=== PATIENT | female | born 1945 | race Caucasian/White ===

== ENCOUNTER 2019-01-04 07:17 | Inpatient (IN) ==
[2019-01-04 09:03] LABS: INR 1.1 (0.9-1.1); Prothrombin Time 10.8 Seconds (9.0-12.0)
[2019-01-04] MEDS ORDERED: ACETAMINOPHEN 325 MG TAB PO PRN (10:08)
[2019-01-04] MEDS ORDERED: CARBOHYDRATES FOR HYPOGLYCEMIA PO PRN (10:08)
[2019-01-04] MEDS ORDERED: DEXTROSE 50% 50 ML SYRINGE IV PRN (10:08)
[2019-01-04] MEDS ORDERED: GLUCAGON FOR INJ 1 MG VIAL SQ PRN (10:08)
[2019-01-04] MEDS ORDERED: INSULIN GLARGINE U U SQ SCH (10:08)
[2019-01-04] MEDS ORDERED: LORazepam 0.5 MG/1 ML VIAL IV PRN (10:08)
[2019-01-04] MEDS ORDERED: POLYETHYLENE (MIRALAX) 17 GM PACK PO PRN (10:08)
[2019-01-04] MEDS ORDERED: GLUCOSE 40% GEL 15 GM TUBE PO PRN (10:08)
[2019-01-04] MEDS ORDERED: ONDANSETRON INJ 2 MG/ML 2 ML VIAL IV PRN (10:08)
[2019-01-04] MEDS ORDERED: GLUCOSE 10 TABS/TUBE PO PRN (10:08)
[2019-01-04] MEDS ORDERED: OXYGEN SCH (10:08)
[2019-01-04] MEDS ORDERED: MoRPHine SULFATE 2 MG/ML CARP IV PRN (10:08)
--- NOTE | 2019-01-04 10:37 | XRay Report ---
SINGLE VIEW CHEST CLINICAL HISTORY: Cough. FINDINGS: An AP, portable, upright chest radiograph is compared to study dated 09/15/2018. The examina tion is degraded by portable technique, apical lordotic positioning, and patient rotation. The cardi omediastinal silhouette is unremarkable noting atherosclerotic calcification of the thoracic aorta. E mphysema and chronic interstitial thickening are similar to previous. There are right basilar opaciti es. A small right pleural effusion is not excluded. No pneumothorax is seen. The skeletal structures are osteopenic. The bony thorax is grossly intact. IMPRESSION: 1. There are right basilar airspace opacities which could represent atelectasis and/or pneumonia. Cli nical correlation will be required and radiographic follow-up to resolution is recommended. 2. Emphysematous change is again noted. Electronically signed by: James Marshall M.D. 01/04/2019 10:35 AM
[2019-01-04] MEDS ORDERED: TRAMADOL HCL 50 MG TABLET PO PRN (10:39)
[2019-01-04] MEDS ORDERED: INSULIN GLARGINE SOLOSTAR 100 UNITS/ML 3 ML PEN SC ONE (10:45)
[2019-01-04] MEDS: methylPREDNISolone 40 MG in SYRINGE 0 ML IV SCH ×2 (10:46→20:47)
[2019-01-04] MEDS: ALBUT/IPRATROP 3MG/0.5MG NEB 3 ML VIAL NEB SCH ×4 (11:18→23:16)
[2019-01-04 11:32] LABS: Hematocrit (blood only) 36.3 % (37-47); Hemoglobin 11.4 g/dL (12.0-16.0); Mean Corpuscular Hgb Conc 31.4 g/dL (32-36); Mean Corpuscular Volume 87.1 fL (80-100); Platelet Count 232 K/uL (130-400); RDW Coefficient of Variation 16.3 % (11.5-14.5); RDW Standard Deviation 51.9 fL (36.4-46.3); Red Blood Count 4.17 M/uL (4.2-5.4); White Blood Count 10.17 K/uL (4.8-10.8)
[2019-01-04] MEDS: SERTRALINE HCL 50 MG TABLET PO SCH (11:44)
[2019-01-04] MEDS: FEXOFENADINE HCL 180 MG TAB PO SCH (11:45)
[2019-01-04] MEDS: AMLODIPINE BESYLATE 5 MG TAB PO SCH (11:46)
[2019-01-04] MEDS: POTASSIUM CHLORIDE 20 MEQ TABCR PO SCH ×2 (11:46→20:47)
[2019-01-04] MEDS: ISOSORBIDE MONO EXTENDED REL 30 MG TABCR PO SCH (11:47)
[2019-01-04] MEDS: GABAPENTIN 100 MG CAP PO SCH ×2 (11:47→20:47)
[2019-01-04] MEDS: LOSARTAN POTASSIUM 50 MG TAB PO SCH (11:47)
[2019-01-04] MEDS: guaiFENesin 600 MG TABCR PO SCH ×2 (11:48→20:47)
[2019-01-04] MEDS: PANTOprazole 40 MG TAB PO SCH ×2 (11:48→20:47)
[2019-01-04] MEDS: FUROSEMIDE 20 MG TAB PO SCH (11:48)
[2019-01-04] MEDS: METAXALONE 800 MG TABLET PO SCH ×2 (11:49→20:47)
[2019-01-04] MEDS: METOPROLOL SUCC 50MG EXT REL TAB PO SCH ×2 (11:49→20:47)
[2019-01-04] MEDS: INSULIN ASPART 100 UNITS/ML 3 ML PEN SC SCH ×3 (12:05→21:05)
--- NOTE | 2019-01-04 12:33 | Consultation Report ---
DATE OF CONSULTATION: 01/04/2019 PULMONARY MEDICINE CONSULTATION REASON FOR CONSULTATION: 1. Chronic obstructive pulmonary disease exacerbation. 2. Chronic bronchiectasis with mucoid impaction. 3. History of adenocarcinoma of the lung. HISTORY OF PRESENT ILLNESS: A 73-year-old white female followed extensively by Ashish Ledesma/physician human services assistant in our pulmonary practice along with Jennifer Viramontes, midlevel provider in [place]. The patient has severe COPD and chronic bronchiectasis, was last seen in clinic on 12/15/2018. She has noted increased dyspnea with exertion to the point where this week could not navigate ambulation or climbing stairs or walking up a grade without severe dyspnea, wheezing and congestion. No hemoptysis or pleuritic pain has been noted. She has been on oxygen continually. Denies fevers, chills or sweats. She has average 2 packs of cigarettes a day, began smoking at age 22, quit in the year 1999. She uses a nebulizer with DuoNeb solution 4 times daily, was on oxygen at 4 liters continually along with diuresis and Plavix therapy, and beta blockade. She is status post right thoracotomy, right middle lobectomy that was performed in March 2014. She had a stormy postoperative course requiring extensive rehabilitation. She had a stage I lung cancer with 0 of 7 lymph nodes negative for malignancy. She did not receive postoperative chemoradiation. The patient is on multiple antibiotics and steroid therapy prior to the consideration of bronchoscopy this morning, but when she arrived here, she was markedly dyspneic and congested. She often sees Ashish Ledesma at [facility], suffers from diabetes mellitus, esophageal reflux, dyslipidemia and adenocarcinoma of the lung along with allergic rhinitis. In May 2018, she was admitted with acute on chronic respiratory failure, responded to BiPAP therapy along with aggressive management, although she did not tolerate BiPAP well. CT scan on 06/05/2018 showed left lower lobe atelectasis with a small effusion and extrinsic compression of the left lower lobe bronchus. ABGs in the past have shown marked A-a gradient and she has required O2 supplementation at 4 liters. She had been under the care of Dr. Ocampo previously. FEV1 in the remote past was 1.27 liters or 59% of predicted. She has undergone cardiac catheterization with stent placement in 2000. For details of past medical history, medications, family and social history, I refer you to current and past record. Most recent hospitalization and discharge was October 2018 for COPD exacerbation. ALLERGIES: SHE HAS ALLERGIES TO SULFA, FENTANYL, LEVOFLOXACIN AND ONE OF THE STATINS. PHYSICAL EXAMINATION: GENERAL: Reveals well-developed, well-nourished elderly white female appearing older than stated age. VITAL SIGNS: Heart rate 110 and regular, respiratory rate 26, O2 sat 90% on 4 liters, blood pressure 140/80. SKIN: Without lesion. HEENT: Atraumatic, normocephalic. PERRLA. LUNGS: Coarse wheezes diffusely with marked hyperresonance. CARDIAC: Regular rate and rhythm. Sinus tachycardia. No murmurs or gallops. ABDOMEN: Soft, protuberant. No evidence for hepatosplenomegaly. EXTREMITIES: Trace to +1 pedal edema. No clubbing. Peripheral cyanosis. NEUROLOGIC: Intact. No lateralizing signs. LABORATORY DATA: Pending. Most recent CT scan reviewed on 12/04/2018, this is of the abdomen and pelvis, but does show emphysematous changes involving the lung and the CAT scan and CTA done in September 2018, that lead to the admission, did not show any acute infiltrate and stable chronic changes noted. OVERALL ASSESSMENT: A 73-year-old with severe chronic obstructive pulmonary disease, chronic bronchiectasis, previous right middle lobectomy for stage I adenocarcinoma of the lung, now with acute exacerbations, previous infection secondary to Stenotrophomonas maltophilia. The patient will be admitted to the hospital for treatment of her chronic obstructive pulmonary disease exacerbation, acute pulmonary toilet that will require also aerosolized bronchodilator, IV Solu-Medrol and coverage, especially for Stenotrophomonas maltophilia with gram-negative coverage. The patient cannot undergo bronchoscopic evaluation with BAL today due to severe bronchospasm and O2 requirements, but may need to be considered for bronchoscopy with BAL after several days of aggressive medical therapy if that consideration is warranted.
--- NOTE | 2019-01-04 12:38 | History & Physical Report ---
Date of Service January 04, 2019 Assessment & Plan (1) COPD with acute exacerbation: chronic hypoxic respiratory failure Intravenous Solu-Medrol 40 every 12 Duo nebs 4 times daily ER Continuing guaifenesin Supplemental oxygen at home is 4 L Will reengage with pulmonary medicine if she improves to consider having her bronchoscopy while she is an inpatient Concern for bronchitis patient will be on Ceftriaxone/azithromycin, cxr cannot rule out right basilar changes that could be pneumonia or atelectasis (2) Depression: Patient will continue her Zoloft (3) Coronary artery disease: Patient is been without anginal symptoms she is maintained on isosorbide, losartan, Toprol-XL, amlodipine, Crestor, and Lasix. Antiplatelets have been held for her procedure (4) Diabetes: Patient states she typically takes 80 units of Toujeo at home with sliding scale. As her diet will change her should be on a carbohydrate restricted diet will reduce her Toujeo have her on sliding scale with carb coverage and correction factor (5) DVT prophylaxis: Heparin subcu for DVT prevention History of Present Illness Primary Care Provider: Jennifer Viramontes 73-year-old female who came in for an outpatient bronchoscopy. Patient typically follows with Dr. Steele and does wear 4 L of oxygen at home. She suffers from pulmonary disease for a long period of time. She was in her facility most recently in the early winter 2017 where she was treated. At that time she says her sputum turned back to white but most recently she is had increased sputum production which is been yellow. Dr. Steele had her come in for a scheduled bronchoscopy but due to her acute respiratory failure felt she was too unstable to perform bronchoscopy with anesthesia and recommended admission for acute on chronic respiratory failure with possible bronchitis Patient denies any other changes to her health she typically is very dyspneic with minimal exertion although having no chest pain associated with it. The sputum production as mentioned above is changed. She has no bowel or bladder changes she said no recent thrush Allergies Allergy/AdvReac Type Severity Reaction Status Date / Time fentanyl Allergy Intermediate RASH Verified 01/04/19 07:48 levofloxacin Allergy Intermediate UNKNOWN Verified 01/04/19 07:48 Penicillins Allergy Intermediate RASH Verified 01/04/19 07:48 Ethanol Allergy Intermediate RASH Uncoded 03/18/16 07:51 Home Medications Home Medications Medication Instructions Recorded Confirmed Type ALBUTEROL SULFATE (PROAIR HFA) 2 puff INHALATION QID #0 12/27/13 01/04/19 History Amlodipine (Norvasc) 10 mg PO QAM #0 tab 12/27/13 01/04/19 History Clopidogrel Bisulfate (Clopidogrel) 75 mg PO QAM #0 12/27/13 01/04/19 History MONTELUKAST SODIUM (SINGULAIR) 10 mg PO QPM #0 tab 12/27/13 01/04/19 History Metoprolol Succinate (Toprol Xl) 100 mg PO BID #0 12/27/13 01/04/19 History Rosuvastatin Calcium (Crestor) 20 mg PO QPM #0 12/27/13 01/04/19 History Isosorbide Mononitrate Ext Rel 30 mg PO QAM #0 tab 12/29/13 01/04/19 History (Imdur Ext Rel) Cyanocobalamin (Vitamin B-12 Inj) 1,000 mcg IM 2XMONTH #0 01/19/14 01/04/19 History DUONEB 2 inh INHALATION Q4-HRSPRN PRN #0 01/19/14 01/04/19 History MOMETASONE FUROATE-FORMOTEROL 2 puff INHALATION BID #0 01/19/14 01/04/19 History (DULERA 100/5 MCG) HOME O2 THERAPY (Oxygen) 4 liters NA DAILY 30 Days #0 02/05/14 01/04/19 Rx FEXOFENADINE HCL (BERNARD ALLERGY) 1 tab PO DAILY 30 Days #30 tab 12/19/15 01/04/19 History Nitroglycerin (Nitrostat) 0.4 mg UT PRN #0 btl 12/19/15 01/04/19 History Potassium Chloride (Micro-K Ext 20 meq PO BID #0 cap 12/19/15 01/04/19 History Rel) Tramadol (Ultram) 1 tab PO TID PRN 30 Days #90 tab 12/19/15 01/04/19 History Triamcinolone Acet 0.1% 1 applic TOPICAL TID PRN #0 12/19/15 01/04/19 History (Aristocort 0.1%) doxycycline hyclate 100 mg PO BID 01/04/19 01/04/19 History furosemide 10 mg PO DAILY 01/04/19 01/04/19 History gabapentin 100 mg PO BID 01/04/19 01/04/19 History guaifenesin [Mucinex] 600 mg PO BID 01/04/19 01/04/19 History insulin aspart U-100 [Novolog 1 sliding scale dose SUBCUT 01/04/19 01/04/19 History U-100 Insulin aspart] USEASDIRECTD insulin glargine U-300 conc 70 unit SUBCUT DAILY 01/04/19 01/04/19 History [Toujeo SoloStar U-300 Insulin] losartan [Cozaar] 100 mg PO DAILY 01/04/19 01/04/19 History metaxalone 800 mg PO BID 01/04/19 01/04/19 History omeprazole magnesium [Prilosec OTC] 20 mg PO BID 01/04/19 01/04/19 History sertraline [Zoloft] 50 mg PO DAILY 01/04/19 01/04/19 History Past Med/Surg History Medical History Anxiety Atrial fibrillation Chronic back pain Chronic obstructive pulmonary disease Chronically on 4 L of oxygen Depression Diabetes mellitus, type 2 GERD (gastroesophageal reflux disease) Hyperlipidemia Hypertension Lung cancer Myocardial Infarction Pneumonia Syncope Valvular heart disease Surgical History History of heart artery stent History of lobectomy of lung Patient had a lobectomy for lung cancer of her right lung 2014 Family History Unknown Diabetes Cancer Social History Preferred Language: Macanese Communication Ability: Effective Visual Impairment: No Limitations Senior Ux Developer Required: No Beliefs That Will Affect Care: None Current Living Situation: Spouse Other Information That Helps Us Care for You: No Feels Safe at Home: Yes Safety Concerns: Feels Safe At This Time Smoking Status: Former smoker Tobacco Type: cigarettes Second Hand Exposure: No Tobacco Cessation Education Requested by Patient: No Hx Alcohol Use: No Hx Substance Use: No Review of Systems Review of Systems: ROS: well nourished well developed. No double vision blurry vision No problems with speech or swallowing No palpitations, chest pain or pressure dyspnea on exertion, cough with yellow sputum No abdominal pain nausea vomiting diarrhea changes in appetite or weight No burning urine urine frequency or changes in color No focal joint pain or muscle pain No skin rashes or oral lesions No unusual bruising or bleeding No focused back pain or numbness or loss of strength No changes in memory or confusion Physical Exam Physical Exam: The patient appeared well nourished and in mild to moderated respiratory distress Vital signs as documented. Head exam is unremarkable. normocephalic, atraumatic Neck is without jugular venous distension, thyromegaly, or lymphademopathy Lungs are with poor air movement, loose cough, rales at base, wheezes at apex Cardiac exam reveals Rate controlled, irregular, systolic murmur Abdominal exam reveals normal bowel sounds, no masses, no organomegaly Extremities are nonedematous and both pedal pulses are present Neurologic exam is A&Ox3, no focal deficits, strength is equal bilateral Psychologically seems neither anxious or depressed Skin is warm Dry without bruises or lesions Results & Data Vital Signs (Past 12 Hours) Vital Signs Temp Pulse Resp BP Pulse Ox 01/04/19 11:18 61 16 90 01/04/19 10:13 36.8 C 67 20 156/70 H 92 01/04/19 08:09 37.1 C 78 24 140/62 96 PG Care Time/CCT Total # of Minutes Spent Total Time Spent with Patient: Total time spent is greater than 50% in coordination of care (as documented) at patient's floor/unit and/or counseling patient:
[2019-01-04] MEDS ORDERED: AZITHROMYCIN 500 MG in DEXTROSE 5% 250 ML IV ONE (14:00)
[2019-01-04] MEDS ORDERED: cefTRIAXone SODIUM 2,000 MG in DEXTROSE 5% 50 ML IV SCH (14:30)
[2019-01-04] MEDS: HEPARIN SOD 5,000 UNIT/0.5 ML VIAL SQ SCH (20:47)
[2019-01-04] MEDS: ROSUVASTATIN CALCIUM 20 MG TAB PO SCH (20:47)
[2019-01-05] MEDS: ALBUT/IPRATROP 3MG/0.5MG NEB 3 ML VIAL NEB SCH ×6 (03:19→23:00)
[2019-01-05] MEDS ORDERED: METOPROLOL TARTRATE 1 MG/ML VIAL IV ONE (04:50)
[2019-01-05 08:27] LABS: BUN Creatinine Ratio 22.6 (10-20); Calcium 9.7 mg/dl (8.5-10.1); Creatinine Clr Calc Pharmacy 54.9 ml/min; Est GFR (African American) 69.8; Est GFR (Non-African American) 60.3; Potassium 4.4 mmol/L (3.5-5.1)
[2019-01-05] MEDS: SERTRALINE HCL 50 MG TABLET PO SCH (08:53)
[2019-01-05] MEDS: ISOSORBIDE MONO EXTENDED REL 30 MG TABCR PO SCH (08:53)
[2019-01-05] MEDS: PANTOprazole 40 MG TAB PO SCH ×2 (08:54→21:20)
[2019-01-05] MEDS: FEXOFENADINE HCL 180 MG TAB PO SCH (08:54)
[2019-01-05] MEDS: METOPROLOL SUCC 50MG EXT REL TAB PO SCH ×2 (08:54→21:20)
[2019-01-05] MEDS: methylPREDNISolone 40 MG in SYRINGE 0 ML IV SCH (08:54)
[2019-01-05] MEDS: LOSARTAN POTASSIUM 50 MG TAB PO SCH (08:54)
[2019-01-05] MEDS: HEPARIN SOD 5,000 UNIT/0.5 ML VIAL SQ SCH ×2 (08:55→21:17)
[2019-01-05] MEDS: guaiFENesin 600 MG TABCR PO SCH ×2 (08:55→21:20)
[2019-01-05] MEDS: FUROSEMIDE 20 MG TAB PO SCH (08:55)
[2019-01-05] MEDS: POTASSIUM CHLORIDE 20 MEQ TABCR PO SCH ×2 (08:55→21:20)
[2019-01-05] MEDS: AMLODIPINE BESYLATE 5 MG TAB PO SCH (08:57)
[2019-01-05] MEDS: METAXALONE 800 MG TABLET PO SCH ×2 (08:57→21:20)
[2019-01-05] MEDS: GABAPENTIN 100 MG CAP PO SCH ×2 (08:57→21:20)
[2019-01-05] MEDS: INSULIN ASPART 100 UNITS/ML 3 ML PEN SC SCH ×4 (08:59→21:14)
[2019-01-05] MEDS ORDERED: INSULIN GLARGINE SOLOSTAR 100 UNITS/ML 3 ML PEN SC SCH (09:00)
[2019-01-05] MEDS: AZITHROMYCIN 250 MG TAB PO SCH (09:06)
[2019-01-05 09:57] LABS: Estimated Average Glucose 183 mg/dl
--- NOTE | 2019-01-05 10:55 | Infectious Disease Consult ---
Date of Consultation January 05, 2019 Assessment & Plan (1) Multifocal pneumonia: 73-year-old female with severe COPD with worsening respiratory status with possible developing multifocal pneumonia, with recent culture positive for stenotrophomonas. Patient allergic/intolerant of Bactrim and levofloxacin, so will give ceftaz edema as patient already tolerating ceftriaxone. Could consider addition of minocycline if fails to improve. Await bronchoscopy results when able to perform. Procalcitonin ordered. Will follow. (2) Infection due to Stenotrophomonas maltophilia: History of Present Illness Reason for Consultation: Previous Stenotrophomonas infection, penicillin allergy Attending Physician: Alejandro Lehman MD History of Present Illness 73-year-old female with long history of COPD with chronic hypoxia, need for oxygen, multiple admissions for infection, as well as hypertension, coronary artery disease, prior lung resection for cancer, who was admitted with progressively worsening shortness of breath, was scheduled for bronchoscopy but felt too ill for procedure and so admitted to the hospital for further management. Checks x-ray with possibility of multifocal infiltrates. Reportedly recent sputum culture has grown stenotrophomonas. Patient currently being treated with ceftriaxone. Feeling somewhat better this morning. No reported fever. No other significant exposure or travel history. Allergies Allergy/AdvReac Type Severity Reaction Status Date / Time fentanyl Allergy Intermediate RASH Verified 01/04/19 07:48 levofloxacin Allergy Intermediate UNKNOWN Verified 01/04/19 07:48 Penicillins Allergy Intermediate RASH Verified 01/04/19 07:48 Ethanol Allergy Intermediate RASH Uncoded 03/18/16 07:51 Home Medications Home Medications Medication Instructions Recorded Confirmed Type ALBUTEROL SULFATE (PROAIR HFA) 2 puff INHALATION QID #0 12/27/13 01/04/19 History Amlodipine (Norvasc) 10 mg PO QAM #0 tab 12/27/13 01/04/19 History Clopidogrel Bisulfate (Clopidogrel) 75 mg PO QAM #0 12/27/13 01/04/19 History MONTELUKAST SODIUM (SINGULAIR) 10 mg PO QPM #0 tab 12/27/13 01/04/19 History Metoprolol Succinate (Toprol Xl) 100 mg PO BID #0 12/27/13 01/04/19 History Rosuvastatin Calcium (Crestor) 20 mg PO QPM #0 12/27/13 01/04/19 History Isosorbide Mononitrate Ext Rel 30 mg PO QAM #0 tab 12/29/13 01/04/19 History (Imdur Ext Rel) Cyanocobalamin (Vitamin B-12 Inj) 1,000 mcg IM 2XMONTH #0 01/19/14 01/04/19 History DUONEB 2 inh INHALATION Q4-HRSPRN PRN #0 01/19/14 01/04/19 History MOMETASONE FUROATE-FORMOTEROL 2 puff INHALATION BID #0 01/19/14 01/04/19 History (DULERA 100/5 MCG) HOME O2 THERAPY (Oxygen) 4 liters NA DAILY 30 Days #0 02/05/14 01/04/19 Rx FEXOFENADINE HCL (BERNARD ALLERGY) 1 tab PO DAILY 30 Days #30 tab 12/19/15 01/04/19 History Nitroglycerin (Nitrostat) 0.4 mg UT PRN #0 btl 12/19/15 01/04/19 History Potassium Chloride (Micro-K Ext 20 meq PO BID #0 cap 12/19/15 01/04/19 History Rel) Tramadol (Ultram) 1 tab PO TID PRN 30 Days #90 tab 12/19/15 01/04/19 History Triamcinolone Acet 0.1% 1 applic TOPICAL TID PRN #0 12/19/15 01/04/19 History (Aristocort 0.1%) doxycycline hyclate 100 mg PO BID 01/04/19 01/04/19 History furosemide 10 mg PO DAILY 01/04/19 01/04/19 History gabapentin 100 mg PO BID 01/04/19 01/04/19 History guaifenesin [Mucinex] 600 mg PO BID 01/04/19 01/04/19 History insulin aspart U-100 [Novolog 1 sliding scale dose SUBCUT 01/04/19 01/04/19 History U-100 Insulin aspart] USEASDIRECTD insulin glargine U-300 conc 70 unit SUBCUT DAILY 01/04/19 01/04/19 History [Toujeo SoloStar U-300 Insulin] losartan [Cozaar] 100 mg PO DAILY 01/04/19 01/04/19 History metaxalone 800 mg PO BID 01/04/19 01/04/19 History omeprazole magnesium [Prilosec OTC] 20 mg PO BID 01/04/19 01/04/19 History sertraline [Zoloft] 50 mg PO DAILY 01/04/19 01/04/19 History Patient History Medical History Anxiety Atrial fibrillation Chronic back pain Chronic obstructive pulmonary disease Chronically on 4 L of oxygen Depression Diabetes mellitus, type 2 GERD (gastroesophageal reflux disease) Hyperlipidemia Hypertension Lung cancer Myocardial Infarction Pneumonia Syncope Valvular heart disease Surgical History History of heart artery stent History of lobectomy of lung Patient had a lobectomy for lung cancer of her right lung 2013 Family History Unknown Diabetes Cancer Social History Preferred Language: Peruvian Communication Ability: Effective Visual Impairment: No Limitations Hematology Supervisor Required: No Beliefs That Will Affect Care: None Current Living Situation: Spouse Other Information That Helps Us Care for You: No Feels Safe at Home: Yes Safety Concerns: Feels Safe At This Time Smoking Status: Former smoker Tobacco Type: cigarettes Second Hand Exposure: No Tobacco Cessation Education Requested by Patient: No Hx Alcohol Use: No Hx Substance Use: No Review of Systems Review of Systems: All systems reviewed & are unremarkable except as noted in HPI & below Physical Exam Constitutional: WD/WN, vitals as above comfortable; no acute distress Eyes: PERRL, conjunctivae normal, anicteric sclerae ENMT: external ear and nose normal, oropharynx normal Neck: trachea midline, no thyromegaly neck nontender Respiratory: normal percussion; no respiratory distress and does not use accessory muscles Auscultation: + diminished lung sounds and + wheezes (At apices) Cardiovascular: Rate/Rhythm: regular rate and regular rhythm Heart Sounds: normal S1 and normal S2; no gallop, no murmur and no cardiac rub Vessels: normal peripheral pulses; no JVD Gastrointestinal (Abdomen): normal bowel sounds, soft, nontender, no hepatosplenomegaly Musculoskeletal: no cyanosis or clubbing, extremities motor strength 5/5 Spine: thoracic spine normal to inspection and lumbar spine normal to inspection; no cervical spinal tenderness Skin: no rashes, warm and dry normal turgor; no lesions Neurologic: patellar DTR's 2+ bilat, sensation intact no focal motor deficits Psychiatric: A+Ox3, euthymic affect Orientation: cooperative Lymphatic: no cervical or axillary lymphadenopathy no inguinal lymphadenopathy Results & Data Vital Signs (Past 12 Hours) Vital Signs Temp Pulse Pulse Resp BP BP BP 01/05/19 07:42 36.6 C 90 18 154/73 H 01/05/19 06:16 87 20 01/05/19 05:02 90 175/66 H 01/05/19 04:56 90 188/84 H 01/05/19 04:19 91 H 190/76 H 01/05/19 04:10 36.6 C 91 H 19 188/74 H 01/05/19 00:00 90 01/04/19 23:36 36.9 C 88 16 166/69 H Pulse Ox 01/05/19 07:42 91 01/05/19 06:16 91 01/05/19 05:02 01/05/19 04:56 01/05/19 04:19 01/05/19 04:10 96 01/05/19 00:00 01/04/19 23:36 92 Laboratory Results Short CBC 01/04/19 Range/Units 11:16 WBC 10.17 (4.8-10.8) K/uL Hgb 11.4 L (12.0-16.0) g/dL Hct 36.3 L (37-47) % Plt Count 232 (130-400) K/uL BMP 01/05/19 07:40 Sodium 139 Potassium 4.4 Chloride 105 Carbon Dioxide 24 BUN 22 H Creatinine 0.95 Glucose 276 H Calcium 9.7 Diagnostic Findings SINGLE VIEW CHEST CLINICAL HISTORY: Cough. FINDINGS: An AP, portable, upright chest radiograph is compared to study dated 09/15/2018. The examination is degraded by portable technique, apical lordotic positioning, and patient rotation. The cardiomediastinal silhouette is u nremarkable noting atherosclerotic calcification of the thoracic aorta. Emphysema and chronic interstitial thickening are similar to previous. There are right basilar opacities. A small right pleural effusion is not excluded. No pneumothorax is seen. The skeletal structures are osteopenic. The bony thorax is grossly intact. IMPRESSION: 1. There are right basilar airspace opacities which could represent atelectasis and/or pneumonia. Clinical correlation will be required and radiographic follow- up to resolution is recommended. 2. Emphysematous change is again noted. Electronically signed by: James Marshall M.D. 01/04/2019 10:35 AM Dictated: 01/04/19 1032 Transcribed: 01/04/19 1032
--- NOTE | 2019-01-05 13:45 | Hospitalist Progress Note ---
Date of Service January 05, 2019 Assessment & Plan (1) COPD with acute exacerbation: chronic hypoxic respiratory failure Intravenous Solu-Medrol increased to 60 mg every 12 Duo nebs 4 times daily adding arformoterol on 01/05 Continuing guaifenesin as expectorant Supplemental oxygen at home is 4 L Pulmonary medicine is following Concern for bronchitis with a history of stenotrophomonas patient was changed to ceftazidime/azithromycin by infectious disease, cxr cannot rule out right basilar changes that could be pneumonia or atelectasis (2) Depression: Patient remains on Zoloft (3) Coronary artery disease: Patient is been without anginal symptoms she is maintained on isosorbide, losartan, Toprol-XL, amlodipine, Crestor, and Lasix. Antiplatelets have been held for her procedure we will reinstitute when it is clear that there are no immediate plans for bronchoscopy at this time (4) Diabetes: Patient states she typically takes 80 units of Toujeo at home with sliding scale. As her diet will change her should be on a carbohydrate restricted diet, initially did reduce her Toujeo, pharmacy substituted glargine will increase the dose to 45 units at bedtime starting on 01/06, and have her continue on sliding scale with carb coverage and correction factor (5) DVT prophylaxis: Heparin subcu for DVT prevention Subjective Patient has persistent fairly aggressive recurrent cough with production of yellow sputum. Given recommendations from previous Stenotrophomonas infections her antibiotics have been amended by infectious disease to ceftazidime and azithromycin. Patient feels no better from admission Review of Systems Review of Systems: ROS: well nourished well developed. No double vision blurry vision No problems with speech or swallowing No palpitations, chest pain or pressure Persistent shortness of breath wheezing and coughing No abdominal pain nausea vomiting diarrhea changes in appetite or weight No burning urine urine frequency or changes in color No focal joint pain or muscle pain No skin rashes or oral lesions No unusual bruising or bleeding No focused back pain or numbness or loss of strength No changes in memory or confusion Physical Exam Physical Exam: The patient appeared well nourished and in mild to moderate respiratory distress Vital signs as documented. Head exam is unremarkable. normocephalic, atraumatic Neck is without jugular venous distension, thyromegaly, or lymphademopathy Lungs are coarse bilaterally with rhonchi at the bases and wheezing at the apex Cardiac exam reveals Rhythm is regular. Slight systolic ejection murmurs heard at the right upper sternal border Abdominal exam reveals normal bowel sounds, no masses, no organomegaly Extremities are nonedematous and both pedal pulses are present Neurologic exam is A&Ox3, no focal deficits, strength is equal bilateral Psychologically seems neither anxious or depressed Skin is warm Dry Results & Data Vital Signs (Past 12 Hours) Vital Signs Temp Pulse Pulse Resp BP BP Pulse Ox 01/05/19 11:15 73 18 166/74 H 91 01/05/19 11:08 81 16 91 01/05/19 07:42 36.6 C 90 18 154/73 H 91 01/05/19 06:16 87 20 91 01/05/19 05:02 90 175/66 H 01/05/19 04:56 90 188/84 H 01/05/19 04:19 91 H 190/76 H 01/05/19 04:10 36.6 C 91 H 19 188/74 H 96 PG Care Time/CCT Total # of Minutes Spent Total Time Spent with Patient: Total time spent is greater than 50% in coordination of care (as documented) at patient's floor/unit and/or counseling patient:
--- NOTE | 2019-01-05 14:11 | Progress Note ---
DATE: 01/05/2019 PULMONARY MEDICINE PROGRESS NOTE Chart reviewed, the patient examined. SUBJECTIVE: The patient states she is somewhat better since admission, but is extremely breathless this morning and markedly desaturated despite high flow O2. The patient was seen by Dr. Thrasher from infectious disease and because of previous history of multifocal pneumonia secondary to Stenotrophomonas maltophilia and her allergy or intolerance to Bactrim and levofloxacin, he placed her on ceftazidime and with the addition of minocycline if the patient fails to be improve. This morning, I examined her and she still remains quite breathless and she has not smoked since 1999. OBJECTIVE: CURRENT VITAL SIGNS: Blood pressure 166/74, pulse 73 and regular, respiratory rate 18, temperature 36.6, O2 sat 91% on 4 liters. SKIN: Without lesion. HEENT: Atraumatic, normocephalic. PERRLA. LUNGS: Coarse wheezes and rhonchi diffusely. CARDIAC: Regular rate and rhythm. No murmurs or gallops. PMI nondisplaced. ABDOMEN: Soft, protuberant. No evidence of hepatosplenomegaly. EXTREMITIES: No significant pedal edema, clubbing or cyanosis. NEUROLOGIC: Intact. No lateralizing signs. LABORATORY DATA: Chest x-ray on admission, right basilar airspace opacities and emphysemas again seen. Blood cultures negative to date. Last chest CT May 2018 suggested extrinsic compression of the left lower lobe bronchus, left lower lobe atelectasis and interstitial changes noted along with emphysema. Previous bronchoscopy washings have been negative from May 2018. Most recent white count 10,100, H and H 11.4 and 36.3. The patient has hyperchromic microcytic indices. Her H and H reached a zenith on 06/09/2018 at 14.8 and 45.6 which is a drop of 3-1/2 grams since that time. BUN 22, creatinine 0.9. OVERALL ASSESSMENT: A 73-year-old with severe chronic obstructive pulmonary disease/asthma, previous history of multifocal pneumonia secondary to Stenotrophomonas maltophilia, currently receiving aggressive management, but only exhibiting mild improvement since admission. I still believe the patient is too compromised from a respiratory standpoint to undergo further intervention including bronchoscopic evaluation, but will continue to monitor the patient daily and reevaluate.
[2019-01-05] MEDS: ARFORMOTEROL TART 15MCG/2ML VIAL INH SCH (19:31)
[2019-01-05] MEDS ORDERED: Nursing to Pharmacy Communication ONE (21:08)
[2019-01-05] MEDS: ROSUVASTATIN CALCIUM 20 MG TAB PO SCH (21:20)
[2019-01-05] MEDS: methylPREDNISolone 60 MG in SYRINGE 0 ML IV SCH (21:20)
[2019-01-05] MEDS ORDERED: BENZONATATE 100 MG CAPSULE PO PRN (23:39)
[2019-01-06] MEDS ORDERED: INSULIN ASPART 100 UNITS/ML 3 ML PEN SC SCH
[2019-01-06] MEDS: ALBUT/IPRATROP 3MG/0.5MG NEB 3 ML VIAL NEB SCH ×6 (04:06→23:09)
[2019-01-06] MEDS: ARFORMOTEROL TART 15MCG/2ML VIAL INH SCH ×2 (07:02→19:09)
[2019-01-06 07:13] LABS: Hematocrit (blood only) 39.3 % (37-47); Hemoglobin 12.5 g/dL (12.0-16.0); Mean Corpuscular Hgb Conc 31.8 g/dL (32-36); Mean Corpuscular Volume 86.2 fL (80-100); Mean Platelet Volume 12.2 fL (7.4-10.4); Platelet Count 232 K/uL (130-400); RDW Coefficient of Variation 16.2 % (11.5-14.5); RDW Standard Deviation 51.1 fL (36.4-46.3); Red Blood Count 4.56 M/uL (4.2-5.4); White Blood Count 12.55 K/uL (4.8-10.8)
[2019-01-06 07:51] LABS: BUN Creatinine Ratio 26.9 (10-20); Calcium 9.6 mg/dl (8.5-10.1); Creatinine Clr Calc Pharmacy 50.4 ml/min; Est GFR (African American) 63.3; Est GFR (Non-African American) 54.6; Potassium 4.8 mmol/L (3.5-5.1)
[2019-01-06] MEDS: INSULIN ASPART 100 UNITS/ML 3 ML PEN SC SCH ×4 (08:13→21:03)
[2019-01-06] MEDS: AZITHROMYCIN 250 MG TAB PO SCH (08:16)
[2019-01-06] MEDS: ISOSORBIDE MONO EXTENDED REL 30 MG TABCR PO SCH (08:17)
[2019-01-06] MEDS: AMLODIPINE BESYLATE 5 MG TAB PO SCH (08:17)
[2019-01-06] MEDS: LOSARTAN POTASSIUM 50 MG TAB PO SCH (08:17)
[2019-01-06] MEDS: FEXOFENADINE HCL 180 MG TAB PO SCH (08:18)
[2019-01-06] MEDS: POTASSIUM CHLORIDE 20 MEQ TABCR PO SCH ×2 (08:18→20:43)
[2019-01-06] MEDS: guaiFENesin 600 MG TABCR PO SCH ×2 (08:18→20:41)
[2019-01-06] MEDS: methylPREDNISolone 60 MG in SYRINGE 0 ML IV SCH (08:18)
[2019-01-06] MEDS: HEPARIN SOD 5,000 UNIT/0.5 ML VIAL SQ SCH ×2 (08:19→21:05)
[2019-01-06] MEDS: SERTRALINE HCL 50 MG TABLET PO SCH (08:19)
[2019-01-06] MEDS: METAXALONE 800 MG TABLET PO SCH ×2 (08:19→20:43)
[2019-01-06] MEDS: FUROSEMIDE 20 MG TAB PO SCH (08:20)
[2019-01-06] MEDS: GABAPENTIN 100 MG CAP PO SCH ×2 (08:20→20:43)
[2019-01-06] MEDS: METOPROLOL SUCC 50MG EXT REL TAB PO SCH ×2 (08:21→20:44)
[2019-01-06] MEDS: PANTOprazole 40 MG TAB PO SCH ×2 (08:21→20:42)
[2019-01-06] MEDS ORDERED: INSULIN GLARGINE SOLOSTAR 100 UNITS/ML 3 ML PEN SC SCH (09:00)
[2019-01-06] MEDS ORDERED: LANTUS PER UNIT CHARGE SQ STA (09:19)
[2019-01-06] MEDS ORDERED: INSULIN GLARGINE SOLOSTAR 100 UNITS/ML 3 ML PEN SC STA (10:07)
--- NOTE | 2019-01-06 13:50 | Hospitalist Progress Note ---
Date of Service January 06, 2019 Assessment & Plan (1) COPD with acute exacerbation: chronic hypoxic respiratory failure, slowly improving Intravenous Solu-Medrol decreased to 40 mg every 12 Duo nebs 4 times daily plus arformoterol added on 01/05 Continuing guaifenesin as expectorant Supplemental oxygen at home is 4 L Pulmonary medicine is following Concern for bronchitis with a history of stenotrophomonas patient was changed to ceftazidime/azithromycin by infectious disease, cxr cannot rule out right basilar changes that could be pneumonia or atelectasis, pulmonary medicine is considering bronchoscopy 01/07 (2) Depression: Patient remains stable on Zoloft (3) Coronary artery disease: Patient continues to be without anginal symptoms while maintained on isosorbide, losartan, Toprol-XL, amlodipine, Crestor, and Lasix. Antiplatelet agents have been held for her procedure. We can reinstitute after procedure (4) Diabetes: Patient states she typically takes 80 units of Toujeo at home with sliding scale. As her diet will change her should be on a carbohydrate restricted diet, initially did reduce her Toujeo, pharmacy substituted glargine will increase the dose to 45 units at bedtime starting on 01/06, and tighten sliding scale with carb coverage and correction factor (5) DVT prophylaxis: Heparin subcu for DVT prevention Subjective Patient states she feels somewhat better today this is after the addition of arformoterol and changing of antibiotics to more appropriately cover previous history of stenotrophomonas infections. Unfortunately elevation of her steroids have also come [id number] with elevations of her glucose subsequently her increasing her basal insulin and tightening her carbohydrate coverage. She says overall though she feels improved Review of Systems Review of Systems: ROS: Patient feels to be a mild to moderate distress No double vision blurry vision No problems with speech or swallowing No palpitations, chest pain or pressure Persistent wheezing coughing and shortness of breath No abdominal pain nausea vomiting diarrhea changes in appetite or weight No burning urine urine frequency or changes in color No focal joint pain or muscle pain No skin rashes or oral lesions No unusual bruising or bleeding No focused back pain or numbness or loss of strength No changes in memory or confusion Physical Exam Physical Exam: The patient appeared in mild to moderate distress Vital signs as documented. Head exam is unremarkable. normocephalic, atraumatic Neck is without jugular venous distension, thyromegaly, or lymphademopathy Lungs are basilar wheezing coarse cough and coarse breath sounds Cardiac exam reveals Rhythm is regular. No murmurs heard today Abdominal exam reveals normal bowel sounds, no masses, no organomegaly Extremities are nonedematous and both pedal pulses are present Neurologic exam is A&Ox3, no focal deficits, strength is equal bilateral Psychologically seems neither anxious or depressed Skin is warm Dry Results & Data Vital Signs (Past 12 Hours) Vital Signs Temp Pulse Pulse Resp BP BP Pulse Ox 01/06/19 11:49 36.8 C 74 18 173/66 H 93 01/06/19 11:02 71 16 95 01/06/19 07:31 79 01/06/19 07:17 36.9 C 71 18 160/71 H 96 01/06/19 07:03 74 16 96 01/06/19 04:04 36.6 C 79 20 189/76 H 90 PG Care Time/CCT Total # of Minutes Spent Total Time Spent with Patient: Total time spent is greater than 50% in coordination of care (as documented) at patient's floor/unit and/or counseling patient:
--- NOTE | 2019-01-06 14:58 | Progress Note ---
DATE: 01/06/2019 Chart reviewed and the patient examined. SUBJECTIVE: The patient seems better, able to lay flat with less dyspnea, but still has a nonproductive cough and chest congestion that does not seem to be improving in any significant fashion. OBJECTIVE: CURRENT VITAL SIGNS: Blood pressure 173/66, pulse 74 and regular, respiratory rate 18, temperature 36.8, O2 sat 93% on 4 liters. SKIN: Without lesion. HEENT: Atraumatic, normocephalic. PERRLA. LUNGS: Coarse rhonchi diffusely. CARDIAC: Unchanged. ABDOMEN: Soft, protuberant. EXTREMITIES: No pedal edema, clubbing, cyanosis. ASSESSMENT: A 73-year-old with chronic obstructive pulmonary disease, previous history of multifocal pneumonia secondary to Stenotrophomonas maltophilia, somewhat refractory to management, although somewhat improved since admission. PLAN: Schedule bronchoscopic evaluation tomorrow, although the patient remains a moderate to high risk for intervention.
--- NOTE | 2019-01-06 19:29 | Infectious Disease Progress Nt ---
Date of Service January 06, 2019 Assessment & Plan (1) Multifocal pneumonia: 73-year-old female with severe COPD with worsening respiratory status with possible developing multifocal pneumonia, with recent culture positive for stenotrophomonas. So far, patient tolerating ceftazidime and showing some clinical improvement. We will continue for now pending repeat sputum culture. Will follow. (2) Infection due to Stenotrophomonas maltophilia: Subjective Patient seen in follow-up for respiratory failure, possible multifocal pneumonia. Patient feeling better today, tolerating edema without apparent difficulty. Sputum culture and Gram stain are pending. Patient remains afebrile. Review of Systems Review of Systems: All systems reviewed & are unremarkable except as noted in HPI & below Physical Exam Constitutional: WD/WN, vitals as above comfortable; no acute distress Eyes: PERRL, conjunctivae normal, anicteric sclerae ENMT: external ear and nose normal, oropharynx normal Neck: trachea midline, no thyromegaly neck nontender Respiratory: normal percussion; no respiratory distress and does not use accessory muscles Auscultation: + diminished lung sounds and + wheezes (At apices) Cardiovascular: Rate/Rhythm: regular rate and regular rhythm Heart Sounds: normal S1 and normal S2; no gallop, no murmur and no cardiac rub Vessels: normal peripheral pulses; no JVD Gastrointestinal (Abdomen): normal bowel sounds, soft, nontender, no hepatosplenomegaly Musculoskeletal: no cyanosis or clubbing, extremities motor strength 5/5 Spine: thoracic spine normal to inspection and lumbar spine normal to inspection; no cervical spinal tenderness Skin: no rashes, warm and dry normal turgor; no lesions Neurologic: patellar DTR's 2+ bilat, sensation intact no focal motor deficits Psychiatric: A+Ox3, euthymic affect Orientation: cooperative Lymphatic: no cervical or axillary lymphadenopathy no inguinal lymphadenopathy Results & Data Vital Signs (Past 12 Hours) Vital Signs Temp Pulse Pulse Resp BP Pulse Ox 01/06/19 19:18 36.9 C 80 18 140/58 L 92 01/06/19 15:06 36.8 C 74 22 163/61 H 90 01/06/19 15:05 74 16 94 01/06/19 11:49 36.8 C 74 18 173/66 H 93 01/06/19 11:02 71 16 95 01/06/19 07:31 79 Laboratory Results Short CBC 01/06/19 Range/Units 06:48 WBC 12.55 H (4.8-10.8) K/uL Hgb 12.5 (12.0-16.0) g/dL Hct 39.3 (37-47) % Plt Count 232 (130-400) K/uL BMP 01/06/19 01/06/19 00:13 06:48 Sodium 138 Potassium 4.8 Chloride 105 Carbon Dioxide 25 BUN 28 H Creatinine 1.03 Glucose 279 H 311 H* Calcium 9.6
[2019-01-06] MEDS: methylPREDNISolone 40 MG in SYRINGE 0 ML IV SCH (20:42)
[2019-01-06] MEDS: ROSUVASTATIN CALCIUM 20 MG TAB PO SCH (20:42)
[2019-01-07] MEDS: ALBUT/IPRATROP 3MG/0.5MG NEB 3 ML VIAL NEB SCH ×6 (03:28→23:19)
[2019-01-07 06:56] LABS: Hemoglobin 13.2 g/dL (12.0-16.0); Mean Corpuscular Hgb Conc 32.2 g/dL (32-36); Mean Corpuscular Volume 87.4 fL (80-100); Mean Platelet Volume 12.1 fL (7.4-10.4); Platelet Count 260 K/uL (130-400); Red Blood Count 4.69 M/uL (4.2-5.4); White Blood Count 14.08 K/uL (4.8-10.8)
[2019-01-07] MEDS: HEPARIN SOD 5,000 UNIT/0.5 ML VIAL SQ SCH ×2 (07:03→21:39)
[2019-01-07] MEDS: ARFORMOTEROL TART 15MCG/2ML VIAL INH SCH ×2 (07:20→18:56)
[2019-01-07 07:42] LABS: BUN Creatinine Ratio 22.5 (10-20); Calcium 9.6 mg/dl (8.5-10.1); Creatinine Clr Calc Pharmacy 44.3 ml/min; Est GFR (African American) 54.3; Est GFR (Non-African American) 46.8; Potassium 4.3 mmol/L (3.5-5.1)
[2019-01-07] MEDS: AZITHROMYCIN 250 MG TAB PO SCH (07:59)
[2019-01-07] MEDS: AMLODIPINE BESYLATE 5 MG TAB PO SCH (07:59)
[2019-01-07] MEDS: METOPROLOL SUCC 50MG EXT REL TAB PO SCH ×2 (08:00→20:08)
[2019-01-07] MEDS: methylPREDNISolone 40 MG in SYRINGE 0 ML IV SCH ×2 (08:00→20:07)
[2019-01-07] MEDS: ISOSORBIDE MONO EXTENDED REL 30 MG TABCR PO SCH (08:01)
[2019-01-07] MEDS: POTASSIUM CHLORIDE 20 MEQ TABCR PO SCH ×2 (08:01→20:10)
[2019-01-07] MEDS: LOSARTAN POTASSIUM 50 MG TAB PO SCH (08:02)
[2019-01-07] MEDS: PANTOprazole 40 MG TAB PO SCH ×2 (08:02→20:08)
[2019-01-07] MEDS: INSULIN ASPART 100 UNITS/ML 3 ML PEN SC SCH ×4 (08:21→21:38)
[2019-01-07] MEDS ORDERED: INSULIN GLARGINE SOLOSTAR 100 UNITS/ML 3 ML PEN SC SCH (09:00)
[2019-01-07] MEDS ORDERED: LIDOCAINE 4% INH SOLN 4 ML BTL NAE ONE (10:00)
[2019-01-07] MEDS ORDERED: OXYMETAZOLINE 0.05% 30 ML BTL ONE (10:00)
[2019-01-07] MEDS ORDERED: LIDOCAINE HCL 2% (LOCAL) INJ 50 ML VIAL INFIL STA (10:34)
[2019-01-07] MEDS ORDERED: LEVALBUTEROL HCL 1.25 MG/3 ML NEB NEB STA (10:34)
[2019-01-07] MEDS ORDERED: MIDAZOLAM HCL 1 MG/ML 2ML VIAL IV STA (10:34)
[2019-01-07] MEDS ORDERED: LIDOCAINE HCL VISCOUS SOLN 2% 15 ML UDC TOP ONE (10:34)
--- NOTE | 2019-01-07 11:54 | Post Anesthesia Assessment ---
Date of Service January 07, 2019 Post Sedation Assessment Vital Signs Temp Pulse Pulse Resp BP BP Pulse Ox 01/07/19 11:33 72 20 131/72 01/07/19 11:18 72 16 83 L 01/07/19 10:44 76 16 152/66 H 76 L 01/07/19 10:40 98 H 16 177/77 H 77 L 01/07/19 10:35 98 H 16 177/77 H 77 L 01/07/19 10:30 98 H 16 159/100 H 92 01/07/19 10:25 81 14 159/100 H 95 01/07/19 10:20 78 12 179/76 H 95 01/07/19 10:15 84 12 190/66 H 99 01/07/19 10:05 82 204/73 H 98 01/07/19 07:39 36.9 C 68 20 164/70 H 94 01/07/19 07:22 73 18 96 01/07/19 07:12 73 01/07/19 06:00 171/81 H 01/07/19 04:03 36.8 C 78 18 180/74 H 180/65 H 93 01/07/19 01:00 82 01/07/19 00:00 37.0 C 80 18 164/70 H 95 01/06/19 23:09 82 20 92 01/06/19 19:18 36.9 C 80 18 140/58 L 92 01/06/19 19:09 86 20 94 01/06/19 16:00 74 01/06/19 15:06 36.8 C 74 22 163/61 H 90 01/06/19 15:05 74 16 94 Recovery Score Activity: Moves 4 extremities Respiration: Deep Breath/Cough Circulation: +/-20% PreAnes Value Consciousness: Arouseable (by name) Oxygen Saturation: O2 needed for >90% Post Anesthesia Score: 8 Discharge Sedation Level of Care: Fast Track Phase II Post Sedation Plan On clinical assessment, the patient appears to have tolerated the sedation without complications. Patient is recovering as anticipated. Patient will continue to be monitored by nursing and may be discharged when sedation discharge criteria are met per below protocol. Upon Completions of procedure and additional 15 minutes continue every 5 minute vital signs and the P.A.R. score; then discharge to a Phase I or Fast Track to Phase II per the following guidelines: * Discharge Patient to appropriate Phase II area if PAR is 8 or greater or return to pre- procedure baseline. The post - procedure orders will be as directed. * If PAR score is less than 8 or not return to pre-procedure baseline then patient will follow Phase I monitoring till PAR is reached for Phase II. The Phase I may be done in procedure room or may call to secure a Phase I area. * If naloxone or flumazenil are used for reversal, hold in Phase I for continued monitoring from when last reversal dose was given for a minimum of 60 minutes or longer pending the nurse and/or physician discretion of patient condition before discharge to Phase II. Please call the Sedation Physician to re-evaluate and complete post-note for discharge to Phase II area. Do NOT discharge from procedure sedation or Phase 1 until post- sedation evaluation note is complete by procedure /sedation MD Sedation Discharge Instructions to be given to the patient at discharge to home.
--- NOTE | 2019-01-07 11:55 | Post Operative Brief Note ---
Immediate Post Op Note v1 Date of Surgery January 07, 2019 Pre & Post Diagnosis Operation Date: 01/04/19 08:00 <No data on this case meets the specified criteria> Operation Date: 01/07/19 10:00 Pre-Op Diagnosis: COPD Exacerbation Post-Op Diagnosis: COPD Exacerbation/mucoid impaction RML obstruction r/O neoplasm Procedure Operation Date: 01/04/19 08:00 Actual Procedures p Bronchoscopy Radiology - Parish Steele MD Operation Date: 01/07/19 10:00 Actual Procedures p Bronchoscopy Radiology(Bilateral) - Parish Steele MD Surgeon Parish Steele MD Tutor Coordinator none Estimated Blood Loss 0 Findings Consistent with Post-Op Diagnosis Chronic Mucopurulent Bronchitis RML obstruction Complications none Disposition Accompanied Patient To Recovery: No Overlapping Procedure I was present for: the critical portions of procedure. I was immediately available: during the entire case. Back up surgeon: was not required during procedure.
[2019-01-07] MEDS: SERTRALINE HCL 50 MG TABLET PO SCH (12:44)
[2019-01-07] MEDS: FEXOFENADINE HCL 180 MG TAB PO SCH (12:44)
[2019-01-07] MEDS: METAXALONE 800 MG TABLET PO SCH ×2 (12:45→20:09)
[2019-01-07] MEDS: FUROSEMIDE 20 MG TAB PO SCH (12:45)
[2019-01-07] MEDS: guaiFENesin 600 MG TABCR PO SCH ×2 (12:45→20:07)
[2019-01-07] MEDS: GABAPENTIN 100 MG CAP PO SCH ×2 (13:09→20:10)
[2019-01-07] MEDS: SODIUM CHLORIDE 0.9% 1000ML 1,000 ML IV SCH (13:10)
--- NOTE | 2019-01-07 14:26 | Progress Note ---
DATE: 01/07/2019 PULMONARY MEDICINE PROGRESS NOTE Chart reviewed, the patient examined. SUBJECTIVE: The patient underwent bronchoscopic evaluation without incident this morning. A thick mucopurulent infection with mucoid impaction was noted (see bronchoscopy report). There was also obstruction seen at the right middle lobe orifice with mucosal irregularity and this was washed and brushed for cytologic preparation. A moderate amount of bleeding was encountered and due to ongoing hypoxemia and tachycardia, a decision was made not to attempt further biopsy, but to treat current active infection, and within several weeks as an outpatient, consider repeat bronchoscopy with endobronchial biopsy.
[2019-01-07] MEDS ORDERED: MAGNESIUM SULFATE / D5W 1 GM/100 ML BAG IV ONE (16:12)
--- NOTE | 2019-01-07 16:22 | Hospitalist Progress Note ---
Date of Service January 07, 2019 Assessment & Plan (1) COPD with acute exacerbation: chronic hypoxic respiratory failure, continues to improve status post bronchoscopy on 01/07 Intravenous Solu-Medrol decreased to 40 mg every 12 Duo nebs 4 times daily plus arformoterol added on 01/05 guaifenesin continues as expectorant Supplemental oxygen at home is 4 L Pulmonary medicine is following Concern for bronchitis with a history of stenotrophomonas patient was changed to ceftazidime/azithromycin by infectious disease (2) Depression: Zoloft is continued (3) Coronary artery disease: Has been stable on cardiovascular standpoint while on isosorbide, losartan, Toprol-XL, amlodipine, Crestor, and Lasix. Antiplatelet agents have been held for her procedure. We will re-begin on 01/08 (4) Diabetes: Patient states she typically takes 80 units of Toujeo at home with sliding scale. , pharmacy substituted glargine will increase the dose to 45 units at bedtime starting on 01/06, and tighten sliding scale with carb coverage and correction factor (5) DVT prophylaxis: Heparin subcu for DVT prevention Subjective Patient is seen post procedure she was slightly sedate her family at the bedside earlier this morning she was doing well her saturations were better on room on her supplemental oxygen she is also cough with productive sputum Review of Systems Review of Systems: ROS: She is sedated and sleepy No double vision blurry vision No problems with speech or swallowing No palpitations, chest pain or pressure No Wheezing still some challenges with breathing with minor respiratory distress No abdominal pain nausea vomiting diarrhea changes in appetite or weight No burning urine urine frequency or changes in color No focal joint pain or muscle pain No skin rashes or oral lesions No unusual bruising or bleeding No focused back pain or numbness or loss of strength No changes in memory or confusion Physical Exam Physical Exam: The patient appeared with only mild respiratory distress she was slightly sedated from procedure as mentioned Vital signs as documented. Head exam is unremarkable. normocephalic, atraumatic Neck is without jugular venous distension, thyromegaly, or lymphademopathy Lungs are diminished but no wheezes Cardiac exam reveals Rhythm is regular Abdominal exam reveals normal bowel sounds, no masses, no organomegaly Extremities are mildly edematous and both pedal pulses are present Neurologic exam is A&Ox3, no focal deficits, strength is equal bilateral Psychologically seems neither anxious or depressed Skin is warm Dry Results & Data Vital Signs (Past 12 Hours) Vital Signs Temp Pulse Pulse Resp BP BP Pulse Ox 01/07/19 15:51 74 20 92 01/07/19 13:00 36.6 C 70 20 170/72 H 92 01/07/19 12:15 72 20 163/67 H 91 01/07/19 11:45 72 20 141/79 H 89 L 01/07/19 11:33 72 20 131/72 01/07/19 11:25 36.9 C 61 20 163/84 H 96 01/07/19 11:20 37 C 81 20 139/74 97 01/07/19 11:18 72 16 83 L 01/07/19 10:44 76 16 152/66 H 76 L 01/07/19 10:40 98 H 16 177/77 H 77 L 01/07/19 10:35 98 H 16 177/77 H 77 L 01/07/19 10:30 98 H 16 159/100 H 92 01/07/19 10:25 81 14 159/100 H 95 01/07/19 10:20 78 12 179/76 H 95 01/07/19 10:15 84 12 190/66 H 99 01/07/19 10:05 82 204/73 H 98 01/07/19 07:39 36.9 C 68 20 164/70 H 94 01/07/19 07:22 73 18 96 01/07/19 07:12 73 01/07/19 06:00 171/81 H PG Care Time/CCT Total # of Minutes Spent Total Time Spent with Patient: Total time spent is greater than 50% in coordination of care (as documented) at patient's floor/unit and/or counseling patient:
[2019-01-07] MEDS: ROSUVASTATIN CALCIUM 20 MG TAB PO SCH (20:09)
--- NOTE | 2019-01-07 21:18 | Operative Report ---
DATE OF OPERATION: 01/07/2019 DATE OF PROCEDURE: 01/07/2019 TIME OF PROCEDURE: 1000 hours PROCEDURE: Fiberoptic bronchoscopy with bronchoalveolar lavage. INDICATIONS: COPD exacerbation, refractory to aggressive inpatient management. ANESTHESIA PREOPERATIVELY: None. ANESTHESIA DURING PROCEDURE: IV Versed 6 mg. No fentanyl given, 20 mL 2% Xylocaine spray above and below the cords, 4% viscous Xylocaine intranasally. Moderate conscious sedation was implemented at 10:14 and completed at 10:34. PROCEDURE IN DETAIL: Fiberoptic bronchoscope was inserted into the left naris with moderate difficulty and passed to the level of true vocal cords. The cords appear to approximate normally with phonation without evidence for lesions or paralysis. The area was anesthetized with 2% Xylocaine spray and the scope was then introduced in the trachea and right and left tracheobronchial tree. The yuridia was sharp. The left main stem bronchus was explored initially and no endobronchial lesions were seen. Left upper lobe with the apical-posterior and anterior segments, lingular subdivision with the superior and inferior segments and all basilar segments of left lower lobe were found to be free of endobronchial lesions. A marked degree of global inflammatory mucosal change was seen with bronchial crypts and clefts visible throughout the left tracheobronchial tree. Thick mucopurulent and mucoviscous secretion was lavaged from left lower lobe basal segments until clear. The scope was withdrawn to the yuridia, which was sharp and entered into the right mainstem bronchus and no endobronchial lesions were seen in that region. The right upper lobe, the apical posterior and anterior segments showed purulent infection involving all segmental bronchi and were lavaged copiously with normosol and the aspirate sent for appropriate studies. The right middle lobe appeared to be totally occluded with endobronchial mucosal abnormality? mass and the right lower lobe showed purulent infection involving all basilar segments and was lavaged individually with copious amounts of normal saline and the aspirate sent for appropriate studies. The scope was then withdrawn through right middle lobe. Washings were obtained and brushings for cytologic preparation x3 were obtained. Moderate amount of bleeding was noted, but abated following installation of iced saline lavage. The patient did become hypoxic and tachycardic at that juncture and no biopsies were obtained at that point. The scope was removed and patient was given a nebulizer treatment with Xopenex 1.25 mg and transferred back to the medical floor, hemodynamically stable with no further signs of respiratory compromise. Will await microbiological and cytologic examination of the bronchial washings and brushings. OVERALL ASSESSMENT: 1. Chronic mucopurulent bronchitis with mucoid impaction with active infection. 2. Right middle lobe obstruction secondary to irregular mucosal "lesion" cannot rule out a neoplasm.(preliminary path suggests cluster of atypia amongst cell population w full cell block pending-will need additional tissue) Will await microbiological and cytologic examination of the cultures and washings as well as brushings from the right middle lobe. I attest to the content of the Intraoperative Record and any orders documented therein. Any exceptions are noted below. MTDD
[2019-01-08] MEDS: ALBUT/IPRATROP 3MG/0.5MG NEB 3 ML VIAL NEB SCH ×6 (04:07→22:58)
--- NOTE | 2019-01-08 05:04 | Infectious Disease Progress Nt ---
Date of Service January 07, 2019 Assessment & Plan (1) Multifocal pneumonia: 73-year-old female with severe COPD with worsening respiratory status with possible developing multifocal pneumonia, with recent culture positive for stenotrophomonas. So far, patient tolerating ceftazidime and showing some clinical improvement. We will continue for now pending repeat sputum culture. Will follow. (2) Infection due to Stenotrophomonas maltophilia: Subjective Follow-up for pulmonary infection. Now on cefazolin, tolerating without apparent difficulty. Notices some slight improvement in cough and shortness of breath. No fever. Sputum growing normal hubert so far Review of Systems Review of Systems: All systems reviewed & are unremarkable except as noted in HPI & below Physical Exam Constitutional: WD/WN, vitals as above comfortable; no acute distress Eyes: PERRL, conjunctivae normal, anicteric sclerae ENMT: external ear and nose normal, oropharynx normal Neck: trachea midline, no thyromegaly neck nontender Respiratory: normal percussion; no respiratory distress and does not use accessory muscles Auscultation: + diminished lung sounds and + wheezes (At apices) Cardiovascular: Rate/Rhythm: regular rate and regular rhythm Heart Sounds: normal S1 and normal S2; no gallop, no murmur and no cardiac rub Vessels: normal peripheral pulses; no JVD Gastrointestinal (Abdomen): normal bowel sounds, soft, nontender, no hepatosplenomegaly Musculoskeletal: no cyanosis or clubbing, extremities motor strength 5/5 Spine: thoracic spine normal to inspection and lumbar spine normal to inspection; no cervical spinal tenderness Skin: no rashes, warm and dry normal turgor; no lesions Neurologic: patellar DTR's 2+ bilat, sensation intact no focal motor deficits Psychiatric: A+Ox3, euthymic affect Orientation: cooperative Lymphatic: no cervical or axillary lymphadenopathy no inguinal lymphadenopathy Results & Data Vital Signs (Past 12 Hours) Vital Signs Temp Pulse Resp BP Pulse Ox 01/08/19 03:38 36.4 C L 69 18 193/76 H 93 01/07/19 23:38 37.0 C 80 18 197/85 H 91 01/07/19 19:44 36.1 C L 74 18 188/75 H 01/07/19 18:56 75 20 90 Laboratory Results Short CBC 01/07/19 Range/Units 06:40 WBC 14.08 H (4.8-10.8) K/uL Hgb 13.2 (12.0-16.0) g/dL Hct 41.0 (37-47) % Plt Count 260 (130-400) K/uL BMP 01/07/19 06:40 Sodium 138 Potassium 4.3 Chloride 103 Carbon Dioxide 26 BUN 26 H Creatinine 1.17 Glucose 312 H* Calcium 9.6 Diagnostic Findings Microbiology 01/07/19 10:25 Bronch Wash,Right Middle Lobe Fungal Smear - Final 01/07/19 10:25 Bronch Wash,Right Middle Lobe Gram Stain - Final 01/06/19 10:42 Sputum, Expectorated Gram Stain - Final 01/06/19 10:42 Sputum, Expectorated Sputum Culture - Preliminary Moderate normal hubert present, final report to follow.
[2019-01-08 06:57] LABS: Hematocrit (blood only) 41.6 % (37-47); Hemoglobin 13.5 g/dL (12.0-16.0); Mean Corpuscular Hgb Conc 32.5 g/dL (32-36); Mean Corpuscular Volume 86.1 fL (80-100); Mean Platelet Volume 11.8 fL (7.4-10.4); Platelet Count 236 K/uL (130-400); RDW Coefficient of Variation 15.7 % (11.5-14.5); RDW Standard Deviation 50.3 fL (36.4-46.3); Red Blood Count 4.83 M/uL (4.2-5.4); White Blood Count 12.55 K/uL (4.8-10.8)
[2019-01-08] MEDS: ARFORMOTEROL TART 15MCG/2ML VIAL INH SCH ×2 (07:02→19:22)
[2019-01-08 07:07] LABS: Partial Thromboplastin Time 25.9 Seconds (21.0-31.0)
[2019-01-08 07:36] LABS: BUN Creatinine Ratio 25.6 (10-20); Calcium 9.4 mg/dl (8.5-10.1); Creatinine Clr Calc Pharmacy 45.7 ml/min; Est GFR (African American) 56.6; Est GFR (Non-African American) 48.9; Potassium 4.5 mmol/L (3.5-5.1)
[2019-01-08] MEDS: FEXOFENADINE HCL 180 MG TAB PO SCH (08:07)
[2019-01-08] MEDS: AMLODIPINE BESYLATE 5 MG TAB PO SCH (08:07)
[2019-01-08] MEDS: POTASSIUM CHLORIDE 20 MEQ TABCR PO SCH ×2 (08:07→20:44)
[2019-01-08] MEDS: INSULIN ASPART 100 UNITS/ML 3 ML PEN SC SCH ×4 (08:07→20:45)
[2019-01-08] MEDS: CLOPIDOGREL BISULFATE 75 MG TAB PO SCH (08:07)
[2019-01-08] MEDS: SERTRALINE HCL 50 MG TABLET PO SCH (08:08)
[2019-01-08] MEDS: AZITHROMYCIN 250 MG TAB PO SCH (08:08)
[2019-01-08] MEDS: ISOSORBIDE MONO EXTENDED REL 30 MG TABCR PO SCH (08:08)
[2019-01-08] MEDS: guaiFENesin 600 MG TABCR PO SCH ×2 (08:08→20:43)
[2019-01-08] MEDS: GABAPENTIN 100 MG CAP PO SCH ×2 (08:08→20:44)
[2019-01-08] MEDS: LOSARTAN POTASSIUM 50 MG TAB PO SCH (08:08)
[2019-01-08] MEDS: METAXALONE 800 MG TABLET PO SCH ×2 (08:08→20:43)
[2019-01-08] MEDS: METOPROLOL SUCC 50MG EXT REL TAB PO SCH ×2 (08:09→20:42)
[2019-01-08] MEDS: PANTOprazole 40 MG TAB PO SCH ×2 (08:09→20:43)
[2019-01-08] MEDS: FUROSEMIDE 20 MG TAB PO SCH (08:09)
[2019-01-08] MEDS: HEPARIN SOD 5,000 UNIT/0.5 ML VIAL SQ SCH ×2 (08:10→20:44)
[2019-01-08] MEDS: INSULIN GLARGINE SOLOSTAR 100 UNITS/ML 3 ML PEN SC SCH (08:10)
[2019-01-08] MEDS: SODIUM CHLORIDE 0.9% 1000ML 1,000 ML IV SCH (08:11)
[2019-01-08] MEDS: methylPREDNISolone 40 MG in SYRINGE 0 ML IV SCH (08:11)
--- NOTE | 2019-01-08 10:25 | Progress Note ---
DATE: 01/08/2019 PULMONARY MEDICINE PROGRESS NOTE Chart reviewed, the patient examined. SUBJECTIVE: Much better, wishes to go home. I did inform her that there were a cluster of cells from the right middle lobe endobronchial anatomy where we brushed that showed cellular atypia very suggestive, but not diagnostic of carcinoma. The full cell block is pending. Suspect will need additional tissue and I have explained to the patient that when she recovers from her lung infection and current hospitalization that will need to see her as an outpatient and repeat bronchoscopic evaluation in 3-4 weeks' time. She understands and we will convey the message to her providers. JEOVANNY
--- NOTE | 2019-01-08 13:54 | Hospitalist Progress Note ---
Date of Service January 08, 2019 Assessment & Plan (1) COPD with acute exacerbation: chronic hypoxic respiratory failure, continues to improve status post bronchoscopy on 01/07 Taper steroids to p.o. due to difficulties with glucose control Duo nebs 4 times daily plus arformoterol added on 01/05 guaifenesin continues as expectorant Supplemental oxygen at home is 4 L Pulmonary medicine is following Concern for bronchitis with a history of stenotrophomonas patient was changed to ceftazidime/azithromycin by infectious disease, awaiting final infectious disease determination for treatment once culture results are returned from bronchoscopy (2) Depression: Zoloft is continued (3) Coronary artery disease: Has been stable on cardiovascular standpoint while on isosorbide, losartan, Toprol-XL, amlodipine, Crestor, and Lasix. Antiplatelet agents have been held for her procedure. We will re-begin on 01/08 (4) Diabetes: Patient states she typically takes 80 units of Toujeo at home with sliding scale. , pharmacy substituted glargine will increase the dose to 70units at bedtime starting on 01/08, and tighten sliding scale with carb coverage and correction factor will taper steroids in hopes that this will help also (5) DVT prophylaxis: Heparin subcu for DVT prevention Subjective She feels well today she is awaiting her final culture results to determine antibiotic treatment and we are still having challenges with her blood glucose has worsened by steroids Review of Systems Review of Systems: ROS: well nourished well developed. No double vision blurry vision No problems with speech or swallowing No palpitations, chest pain or pressure Still wheezing coughing and short of breath but improved from presentation No abdominal pain nausea vomiting diarrhea changes in appetite or weight No burning urine urine frequency or changes in color No focal joint pain or muscle pain No skin rashes or oral lesions No unusual bruising or bleeding No focused back pain or numbness or loss of strength No changes in memory or confusion Physical Exam Physical Exam: The patient appeared well nourished and normally developed. Vital signs as documented. Head exam is unremarkable. normocephalic, atraumatic Neck is without jugular venous distension, thyromegaly, or lymphademopathy Lungs are decreased at the bases prolonged expiratory phase some scant wheezing that clears Cardiac exam reveals Rhythm is regular. First and second heart sounds normal. Abdominal exam reveals normal bowel sounds, no masses, no organomegaly Extremities are nonedematous and both pedal pulses are present Neurologic exam is A&Ox3, no focal deficits, strength is equal bilateral Psychologically seems neither anxious or depressed Skin is warm Dry without bruises or lesions Results & Data Vital Signs (Past 12 Hours) Vital Signs Temp Pulse Resp BP BP Pulse Ox 01/08/19 12:00 37.0 C 69 20 179/69 H 93 01/08/19 11:28 65 16 97 01/08/19 09:00 67 168/80 H 01/08/19 07:33 36.4 C L 69 186/76 H 197/72 H 95 01/08/19 07:05 68 16 94 01/08/19 03:38 36.4 C L 69 18 193/76 H 93 PG Care Time/CCT Total # of Minutes Spent Total Time Spent with Patient: Total time spent is greater than 50% in coordination of care (as documented) at patient's floor/unit and/or counseling patient:
--- NOTE | 2019-01-08 14:37 | Infectious Disease Progress Nt ---
Date of Service January 08, 2019 Assessment & Plan (1) Multifocal pneumonia: 73-year-old female with severe COPD with worsening respiratory status with possible developing multifocal pneumonia, with recent culture positive for stenotrophomonas. So far, patient tolerating ceftazidime and showing some clinical improvement. Patient should continue pending final culture results. If unremarkable, would give 7 days total. (2) Infection due to Stenotrophomonas maltophilia: Subjective Patient seen in follow-up for possible multifocal pneumonia. Feeling slightly better, no fever, no increase in cough or shortness of breath. Cultures from bronchoscopy starting to grow, no identification available as of yet. Review of Systems Review of Systems: All systems reviewed & are unremarkable except as noted in HPI & below Physical Exam Constitutional: WD/WN, vitals as above comfortable; no acute distress Eyes: PERRL, conjunctivae normal, anicteric sclerae ENMT: external ear and nose normal, oropharynx normal Neck: trachea midline, no thyromegaly neck nontender Respiratory: normal percussion; no respiratory distress and does not use accessory muscles Auscultation: + diminished lung sounds and + wheezes (At apices) Cardiovascular: Rate/Rhythm: regular rate and regular rhythm Heart Sounds: normal S1 and normal S2; no gallop, no murmur and no cardiac rub Vessels: normal peripheral pulses; no JVD Gastrointestinal (Abdomen): normal bowel sounds, soft, nontender, no hepatosplenomegaly Musculoskeletal: no cyanosis or clubbing, extremities motor strength 5/5 Spine: thoracic spine normal to inspection and lumbar spine normal to inspection; no cervical spinal tenderness Skin: no rashes, warm and dry normal turgor; no lesions Neurologic: patellar DTR's 2+ bilat, sensation intact no focal motor deficits Psychiatric: A+Ox3, euthymic affect Orientation: cooperative Lymphatic: no cervical or axillary lymphadenopathy no inguinal lymphaden opathy Results & Data Vital Signs (Past 12 Hours) Vital Signs Temp Pulse Resp BP BP Pulse Ox 01/08/19 12:00 37.0 C 69 20 179/69 H 93 01/08/19 11:28 65 16 97 01/08/19 09:00 67 168/80 H 01/08/19 07:33 36.4 C L 69 186/76 H 197/72 H 95 01/08/19 07:05 68 16 94 01/08/19 03:38 36.4 C L 69 18 193/76 H 93 Laboratory Results Short CBC 01/08/19 Range/Units 06:33 WBC 12.55 H (4.8-10.8) K/uL Hgb 13.5 (12.0-16.0) g/dL Hct 41.6 (37-47) % Plt Count 236 (130-400) K/uL BMP 01/08/19 06:33 Sodium 134 L Potassium 4.5 Chloride 100 Carbon Dioxide 28 BUN 29 H Creatinine 1.13 Glucose 304 H* Calcium 9.4 Diagnostic Findings Microbiology 01/07/19 10:25 Bronch Wash,Right Middle Lobe Gram Stain - Final 01/07/19 10:25 Bronch Wash,Right Middle Lobe Bronchoalveolar Lavage Culture - Preliminary Pin-point growth present, reincubating. 01/06/19 10:42 Sputum, Expectorated Gram Stain - Final 01/06/19 10:42 Sputum, Expectorated Sputum Culture - Final Moderate normal hubert. 01/07/19 10:25 Bronch Wash,Right Middle Lobe Acid Fast Bacilli Smear - Final 01/07/19 10:25 Bronch Wash,Right Middle Lobe Fungal Smear - Final
[2019-01-08] MEDS: ROSUVASTATIN CALCIUM 20 MG TAB PO SCH (20:43)
[2019-01-09] MEDS: ALBUT/IPRATROP 3MG/0.5MG NEB 3 ML VIAL NEB SCH ×3 (03:05→11:16)
[2019-01-09] MEDS: ARFORMOTEROL TART 15MCG/2ML VIAL INH SCH (07:16)
[2019-01-09 08:00] LABS: Partial Thromboplastin Ratio 0.9; Partial Thromboplastin Time 25.5 Seconds (21.0-31.0)
[2019-01-09] MEDS: INSULIN GLARGINE SOLOSTAR 100 UNITS/ML 3 ML PEN SC SCH (08:06)
[2019-01-09] MEDS: INSULIN ASPART 100 UNITS/ML 3 ML PEN SC SCH ×2 (08:06→11:54)
[2019-01-09] MEDS: SODIUM CHLORIDE 0.9% 1000ML 1,000 ML IV SCH (08:07)
[2019-01-09] MEDS: LOSARTAN POTASSIUM 50 MG TAB PO SCH (08:07)
[2019-01-09] MEDS: AMLODIPINE BESYLATE 5 MG TAB PO SCH (08:07)
[2019-01-09] MEDS: CLOPIDOGREL BISULFATE 75 MG TAB PO SCH (08:07)
[2019-01-09] MEDS: ISOSORBIDE MONO EXTENDED REL 30 MG TABCR PO SCH (08:07)
[2019-01-09] MEDS: METOPROLOL SUCC 50MG EXT REL TAB PO SCH (08:07)
[2019-01-09] MEDS: guaiFENesin 600 MG TABCR PO SCH (08:07)
[2019-01-09] MEDS: HEPARIN SOD 5,000 UNIT/0.5 ML VIAL SQ SCH (08:08)
[2019-01-09] MEDS: PANTOprazole 40 MG TAB PO SCH (08:08)
[2019-01-09] MEDS: FEXOFENADINE HCL 180 MG TAB PO SCH (08:08)
[2019-01-09] MEDS: FUROSEMIDE 20 MG TAB PO SCH (08:08)
[2019-01-09] MEDS: POTASSIUM CHLORIDE 20 MEQ TABCR PO SCH (08:08)
[2019-01-09] MEDS: GABAPENTIN 100 MG CAP PO SCH (08:08)
[2019-01-09] MEDS: SERTRALINE HCL 50 MG TABLET PO SCH (08:08)
[2019-01-09] MEDS: AZITHROMYCIN 250 MG TAB PO SCH (08:09)
[2019-01-09] MEDS: METAXALONE 800 MG TABLET PO SCH (08:09)
[2019-01-09] MEDS ORDERED: predniSONE 20 MG TAB PO SCH (09:00)
--- NOTE | 2019-01-09 15:18 | Discharge Summary ---
Date of Service January 09, 2019 Admission HPI Per Admitting Provider 73-year-old female who came in for an outpatient bronchoscopy. Patient typically follows with Dr. Steele and does wear 4 L of oxygen at home. She suffers from pulmonary disease for a long period of time. She was in her facility most recently in the early winter 2017 where she was treated. At that time she says her sputum turned back to white but most recently she is had increased sputum production which is been yellow. Dr. Steele had her come in for a scheduled bronchoscopy but due to her acute respiratory failure felt she was too unstable to perform bronchoscopy with anesthesia and recommended admission for acute on chronic respiratory failure with possible bronchitis Patient denies any other changes to her health she typically is very dyspneic with minimal exertion although having no chest pain associated with it. The sputum production as mentioned above is changed. She has no bowel or bladder changes she said no recent thrush Principal Diagnosis copd exacerbation bronchitis Discharge Exam The patient appeared well nourished and normally developed. Vital signs as documented. Head exam is unremarkable. normocephalic, atraumatic Neck is without jugular venous distension, thyromegaly, or lymphademopathy Lungs are clear without wheezes or crackles she still has increased work of breathing Cardiac exam reveals Rhythm is regular. Abdominal exam reveals normal bowel sounds, no masses, no organomegaly Discharge Data Allergies Allergy/AdvReac Type Severity Reaction Status Date / Time fentanyl Allergy Intermediate RASH Verified 01/04/19 07:48 levofloxacin Allergy Intermediate UNKNOWN Verified 01/04/19 07:48 Penicillins Allergy Intermediate RASH Verified 01/04/19 07:48 Ethanol Allergy Intermediate RASH Uncoded 03/18/16 07:51 Consultations 01/05/19 07:16 Consult Pulmonology Routine 01/05/19 08:15 Consult Infectious Diseases Routine Procedures Performed Operation Date: 01/04/19 08:00 Actual Procedures p Bronchoscopy Radiology - Parish Steele MD Operation Date: 01/07/19 10:00 Actual Procedures p Bronchoscopy Radiology(Bilateral) - Parish Steele MD Hospital Course (1) COPD with acute exacerbation: chronic hypoxic respiratory failure, continues to improve status post bronchoscopy on 01/07 Will complete home oral steroid taper Duo nebs 4 times daily plus arformoterol added on 01/05 guaifenesin continues as expectorant Supplemental oxygen at home is 4 L Pulmonary medicine is following, will follow-up as close outpatient. Concern for bronchitis with a history of stenotrophomonas patient was changed to ceftazidime final cultures are continuing to be pending the patient desperately wants to go home. I spoke to infectious disease will have the patient tentatively on oral cephalosporin therapy at this time with on close evaluation of her culture results (2) Depression: Zoloft is continued (3) Coronary artery disease: Has been stable on cardiovascular standpoint while on isosorbide, losartan, Toprol-XL, amlodipine, Crestor, and Lasix. Antiplatelet agents continue (4) Diabetes: Patient states she typically takes 80 units of Toujeo at home with sliding scale. , Will turn her home regiment Total Time Total Time Spent Total Time Spent (In Minutes): greater than 30 minutes were required to prepare discharge Discharge Plan Discharge Items Patient Disposition: Home - Home Health Services Reason For Visit: BRONCHIECTASIS,COPD Discharge Diagnosis: copd exacerbation bronchitis Discharge Goals: Decrease discomfort and Diagnostic testing Activity: Resume your previous activity Non-emergency contact: Primary Care Provider and [employer] Worker Call non-emergency contact if: you have any medication questions Follow-up/Referrals: Jennifer Viramontes PA-C [Primary Care Provider] - 01/13/19 3:00 pm (Please, follow up with Jennifer Viramontes PA-C on FridayJanuary 13 at 3:00 pm. *If you need to change this appointment, call the office at [phone].) Diet: Carb Consistent or DM2 Addtl Provider Instructions: please return to your usual home diabetic regime please follow up with Ashish Ledesma this week, always return to hospital if you feel you are not improving start antibiotic tonight 01/09 Prescriptions: New prednisone 10 mg tablet 10 mg PO UD Qty: 40 RF: 0 cefdinir 300 mg capsule 300 mg PO BID 10 Days Qty: 20 RF: 0 Continued ALBUTEROL SULFATE (PROAIR HFA) 108 MCG/ AER 2 puff Inhalation QID Qty: 0 RF: 0 Amlodipine (Norvasc) 10 MG tablet 10 mg PO QAM Qty: 0 RF: 0 Clopidogrel Bisulfate (Clopidogrel) 75 MG tablet 75 mg PO QAM Qty: 0 RF: 0 MONTELUKAST SODIUM (SINGULAIR) 10 MG tablet 10 mg PO QPM Qty: 0 RF: 0 Metoprolol Succinate (Toprol Xl) 100 MG DGMQA-TXP-COL 100 mg PO BID Qty: 0 RF: 0 Rosuvastatin Calcium (Crestor) 20 MG tablet 20 mg PO QPM Qty: 0 RF: 0 Isosorbide Mononitrate Ext Rel (Imdur Ext Rel) 30 MG EXT REL TAB 30 mg PO QAM Qty: 0 RF: 0 Cyanocobalamin (Vitamin B-12 Inj) INJECTION 1,000 mcg IM 2XMONTH Qty: 0 RF: 0 DUONEB SOLTAB 2 inh inhalation Q4-HRSPRN PRN (Reason: Shortness Of Breath) Qty: 0 RF: 0 MOMETASONE FUROATE-FORMOTEROL (DULERA 100/5 MCG) 1 AER AER 2 puff Inhalation BID Qty: 0 RF: 0 HOME O2 THERAPY (Oxygen) gas 4 liters NA DAILY 30 Days Qty: 0 RF: 0 FEXOFENADINE HCL (BERNARD ALLERGY) 180 MG tablet 1 tab PO DAILY 30 Days Qty: 30 RF: 2 Nitroglycerin (Nitrostat) 0.4 MG tablet 0.4 mg UT PRN Qty: 0 RF: 0 Potassium Chloride (Micro-K Ext Rel) 10 MEQ CONTR REL CAP 20 meq PO BID Qty: 0 RF: 0 Tramadol (Ultram) 50 MG tablet 1 tab PO TID PRN (Reason: Pain) 30 Days Qty: 90 RF: 0 Triamcinolone Acet 0.1% (Aristocort 0.1%) cream 1 applic Topical TID PRN (Reason: Itching) Qty: 0 RF: 0 gabapentin 100 mg Capsule 100 mg PO BID RF: 0 losartan [Cozaar] 100 mg Tablet 100 mg PO DAILY RF: 0 sertraline [Zoloft] 50 mg Tablet 50 mg PO DAILY RF: 0 Prilosec OTC 20 mg Tablet,Delayed Release (Dr/Ec) 20 mg PO BID RF: 0 Toujeo SoloStar U-300 Insulin 300 unit/mL (1.5 mL) Insulin Pen 70 unit SUBCUT DAILY RF: 0 guaifenesin [Mucinex] 600 mg Tablet Extended Release 12hr 600 mg PO BID RF: 0 furosemide 20 mg Tablet 10 mg PO DAILY RF: 0 metaxalone 800 mg Tablet 800 mg PO BID RF: 0 Novolog U-100 Insulin aspart 100 unit/mL Solution 1 sliding scale dose SUBCUT USEASDIRECTD RF: 0 Discontinued doxycycline hyclate 100 mg Capsule 100 mg PO BID RF: 0 Stand-Alone Forms: [facility] Discharge Orders: Discharge Order (Routine); Ordered 01/09/19 Ordered By: Alejandro Lehman Admission Data Admit Date/Time: 01/04/19 09:09 Attending Provider: Alejandro Lehman Admit Provider: Alejandro Lehman Primary Care Provider: Jennifer Viramontes Other Providers: Parish Steele ; Favian Thrasher Service: Telemetry Medical Other Interventions: Discharge Summary Assessment (RN) Last Done: 01/09/19 12:04 DC Date/Time DO NOT enter until pt leaves facility: 01/09/19 13:45
--- NOTE | 2019-01-11 13:24 | Coding Query ---
CODING QUERY To promote full compliance with coding requirements relating to patient care, provider participation is requested in all cases of guest services lead uncertainty. Please assist us with the question(s) below: Coding Question(s): 1. The Discharge Summary documents, under the Admission HPI, that the patient was recommended for Acute on Chronic Respiratory Failure and the Hospital Course documents Chronic Hypoxic Respiratory Failure. Please clarify, in your clinical opinion, regarding the Respiratory Failure. ( xx ) Acute on Chronic Respiratory Failure ( ) Chronic Respiratory Failure 2. There is documentation in the record or possible Pneumonia, infection of lung, however, there is no documentation of possible pneumonia on Discharge Summary. Please clarify below, in your clinical opinion, regarding the possible Pneumonia. ( ) Possible Pneumonia was treated during this admission. Please specify below: ( xx ) Possible Stenotrophomonas Pneumonia ( ) Possible Pneumonia, unspecified ( ) Possible Pneumonia, Other - Please Specify ( ) No Pneumonia was treated - this was ruled out Physician's Response(s): Thank you Naa Leon Principal Diagnosis: "that condition established after study, to be chiefly responsible for occasioning the admission of the patient to the hospital for care." Co-Existing Principal Diagnosis: "when two or more diagnoses equally meet the criteria for principal diagnosis as determined by the circumstances of admission, diagnostic work up, and/or therapy provided, and the Alphabetic Index, Tabular List, or another coding guideline does not provide sequencing direction, any one of the diagnoses may be sequenced first." "When the physician has documented what appears to be a current diagnosis in the body of the record, but has not included the diagnosis in the final diagnostic statement, the physician should be asked whether the diagnosis should be added." (Source Coding Clinic 2 QTR90. p3-4) DAVIDD
== END 2019-01-09 13:45 | disposition home health service (06) | DRG 190 ==
LOC: ASU 07:17 → 2N 09:09

== ENCOUNTER 2019-01-28 03:56 | Inpatient (IN) ==
[2019-01-28] MEDS ORDERED: GLUCOSE 40% GEL 15 GM TUBE PO PRN (10:50)
[2019-01-28] MEDS ORDERED: GLUCOSE 10 TABS/TUBE PO PRN (10:50)
[2019-01-28] MEDS ORDERED: CARBOHYDRATES FOR HYPOGLYCEMIA PO PRN (10:50)
[2019-01-28] MEDS ORDERED: NITROGLYCERIN SL 0.4 MG/TAB TAB SL PRN (10:50)
[2019-01-28] MEDS ORDERED: ACETAMINOPHEN 325 MG TAB PO PRN (10:50)
[2019-01-28] MEDS ORDERED: MoRPHine SULFATE 2 MG/ML CARP IV PRN (10:50)
[2019-01-28] MEDS ORDERED: GLUCAGON FOR INJ 1 MG VIAL SQ PRN (10:50)
[2019-01-28] MEDS ORDERED: LORazepam 0.5 MG/1 ML VIAL IV PRN (10:50)
[2019-01-28] MEDS ORDERED: PROMETHAZINE HCL 12.5 MG in SODIUM CHLORIDE 0.9% 50 ML IV PRN (10:50)
[2019-01-28] MEDS ORDERED: ONDANSETRON INJ 2 MG/ML 2 ML VIAL IV PRN (10:50)
[2019-01-28] MEDS ORDERED: DEXTROSE 50% 50 ML SYRINGE IV PRN (10:50)
[2019-01-28] MEDS ORDERED: PHARMACY GLYCEMIC MGMT CONSULT PRN (11:15)
[2019-01-28 11:41] LABS: BUN Creatinine Ratio 20.7 (10-20); Creatinine Clr Calc Pharmacy 53.2 ml/min; Est GFR (African American) 66.4; Est GFR (Non-African American) 57.3; Magnesium 2.3 mg/dl (1.8-2.4); Potassium 3.8 mmol/L (3.5-5.1)
[2019-01-28] MEDS ORDERED: ASPIRIN 81 MG CHEW PO ONE (11:42)
[2019-01-28] MEDS ORDERED: METOPROLOL SUCC 50MG EXT REL TAB PO STA (11:45)
[2019-01-28] MEDS ORDERED: METOPROLOL TARTRATE 1 MG/ML VIAL IV PRN (11:45)
[2019-01-28] MEDS ORDERED: TRAMADOL HCL 50 MG TABLET PO PRN (11:47)
[2019-01-28] MEDS ORDERED: DUONEB INH PRN (11:47)
[2019-01-28 11:51] LABS: Troponin I 2.15 ng/ml (0-0.045)
[2019-01-28] MEDS ORDERED: Heparin Adult STANDARD Wt-Based Dextrose 5% 25,000 units/500 mL IV SCH (12:00)
[2019-01-28] MEDS ORDERED: INSULIN GLARGINE SOLOSTAR 100 UNITS/ML 3 ML PEN SC ONE ×2 (12:00→21:00)
--- NOTE | 2019-01-28 12:00 | History & Physical Report ---
Date of Service January 28, 2019 Assessment & Plan (1) Atrial fibrillation: Atrial fibrillation RVR associate with elevation of troponin and possible anginal equivalent Because of elevation of troponin she will be put on heparin drip she is completed with the remainder of her aspirin bolus we will continue her on her Plavix therapy. We will trend her troponins have a cardiology consultation have her on the monitor continue her medications for her coronary disease which are isosorbide and metoprolol. Additional IV metoprolol is available for rate control she is given a catch-up dose of 100 of Toprol-XL at midday today (2) Hypertension: Patient is also maintained on Cozaar 100, Lasix 10, amlodipine 10 in addition to her cardiac medicines for blood pressure control (3) Diabetes mellitus, type 2: Patient typically takes Toujeo and sliding scale that will be converted to glargine and sliding scale there is a glycemic management consult in place (4) Chronic obstructive pulmonary disease: Patient's last admission was for COPD and she is here today with chronic respiratory failure with hypoxemia and chronic bronchitis recently treated for an infection. She is maintained on scheduled duo nebs duo nebs and also scheduled Singulair (5) Lung cancer: Patient states that her last bronchoscopy January 07 Dr. Steele called and said is worrisome the pathology report reviewed by myself shows possibility of non-small cell cancer although this is not confirmed. Her previous cancer she had a right lung resection (6) Depression: Patient is maintained on Zoloft for depression (7) GERD (gastroesophageal reflux disease): Patient on a PPI this may be substituted for formulary here (8) Chronic low back pain: Patient is maintained on her tramadol and gabapentin for her chronic low back pain (9) DVT prophylaxis: Heparin drip History of Present Illness Primary Care Provider: Jennifer Viramontes 73-year-old female discharged from our facility middle of December after she presented with acute on chronic respiratory failure with hypoxia and concern for stenotrophomonas lung infection. She underwent a bronchoscopy and was discharged on oral cephalosporin therapy. Patient presented to [facility] ER 1 day prior to her admission where she had one day worth of just not feeling well. In [facility] ER she was found to be in atrial fibrillation (she has a history of this) with rapid ventricular response which converted spontaneously. Patient had chest discomfort for the day preceding her presentation to the ER and now she says her chest discomfort has lessened. Her initial chest discomfort was 10/10 it was associated with worsening of her baseline shortness of breath some diaphoresis but no nausea no radiation and no change in her home glucose. Patient still some chest discomfort a 5 or 6/10 currently. In [facility] ER she had a troponin in the mid 2 range its still in the 2.1 range on repeat here at [facility]. Patient claims to see [facility] cardiology in the [place] office. She otherwise is with no distress she initially had some nausea that resolved with some Zofran. She also notes did not take her metoprolol today. Patient also has recently had an intolerance of her Crestor therapy this was changed to formulary with her insurance Allergies Allergy/AdvReac Type Severity Reaction Status Date / Time fentanyl Allergy Intermediate RASH Verified 01/04/19 07:48 levofloxacin Allergy Intermediate UNKNOWN Verified 01/04/19 07:48 Penicillins Allergy Intermediate RASH Verified 01/04/19 07:48 sulfamethoxazole Allergy Unknown Verified 01/29/19 09:03 [From Bactrim] trimethoprim [From Bactrim] Allergy Unknown Verified 01/29/19 09:03 Ethanol Allergy Intermediate RASH Uncoded 03/18/16 07:51 Home Medications Home Medications Medication Instructions Recorded Confirmed Type ALBUTEROL SULFATE (PROAIR HFA) 2 puff INHALATION QID #0 12/27/13 01/04/19 History Amlodipine (Norvasc) 10 mg PO QAM #0 tab 12/27/13 01/04/19 History Clopidogrel Bisulfate (Clopidogrel) 75 mg PO QAM #0 12/27/13 01/04/19 History MONTELUKAST SODIUM (SINGULAIR) 10 mg PO QPM #0 tab 12/27/13 01/04/19 History Metoprolol Succinate (Toprol Xl) 100 mg PO BID #0 12/27/13 01/04/19 History Rosuvastatin Calcium (Crestor) 20 mg PO QPM #0 12/27/13 01/04/19 History Isosorbide Mononitrate Ext Rel 30 mg PO QAM #0 tab 12/29/13 01/04/19 History (Imdur Ext Rel) Cyanocobalamin (Vitamin B-12 Inj) 1,000 mcg IM 2XMONTH #0 01/19/14 01/04/19 History DUONEB 2 inh INHALATION Q4-HRSPRN PRN #0 01/19/14 01/04/19 History MOMETASONE FUROATE-FORMOTEROL 2 puff INHALATION BID #0 01/19/14 01/04/19 History (DULERA 100/5 MCG) HOME O2 THERAPY (Oxygen) 4 liters NA DAILY 30 Days #0 02/05/14 01/04/19 Rx FEXOFENADINE HCL (BERNARD ALLERGY) 1 tab PO DAILY 30 Days #30 tab 12/19/15 01/04/19 History Nitroglycerin (Nitrostat) 0.4 mg UT PRN #0 btl 12/19/15 01/04/19 History Potassium Chloride (Micro-K Ext 20 meq PO BID #0 cap 12/19/15 01/04/19 History Rel) Tramadol (Ultram) 1 tab PO TID PRN 30 Days #90 tab 12/19/15 01/04/19 History Triamcinolone Acet 0.1% 1 applic TOPICAL TID PRN #0 12/19/15 01/04/19 History (Aristocort 0.1%) Novolog U-100 Insulin aspart 1 sliding scale dose SUBCUT 01/04/19 01/04/19 History USEASDIRECTD Prilosec OTC 20 mg PO BID 01/04/19 01/04/19 History Toujeo SoloStar U-300 Insulin 70 unit SUBCUT DAILY 01/04/19 01/04/19 History furosemide 10 mg PO DAILY 01/04/19 01/04/19 History gabapentin 100 mg PO BID 01/04/19 01/04/19 History guaifenesin [Mucinex] 600 mg PO BID 01/04/19 01/04/19 History losartan [Cozaar] 100 mg PO DAILY 01/04/19 01/04/19 History metaxalone 800 mg PO BID 01/04/19 01/04/19 History sertraline [Zoloft] 50 mg PO DAILY 01/04/19 01/04/19 History prednisone 10 mg PO UD #40 tab 01/09/19 Rx Past Med/Surg History Medical History Anxiety Atrial fibrillation Chronic back pain Chronic obstructive pulmonary disease Chronically on 4 L of oxygen Depression Diabetes mellitus, type 2 GERD (gastroesophageal reflux disease) Hyperlipidemia Hypertension Lung cancer Myocardial Infarction Pneumonia Syncope Valvular heart disease Surgical History History of heart artery stent History of lobectomy of lung Patient had a lobectomy for lung cancer of her right lung 2013 Family History Unknown Diabetes Cancer Social History Preferred Language: Brazilian Communication Ability: Effective Visual Impairment: No Limitations Squadron Worker Required: No Beliefs That Will Affect Care: None Current Living Situation: Spouse Other Information That Helps Us Care for You: No Feels Safe at Home: Yes Safety Concerns: Feels Safe At This Time Smoking Status: Former smoker Tobacco Type: cigarettes ; Smoking End Date: 1999 ; Second Hand Exposure: No ; Hx Alcohol Use: No Hx Substance Use: No Review of Systems Review of Systems: ROS: well nourished well developed. No double vision blurry vision No problems with speech or swallowing No palpitations, patient cannot sense her rapid heart rate went was occurring. Chest pain is vague left substernal No Wheezing or breathing issues still has a chronic cough productive of white- yellow sputum at times No abdominal pain she did have some mild nausea no vomiting or diarrhea No burning urine urine frequency or changes in color No focal joint pain or muscle pain No skin rashes or oral lesions No unusual bruising or bleeding She suffers from chronic back pain but no numbness or loss of strength No changes in memory or confusion Physical Exam Physical Exam: The patient appeared well nourished and normally developed. She appears in no distress currently Vital signs as documented. Rate controlled sinus rhythm with elevated blood pressure (she did not take her normal morning meds) Head exam is unremarkable. normocephalic, atraumatic Neck is without jugular venous distension, thyromegaly, or lymphademopathy Lungs are with poor air movement no wheezes no rales Cardiac exam reveals Rhythm is regular. No murmurs are heard although she is a history of valvular heart disease Abdominal exam reveals normal bowel sounds, no masses, no organomegaly Extremities are nonedematous and both pedal pulses are present Neurologic exam is A&Ox3, no focal deficits, strength is equal bilateral Psychologically seems neither anxious or depressed Skin is warm Dry without bruises or lesions Results & Data Vital Signs (Past 12 Hours) Vital Signs Temp Pulse Resp BP Pulse Ox 01/28/19 10:47 36.9 C 84 20 198/74 H 94 Review of reports of outside hospital chest x-ray as no active disease Review outside hospital EKG showing A. fib RVR without acute ST or T wave changes during the rapid rate and then a rhythm strip showing resume sinus r hythm PG Care Time/CCT Total # of Minutes Spent Total Time Spent with Patient: Total time spent is greater than 50% in coordination of care (as documented) at patient's floor/unit and/or counseling patient: (1) Hypertension Hypertension type: essential hypertension Qualified Code(s): I10 - Essential (primary) hypertension
[2019-01-28] MEDS ORDERED: ALBUT/IPRATROP 3MG/0.5MG NEB 3 ML VIAL INH PRN (12:10)
[2019-01-28] MEDS: INSULIN ASPART 100 UNITS/ML 3 ML PEN SC SCH ×3 (12:45→20:36)
[2019-01-28] MEDS ORDERED: HEPARIN IV BOLUS 5,000 UNITS in SYRINGE 0 ML IV ONE (12:45)
[2019-01-28] MEDS: GABAPENTIN 100 MG CAP PO SCH ×2 (12:47→20:34)
[2019-01-28] MEDS: FUROSEMIDE 20 MG TAB PO SCH (12:47)
[2019-01-28] MEDS: LOSARTAN POTASSIUM 50 MG TAB PO SCH (12:47)
[2019-01-28] MEDS ORDERED: ALBUTEROL SULFATE INH SCH (13:00)
--- NOTE | 2019-01-28 13:07 | Cardiology Consultation ---
Date of Consultation January 28, 2019 Assessment & Plan (1) Elevated troponin: Troponin elevated in the setting of chest pain with atrial fibrillation with rapid response question demand based ischemia versus acute coronary syndrome. Agree with IV heparin antiplatelet therapy ordered Underlying confounding processes include recent illnesses marked hypertension Serial enzymes will be ordered as well as echocardiogram to assess for wall motion abnormalities. We will treat hypertension with additional dosing of topical nitrates If findings suggestive of worsening coronary disease cardiac catheterization may be performed as part of clinical course. Patient NOT drug-eluting stent candidate Atrial fibrillation is new for patient was associated with a rapid ventricular response despite substantial dose of metoprolol as below (2) Paroxysmal atrial fibrillation: New onset with associated symptoms of chest pressure pain possibly exacerbated by recent illness, hypertension. Patient high risk for recurrence of atrial fibrillation We will switch medical therapies to antiarrhythmic therapy with sotalol following QT interval closely will need to avoid all QT prolonging medications Maintain telemetry [id number] minimum, follow daily EKGs (3) Coronary artery disease: As noted prior right coronary stents 2001 (4) Hypertension: (5) Acute and chronic respiratory failure with hypoxia: Still somewhat wheezing on exam History of Present Illness Attending Physician: Vijay Soria MD History of Present Illness Patient is a 73-year-old female with complex multiple issues including cardiac issues as below and recent hospitalization with acute pneumonia 1. CAD with bare metal stents placed in the Mid and distal RCA in 2001 - repeat cardiac catheterization 2011 with patent stents and mild coronary atherosclerosis no obstruction 2. Diastolic heart failure - compensated on current medication 3. Hypertension 4. Hypercholesterolemia 5. Tobacco associated COPD - O2 requiring 6. Right middle lobe lobectomy for lung cancer in February of 2014 at [facility]. Repeat bronchoscopy December 2018 with some cellular atypia with anticipated repeat endoscopy in the future 7. Diabetes mellitus Patient's referred this admission having presented to [facility] emergency room with sudden onset chest pressure and pain and tachypalpitations. Patient was found to be in atrial fibrillation with rapid ventricular response with spontaneous conversion to sinus rhythm in the emergency room. Troponins were elevated however there were no acute changes on EKG post conversion to sinus rhythm. Patient now comfortable without recurrence of arrhythmia. He will has a moderate wheezing on forced cough. No fevers or chills. Moderate amount of yellow sputum production. Patient has no prior history of atrial fibrillation. No history of TIA or stroke. Chads vas 2 score however is elevated at 56 Patient currently on anticoagulation with IV heparin. Review of records reveals possible concerns regarding need for repeat bronchoscopy in the next months time Allergies Allergy/AdvReac Type Severity Reaction Status Date / Time fentanyl Allergy Intermediate RASH Verified 01/04/19 07:48 levofloxacin Allergy Intermediate UNKNOWN Verified 01/04/19 07:48 Penicillins Allergy Intermediate RASH Verified 01/04/19 07:48 Ethanol Allergy Intermediate RASH Uncoded 03/18/16 07:51 Home Medications Home Medications Medication Instructions Recorded Confirmed Type ALBUTEROL SULFATE (PROAIR HFA) 2 puff INHALATION QID #0 12/27/13 01/04/19 History Amlodipine (Norvasc) 10 mg PO QAM #0 tab 12/27/13 01/04/19 History Clopidogrel Bisulfate (Clopidogrel) 75 mg PO QAM #0 12/27/13 01/04/19 History MONTELUKAST SODIUM (SINGULAIR) 10 mg PO QPM #0 tab 12/27/13 01/04/19 History Metoprolol Succinate (Toprol Xl) 100 mg PO BID #0 12/27/13 01/04/19 History Rosuvastatin Calcium (Crestor) 20 mg PO QPM #0 12/27/13 01/04/19 History Isosorbide Mononitrate Ext Rel 30 mg PO QAM #0 tab 12/29/13 01/04/19 History (Imdur Ext Rel) Cyanocobalamin (Vitamin B-12 Inj) 1,000 mcg IM 2XMONTH #0 01/19/14 01/04/19 History DUONEB 2 inh INHALATION Q4-HRSPRN PRN #0 01/19/14 01/04/19 History MOMETASONE FUROATE-FORMOTEROL 2 puff INHALATION BID #0 01/19/14 01/04/19 History (DULERA 100/5 MCG) HOME O2 THERAPY (Oxygen) 4 liters NA DAILY 30 Days #0 02/05/14 01/04/19 Rx FEXOFENADINE HCL (BERNARD ALLERGY) 1 tab PO DAILY 30 Days #30 tab 12/19/15 01/04/19 History Nitroglycerin (Nitrostat) 0.4 mg UT PRN #0 btl 12/19/15 01/04/19 History Potassium Chloride (Micro-K Ext 20 meq PO BID #0 cap 12/19/15 01/04/19 History Rel) Tramadol (Ultram) 1 tab PO TID PRN 30 Days #90 tab 12/19/15 01/04/19 History Triamcinolone Acet 0.1% 1 applic TOPICAL TID PRN #0 12/19/15 01/04/19 History (Aristocort 0.1%) Novolog U-100 Insulin aspart 1 sliding scale dose SUBCUT 01/04/19 01/04/19 Hi story USEASDIRECTD Prilosec OTC 20 mg PO BID 01/04/19 01/04/19 History Toujeo SoloStar U-300 Insulin 70 unit SUBCUT DAILY 01/04/19 01/04/19 History furosemide 10 mg PO DAILY 01/04/19 01/04/19 History gabapentin 100 mg PO BID 01/04/19 01/04/19 History guaifenesin [Mucinex] 600 mg PO BID 01/04/19 01/04/19 History losartan [Cozaar] 100 mg PO DAILY 01/04/19 01/04/19 History metaxalone 800 mg PO BID 01/04/19 01/04/19 History sertraline [Zoloft] 50 mg PO DAILY 01/04/19 01/04/19 History prednisone 10 mg PO UD #40 tab 01/09/19 Rx Patient History Medical History Anxiety Atrial fibrillation Chronic back pain Chronic obstructive pulmonary disease Chronically on 4 L of oxygen Depression Diabetes mellitus, type 2 GERD (gastroesophageal reflux disease) Hyperlipidemia Hypertension Lung cancer Myocardial Infarction Pneumonia Syncope Valvular heart disease Surgical History History of heart artery stent History of lobectomy of lung Patient had a lobectomy for lung cancer of her right lung 2013 Family History Unknown Diabetes Cancer Social History Preferred Language: East Timorese Communication Ability: Effective Visual Impairment: No Limitations Timekeeping Supervisor Required: No Beliefs That Will Affect Care: None Current Living Situation: Spouse Other Information That Helps Us Care for You: No Feels Safe at Home: Yes Safety Concerns: Feels Safe At This Time Smoking Status: Former smoker Tobacco Type: cigarettes Smoking End Date: 1999 Second Hand Exposure: No Hx Alcohol Use: No Hx Substance Use: No Review of Systems Review of Systems: All systems reviewed & are unremarkable except as noted in HPI & below Physical Exam Constitutional: Mildly dyspneic appearing female but no acute distress. Eyes: PERRL, conjunctivae normal, anicteric sclerae ENMT: external ear and nose normal, oropharynx normal Neck: trachea midline, no thyromegaly Respiratory: Auscultation: + diminished lung sounds and + wheezes (Diffuse with increased exacerbation with forced cough) Cardiovascular: Rate/Rhythm: regular rate and regular rhythm Heart Sounds: normal S1 and normal S2; no murmur and no cardiac rub Vessels: no JVD and no carotid bruit Extremities: no edema Gastrointestinal (Abdomen): normal bowel sounds, soft, nontender, no hepatosplenomegaly Musculoskeletal: no cyanosis or clubbing, extremities motor strength 5/5 Skin: no rashes, warm and dry Results & Data Vital Signs (Past 12 Hours) Vital Signs Temp Pulse Resp BP Pulse Ox 01/28/19 10:47 36.9 C 84 20 198/74 H 94 Laboratory Results Laboratory Results - last 24 hr 01/28/19 01/28/19 01/28/19 11:02 11:35 13:56 WBC 14.51 H RBC 4.78 Hgb 13.0 Hct 41.3 MCV 86.4 MCH 27.2 MCHC 31.5 L RDW Std Deviation 51.5 H RDW Coeff of Royer 16.1 H Plt Count 192 MPV 11.8 H Immature Gran % (Auto) 1.1 Neut % (Auto) 76.7 Lymph % (Auto) 14.3 Long % (Auto) 7.0 Eos % (Auto) 0.8 Baso % (Auto) 0.1 Immature Gran # (Auto) 0.16 H Neut # (Auto) 11.12 H Lymph # (Auto) 2.08 Long # (Auto) 1.02 H Eos # (Auto) 0.11 Baso # (Auto) 0.02 PT INR APTT PTT Ratio Sodium 140 Potassium 3.8 Chloride 105 Carbon Dioxide 28 Anion Gap 7.0 BUN 20 H Creatinine 0.99 Est Cr Clr Drug Dosing 53.2 Est GFR ( Amer) 66.4 Est GFR (Non-Af Amer) 57.3 BUN/Creatinine Ratio 20.7 H Glucose 265 H POC Glucose 252 H Calcium 9.0 Magnesium 2.3 Troponin I 2.150 H* 01/28/19 01/28/19 13:56 13:56 WBC RBC Hgb Hct MCV MCH MCHC RDW Std Deviation RDW Coeff of Royer Plt Count MPV Immature Gran % (Auto) Neut % (Auto) Lymph % (Auto) Long % (Auto) Eos % (Auto) Baso % (Auto) Immature Gran # (Auto) Neut # (Auto) Lymph # (Auto) Long # (Auto) Eos # (Auto) Baso # (Auto) PT Cancelled 10.3 INR Cancelled 1.0 APTT 24.2 PTT Ratio 0.9 Sodium Potassium Chloride Carbon Dioxide Anion Gap BUN Creatinine Est Cr Clr Drug Dosing Est GFR ( Amer) Est GFR (Non-Af Amer) BUN/Creatinine Ratio Glucose POC Glucose Calcium Magnesium Troponin I (1) Hypertension Hypertension type: essential hypertension Qualified Code(s): I10 - Essential (primary) hypertension
[2019-01-28] MEDS: ISOSORBIDE MONO EXTENDED REL 30 MG TABCR PO SCH (13:53)
[2019-01-28 14:19] LABS: Basophils # (auto) 0.02 K/uL (0-0.2); Basophils % (auto) 0.1 %; Eosinophils # (auto) 0.11 K/uL (0-0.5); Eosinophils % (auto) 0.8 %; Hematocrit (blood only) 41.3 % (37-47); Immature Granulocytes # (auto) 0.16 K/uL (0.00-0.02); Immature Granulocytes % (auto) 1.1 %; Lymphocytes # (auto) 2.08 K/uL (1.2-3.4); Lymphocytes % (auto) 14.3 %; Mean Corpuscular Volume 86.4 fL (80-100); Mean Platelet Volume 11.8 fL (7.4-10.4); Monocytes # (auto) 1.02 K/uL (0.11-0.59); Neutrophils # (auto) 11.12 K/uL (1.4-6.5); Neutrophils % (auto) 76.7 %; Platelet Count 192 K/uL (130-400); RDW Coefficient of Variation 16.1 % (11.5-14.5); RDW Standard Deviation 51.5 fL (36.4-46.3); Red Blood Count 4.78 M/uL (4.2-5.4); White Blood Count 14.51 K/uL (4.8-10.8)
[2019-01-28 14:26] LABS: Partial Thromboplastin Ratio 0.9; Partial Thromboplastin Time 24.2 Seconds (21.0-31.0); Prothrombin Time 10.3 Seconds (9.0-12.0)
[2019-01-28 14:28] LABS: Mean Corpuscular Hgb Conc 31.5 g/dL (32-36)
[2019-01-28] MEDS: HEPARIN SODIUM/DEXTROSE 25,000 UNITS/500 ML BAG IV SCH (14:41)
[2019-01-28] MEDS ORDERED: PERFLUTREN LIPID MICROSPHERE (DEFINITY) IV ONE (14:45)
[2019-01-28] MEDS: ALBUT/IPRATROP 3MG/0.5MG NEB 3 ML VIAL INH SCH ×3 (15:07→23:09)
--- NOTE | 2019-01-28 15:40 | Pharmacy Report ---
Glycemic Control Consultation - Date of Service January 28, 2019 - Scope Scope: Glycemic Pharmacist consulted by Dr Lehman on 01/28 for glycemic control and to write orders per [facility] inpatient glycemic control protocol - Objective Weight: 86.5 kg Accuchecks BSG (last 24hrs): 01/28/19 01/28/19 11:02 11:35 Glucose 265 H POC Glucose 252 H Laboratory Data (last 24hrs): 01/28/19 11:02 Potassium 3.8 Carbon Dioxide 28 Anion Gap 7.0 Creatinine 0.99 Est Cr Clr Drug Dosing 53.2 - Recent Pertinent Medications Outpatient Anti-diabetic Regimen: * Toujeo 300 units/ml 80 units daily, Novolog 10 units TIDM + sliding scale * A1c = [] % [date] Risk Factors for Insulin Resistance: * Steroids: * Infection: * Pressors: * IVF: * Recent Surgery * Diet: clear liquid;type 2 * Mechanical Ventilation: - Assessment & Plan Assessment & Plan: ASSESSMENT: * 73 year old female transferred from [facility] with atrial fibrillation/chest discomfort * Patient admitted previously in Mid December with poor glycemic control at that time, it appears her basal doses were significantly reduced and titrated back up during that visit * Plan to give 20% reduction of first dose of lantus, and then resume home dosing/adjust as necessary * Novolog parameters started at weight based stress of 3 Plan for inpatient glycemic control: * Basal insulin * Lantus 65 units x 1 * Bolus insulin * NovoLog per scale ACHS or Q6hrs while NPO * Goal Range: Low 110 mg/dL - High 150 mg/dL * Correction Factor: 20 mg/dL/unit * Nutritional / Prandial insulin per carb ratio of 1 unit per 6 grams CHO consumed * Please note that the plan above was derived based on current level of insulin resistance and hospital stress. These recommendations are appropriate for inpatient admission only. Plan of care upon discharge will need to be reassessed to avoid potential outpatient hypo/hyperglycemia. Thank you.
[2019-01-28] MEDS: NITROGLYCERIN 2% OINTMENT 30GM TUBE EXT SCH ×2 (16:15→20:35)
[2019-01-28] MEDS: MONTELUKAST SODIUM 10 MG TABLET PO SCH (20:34)
[2019-01-28] MEDS: SOTALOL HCL 80 MG TAB PO SCH (20:34)
[2019-01-28] MEDS: PANTOprazole 40 MG TAB PO SCH (20:34)
[2019-01-28] MEDS: POTASSIUM CHLORIDE 20 MEQ TABCR PO SCH (20:34)
[2019-01-28] MEDS ORDERED: HEPARIN SOD 5,000 UNIT/0.5 ML VIAL SQ SCH (21:00)
[2019-01-28 21:42] LABS: Partial Thromboplastin Ratio 1.7
[2019-01-28 21:46] LABS: Partial Thromboplastin Time 46.1 Seconds (21.0-31.0)
[2019-01-28] MEDS: TRAMADOL HCL 50 MG TABLET PO PRN (23:42)
[2019-01-29] MEDS: NITROGLYCERIN 2% OINTMENT 30GM TUBE EXT SCH ×4 (03:15→20:00)
[2019-01-29] MEDS: ALBUT/IPRATROP 3MG/0.5MG NEB 3 ML VIAL INH SCH ×7 (04:05→22:52)
[2019-01-29 05:12] LABS: Partial Thromboplastin Ratio 1.5; Partial Thromboplastin Time 41.1 Seconds (21.0-31.0)
[2019-01-29 05:25] LABS: BUN Creatinine Ratio 25.2 (10-20); Calcium 8.3 mg/dl (8.5-10.1); Creatinine Clr Calc Pharmacy 48.5 ml/min; Est GFR (African American) 59.8; Est GFR (Non-African American) 51.6; Potassium 4.1 mmol/L (3.5-5.1)
[2019-01-29 05:40] LABS: Troponin I 1.05 ng/ml (0-0.045)
[2019-01-29] MEDS ORDERED: HEPARIN IV BOLUS 3,000 UNITS in SYRINGE 0 ML IV ONE (07:15)
[2019-01-29 07:31] LABS: Estimated Average Glucose 226 mg/dl; Hemoglobin A1C 9.5 % (4.5-5.6)
[2019-01-29] MEDS: ISOSORBIDE MONO EXTENDED REL 30 MG TABCR PO SCH (07:43)
[2019-01-29] MEDS: LOSARTAN POTASSIUM 50 MG TAB PO SCH (07:43)
[2019-01-29] MEDS: SOTALOL HCL 80 MG TAB PO SCH ×2 (07:44→20:02)
[2019-01-29] MEDS: AMLODIPINE BESYLATE 5 MG TAB PO SCH (07:44)
[2019-01-29] MEDS: INSULIN ASPART 100 UNITS/ML 3 ML PEN SC SCH ×4 (08:55→20:02)
[2019-01-29] MEDS ORDERED: SODIUM CHLORIDE 0.9% 1000ML 1,000 ML IV SCH ×2 (09:00→13:15)
[2019-01-29] MEDS ORDERED: METOPROLOL SUCC 50MG EXT REL TAB PO SCH (09:00)
--- NOTE | 2019-01-29 09:33 | Cardiology Progress Note ---
Date of Service January 29, 2019 Assessment & Plan (1) Elevated troponin: Troponin elevated in the setting of chest pain with atrial fibrillation with rapid response question demand based ischemia versus acute coronary syndrome. Agree with IV heparin antiplatelet therapy ordered Underlying confounding processes include recent illnesses marked hypertension Serial enzymes will be ordered as well as echocardiogram to assess for wall motion abnormalities. We will treat hypertension with additional dosing of topical nitrates If findings suggestive of worsening coronary disease cardiac catheterization may be performed as part of clinical course. Patient NOT drug-eluting stent candidate Atrial fibrillation is new for patient was associated with a rapid ventricular response despite substantial dose of metoprolol as below Reviewed above in detail with patient once again today troponins trending downward but concerning with new lateral ST segment changes on EKG. No QT prolongation I recommended patient undergo diagnostic cardiac catheterization today with patient agreeable. Procedure and risks explained in detail with the patient including additional risks of coronary intervention if indicated. Further recommendations pending the results of study (2) Paroxysmal atrial fibrillation: New onset with associated symptoms of chest pressure pain possibly exacerbated by recent illness, hypertension. Patient high risk for recurrence of atrial fibrillation We will switch medical therapies to antiarrhythmic therapy with sotalol following QT interval closely will need to avoid all QT prolonging medications Maintain telemetry [id number] minimum, follow daily EKGs (3) Coronary artery disease: As noted prior right coronary stents 2001 (4) Hypertension: (5) Acute and chronic respiratory failure with hypoxia: Still wheezing dyspnea on exam Will likely require intensification of therapy Subjective Patient seen and examined, chart, telemetry reviewed. Patient did have episode of chest discomfort last night there was some atypical features. Troponins are trending downward Blood pressure slightly better controlled No arrhythmias on telemetry Still wheezy and short of breath especially with movement or activity Review of Systems Review of Systems: All systems reviewed & are unremarkable except as noted in HPI & below Physical Exam Eyes: PERRL, conjunctivae normal, anicteric sclerae ENMT: external ear and nose normal, oropharynx normal Neck: trachea midline, no thyromegaly Respiratory: Auscultation: + diminished lung sounds and + wheezes (Diffuse with increased exacerbation with forced cough) Cardiovascular: Rate/Rhythm: regular rate and regular rhythm Heart Sounds: normal S1 and normal S2; no murmur and no cardiac rub Vessels: no JVD and no carotid bruit Extremities: no edema Gastrointestinal (Abdomen): normal bowel sounds, soft, nontender, no hepatosplenomegaly Musculoskeletal: no cyanosis or clubbing, extremities motor strength 5/5 Skin: no rashes, warm and dry Results & Data Vital Signs (Past 12 Hours) Vital Signs Temp Pulse Pulse Resp BP Pulse Ox 01/29/19 07:15 77 20 90 01/29/19 06:53 36.8 C 76 22 147/69 H 90 01/29/19 03:17 36.9 C 71 20 136/70 91 01/29/19 00:10 72 150/54 H 01/28/19 23:15 36.8 C 69 22 131/71 91 01/28/19 23:14 69 01/28/19 23:09 78 18 95 Laboratory Results Laboratory Results - last 24 hr 01/28/19 01/28/19 01/28/19 11:02 11:35 13:56 WBC 14.51 H RBC 4.78 Hgb 13.0 Hct 41.3 MCV 86.4 MCH 27.2 MCHC 31.5 L RDW Std Deviation 51.5 H RDW Coeff of Royer 16.1 H Plt Count 192 MPV 11.8 H Immature Gran % (Auto) 1.1 Neut % (Auto) 76.7 Lymph % (Auto) 14.3 [place] % (Auto) 7.0 Eos % (Auto) 0.8 Baso % (Auto) 0.1 Immature Gran # (Auto) 0.16 H Neut # (Auto) 11.12 H Lymph # (Auto) 2.08 [place] # (Auto) 1.02 H Eos # (Auto) 0.11 Baso # (Auto) 0.02 PT INR APTT PTT Ratio Sodium 140 Potassium 3.8 Chloride 105 Carbon Dioxide 28 Anion Gap 7.0 BUN 20 H Creatinine 0.99 Est Cr Clr Drug Dosing 53.2 Est GFR ( Amer) 66.4 Est GFR (Non-Af Amer) 57.3 BUN/Creatinine Ratio 20.7 H Glucose 265 H POC Glucose 252 H Estimat Average Glucose Hemoglobin A1c Calcium 9.0 Magnesium 2.3 Troponin I 2.150 H* Triglycerides Cholesterol LDL Cholesterol, Calc VLDL Cholesterol, Calc HDL Cholesterol Cholesterol/HDL Ratio 01/28/19 01/28/19 01/28/19 13:56 13:56 16:30 WBC RBC Hgb Hct MCV MCH MCHC RDW Std Deviation RDW Coeff of Royer Plt Count MPV Immature Gran % (Auto) Neut % (Auto) Lymph % (Auto) [place] % (Auto) Eos % (Auto) Baso % (Auto) Immature Gran # (Auto) Neut # (Auto) Lymph # (Auto) [place] # (Auto) Eos # (Auto) Baso # (Auto) PT Cancelled 10.3 INR Cancelled 1.0 APTT 24.2 PTT Ratio 0.9 Sodium Potassium Chloride Carbon Dioxide Anion Gap BUN Creatinine Est Cr Clr Drug Dosing Est GFR ( Amer) Est GFR (Non-Af Amer) BUN/Creatinine Ratio Glucose POC Glucose 167 H Estimat Average Glucose Hemoglobin A1c Calcium Magnesium Troponin I Triglycerides Cholesterol LDL Cholesterol, Calc VLDL Cholesterol, Calc HDL Cholesterol Cholesterol/HDL Ratio 01/28/19 01/28/19 01/28/19 16:47 20:27 21:13 WBC RBC Hgb Hct MCV MCH MCHC RDW Std Deviation RDW Coeff of Royer Plt Count MPV Immature Gran % (Auto) Neut % (Auto) Lymph % (Auto) [place] % (Auto) Eos % (Auto) Baso % (Auto) Immature Gran # (Auto) Neut # (Auto) Lymph # (Auto) [place] # (Auto) Eos # (Auto) Baso # (Auto) PT INR APTT 46.1 H* PTT Ratio 1.7 Sodium Potassium Chloride Carbon Dioxide Anion Gap BUN Creatinine Est Cr Clr Drug Dosing Est GFR ( Amer) Est GFR (Non-Af Amer) BUN/Creatinine Ratio Glucose POC Glucose 158 H Estimat Average Glucose Hemoglobin A1c Calcium Magnesium Troponin I 2.070 H* Triglycerides Cholesterol LDL Cholesterol, Calc VLDL Cholesterol, Calc HDL Cholesterol Cholesterol/HDL Ratio 01/28/19 01/29/19 01/29/19 22:43 04:49 04:49 WBC RBC Hgb Hct MCV MCH MCHC RDW Std Deviation RDW Coeff of Royer Plt Count MPV Immature Gran % (Auto) Neut % (Auto) Lymph % (Auto) [place] % (Auto) Eos % (Auto) Baso % (Auto) Immature Gran # (Auto) Neut # (Auto) Lymph # (Auto) [place] # (Auto) Eos # (Auto) Baso # (Auto) PT INR APTT PTT Ratio Sodium 140 Potassium 4.1 Chloride 104 Carbon Dioxide 30 Anion Gap 6.0 BUN 27 H Creatinine 1.08 Est Cr Clr Drug Dosing 48.5 Est GFR ( Amer) 59.8 Est GFR (Non-Af Amer) 51.6 BUN/Creatinine Ratio 25.2 H Glucose 133 H POC Glucose Estimat Average Glucose 226 Hemoglobin A1c 9.5 H Calcium 8.3 L Magnesium Troponin I 1.270 H* 1.050 H* Triglycerides 417 H Cholesterol 260 H LDL Cholesterol, Calc VLDL Cholesterol, Calc HDL Cholesterol 38 Cholesterol/HDL Ratio 7 01/29/19 01/29/19 04:49 07:29 WBC RBC Hgb Hct MCV MCH MCHC RDW Std Deviation RDW Coeff of Royer Plt Count MPV Immature Gran % (Auto) Neut % (Auto) Lymph % (Auto) [place] % (Auto) Eos % (Auto) Baso % (Auto) Immature Gran # (Auto) Neut # (Auto) Lymph # (Auto) [place] # (Auto) Eos # (Auto) Baso # (Auto) PT INR APTT 41.1 H PTT Ratio 1.5 Sodium Potassium Chloride Carbon Dioxide Anion Gap BUN Creatinine Est Cr Clr Drug Dosing Est GFR ( Amer) Est GFR (Non-Af Amer) BUN/Creatinine Ratio Glucose POC Glucose 118 H Estimat Average Glucose Hemoglobin A1c Calcium Magnesium Troponin I Triglycerides Cholesterol LDL Cholesterol, Calc VLDL Cholesterol, Calc HDL Cholesterol Cholesterol/HDL Ratio ECG Additional Comments: 29-JAN-2019 07:10:06 [facility]-CCU ROUTINE RETRIEVAL Normal sinus rhythm ST & T wave abnormality, consider lateral ischemia Abnormal ECG When compared with ECG of 29-JAN-2019 00:05, (unconfirmed) No significant change was found (1) Hypertension Hypertension type: essential hypertension Qualified Code(s): I10 - Essential (primary) hypertension
[2019-01-29] MEDS ORDERED: HEPARIN (PORCINE) 1000 UNIT/ML 10 ML (CATH LAB USE ONLY) ONE (09:54)
[2019-01-29] MEDS ORDERED: NiCARDipine HCL INJ 2.5 MG/ML 10 ML AMP ONE (09:54)
[2019-01-29] MEDS ORDERED: fentaNYL citrate 100 MCG/2 ML VIAL ONE (09:54)
[2019-01-29] MEDS ORDERED: MIDAZOLAM HCL 1 MG/ML 2ML VIAL ONE ×2 (09:54→12:51)
[2019-01-29] MEDS ORDERED: NITROGLYCERIN/D5W 100MCG/ML 20ML SYR ONE (09:55)
[2019-01-29] MEDS: HEPARIN SODIUM/DEXTROSE 25,000 UNITS/500 ML BAG IV SCH (10:19)
[2019-01-29] MEDS ORDERED: INSULIN GLARGINE SOLOSTAR 100 UNITS/ML 3 ML PEN SC ONE (10:30)
--- NOTE | 2019-01-29 12:03 | Pre Anesthesia Assessment ---
Date of Service January 29, 2019 Pre Sedation Assessment Vital Signs Temp Pulse Pulse Resp BP Pulse Ox 01/29/19 10:43 76 19 92 01/29/19 08:00 72 01/29/19 07:15 77 20 90 01/29/19 06:53 36.8 C 76 22 147/69 H 90 01/29/19 03:17 36.9 C 71 20 136/70 91 01/29/19 00:10 72 150/54 H 01/28/19 23:15 36.8 C 69 22 131/71 91 01/28/19 23:14 69 01/28/19 23:09 78 18 95 01/28/19 19:13 74 16 93 01/28/19 19:06 36.8 C 69 19 121/63 93 01/28/19 16:00 72 01/28/19 15:10 36.6 C 74 19 125/58 L 95 01/28/19 15:07 75 18 93 01/28/19 14:56 110/61 Cardiovascular RRR, no murmur, no edema Respiratory + diminished lung sounds and + wheezes Pre-Sedation Airway Assessment Smoking Status: Former smoker Hx Sleep Apnea: No Mallampati Class: II ASA: ASA3 Procedure Planning Contraindications for Sedation: none Current Medications Reviewed: Yes Notes The planned sedation has been discussed with the patient. Informed Consent was obtained. I have identified the patient, determined the appropriateness of sedation and have assessed the patient immediately prior to the procedure. All medicine(s) and interventions are by my order.
--- NOTE | 2019-01-29 12:43 | Cardiac Catheterization ---
Cardiac Cath Procedure: Brief Procedure Date January 29, 2019 Pre-Procedure Diagnosis Pre-Procedure Diagnosis: Non STEMI AUC Score AUC Score: 8 Post-Procedure Diagnosis Post-Procedure Diagnosis: Severe CAD (Single-vessel significant RCA) Procedure(s) Performed Procedure(s) Performed: Coronary Angiography and Left Heart Cath Full Stack Web Developer Jared Vogel MD Gas Meter Mechanic(s) Brendon Bosch Estimated Blood Loss Estimated Blood Loss: <15cc Medication(s) Medication(s): Heparin (2000 units IV), Lidocaine 1% (Local infiltration access site), Nicardipine (250 mcg intra-arterial after arterial sheath insertion) and Versed (1 mg IV) Preliminary Findings Right dominant coronary anatomy Moderate diffuse coronary atherosclerosis There are patent stents in the proximal and midportion of the right coronary There is a discrete 75% RCA stenosis at the end of the proximal stent with large area vascular distribution beyond with the right coronary supplying along posterior descending artery reaching well to the apex and 3 modest posterior ventricular branches Left main: Large caliber with 25% ostial stenosis and mild ectasia Left anterior descending: Type III vessel which is rise to 2 small diagonal branches in its midportion. Within the left anterior descending there is moderate irregularities of the long 30% stenosis after its first septal branch Ramus intermedius large caliber bifurcating vessel with moderate irregularities and no obstruction Left circumflex relatively large but nondominant consisting of a bifurcating obtuse marginal and a single posterior lateral branch with mild irregularities LV angiography not performed Left ventricular end-diastolic pressure 6 Impression: Single-vessel significant disease RCA Plan: Patient referred for coronary intervention same setting Recommendations Recommendations: PCI without planned CABG Specimens Specimens: None Fluids (cc crystalloids) Fluids (cc crystalloids): 30 Anesthesia Start time: 1209, stop time: 1232 Procedural Complication(s) None
[2019-01-29] MEDS ORDERED: DiphenhydrAMINE HCL 50 MG/ML VIAL ONE (12:57)
[2019-01-29] MEDS ORDERED: CLOPIDOGREL BISULFATE 300 MG TAB ONE (13:02)
--- NOTE | 2019-01-29 13:02 | Cardiac Catheterization ---
Cardiac Cath Procedure Full Procedure Date January 29, 2019 Pre-Procedure Diagnosis Pre-Procedure Diagnosis: Non STEMI AUC Score AUC Score: 8 Post-Procedure Diagnosis Post-Procedure Diagnosis: Severe CAD (Single-vessel significant RCA) Procedure(s) Performed Procedure(s) Performed: Coronary Angiography and Left Heart Cath Superintendent Greens Jared Vogel MD Night Stocker(s) Brendon Bosch Estimated Blood Loss Estimated Blood Loss: <15cc Medication(s) Medication(s): Heparin (2000 units IV), Lidocaine 1% (Local infiltration access site), Nicardipine (250 mcg intra-arterial after arterial sheath insertion) and Versed (1 mg IV) Summary of Findings Right dominant coronary anatomy Moderate diffuse coronary atherosclerosis There are patent stents in the proximal and midportion of the right coronary There is a discrete 75% RCA stenosis at the end of the proximal stent with large area vascular distribution beyond with the right coronary supplying along posterior descending artery reaching well to the apex and 3 modest posterior ventricular branches Left main: Large caliber with 25% ostial stenosis and mild ectasia Left anterior descending: Type III vessel which is rise to 2 small diagonal branches in its midportion. Within the left anterior descending there is moderate irregularities of the long 30% stenosis after its first septal branch Ramus intermedius large caliber bifurcating vessel with moderate irregularities and no obstruction Left circumflex relatively large but nondominant consisting of a bifurcating obtuse marginal and a single posterior lateral branch with mild irregularities Right coronary artery: Large and dominant distribution giving rise to a conus and RV branch in its proximal third to additional RV branches in its midportion, and at the AV groove along posterior descending artery reaching well around the apex. Along the AV groove there are 3 small posterior ventricular branches. Within the right coronary artery there is an 2 areas of stenting, first in its proximal third encompassing the origin of the second RV branch, second proximal to the acute margin. Both stents are patent without stenosis. Immediately at the end of the first and however there is a discrete 75% stenosis in the mid right coronary artery LV angiography not performed Left ventricular end-diastolic pressure 6 Impression: Single-vessel significant disease RCA Plan: Patient referred for coronary intervention same setting Hemodynamics Rest Ao:: 150/53/86 Final Ao: 145/49/83 LV: 153/1/6 Recommendations Recommendations: PCI without planned CABG Specimens Specimens: None Radiation Exposure (mGy) 1511 Contrast (mls) 95 Fluids (cc crystalloids) Fluids (cc crystalloids): 30 Anesthesia Start time: 1209, stop time: 1232 Procedural Complication(s) None ACC Data: Display Artist Cardiac Status Clinical evaluation leading to the procedure Patient is a 73-year-old female with known coronary disease with prior stenting in the proximal and distal right coronary artery and remote past who developed atrial fibrillation with rapid response associated substernal chest pain. Patient spontaneously converted to sinus rhythm but had significant rise in troponin to greater than 2 consistent with non-ST segment elevation myocardial infarction. CAD Presenation: Non STEMI Anginal Classification: CCS IV Cardiogenic Shock within 24 Hours: No Cardiac Arrest within 24 Hours: No Imaging Studies Past 6 Months: Yes Stress Studies Past 6 Months: No Standard Exercise Test: No Stress Echocardiogram: No Stress Testing w/SPECT MPI: No Cardiac CTA: No Coronary Anatomy Dominant: Right Left Main (% Stenosis): Ostial (25) LAD (% Stenosis): Proximal (30) and Mid (40) D1 (% Stenosis): Proximal (40) D2 (% Stenosis): Normal Circumflex (% Stenosis): Proximal OM1 (% Stenosis): Normal L PL1 (% Stenosis): Normal RCA (% Stenosis): Mid (75) Ramus (% Stenosis): Normal (Large caliber bifurcating) Diagnostic Physicians Name: Jared Vogel MD Status: Urgent Closure Device Percutaneous Entry Location: Radial Closure Device: Radial Band Recommendations: PCI without planned CABG
--- NOTE | 2019-01-29 13:38 | Post Anesthesia Assessment ---
Date of Service January 29, 2019 Post Sedation Assessment Vital Signs Temp Pulse Pulse Resp BP Pulse Ox 01/29/19 10:43 76 19 92 01/29/19 08:00 72 01/29/19 07:15 77 20 90 01/29/19 06:53 36.8 C 76 22 147/69 H 90 01/29/19 03:17 36.9 C 71 20 136/70 91 01/29/19 00:10 72 150/54 H 01/28/19 23:15 36.8 C 69 22 131/71 91 01/28/19 23:14 69 01/28/19 23:09 78 18 95 01/28/19 19:13 74 16 93 01/28/19 19:06 36.8 C 69 19 121/63 93 01/28/19 16:00 72 01/28/19 15:10 36.6 C 74 19 125/58 L 95 01/28/19 15:07 75 18 93 01/28/19 14:56 110/61 Recovery Score Activity: Moves 4 extremities Respiration: Deep Breath/Cough Circulation: +/-20% PreAnes Value Consciousness: Fully Awake Oxygen Saturation: O2 needed for >90% Discharge Sedation Level of Care: Fast Track Phase II Post Sedation Plan On clinical assessment, the patient appears to have tolerated the sedation without complications. Patient is recovering as anticipated. Patient will continue to be monitored by nursing and may be discharged when sedation discharge criteria are met per below protocol. Upon Completions of procedure and additional 15 minutes continue every 5 minute vital signs and the P.A.R. score; then discharge to a Phase I or Fast Track to Phase II per the following guidelines: * Discharge Patient to appropriate Phase II area if PAR is 8 or greater or return to pre- procedure baseline. The post - procedure orders will be as directed. * If PAR score is less than 8 or not return to pre-procedure baseline then patient will follow Phase I monitoring till PAR is reached for Phase II. The Phase I may be done in procedure room or may call to secure a Phase I area. * If naloxone or flumazenil are used for reversal, hold in Phase I for continued monitoring from when last reversal dose was given for a minimum of 60 minutes or longer pending the nurse and/or physician discretion of patient condition before discharge to Phase II. Please call the Sedation Physician to re-evaluate and complete post-note for discharge to Phase II area. Do NOT discharge from procedure sedation or Phase 1 until post- sedation evaluation note is complete by procedure /sedation MD Sedation Discharge Instructions to be given to the patient at discharge to home.
--- NOTE | 2019-01-29 13:51 | Cardiac Catheterization ---
ACC Data: Care Assistant Cardiac Status Clinical evaluation leading to the procedure CAD Presenation: Non STEMI Anginal Classification: CCS III Heart Failure: No Cardiogenic Shock within 24 Hours: No Cardiac Arrest within 24 Hours: No Imaging Studies Past 6 Months: Yes Stress Studies Past 6 Months: No Diagnostic Physicians Name: Kuldeep Faulkner MD Status: Elective Closure Device Percutaneous Entry Location: Radial Closure Device: Radial Band Recommendations: PCI without planned CABG PCI Indication: PCI for high risk Non-BRIGIDA Lesion Segment Name: mid RCA Culprit Artery: Yes Stenosis Prior to Rx (%): 70 Chronic Total Occlusion: No IVUS: No FFR: No Pre-Procedure TANNA Flow: 3 Previously Treated Lesion: Timeframe: 1-2 years Treated with Stent: Yes In-Stent Restenosis: Yes In-Stent Thrombosis: No Stent Type: KALANI Yes Lesion Complexity: Non-High/Non-C Lesion Length (mm): 25 Thrombus Present: No Bifurcation Lesion: No Guidewire Across Lesion: Stenosis Post-Procedure (%): 0 Post-Procedure TANNA Flow: 2 Devices(s) Deployed: Yes Yes Intraprocedure Events Significant Disection: No Perforation: No Cardiac Cath Procedure Full Procedure Date January 29, 2019 Pre-Procedure Diagnosis Pre-Procedure Diagnosis: Non STEMI AUC Score AUC Score: 8 Post-Procedure Diagnosis Post-Procedure Diagnosis: Severe CAD (Single-vessel significant RCA) and Successful PCI Procedure(s) Performed Procedure(s) Performed: Coronary Angiography and Drug Eluting Stent Telegraph Service Clerk Kuldeep Faulkner MD Dye Jig Operator(s) Brendon Bosch Estimated Blood Loss Estimated Blood Loss: <15cc Medication(s) Medication(s): Clopidogrel, Diphenhydramine, Heparin (2000 units IV), Nicardipine (250 mcg intra-arterial after arterial sheath insertion), Nitroglycerin and Versed (1 mg IV) Summary of Findings Indication: NSTEMI Access: 6FR right radial artery Catheters: AR1 guide Findings: For full details of patient's coronary angiography please cath report dictated by Dr. Vogel. Briefly, patient found to have severe in-stent restenosis in his mid RCA. Decision to proceed with PCI with bare-metal stent in the setting of potential need for additional invasive lung evaluation. -- PCI -- Antithrombotic therapy: Heparin, clopidogrel Procedure: RCA cannulated with AR-1 guide BMW wire passed across lesion into distal vessel Mid RCA lesion predilated with 2.5 compliant balloon Dilated lesion stented with 3.5 x 30 mm bare-metal integrity stent Stent post-dilated with 3.75 noncompliant balloon IC vasodilators administered for spasm Post procedure TANNA 3 flow, stent well expanded with minimal residual stenosis and no apparent cardiac complications. Arterial Closure: TR Band Summary: 1. Successful PCI of mid RCA in-stent restenosis with single bare-metal stent (3.5 x 30 integrity, postdilated with 3.75 NC). Recommendations: To PCU for continued monitoring Loaded with clopidogrel 600 mg in recyclable products sorter Continue dual-antiplatelet therapy for at least one month, ideally 1 year Continue statin, and ASCVD risk factor modification Consult cardiac Rehab Hemodynamics Rest Ao:: 150/53 Final Ao: 165/57/99 LV: 153/4 Recommendations Recommendations: PCI without planned CABG Specimens Specimens: None Radiation Exposure (mGy) 3211 Contrast (mls) 165 Fluids (cc crystalloids) Fluids (cc crystalloids): 55 Drains Drains: none Anesthesia moderate Procedural Complication(s) None Disposition PCU
[2019-01-29] MEDS ORDERED: FUROSEMIDE 40 MG/4 ML VIAL IV ONE (14:23)
[2019-01-29] MEDS ORDERED: FUROSEMIDE 40 MG/4 ML VIAL IV STA (14:25)
--- NOTE | 2019-01-29 14:30 | XRay Report ---
XR chest 1V portable CLINICAL HISTORY: dyspnea, decreased O2 sats post sedation COMPARISON STUDY: 01/04/2018 FINDINGS: Developing components of congestive failure versus early pulmonary edema. Increased pulmona ry vasculature compared to the prior study. Diaphragms are smooth. IMPRESSION: Developing congestive heart failure versus mild pulmonary edema. The above report was generated using voice recognition software. It may contain grammatical, syntax or spelling errors. Electronically signed by: Dimas Alberto M.D. 01/29/2019 2:28 PM
[2019-01-29] MEDS ORDERED: FUROSEMIDE 40 MG in SYRINGE 0 ML IV ONE (14:45)
--- NOTE | 2019-01-29 14:48 | Pharmacy Report ---
Glycemic Control Consultation - Date of Service January 29, 2019 - Scope Scope: Glycemic Pharmacist consulted by Dr Lehman on 01/28/19 for glycemic control and to write orders per [facility] inpatient glycemic control protocol - Objective Weight: 85.6 kg Accuchecks BSG (last 24hrs): 01/28/19 01/28/19 01/29/19 16:30 20:27 04:49 Glucose 133 H POC Glucose 167 H 158 H 01/29/19 01/29/19 07:29 10:46 Glucose POC Glucose 118 H 144 H Laboratory Data (last 24hrs): 01/29/19 04:49 Potassium 4.1 Carbon Dioxide 30 Anion Gap 6.0 Creatinine 1.08 Est Cr Clr Drug Dosing 48.5 HbA1c: Hemoglobin A1c 9.5 % (4.5-5.6) H 01/29/19 04:49 - Recent Pertinent Medications Outpatient Anti-diabetic Regimen: * Toujeo 80 units daily + Novolog 10 units TIDM with a sliding scale (110 units/day) * A1c = 9.5 % 01/29/19 The patient is currently receiving: * Basal insulin: Lantus 65 units x1 * Correctional Insulin: Novolog Correction per scale ACHS Goal Range: Low 110 mg/dL - High 150 mg/dL Correction Factor: 20 mg/dL/unit * Prandial insulin: Per carb ratio of 1 unit per 6 grams CHO consumed Risk Factors for Insulin Resistance: * Recent Surgery: cardiac catheterization * Diet:NPO for cardiac catherization, now clear liquid diet - Assessment & Plan Assessment & Plan: ASSESSMENT: * Ms Elam is a 73 y/o F with a PMH of diabetes (HbA1C high secondary to recent steroid use) who presents with chest pain. Patient NPO with catheterization. Does of insulin confirmed with patient - it appears that she does not take a scheduled dose with meals rather just a sliding scale. Previously Lantus was reduce to 65 units (first dose of Lantus after Toujeo is reduced by 30%). Reviewed previous hospitalization - patient required high doses of insulin BUT she was on significant steroids. * Since there are no steroids right now, will actually reduce insulin further to 50 units for NPO status. Patient had difficult recover from catheterization and oral intake may be difficult. Increase goal range to 140-180 mg/dL to prophylaxis against hypoglycemia. Continue weight-based stress of 3 Novolog as this appeared effective. PLAN FOR INPATIENT GLYCEMIC CONTROL: * Basal insulin * Lantus 50 units SQ x 1 * Bolus insulin * NovoLog per scale ACHS or Q6hrs while NPO * Goal Range: Low 140 mg/dL - High 180 mg/dL * Correction Factor: 20 mg/dL/unit * Nutritional / Prandial insulin per carb ratio of 1 unit per 6 grams CHO consumed * Please note that the plan above was derived based on current level of insulin resistance and hospital stress. These recommendations are appropriate for inpatient admission only. Plan of care upon discharge will need to be reassessed to avoid potential outpatient hypo/hyperglycemia. Thank you.
--- NOTE | 2019-01-29 15:18 | Cardiology Progress Note ---
Date of Service January 29, 2019 Subjective Patient seen and examined during and post cardiac catheterization and coronary intervention. Follow-up from the Web Marketing Analyst to the floor. Patient with only minor sedation Versed 1 mg IV x3 had oxygen desaturation and exacerbation of underlying pulmonary wheezing. Chest x-ray revealed mild increase in interstitial vasculature Patient was giving her DuoNeb nebulizer, Mott catheter placed and single dose of IV furosemide given with clinical improvement. Cardiac catheterization was gently tolerated and no procedural complications noted although respiratory issues not unexpected given marginal status prior to procedure and acute presentation Plan continue current medications as prescribed Given new sotalol will need to be maintained on telemetry additional 24 to 48- hour Corticosteroids just recently weaned and may need retrial of pulmonary exacerbation worsens Results & Data Vital Signs (Past 12 Hours) Vital Signs Temp Pulse Pulse Resp BP Pulse Ox 01/29/19 13:53 18 89 L 01/29/19 10:43 76 19 92 01/29/19 08:00 72 01/29/19 07:15 77 20 90 01/29/19 06:53 36.8 C 76 22 147/69 H 90 01/29/19 03:17 36.9 C 71 20 136/70 91
[2019-01-29] MEDS: FUROSEMIDE 20 MG TAB PO SCH (15:36)
[2019-01-29] MEDS: GABAPENTIN 100 MG CAP PO SCH ×2 (15:36→20:01)
[2019-01-29] MEDS: PANTOprazole 40 MG TAB PO SCH ×2 (15:39→20:01)
[2019-01-29] MEDS: FEXOFENADINE HCL 180 MG TAB PO SCH (15:39)
[2019-01-29] MEDS: POTASSIUM CHLORIDE 20 MEQ TABCR PO SCH ×2 (16:36→20:01)
[2019-01-29] MEDS: CLOPIDOGREL BISULFATE 75 MG TAB PO SCH (16:36)
[2019-01-29] MEDS: SERTRALINE HCL 50 MG TABLET PO SCH (16:36)
[2019-01-29] MEDS: ASPIRIN 81 MG ECTAB PO SCH (16:36)
[2019-01-29] MEDS: MONTELUKAST SODIUM 10 MG TABLET PO SCH (20:01)
--- NOTE | 2019-01-29 20:51 | Hospitalist Progress Note ---
Date of Service January 29, 2019 Assessment & Plan (1) Coronary artery disease: Patient appeared to have suffered a NSTEMI. Trop peaked above 1. Patient had Successful PCI of mid RCA in-stent restenosis with single bare-metal stent (3.5 x 30 integrity, postdilated with 3.75 NC). Recommendations from cardio: To PCU for continued monitoring Loaded with clopidogrel 600 mg in laboratory tester Continue dual-antiplatelet therapy for at least one month, ideally 1 year Continue statin, and ASCVD risk factor modification Consult cardiac Rehab (2) Atrial fibrillation: Atrial fibrillation RVR associate with elevation of troponin and possible anginal equivalent HR appears better controlled today. (3) Hypertension: Patient is also maintained on Cozaar 100, Lasix 10, amlodipine 10 in addition to her cardiac medicines for blood pressure control (4) Diabetes mellitus, type 2: Patient typically takes Toujeo and sliding scale that will be converted to glargine and sliding scale there is a glycemic management consult in place (5) Chronic obstructive pulmonary disease: Patient's last admission was for COPD and she is here today with chronic respiratory failure with hypoxemia and chronic bronchitis recently treated for an infection. She is maintained on scheduled duo nebs duo nebs and also scheduled Singulair Her breathing appears better for the moment. will hold off escalating treatment with steroids. (6) Lung cancer: Patient states that her last bronchoscopy January 07 Dr. Steele called and said is worrisome the pathology report reviewed by myself shows possibility of non-small cell cancer although this is not confirmed. Her previous cancer she had a right lung resection (7) Depression: Patient is maintained on Zoloft for depression (8) GERD (gastroesophageal reflux disease): Patient on a PPI this may be substituted for formulary here (9) Chronic low back pain: Patient is maintained on her tramadol and gabapentin for her chronic low back pain (10) DVT prophylaxis: was on heparin drip. will lace on heparin sub c Subjective Patient seen in the evening. Patient appeared drowsy from procedure. She is breathing better as per nurse. Family is at bedside and is updated. Review of Systems Review of Systems: ROS: well nourished well developed. No double vision blurry vision No problems with speech or swallowing No palpitations, patient cannot sense her rapid heart rate went was occurring. Chest pain is vague left substernal No Wheezing or breathing issues still has a chronic cough productive of white- yellow sputum at times No abdominal pain she did have some mild nausea no vomiting or diarrhea No burning urine urine frequency or changes in color No focal joint pain or muscle pain No skin rashes or oral lesions No unusual bruising or bleeding She suffers from chronic back pain but no numbness or loss of strength No changes in memory or confusion Physical Exam Physical Exam: The patient appeared well nourished and normally developed. She appears in no distress currently Vital signs as documented. Head exam is unremarkable. normocephalic, atraumatic Neck is without jugular venous distension, thyromegaly, or lymphademopathy Lungs are with poor air movement no wheezes no rales Cardiac exam reveals Rhythm is regular. No murmurs are heard although she is a history of valvular heart disease Abdominal exam reveals normal bowel sounds, no masses, no organomegaly Extremities are nonedematous and both pedal pulses are present Neurologic exam is drowsy, no focal deficit Psychologically seems neither anxious or depressed Skin is warm Dry without bruises or lesions Results & Data Vital Signs (Past 12 Hours) Vital Signs Temp Pulse Pulse Resp BP Pulse Ox 01/29/19 20:08 74 18 93 01/29/19 19:49 82 20 111/69 93 01/29/19 19:07 36.6 C 76 20 143/78 H 91 01/29/19 17:52 76 18 155/73 H 90 01/29/19 17:19 69 01/29/19 16:43 68 16 138/59 L 89 L 01/29/19 15:50 73 18 150/74 H 88 L 01/29/19 15:33 74 16 84 L 01/29/19 15:20 75 16 159/83 H 90 01/29/19 14:57 36.6 C 20 172/84 H 90 01/29/19 14:40 74 18 179/76 H 90 01/29/19 14:20 73 18 184/79 H 88 L 01/29/19 14:05 70 20 147/79 H 87 L 01/29/19 13:53 18 89 L 01/29/19 13:50 36.8 C 74 15 181/79 H 86 L 01/29/19 10:43 76 19 92 PG Care Time/CCT Total # of Minutes Spent Total Time Spent with Patient: Total time spent is greater than 50% in coordination of care (as documented) at patient's floor/unit and/or counseling patient: (1) Hypertension Hypertension type: essential hypertension Qualified Code(s): I10 - Essential (primary) hypertension
[2019-01-30] MEDS: NITROGLYCERIN 2% OINTMENT 30GM TUBE EXT SCH ×4 (03:02→19:28)
[2019-01-30] MEDS: ALBUT/IPRATROP 3MG/0.5MG NEB 3 ML VIAL INH SCH ×6 (03:14→23:12)
[2019-01-30 06:08] LABS: Hemoglobin 11.5 g/dL (12.0-16.0); Mean Corpuscular Hgb Conc 31.1 g/dL (32-36); Mean Corpuscular Volume 87.5 fL (80-100); Mean Platelet Volume 11.3 fL (7.4-10.4); Platelet Count 196 K/uL (130-400); RDW Coefficient of Variation 16.4 % (11.5-14.5); RDW Standard Deviation 52.5 fL (36.4-46.3); Red Blood Count 4.23 M/uL (4.2-5.4); White Blood Count 9.62 K/uL (4.8-10.8)
[2019-01-30 06:26] LABS: Partial Thromboplastin Time 27.3 Seconds (21.0-31.0)
[2019-01-30 06:38] LABS: BUN Creatinine Ratio 20.6 (10-20); Calcium 8.2 mg/dl (8.5-10.1); Creatinine Clr Calc Pharmacy 55.1 ml/min; Est GFR (African American) 69.8; Est GFR (Non-African American) 60.3; Potassium 3.6 mmol/L (3.5-5.1)
[2019-01-30] MEDS: POTASSIUM CHLORIDE 20 MEQ TABCR PO SCH ×2 (08:02→19:29)
[2019-01-30] MEDS: ISOSORBIDE MONO EXTENDED REL 30 MG TABCR PO SCH (08:02)
[2019-01-30] MEDS: PANTOprazole 40 MG TAB PO SCH ×2 (08:02→19:30)
[2019-01-30] MEDS: SOTALOL HCL 80 MG TAB PO SCH ×2 (08:02→19:30)
[2019-01-30] MEDS: LOSARTAN POTASSIUM 50 MG TAB PO SCH (08:02)
[2019-01-30] MEDS: ASPIRIN 81 MG ECTAB PO SCH (08:03)
[2019-01-30] MEDS: ROSUVASTATIN CALCIUM 20 MG TAB PO SCH (08:03)
[2019-01-30] MEDS: FUROSEMIDE 20 MG TAB PO SCH (08:03)
[2019-01-30] MEDS: FEXOFENADINE HCL 180 MG TAB PO SCH (08:04)
[2019-01-30] MEDS: SERTRALINE HCL 50 MG TABLET PO SCH (08:04)
[2019-01-30] MEDS: AMLODIPINE BESYLATE 5 MG TAB PO SCH (08:04)
[2019-01-30] MEDS: GABAPENTIN 100 MG CAP PO SCH ×2 (08:04→19:29)
[2019-01-30] MEDS: INSULIN ASPART 100 UNITS/ML 3 ML PEN SC SCH ×4 (08:08→21:32)
[2019-01-30] MEDS: CLOPIDOGREL BISULFATE 75 MG TAB PO SCH (08:27)
[2019-01-30] MEDS ORDERED: HEPARIN SOD 5,000 UNIT/0.5 ML VIAL SQ SCH (09:00)
[2019-01-30] MEDS ORDERED: INSULIN GLARGINE SOLOSTAR 100 UNITS/ML 3 ML PEN SC SCH (09:00)
[2019-01-30] MEDS ORDERED: FUROSEMIDE 10 MG in SYRINGE 0 ML IV ONE (11:00)
--- NOTE | 2019-01-30 11:26 | Cardiology Progress Note ---
Date of Service January 30, 2019 Assessment & Plan (1) Paroxysmal atrial fibrillation: (2) Elevated troponin: (3) Coronary artery disease: (4) S/P right coronary artery (RCA) stent placement: Continue sotalol loading 80 mg twice daily. ECG today demonstrates normal QTC below 500 MS. Repeat ECG in a.m. Continue telemetry monitoring for an additional 36 hours. Patient must continue dual antiplatelet therapy for minimum of 1 month status post bare-metal stent implantation. We will add Eliquis 5 mg twice daily. Patient will discontinue aspirin in 4 weeks and continue Plavix and Eliquis thereafter. Other cardiovascular medications will be continued as previously ordered. BMP in a.m. Subjective Patient seen and examined at the bedside. Feeling well from a cardiovascular perspective. Denies chest pain or unusual shortness of breath. Notes cough with expiratory wheezing. Denies sputum production. No orthopnea, PND, or lower extremity edema. Her right anterior wrist is tender however there is no ecchymosis or hematoma. No signs/symptoms of GI/ blood loss. Patient underwent cardiac catheterization yesterday with subsequent bare-metal stenting to the right coronary artery. Dual antiplatelet therapy recommended for a minimum of 1 month. Patient offers no other concerns/complaints at this time. Review of Systems Review of Systems: All systems reviewed & are unremarkable except as noted in HPI & below Physical Exam Physical Exam: General: NAD, AAO x3, well nourished. Obese. HEENT: Normocephalic. Atraumatic. Conjunctiva pink, no scleral icterus. Neck: No carotid bruits, the carotid upstrokes are brisk. No JVD. No HJR Heart: Regular normal S-1 and S-2 no S-3 or S-4 gallop. No murmurs or rub appreciated. PMI is not displaced. No RV heave. Lungs: End expiratory wheezing, scant rhonchi, no rales. Abdomen: Normal bowel sounds. Soft. Nontender. No masses or organomegaly. No abdominal bruits. Extremities: No clubbing, cyanosis, or edema. Pulses: radial=2/4, Dorsalis pedis =2/4. Neuro: Cranial nerves grossly intact. No focal motor deficit. Results & Data Vital Signs (Past 12 Hours) Vital Signs Temp Pulse Pulse Resp BP BP Pulse Ox 01/30/19 11:09 37.2 C 76 22 108/65 108/65 94 01/30/19 11:03 74 18 92 01/30/19 10:23 76 01/30/19 07:05 37.4 C 78 26 H 168/82 H 96 01/30/19 06:53 76 20 91 01/30/19 03:16 72 22 95 01/30/19 02:55 37.4 C 71 21 123/55 L 94 01/30/19 00:00 75 Laboratory Results Laboratory Results - last 24 hr 01/29/19 01/29/19 01/29/19 10:46 12:56 16:01 WBC RBC Hgb Hct MCV MCH MCHC RDW Std Deviation RDW Coeff of Royer Plt Count MPV APTT PTT Ratio Activ Coag Time Kaolin 257 H Sodium Potassium Chloride Carbon Dioxide Anion Gap BUN Creatinine Est Cr Clr Drug Dosing Est GFR ( Amer) Est GFR (Non-Af Amer) BUN/Creatinine Ratio Glucose POC Glucose 144 H 163 H Calcium 01/29/19 01/30/19 01/30/19 19:20 05:37 05:37 WBC 9.62 RBC 4.23 Hgb 11.5 L Hct 37.0 MCV 87.5 MCH 27.2 MCHC 31.1 L RDW Std Deviation 52.5 H RDW Coeff of Royer 16.4 H Plt Count 196 MPV 11.3 H APTT PTT Ratio Activ Coag Time Kaolin Sodium 140 Potassium 3.6 Chloride 105 Carbon Dioxide 30 Anion Gap 5.0 BUN 20 H Creatinine 0.95 Est Cr Clr Drug Dosing 55.1 Est GFR ( Amer) 69.8 Est GFR (Non-Af Amer) 60.3 BUN/Creatinine Ratio 20.6 H Glucose 90 POC Glucose 131 H Calcium 8.2 L 01/30/19 01/30/19 05:37 07:10 WBC RBC Hgb Hct MCV MCH MCHC RDW Std Deviation RDW Coeff of Royer Plt Count MPV APTT 27.3 PTT Ratio 1.0 Activ Coag Time Kaolin Sodium Potassium Chloride Carbon Dioxide Anion Gap BUN Creatinine Est Cr Clr Drug Dosing Est GFR ( Amer) Est GFR (Non-Af Amer) BUN/Creatinine Ratio Glucose POC Glucose 91 Calcium (1) Coronary artery disease Associated angina: without angina Coronary Disease-Associated Artery/Lesion type: [place] artery [place] vs. transplanted heart: [place] heart Qualified Code(s): I25.10 - Atherosclerotic heart disease of [place] coronary artery without angina pectoris
--- NOTE | 2019-01-30 16:05 | Hospitalist Progress Note ---
Date of Service January 30, 2019 Assessment & Plan (1) Coronary artery disease: Patient appeared to have suffered a NSTEMI. Trop peaked above 1. Patient had Successful PCI of mid RCA in-stent restenosis with single bare-metal stent (3.5 x 30 integrity, postdilated with 3.[address]). [address] Milian plan for Aspirin and Plavix for one month, after that time will just continue with Plavix continue statin therapy needs cardiac rehab (2) Acute heart failure with normal ejection fraction: occurred following heart cath, improved with Lasix 40mg IV evening of 01/29 still with some rales on exam in the morning on 01/30 received Lasix 10mg PO x 1, normal dose, gave additional Lasix 10mg IV will re-evaluate tomorrow (3) Atrial fibrillation: Atrial fibrillation RVR associate with elevation of troponin and possible anginal equivalent started on Sotalol for rhythm control remains in sinus rhythm on the monitor cardiology plans to start Eliquis on 01/31 (4) Hypertension: BP controlled on Cozaar 100mg, Lasix 10mg PO daily, amlodipine 10mg daily (5) Diabetes mellitus, type 2: Patient typically takes Toujeo and sliding scale that will be converted to glargine and sliding scale there is a glycemic management consult in place (6) Chronic obstructive pulmonary disease: Patient's last admission was for COPD and she is here today with chronic respiratory failure with hypoxemia and chronic bronchitis recently treated for an infection. She is maintained on scheduled duo nebs duo nebs and also scheduled Singulair (7) Lung cancer: had bronch on January 07, results inconclusive, infection vs malignancy plan for repeat bronch (8) Depression: Patient is maintained on Zoloft for depression (9) GERD (gastroesophageal reflux disease): Patient on a PPI this may be substituted for formulary here (10) Chronic low back pain: Patient is maintained on her tramadol and gabapentin for her chronic low back pain (11) DVT prophylaxis: was on heparin drip. will lace on heparin sub c Subjective patient doing well after heart cath with bare metal stent yesterday no chest pain or pressure, vitals stable, breathing well had some pulmonary edema last evening, cardiology treated with lasix 40mg IV and she responded quite well breathing via 4L NC which is baseline she feels well enough to go home discussed with Dr. Milian, she needs to be on monitor until Friday due to Sotalol that was started here in hospital holding on starting Eliquis until tomorrow, can wait since she is in normal sinus rhythm manzo removed this morning eating well, no fever, no nausea reviewed labs, CBC and BMP both stable Dr. Steele called RN station to make aware of results of bronch from 01/07 patient growing out MAC in lavage culture, he said that he can see her in office to discuss treatment Review of Systems Review of Systems: All systems reviewed & are unremarkable except as noted in HPI & below Constitutional: no fever Respiratory: + dyspnea on exertion; no cough and no dyspnea Cardiovascular: no chest pain, no chest pain at rest and no edema Gastrointestinal: no abdominal pain, no nausea, no vomiting, no constipation and no diarrhea/loose stools Physical Exam Constitutional: WD/WN, vitals as above Eyes: PERRL, conjunctivae normal, anicteric sclerae ENMT: external ear and nose normal, oropharynx normal Neck: trachea midline, no thyromegaly Respiratory: normal respiratory effort; no respiratory distress Auscultation: + diminished lung sounds and + rales (bases bilaterally); no crackles, no rhonchi and no wheezes Cardiovascular: RRR, no murmur, no edema Gastrointestinal (Abdomen): normal bowel sounds, soft, nontender, no hepatosplenomegaly Musculoskeletal: no cyanosis or clubbing, extremities motor strength 5/5 Skin: no rashes, warm and dry Neurologic: patellar DTR's 2+ bilat, sensation intact and PERRL, EOMI, accommodation nl, no face palsy, no dysarthria Psychiatric: A+Ox3, euthymic affect Lymphatic: no cervical or axillary lymphadenopathy Results & Data Vital Signs (Past 12 Hours) Vital Signs Temp Pulse Pulse Resp BP BP Pulse Ox 01/30/19 15:41 36.7 C 86 20 151/68 H 90 01/30/19 15:14 74 22 93 01/30/19 11:09 37.2 C 76 22 108/65 108/65 94 01/30/19 11:03 74 18 92 01/30/19 10:23 76 01/30/19 07:05 37.4 C 78 26 H 168/82 H 96 01/30/19 06:53 76 20 91 Laboratory Results Laboratory Results - last 24 hr 01/29/19 01/29/19 01/30/19 16:01 19:20 05:37 WBC 9.62 RBC 4.23 Hgb 11.5 L Hct 37.0 MCV 87.5 MCH 27.2 MCHC 31.1 L RDW Std Deviation 52.5 H RDW Coeff of Royer 16.4 H Plt Count 196 MPV 11.3 H APTT PTT Ratio Sodium Potassium Chloride Carbon Dioxide Anion Gap BUN Creatinine Est Cr Clr Drug Dosing Est GFR ( Amer) Est GFR (Non-Af Amer) BUN/Creatinine Ratio Glucose POC Glucose 163 H 131 H Calcium 01/30/19 01/30/19 01/30/19 05:37 05:37 07:10 WBC RBC Hgb Hct MCV MCH MCHC RDW Std Deviation RDW Coeff of Royer Plt Count MPV APTT 27.3 PTT Ratio 1.0 Sodium 140 Potassium 3.6 Chloride 105 Carbon Dioxide 30 Anion Gap 5.0 BUN 20 H Creatinine 0.95 Est Cr Clr Drug Dosing 55.1 Est GFR ( Amer) 69.8 Est GFR (Non-Af Amer) 60.3 BUN/Creatinine Ratio 20.6 H Glucose 90 POC Glucose 91 Calcium 8.2 L 01/30/19 01/30/19 11:24 15:45 WBC RBC Hgb Hct MCV MCH MCHC RDW Std Deviation RDW Coeff of Royer Plt Count MPV APTT PTT Ratio Sodium Potassium Chloride Carbon Dioxide Anion Gap BUN Creatinine Est Cr Clr Drug Dosing Est GFR ( Amer) Est GFR (Non-Af Amer) BUN/Creatinine Ratio Glucose POC Glucose 145 H 153 H Calcium Medications Administered Current Inpatient Medications Acetaminophen (Tylenol) 650 mg PO Q4H PRN PRN Reason: Pain or Fever Stop: 02/27/19 10:49 Albuterol (Duoneb) 3 ml INH Q4R [facility] Stop: 02/27/19 15:59 Last Admin: 01/30/19 15:10 Dose: 3 ml Documented by: Amlodipine Besylate (Norvasc) 10 mg PO QAM [facility] Stop: 02/28/19 08:59 Last Admin: 01/30/19 08:04 Dose: 10 mg Documented by: Apixaban (Eliquis) 5 mg PO BID [facility] Stop: 03/01/19 20:59 Aspirin (Ecotrin Ectab) 81 mg PO QAM [facility] Stop: 02/28/19 08:59 Last Admin: 01/30/19 08:03 Dose: 81 mg Documented by: Clopidogrel Bisulfate (Plavix) 75 mg PO QAM [facility] Stop: 02/28/19 08:59 Last Admin: 01/30/19 08:27 Dose: 75 mg Documented by: Dextrose (Dextrose 50%) 25 - 50 ml IV UD PRN; Protocol PRN Reason: Hypoglycemia Protocol Stop: 02/27/19 10:49 Fexofenadine HCl (Natasha) 180 mg PO DAILY [facility] Stop: 02/28/19 08:59 Last Admin: 01/30/19 08:04 Dose: 180 mg Documented by: Furosemide (Lasix) 10 mg PO DAILY [facility] Stop: 02/27/19 11:59 Last Admin: 01/30/19 08:03 Dose: 10 mg Documented by: Gabapentin (Neurontin) 100 mg PO BID [facility] Stop: 02/27/19 11:59 Last Admin: 01/30/19 08:04 Dose: 100 mg Documented by: Glucagon (Glucagen) 1 mg SQ UD PRN; Protocol PRN Reason: Hypoglycemia Protocol Stop: 02/27/19 10:49 Glucose (Dex4 Glucose) 4 - 8 tabs PO UD PRN; Protocol PRN Reason: Hypoglycemia Protocol Stop: 02/27/19 10:49 Glucose (Glucose 40%) 15 - 30 gm PO UD PRN; Protocol PRN Reason: Hypoglycemia Protocol Stop: 02/27/19 10:49 Lorazepam (Ativan) 0.5 mg in 1 mls @ 1 mls/min IV Q4H PRN PRN Reason: Agitation Stop: 02/27/19 10:49 Promethazine HCl 12.5 mg/ (Sodium Chloride) 50.5 mls @ 202 mls/hr IV Q6H PRN PRN Reason: Nausea And Vomiting Stop: 02/27/19 10:49 Insulin Aspart (Novolog Flexpen) 0 units SC ACHS [facility] Stop: 02/27/19 11:29 Last Admin: 01/30/19 12:46 Dose: 10 units Documented by: Insulin Glargine (Lantus Solostar Pen) 50 units SC DAILY [facility] Stop: 03/01/19 08:59 Last Admin: 01/30/19 08:11 Dose: 50 units Documented by: Isosorbide Mononitrate (Imdur Extended Rel) 30 mg PO QAM [facility] Stop: 02/27/19 11:59 Last Admin: 01/30/19 08:02 Dose: 30 mg Documented by: Losartan Potassium (Cozaar) 100 mg PO DAILY [facility] Stop: 02/27/19 11:59 Last Admin: 01/30/19 08:02 Dose: 100 mg Documented by: Metoprolol Tartrate (Lopressor) 5 mg IV Q4 PRN PRN Reason: sbp> 185, dbp >95, HR >120 Stop: 02/27/19 11:44 Miscellaneous (Carbohydrates For Hypoglycemia) 15 - 30 gm PO UD PRN PRN Reason: Hypoglycemia Treatment Stop: 02/27/19 10:49 Miscellaneous (Order Awaiting Action) 1 ea N/A QS [facility] Stop: 02/27/19 12:59 Last Admin: 01/30/19 16:02 Dose: Not Given Documented by: Miscellaneous Information (Consult Glycemic Management Pharmacy) 1 ea N/A UD PRN; Protocol PRN Reason: consult Stop: 02/27/19 11:14 Montelukast Sodium (Singulair) 10 mg PO QPM [facility] Stop: 02/27/19 20:59 Last Admin: 01/29/19 20:01 Dose: 10 mg Documented by: Morphine Sulfate (Morphine Sulfate) 2 mg IV Q30M PRN PRN Reason: Chest Pain Stop: 02/11/19 10:49 Last Admin: 01/29/19 00:14 Dose: 2 mg Documented by: Nitroglycerin (Nitrostat) 0.4 mg SL UD PRN PRN Reason: Chest Pain Stop: 02/27/19 10:49 Nitroglycerin (Nitro-Bid 2%) 1 inch EXT Q6H [facility] Stop: 02/28/19 14:29 Last Admin: 01/30/19 14:30 Dose: 1 inch Documented by: Pantoprazole Sodium (Protonix) 40 mg PO BID [facility] Stop: 02/27/19 20:59 Last Admin: 01/30/19 08:02 Dose: 40 mg Documented by: Potassium Chloride (Klor-Con M20) 20 meq PO BID [facility] Stop: 02/27/19 20:59 Last Admin: 01/30/19 08:02 Dose: 20 meq Documented by: Rosuvastatin Calcium (Crestor) 20 mg PO QAM [facility] Stop: 03/01/19 08:59 Last Admin: 01/30/19 08:03 Dose: 20 mg Documented by: Sertraline HCl (Zoloft) 50 mg PO DAILY [facility] Stop: 02/28/19 08:59 Last Admin: 01/30/19 08:04 Dose: 50 mg Documented by: Sotalol HCl (Betapace) 80 mg PO BID [facility] Stop: 02/27/19 20:59 Last Admin: 01/30/19 08:02 Dose: 80 mg Documented by: Tramadol HCl (Ultram) 50 mg PO TID PRN PRN Reason: Pain Stop: 02/27/19 23:40 Last Admin: 01/28/19 23:42 Dose: 50 mg Documented by: PG Care Time/CCT Total # of Minutes Spent Total Time Spent with Patient: Total time spent is greater than 50% in coordination of care (as documented) at patient's floor/unit and/or counseling patient: (1) Coronary artery disease Associated angina: without angina Coronary Disease-Associated Artery/Lesion type: [place] artery [place] vs. transplanted heart: [place] heart Qualified Code(s): I25.10 - Atherosclerotic heart disease of [place] coronary artery without angina pectoris (2) Hypertension Hypertension type: essential hypertension Qualified Code(s): I10 - Essential (primary) hypertension
[2019-01-30] MEDS: TRAMADOL HCL 50 MG TABLET PO PRN (16:15)
[2019-01-30] MEDS: APIXABAN 5 MG TABLET PO SCH (19:29)
[2019-01-30] MEDS: MONTELUKAST SODIUM 10 MG TABLET PO SCH (19:29)
[2019-01-31] MEDS: ALBUT/IPRATROP 3MG/0.5MG NEB 3 ML VIAL INH SCH ×7 (03:33→22:58)
[2019-01-31] MEDS: NITROGLYCERIN 2% OINTMENT 30GM TUBE EXT SCH ×2 (03:45→08:10)
[2019-01-31 07:33] LABS: Partial Thromboplastin Ratio 1.1; Partial Thromboplastin Time 29.1 Seconds (21.0-31.0)
[2019-01-31 07:56] LABS: BUN Creatinine Ratio 17.9 (10-20); Calcium 8.5 mg/dl (8.5-10.1); Creatinine Clr Calc Pharmacy 50.6 ml/min; Est GFR (African American) 63.3; Est GFR (Non-African American) 54.6; Potassium 4.4 mmol/L (3.5-5.1)
[2019-01-31] MEDS: ISOSORBIDE MONO EXTENDED REL 30 MG TABCR PO SCH (08:05)
[2019-01-31] MEDS: PANTOprazole 40 MG TAB PO SCH ×2 (08:05→21:16)
[2019-01-31] MEDS: SOTALOL HCL 80 MG TAB PO SCH ×2 (08:05→21:16)
[2019-01-31] MEDS: CLOPIDOGREL BISULFATE 75 MG TAB PO SCH (08:05)
[2019-01-31] MEDS: GABAPENTIN 100 MG CAP PO SCH ×2 (08:05→21:16)
[2019-01-31] MEDS: LOSARTAN POTASSIUM 50 MG TAB PO SCH (08:05)
[2019-01-31] MEDS: FUROSEMIDE 20 MG TAB PO SCH (08:06)
[2019-01-31] MEDS: ROSUVASTATIN CALCIUM 20 MG TAB PO SCH (08:06)
[2019-01-31] MEDS: SERTRALINE HCL 50 MG TABLET PO SCH (08:06)
[2019-01-31] MEDS: AMLODIPINE BESYLATE 5 MG TAB PO SCH (08:06)
[2019-01-31] MEDS: FEXOFENADINE HCL 180 MG TAB PO SCH (08:06)
[2019-01-31] MEDS: ASPIRIN 81 MG ECTAB PO SCH (08:06)
[2019-01-31] MEDS: POTASSIUM CHLORIDE 20 MEQ TABCR PO SCH ×2 (08:06→21:16)
[2019-01-31] MEDS: APIXABAN 5 MG TABLET PO SCH ×2 (08:07→21:16)
[2019-01-31] MEDS: INSULIN GLARGINE SOLOSTAR 100 UNITS/ML 3 ML PEN SC SCH (08:10)
[2019-01-31] MEDS: INSULIN ASPART 100 UNITS/ML 3 ML PEN SC SCH ×4 (08:11→21:17)
[2019-01-31] MEDS: TRAMADOL HCL 50 MG TABLET PO PRN ×2 (08:14→23:48)
--- NOTE | 2019-01-31 10:23 | Cardiology Progress Note ---
Date of Service January 31, 2019 Assessment & Plan (1) Paroxysmal atrial fibrillation: (2) Elevated troponin: (3) Prolonged QT interval: (4) S/P right coronary artery (RCA) stent placement: Reduce sotalol to 40 mg twice daily. Repeat ECG in a.m. Continue telemetry monitoring. Patient must continue dual antiplatelet therapy for minimum of 1 month status post bare-metal stent implantation. Eliquis 5 mg twice daily added. After 1 month, patient will continue Eliquis plus Plavix. Continue other cardiovascular medications as previously ordered. Subjective Patient seen and examined at the bedside. Feeling well from a cardiovascular perspective. No signs or symptoms of GI/ blood loss. Wrist discomfort unchanged. No recurrent atrial fibrillation on telemetry. Mildly prolonged QT interval at 508 ms per ECG this morning. Respiratory status improved. Patient offers no concerns/complaints at this time. Review of Systems Review of Systems: All systems reviewed & are unremarkable except as noted in HPI & below Physical Exam Physical Exam: General: NAD, AAO x3, well nourished. Obese. HEENT: Normocephalic. Atraumatic. Conjunctiva pink, no scleral icterus. Neck: No carotid bruits, the carotid upstrokes are brisk. No JVD. No HJR Heart: Regular normal S-1 and S-2 no S-3 or S-4 gallop. No murmurs or rub appreciated. PMI is not displaced. No RV heave. Lungs: Mild left-sided expiratory wheezing, scant rhonchi, no rales. Abdomen: Normal bowel sounds. Soft. Nontender. No masses or organomegaly. No abdominal bruits. Extremities: Right anterior wrist tender to palpation. No ecchymosis or hematoma. No clubbing, cyanosis, or edema. Pulses: radial=2/4, Dorsalis pedis =2/4. Neuro: Cranial nerves grossly intact. No focal motor deficit. Results & Data Vital Signs (Past 12 Hours) Vital Signs Temp Pulse Pulse Resp BP BP Pulse Ox 01/31/19 07:07 36.9 C 84 22 113/42 L 92 01/31/19 06:55 88 20 92 01/31/19 04:02 95 H 16 93 01/31/19 03:41 38.1 C H 96 H 22 145/64 H 92 01/31/19 00:09 79 01/30/19 23:14 86 22 91 01/30/19 23:08 36.8 C 90 22 189/77 H 91
--- NOTE | 2019-01-31 10:55 | Pharmacy Report ---
Pharmacy Glycemic Short Note 2 - Date of Service January 31, 2019 - Glycemic Short BSG Results (Last 24 hours): 01/30/19 01/30/19 01/30/19 11:24 15:45 20:54 Glucose POC Glucose 145 H 153 H 205 H 01/31/19 01/31/19 06:38 07:23 Glucose 230 H POC Glucose 232 H Outpatient Anti-diabetic Regimen: * Toujeo 80 units daily + Novolog 10 units TIDM with a sliding scale (110 units/day) * A1c = 9.5 % 01/29/19 The patient is currently receiving: * Basal insulin: Lantus 50 units SQ daily * Correctional Insulin: Novolog Correction per scale ACHS Goal Range: Low 110 mg/dL - High 140 mg/dL Correction Factor: 20 mg/dL/unit * Prandial insulin: Per carb ratio of 1 unit per 6 grams CHO consumed Risk Factors for Insulin Resistance: * Recent Surgery: cardiac catheterization, POD2 * Diet: Type 2 DM ASSESSMENT: 01/31/19 * Patient received 78 units of insulin yesterday, blood sugar clifford throughout the day and did not come down over night to this morning. Will tighten CF and CR and increase Lantus at this time. 01/29/19 * Ms Elam is a 73 y/o F with a PMH of diabetes (HbA1C high secondary to recent steroid use) who presents with chest pain. Patient NPO with catheterization. Does of insulin confirmed with patient - it appears that she does not take a scheduled dose with meals rather just a sliding scale. Previously Lantus was reduce to 65 units (first dose of Lantus after Toujeo is reduced by 30%). Reviewed previous hospitalization - patient required high doses of insulin BUT she was on significant steroids. * Since there are no steroids right now, will actually reduce insulin further to 50 units for NPO status. Patient had difficult recover from catheterization and oral intake may be difficult. Increase goal range to 140-180 mg/dL to prophylaxis against hypoglycemia. Continue weight-based stress of 3 Novolog as this appeared effective. PLAN FOR INPATIENT GLYCEMIC CONTROL: * Basal insulin - increase * Lantus 60 units SQ daily * Bolus insulin * NovoLog per scale ACHS or Q6hrs while NPO * Goal Range: Low 110 mg/dL - High 140 mg/dL * tighten: Correction Factor: 15 mg/dL/unit * tighten: Nutritional / Prandial insulin per carb ratio of 1 unit per 5 grams CHO consumed
--- NOTE | 2019-01-31 11:02 | Hospitalist Progress Note ---
Date of Service January 31, 2019 Assessment & Plan (1) Coronary artery disease: NSTEMI, Trop peaked above 1. Patient had Successful PCI of mid RCA in-stent restenosis with single bare-metal stent (3.5 x 30 integrity, postdilated with 3.[address] Milian plan for Aspirin and Plavix for one month, after that time will just continue with Plavix continue statin therapy no chest pain or pressure for several days (2) Acute heart failure with normal ejection fraction: occurred following heart cath, improved with Lasix 40mg IV evening of 01/29 still with some rales on exam in the morning on 01/30 received Lasix 10mg PO x 1, normal dose, gave additional Lasix 10mg IV no rales today, breathing well examines euvolemic (3) Atrial fibrillation: Atrial fibrillation RVR associate with elevation of troponin and possible anginal equivalent started on Sotalol for rhythm control remains in sinus rhythm on the monitor cardiology plans to start Eliquis on 01/31 QT slightly prolonged today, decreasing dose of Sotalol (4) Hypertension: BP controlled on Cozaar 100mg, Lasix 10mg PO daily, amlodipine 10mg daily (5) Diabetes mellitus, type 2: Patient typically takes Toujeo and sliding scale that will be converted to glargine and sliding scale there is a glycemic management consult in place (6) Chronic obstructive pulmonary disease: Patient's last admission was for COPD and she is here today with chronic respiratory failure with hypoxemia and chronic bronchitis recently treated for an infection. She is maintained on scheduled duo nebs duo nebs and also scheduled Singulair (7) Lung cancer: had bronch on January 07, results inconclusive, infection vs malignancy plan for repeat bronch (8) Depression: Patient is maintained on Zoloft for depression (9) GERD (gastroesophageal reflux disease): Patient on a PPI this may be substituted for formulary here (10) Chronic low back pain: Patient is maintained on her tramadol and gabapentin for her chronic low back pain (11) DVT prophylaxis: was on heparin drip. will lace on heparin sub c Subjective patient doing well this morning, no complaints eating and drinking well, moving bowels breathing is stable on monitor the QT is slightly prolonged, Dr. Milian will lower dose of Sotalol Reviewed labs, INR is 1.1, BMP is stable Review of Systems Review of Systems: All systems reviewed & are unremarkable except as noted in HPI & below Constitutional: no fever, no fatigue and no weakness Respiratory: + dyspnea on exertion; no cough and no dyspnea Cardiovascular: no chest pain and no edema Gastrointestinal: no abdominal pain, no nausea, no vomiting, no constipation and no diarrhea/loose stools Physical Exam Constitutional: WD/WN, vitals as above Eyes: PERRL, conjunctivae normal, anicteric sclerae ENMT: external ear and nose normal, oropharynx normal Neck: trachea midline, no thyromegaly Respiratory: normal respiratory effort; no respiratory distress Auscultation: + diminished lung sounds; no crackles, no rhonchi and no wheezes Cardiovascular: RRR, no murmur, no edema Gastrointestinal (Abdomen): normal bowel sounds, soft, nontender, no hepatosplenomegaly Musculoskeletal: no cyanosis or clubbing, extremities motor strength 5/5 Skin: no rashes, warm and dry Neurologic: patellar DTR's 2+ bilat, sensation intact and PERRL, EOMI, accommodation nl, no face palsy, no dysarthria Psychiatric: A+Ox3, euthymic affect Lymphatic: no cervical or axillary lymphadenopathy Results & Data Vital Signs (Past 12 Hours) Vital Signs Temp Pulse Pulse Resp BP BP Pulse Ox 01/31/19 10:47 88 01/31/19 07:07 36.9 C 84 22 113/42 L 92 01/31/19 06:55 88 20 92 01/31/19 04:02 95 H 16 93 01/31/19 03:41 38.1 C H 96 H 22 145/64 H 92 01/31/19 00:09 79 01/30/19 23:14 86 22 91 01/30/19 23:08 36.8 C 90 22 189/77 H 91 Laboratory Results Laboratory Results - last 24 hr 01/30/19 01/30/19 01/30/19 11:24 15:45 20:54 APTT PTT Ratio Sodium Potassium Chloride Carbon Dioxide Anion Gap BUN Creatinine Est Cr Clr Drug Dosing Est GFR ( Amer) Est GFR (Non-Af Amer) BUN/Creatinine Ratio Glucose POC Glucose 145 H 153 H 205 H Calcium 01/31/19 01/31/19 01/31/19 06:38 06:38 07:23 APTT 29.1 PTT Ratio 1.1 Sodium 137 Potassium 4.4 D Chloride 104 Carbon Dioxide 27 Anion Gap 6.0 BUN 18 Creatinine 1.03 Est Cr Clr Drug Dosing 50.6 Est GFR ( Amer) 63.3 Est GFR (Non-Af Amer) 54.6 BUN/Creatinine Ratio 17.9 Glucose 230 H POC Glucose 232 H Calcium 8.5 Medications Administered Current Inpatient Medications Acetaminophen (Tylenol) 650 mg PO Q4H PRN PRN Reason: Pain or Fever Stop: 02/27/19 10:49 Albuterol (Duoneb) 3 ml INH Q4R [facility] Stop: 02/27/19 15:59 Last Admin: 01/31/19 06:53 Dose: 3 ml Documented by: [facility] Stop: 02/28/19 08:59 Last Admin: 01/31/19 08:06 Dose: 10 mg Documented by: Apixaban (Eliquis) 5 mg PO BID [facility] Stop: 03/01/19 20:59 Last Admin: 01/31/19 08:07 Dose: 5 mg Documented by: Aspirin (Ecotrin Ectab) [facility] Stop: 02/28/19 08:59 Last Admin: 01/31/19 08:06 Dose: 81 mg Documented by: Clopidogrel Bisulfate (Plavix) [facility] Stop: 02/28/19 08:59 Last Admin: 01/31/19 08:05 Dose: 75 mg Documented by: Dextrose (Dextrose 50%) 25 - 50 ml IV UD PRN; Protocol PRN Reason: Hypoglycemia Protocol Stop: 02/27/19 10:49 Fexofenadine HCl (Natasha) 180 mg PO DAILY [facility] Stop: 02/28/19 08:59 Last Admin: 01/31/19 08:06 Dose: 180 mg Documented by: Furosemide (Lasix) 10 mg PO DAILY [facility] Stop: 02/27/19 11:59 Last Admin: 01/31/19 08:06 Dose: 10 mg Documented by: Gabapentin (Neurontin) 100 mg PO BID [facility] Stop: 02/27/19 11:59 Last Admin: 01/31/19 08:05 Dose: 100 mg Documented by: Glucagon (Glucagen) 1 mg SQ UD PRN; Protocol PRN Reason: Hypoglycemia Protocol Stop: 02/27/19 10:49 Glucose (Dex4 Glucose) 4 - 8 tabs PO UD PRN; Protocol PRN Reason: Hypoglycemia Protocol Stop: 02/27/19 10:49 Glucose (Glucose 40%) 15 - 30 gm PO UD PRN; Protocol PRN Reason: Hypoglycemia Protocol Stop: 02/27/19 10:49 Lorazepam (Ativan) 0.5 mg in 1 mls @ 1 mls/min IV Q4H PRN PRN Reason: Agitation Stop: 02/27/19 10:49 Promethazine HCl 12.5 mg/ (Sodium Chloride) 50.5 mls @ 202 mls/hr IV Q6H PRN PRN Reason: Nausea And Vomiting Stop: 02/27/19 10:49 Insulin Aspart (Novolog Flexpen) 0 units SC ACHS [facility] Stop: 02/27/19 11:29 Last Admin: 01/31/19 08:11 Dose: 11 units Documented by: Insulin Glargine (Lantus Solostar Pen) 60 units SC DAILY [facility] Stop: 03/02/19 08:59 Last Admin: 01/31/19 08:10 Dose: 60 units Documented by: Isosorbide Mononitrate (Imdur Extended Rel) 30 mg PO QAM [facility] Stop: 02/27/19 11:59 Last Admin: 01/31/19 08:05 Dose: 30 mg Documented by: Losartan Potassium (Cozaar) 100 mg PO DAILY [facility] Stop: 02/27/19 11:59 Last Admin: 01/31/19 08:05 Dose: 100 mg Documented by: Metoprolol Tartrate (Lopressor) 5 mg IV Q4 PRN PRN Reason: sbp> 185, dbp >95, HR >120 Stop: 02/27/19 11:44 Miscellaneous (Carbohydrates For Hypoglycemia) 15 - 30 gm PO UD PRN PRN Reason: Hypoglycemia Treatment Stop: 02/27/19 10:49 Miscellaneous (Order Awaiting Action) 1 ea N/A QS [facility] Stop: 02/27/19 12:59 Last Admin: 01/31/19 08:07 Dose: Not Given Documented by: Miscellaneous Information (Consult Glycemic Management Pharmacy) 1 ea N/A UD PRN; Protocol PRN Reason: consult Stop: 02/27/19 11:14 Montelukast Sodium (Singulair) 10 mg PO QPM [facility] Stop: 02/27/19 20:59 Last Admin: 01/30/19 19:29 Dose: 10 mg Documented by: Morphine Sulfate (Morphine Sulfate) 2 mg IV Q30M PRN PRN Reason: Chest Pain Stop: 02/11/19 10:49 Last Admin: 01/29/19 00:14 Dose: 2 mg Documented by: Nitroglycerin (Nitrostat) 0.4 mg SL UD PRN PRN Reason: Chest Pain Stop: 02/27/19 10:49 Pantoprazole Sodium (Protonix) 40 mg PO BID [facility] Stop: 02/27/19 20:59 Last Admin: 01/31/19 08:05 Dose: 40 mg Documented by: Potassium Chloride (Klor-Con M20) 20 meq PO BID [facility] Stop: 02/27/19 20:59 Last Admin: 01/31/19 08:06 Dose: 20 meq Documented by: Rosuvastatin Calcium (Crestor) 20 mg PO QAM [facility] Stop: 03/01/19 08:59 Last Admin: 01/31/19 08:06 Dose: 20 mg Documented by: Sertraline HCl (Zoloft) 50 mg PO DAILY [facility] Stop: 02/28/19 08:59 Last Admin: 01/31/19 08:06 Dose: 50 mg Documented by: Sotalol HCl (Betapace) 40 mg PO BID [facility] Stop: 03/02/19 20:59 Tramadol HCl (Ultram) 50 mg PO TID PRN PRN Reason: Pain Stop: 02/27/19 23:40 Last Admin: 01/31/19 08:14 Dose: 50 mg Documented by: PG Care Time/CCT Total # of Minutes Spent Total Time Spent with Patient: Total time spent is greater than 50% in coordination of care (as documented) at patient's floor/unit and/or counseling patient: (1) Coronary artery disease Coronary Disease-Associated Artery/Lesion type: [place] artery [place] vs. transplanted heart: [place] heart Associated angina: without angina Qualified Code(s): I25.10 - Atherosclerotic heart disease of [place] coronary artery without angina pectoris (2) Hypertension Hypertension type: essential hypertension Qualified Code(s): I10 - Essential (primary) hypertension
[2019-01-31] MEDS: MONTELUKAST SODIUM 10 MG TABLET PO SCH (21:16)
[2019-02-01] MEDS: ALBUT/IPRATROP 3MG/0.5MG NEB 3 ML VIAL INH SCH ×3 (03:25→11:22)
[2019-02-01 05:49] LABS: Hemoglobin 11.1 g/dL (12.0-16.0); Mean Corpuscular Hgb Conc 30.8 g/dL (32-36); Mean Corpuscular Volume 88.2 fL (80-100); Mean Platelet Volume 10.6 fL (7.4-10.4); Platelet Count 172 K/uL (130-400); RDW Coefficient of Variation 16.3 % (11.5-14.5); RDW Standard Deviation 52.2 fL (36.4-46.3); Red Blood Count 4.08 M/uL (4.2-5.4); White Blood Count 7.69 K/uL (4.8-10.8)
[2019-02-01 05:59] LABS: Partial Thromboplastin Ratio 1.1
[2019-02-01 06:23] LABS: BUN Creatinine Ratio 18.5 (10-20); Calcium 8.6 mg/dl (8.5-10.1); Creatinine Clr Calc Pharmacy 48.2 ml/min; Est GFR (African American) 59.8; Est GFR (Non-African American) 51.6; Potassium 4.2 mmol/L (3.5-5.1)
[2019-02-01] MEDS: INSULIN ASPART 100 UNITS/ML 3 ML PEN SC SCH ×2 (07:51→12:05)
[2019-02-01] MEDS: POTASSIUM CHLORIDE 20 MEQ TABCR PO SCH (07:54)
[2019-02-01] MEDS: APIXABAN 5 MG TABLET PO SCH (07:54)
[2019-02-01] MEDS: AMLODIPINE BESYLATE 5 MG TAB PO SCH (07:55)
[2019-02-01] MEDS: GABAPENTIN 100 MG CAP PO SCH (07:55)
[2019-02-01] MEDS: CLOPIDOGREL BISULFATE 75 MG TAB PO SCH (07:56)
[2019-02-01] MEDS: LOSARTAN POTASSIUM 50 MG TAB PO SCH (07:56)
[2019-02-01] MEDS: ISOSORBIDE MONO EXTENDED REL 30 MG TABCR PO SCH (07:56)
[2019-02-01] MEDS: INSULIN GLARGINE SOLOSTAR 100 UNITS/ML 3 ML PEN SC SCH (07:58)
[2019-02-01] MEDS: FEXOFENADINE HCL 180 MG TAB PO SCH (07:59)
[2019-02-01] MEDS: SOTALOL HCL 80 MG TAB PO SCH (08:00)
[2019-02-01] MEDS: ROSUVASTATIN CALCIUM 20 MG TAB PO SCH (08:01)
[2019-02-01] MEDS: FUROSEMIDE 20 MG TAB PO SCH (08:01)
[2019-02-01] MEDS: ASPIRIN 81 MG ECTAB PO SCH (08:01)
[2019-02-01] MEDS: PANTOprazole 40 MG TAB PO SCH (08:01)
[2019-02-01] MEDS: SERTRALINE HCL 50 MG TABLET PO SCH (08:02)
[2019-02-01] MEDS: TRAMADOL HCL 50 MG TABLET PO PRN (08:20)
--- NOTE | 2019-02-01 08:50 | Pharmacy Report ---
Glycemic Control Progress Note - Date of Service February 01, 2019 - Scope Glycemic Pharmacist consulted for glycemic control to write orders per [facility] inpatient glycemic control protocol. - Objective Accuchecks BSG(last 24 hours):: 01/31/19 01/31/19 01/31/19 11:38 16:09 20:26 Glucose POC Glucose 228 H 217 H 193 H 02/01/19 02/01/19 05:36 07:04 Glucose 169 H POC Glucose 164 H HbA1c:: Hemoglobin A1c 9.5 % (4.5-5.6) H 01/29/19 04:49 - Recent Pertinent Medications The patient is currently receiving: * Basal insulin: Lantus 60 units every 24 hours * Correctional Insulin: Novolog Correction per scale ACHS Goal Range: Low 110 mg/dL - High 140 mg/dL Correction Factor: 15 mg/dL/unit * Prandial insulin: Per carb ratio of 1 unit per 5 grams CHO consumed - Outpatient Anti-Diabetic Meds Toujeo 80 units daily plus Novolog sliding scale - Assessment & Plan ASSESSMENT: * See progress note from 01/28/19 for more background info, in short: * Pt receiving SQ basal bolus insulin regimen for hyperglycemia secondary to baseline DM (outpatient regimen on hold). Currently undergoing sotalol dose titration. * Patient is currently receiving an average of 105 units of insulin per day * 60 units of basal insulin * 45 units of prandial/correctional insulin * BSGs ranging 193 - 232 mg/dl over the past 24hrs * Changes needed to insulin regimen: * AM Fasting BSG = 164 mg/dl. This is slightly above goal range for patient based on inpatient targets and co-morbidities. HOWEVER, this is trending downwards from yesterday. The patient reports taking 80 units of Toujeo at home; however, she reports low blood sugars when she wakes up. Continue Lantus 60 units for now since blood sugars are trending down. * Post-prandial BSGs are trending down back into goal range. Continue. * Total daily dose = 110-120 units. PLAN FOR INPATIENT GLYCEMIC CONTROL: * Continuing Lantus 60 units SQ daily * Continuing correction factor of 15 mg/dl/unit * Continuing carb ratio of 1 unit per 5 grams CHO consumed * Continuing goal range of Low 110 mg/dL - High 140 mg/dL * Please note that the plan above was derived based on current level of insulin resistance and hospital stress. These recommendations are appropriate for inpatient admission only. Plan of care upon discharge will need to be reassessed to avoid potential outpatient hypo/hyperglycemia. Thank you.
--- NOTE | 2019-02-01 11:43 | Cardiology Progress Note ---
Date of Service February 01, 2019 Assessment & Plan (1) Paroxysmal atrial fibrillation: New onset with associated symptoms of chest pressure pain possibly exacerbated by recent illness, hypertension. Patient high risk for recurrence of atrial fibrillation QTc stable to day at 472 ms will d/c on sotalol 40mg po bid my office will call to arrange f/u with Dr. Milian in 3-4 weeks cont Eliquis (2) Elevated troponin: Troponin elevated in the setting of chest pain with atrial fibrillation with rapid response question demand based ischemia versus acute coronary syndrome. Underlying confounding processes include recent illnesses marked hypertension (3) Prolonged QT interval: (4) S/P right coronary artery (RCA) stent placement: Reduce sotalol to 40 mg twice daily. QTc stabilized at 472 ms Patient must continue dual antiplatelet therapy for minimum of 1 month status post bare-metal stent implantation. Eliquis 5 mg twice daily added. After 1 month, patient will continue Eliquis plus Plavix. Continue other cardiovascular medications as previously ordered. Subjective Pt seen and examined, oob in chair, at bedside. States that she feels better now than she has in a long time. Denies cp, sob, palpitations, lightheadedness or dizziness. tele reviewed: sinus rhythm without arrhythmia or significant ectopy EKG: sinus rhythm QTc of 472 ms Review of Systems Review of Systems: All systems reviewed & are unremarkable except as noted in HPI & below Physical Exam Physical Exam: General: Awake, alert and oriented x 3. No acute distress. HEENT: Normocephalic, atraumatic. Pupils equal, round and reactive to light and accommodation. Extraocular muscles are intact. Anicteric sclera. Moist mucous membranes. Neck: No JVD. No bruit. Cardiovascular: Regular. Positive S-4. Normal S-1 and S-2. No S-3. No murmurs or rubs. Pulmonary: Clear to auscultation B/L. No rales, rhonchi or wheezing Abdomen: Bowel sounds x 4, soft. No rebound, guarding or tenderness. No organomegaly. Extremities: No clubbing, cyanosis or edema. +2 pedal pulses bilaterally. Skin: Warm and dry. Results & Data Vital Signs (Past 12 Hours) Vital Signs Temp Pulse Resp BP Pulse Ox 02/01/19 11:22 69 20 93 02/01/19 11:11 36.8 C 77 20 122/70 94 02/01/19 06:58 36.8 C 80 24 156/66 H 96 02/01/19 06:56 80 18 96 02/01/19 03:26 76 18 94 02/01/19 03:20 37.0 C 78 18 145/81 H 92 01/31/19 23:44 36.8 C 79 18 148/71 H 94
--- NOTE | 2019-02-01 14:41 | Discharge Summary ---
Date of Service February 01, 2019 Admission HPI Per Admitting Provider 73-year-old female discharged from our facility middle of December after she presented with acute on chronic respiratory failure with hypoxia and concern for stenotrophomonas lung infection. She underwent a bronchoscopy and was discharged on oral cephalosporin therapy. Patient presented to [facility] 1 day prior to her admission where she had one day worth of just not feeling well. In [facility] ER she was found to be in atrial fibrillation (she has a history of this) with rapid ventricular response which converted spontaneously. Patient had chest discomfort for the day preceding her presentation to the ER and now she says her chest discomfort has lessened. Her initial chest discomfort was 10/10 it was associated with worsening of her baseline shortness of breath some diaphoresis but no nausea no radiation and no change in her home glucose. Patient still some chest discomfort a 5 or 6/10 currently. In [facility] ER she had a troponin in the mid 2 range its still in the 2.1 range on repeat here at [facility]. Patient claims to see [facility] cardiology in the [place] office. She otherwise is with no distress she initially had some nausea that resolved with some Zofran. She also notes did not take her metoprolol today. Patient also has recently had an intolerance of her Crestor therapy this was changed to formulary with her insurance Principal Diagnosis NSTEMI Discharge Exam Constitutional WD/WN, vitals as above Eyes PERRL, conjunctivae normal, anicteric sclerae ENMT external ear and nose normal, oropharynx normal Neck trachea midline, no thyromegaly Respiratory normal respiratory effort; no respiratory distress Auscultation: + diminished lung sounds; no crackles, no rhonchi and no wheezes Cardiovascular RRR, no murmur, no edema Gastrointestinal (Abdomen) normal bowel sounds, soft, nontender, no hepatosplenomegaly Musculoskeletal no cyanosis or clubbing, extremities motor strength 5/5 Skin no rashes, warm and dry Neurologic patellar DTR's 2+ bilat, sensation intact and PERRL, EOMI, accommodation nl, no face palsy, no dysarthria Psychiatric A+Ox3, euthymic affect Lymphatic no cervical or axillary lymphadenopathy Discharge Data Allergies Allergy/AdvReac Type Severity Reaction Status Date / Time fentanyl Allergy Intermediate RASH Verified 01/04/19 07:48 levofloxacin Allergy Intermediate UNKNOWN Verified 01/04/19 07:48 Penicillins Allergy Intermediate RASH Verified 01/04/19 07:48 sulfamethoxazole Allergy Unknown Verified 01/29/19 09:03 [From Bactrim] trimethoprim [From Bactrim] Allergy Unknown Verified 01/29/19 09:03 Ethanol Allergy Intermediate RASH Uncoded 03/18/16 07:51 Consultations 01/28/19 11:50 Consult Cardiology Routine Procedures Performed Operation Date: 01/29/19 10:00 Actual Procedures s Cineradiography w/Routine Exam - Jared Vogel MD p Cath, Left with Cors and Vent - Jared Vogel MD s Bare Metal Stent SGL Vessel - Wil Faulkner MD Ordered Studies 01/29/19 09:52 CL Cath Imgs for PACS use only Routine Hospital Course (1) Coronary artery disease: NSTEMI, Trop peaked above 1. Patient had Successful PCI of mid RCA in-stent restenosis with single bare-metal stent (3.5 x 30 integrity, postdilated with 3.[address] Milian plan for Aspirin and Plavix for one month, after that time will just continue with Plavix continue statin therapy no chest pain or pressure for several days clear for discharge from cardiology perspective (2) Acute heart failure with normal ejection fraction: occurred following heart cath, improved with Lasix 40mg IV evening of 01/29 still with some rales on exam in the morning on 01/30 received Lasix 10mg PO x 1, normal dose, gave additional Lasix 10mg IV no rales for two days, breathing well examines euvolemic discharge home on Lasix 10mg PO daily (3) Atrial fibrillation: Atrial fibrillation RVR associate with elevation of troponin and possible anginal equivalent started on Sotalol for rhythm control remains in sinus rhythm on the monitor cardiology started Eliquis for anticoagulation, continue on discharge QT slightly prolonged on 01/31, decreased Sotalol to 40mg BID QT stable at 470 on day of discharge, will continue with Sotalol 40mg BID metoprolol stopped due to starting Sotalol (4) Hypertension: BP controlled on Cozaar 100mg, Lasix 10mg PO daily, amlodipine 10mg daily (5) Diabetes mellitus, type 2: Patient typically takes Toujeo and sliding scale that will be converted to glargine and sliding scale there is a glycemic management consult in place resume Toujeo on discharge (6) Chronic obstructive pulmonary disease: Patient's last admission was for COPD and she is here today with chronic respiratory failure with hypoxemia and chronic bronchitis recently treated for an infection. She is maintained on scheduled duo nebs duo nebs and also scheduled Singulair (7) Lung cancer: had bronch on January 07, results inconclusive, infection vs malignancy plan for repeat bronch with Dr. Steele per report, patient grew MAC on final culture results has follow up with Pulmonary already scheduled (8) Depression: Patient is maintained on Zoloft for depression (9) GERD (gastroesophageal reflux disease): Patient on a PPI this may be substituted for formulary here (10) Chronic low back pain: Patient is maintained on her tramadol and gabapentin for her chronic low back pain (11) DVT prophylaxis: Eliquis Total Time Total Time Spent Total Time Spent (In Minutes): 32 minutes Total Time Includes: Examination of the Patient, Discharge Planning, Medication Reconciliation, Communication With Other Providers (Dr. Lux) and Other (discussion with patient's ) Discharge Plan Discharge Items Patient Disposition: Home - Self-Care Reason For Visit: RULE OUT MO, CHEST PAIN, CARDIAC HX Discharge Diagnosis: NSTEMI, status post cardiac cath with stent Atrial fibrillation Chronic respiratory failure, COPD Condition: Good Discharge Goals: Improve function and Increase independence Activity: Resume your previous activity Exercise/Sports: Gradually increase as tolerated Non-emergency contact: Primary Care Provider and Copy Editor Call non-emergency contact if: you have any medication questions, your symptoms worsen, your pain is not controlled and you have a fever Follow-up/Referrals: Alejandro Milian DO [Copy Editor] - (Please, follow up at [facility] Cardiology Office with Dr. Milian. A apprenticeship representative from this office is supposed to call you with the appointment details. However, if you don't hear from them soon or if you have any questions, call the office at [phone].) Jennifer Viramontes PA-C [Primary Care Provider] - 02/03/19 3:20 pm (Please, follow up with Jennifer Viramontes PA-C on FridayFebruary 03 at 3:20 pm. *If you need to change this appointment, call the office at [phone].) Diet: Carb Consistent or DM2 and Heart Healthy Addtl Provider Instructions: Medications: - ELIQUIS: take 5mg twice a day, this is anticoagulation for atrial fibrillation - SOTALOL: 40mg twice a day - ASPIRIN: 81mg daily for 30 days then stop - METOPROLOL: STOP taking this medication as you were started on Sotalol Acute heart attack, s/p catheterization and stent to Right Coronary Artery need to take both aspirin and Plavix for one month, after that you can stop aspirin continue on Crestor follow up with cardiology, [facility], in 1-2 weeks Paroxysmal atrial fibrillation resolved, in normal sinus rhythm continue on Sotalol 40mg twice a day continue on Eliquis for anticoagulation, stroke prevention FOLLOW UP - Jennifer Viramontes on 02/03 - [facility] in 1-2 weeks, their office should contact you Prescriptions: New sotalol 80 mg Tablet 40 mg PO BID 30 Days Qty: 30 RF: 1 Eliquis 5 mg Tablet 5 mg PO BID 60 Days Qty: 120 RF: 0 aspirin [Ecotrin Low Strength] 81 mg Tablet,Delayed Release (Dr/Ec) 81 mg PO QAM 30 Days Qty: 30 RF: 0 Continued ALBUTEROL SULFATE (PROAIR HFA) 108 MCG/ AER 2 puff Inhalation QID Qty: 0 RF: 0 Amlodipine (Norvasc) 10 MG tablet 10 mg PO QAM Qty: 0 RF: 0 Clopidogrel Bisulfate (Clopidogrel) 75 MG tablet 75 mg PO QAM Qty: 0 RF: 0 MONTELUKAST SODIUM (SINGULAIR) 10 MG tablet 10 mg PO QPM Qty: 0 RF: 0 Rosuvastatin Calcium (Crestor) 20 MG tablet 20 mg PO QPM Qty: 0 RF: 0 Isosorbide Mononitrate Ext Rel (Imdur Ext Rel) 30 MG EXT REL TAB 30 mg PO QAM Qty: 0 RF: 0 Cyanocobalamin (Vitamin B-12 Inj) INJECTION 1,000 mcg IM 2XMONTH Qty: 0 RF: 0 DUONEB SOLTAB 2 inh inhalation Q4-HRSPRN PRN (Reason: Shortness Of Breath) Qty: 0 RF: 0 MOMETASONE FUROATE-FORMOTEROL (DULERA 100/5 MCG) 1 AER AER 2 puff Inhalation BID Qty: 0 RF: 0 HOME O2 THERAPY (Oxygen) gas 4 liters NA DAILY 30 Days Qty: 0 RF: 0 FEXOFENADINE HCL (BERNARD ALLERGY) 180 MG tablet 1 tab PO DAILY 30 Days Qty: 30 RF: 2 Nitroglycerin (Nitrostat) 0.4 MG tablet 0.4 mg UT PRN Qty: 0 RF: 0 Potassium Chloride (Micro-K Ext Rel) 10 MEQ CONTR REL CAP 20 meq PO BID Qty: 0 RF: 0 Tramadol (Ultram) 50 MG tablet 1 tab PO TID PRN (Reason: Pain) 30 Days Qty: 90 RF: 0 Triamcinolone Acet 0.1% (Aristocort 0.1%) cream 1 applic Topical TID PRN (Reason: Itching) Qty: 0 RF: 0 gabapentin 100 mg Capsule 100 mg PO BID RF: 0 losartan [Cozaar] 100 mg Tablet 100 mg PO DAILY RF: 0 sertraline [Zoloft] 50 mg Tablet 50 mg PO DAILY RF: 0 Prilosec OTC 20 mg Tablet,Delayed Release (Dr/Ec) 20 mg PO BID RF: 0 Toujeo SoloStar U-300 Insulin 300 unit/mL (1.5 mL) Insulin Pen 70 unit SUBCUT DAILY RF: 0 guaifenesin [Mucinex] 600 mg Tablet Extended Release 12hr 600 mg PO BID RF: 0 furosemide 20 mg Tablet 10 mg PO DAILY RF: 0 metaxalone 800 mg Tablet 800 mg PO BID RF: 0 Novolog U-100 Insulin aspart 100 unit/mL Solution 1 sliding scale dose SUBCUT USEASDIRECTD RF: 0 prednisone 10 mg tablet 10 mg PO UD Qty: 40 RF: 0 Discontinued Metoprolol Succinate (Toprol Xl) 100 MG [id number] 100 mg PO BID Qty: 0 RF: 0 Stand-Alone Forms: [facility]/Other Patient Handouts: Apixaban Oral tablet Discharge Orders: Discharge Order (Routine); Ordered 02/01/19 Ordered By: Pankaj Allen Admission Data Admit Date/Time: 01/28/19 10:36 Attending Provider: Pankaj Allen Admit Provider: Vijay Soria Primary Care Provider: Jennifer Viramontes Other Providers: Jared Vogel Service: Telemetry Other Interventions: Discharge Summary Assessment (RN) Last Done: 02/01/19 13:18 DC Date/Time DO NOT enter until pt leaves facility: 02/01/19 14:10
--- NOTE | 2019-02-02 14:56 | Coding Query ---
CONGESTIVE HEART FAILURE To Promote full compliance with coding requirements relating to patient care, physician participation is requested in all cases of corrections lieutenant uncertainty. Please assist us with the following questions. A diagnosis of Congestive Heart Failure is documented in the patient's medical record. To accurately code this diagnosis and to compare patient severity, we ask that you specify the type of heart failure by placing an X within the parenthesis (x). SYSTOLIC HEART FAILURE ( ) Acute ( ) Chronic ( ) Acute on Chronic ( ) Rheumatic ( ) Unknown DIASTOLIC HEART FAILURE ( ) Acute ( ) Chronic (x ) Acute on Chronic ( ) Rheumatic ( ) Unknown COMBINED SYSTOLIC AND DIASTOLIC HEART FAILURE ( ) Acute ( ) Chronic ( ) Acute on Chronic ( ) Rheumatic ( ) Unknown Was the CHF Present On Admission? Please check the appropriate box: ( ) Present on Admission (x ) Not Present On Admission ( ) Clinically undetermined Thank you Delonte UP
== END 2019-02-01 14:10 | disposition home or self-care (01) | DRG 248 ==
LOC: SUATTDRO 10:36 → 2S 10:36

== ENCOUNTER 2019-04-14 17:54 | Inpatient (IN) ==
[2019-04-14] MEDS ORDERED: methylPREDNISolone 125 MG/2 ML VIAL IV STA (18:18)
[2019-04-14] MEDS ORDERED: ALBUT/IPRATROP 3MG/0.5MG NEB 3 ML VIAL INH STA (18:18)
--- NOTE | 2019-04-14 18:42 | XRay Report ---
XR chest 1V portable CLINICAL HISTORY: Dyspnea dyspnea COMPARISON STUDY: 01/29/2019 FINDINGS: Mild stable cardiomegaly. Mild bibasilar atelectasis. Lungs otherwise appear clear. IMPRESSION: Mild bibasilar atelectasis. Mild stable cardiomegaly. The above report was generated using voice recognition software. It may contain grammatical, syntax or spelling errors. Electronically signed by: Dimas Alberto M.D. 04/14/2019 6:40 PM
[2019-04-14 18:55] LABS: Basophils # (auto) 0.02 K/uL (0-0.2); Basophils % (auto) 0.2 %; Eosinophils % (auto) 3.5 %; Hematocrit (blood only) 38.9 % (37-47); Hemoglobin 12.1 g/dL (12.0-16.0); Immature Granulocytes # (auto) 0.06 K/uL (0.00-0.02); Immature Granulocytes % (auto) 0.5 %; Lymphocytes # (auto) 2.31 K/uL (1.2-3.4); Lymphocytes % (auto) 20.4 %; Mean Corpuscular Hemoglobin 26.2 pg (25-34); Mean Corpuscular Hgb Conc 31.1 g/dL (32-36); Mean Corpuscular Volume 84.4 fL (80-100); Mean Platelet Volume 11.4 fL (7.4-10.4); Monocytes # (auto) 0.89 K/uL (0.11-0.59); Monocytes % (auto) 7.8 %; Neutrophils # (auto) 7.66 K/uL (1.4-6.5); Neutrophils % (auto) 67.6 %; Platelet Count 223 K/uL (130-400); RDW Coefficient of Variation 15.8 % (11.5-14.5); RDW Standard Deviation 48.5 fL (36.4-46.3); Red Blood Count 4.61 M/uL (4.2-5.4); White Blood Count 11.34 K/uL (4.8-10.8)
[2019-04-14 19:07] LABS: INR 1.1 (0.9-1.1); Partial Thromboplastin Ratio 1.1; Partial Thromboplastin Time 29.5 Seconds (21.0-31.0); Prothrombin Time 11.3 Seconds (9.0-12.0)
[2019-04-14 19:12] LABS: Alanine Aminotransferase 16 U/L (12-78); Albumin Level 3.8 gm/dl (3.4-5.0); Aspartate Aminotransferase 13 U/L (15-37); BUN Creatinine Ratio 17.6 (10-20); Blood Urea Nitrogen 16 mg/dl (7-18); Calcium 9.2 mg/dl (8.5-10.1); Carbon Dioxide 27 mmol/L (21-32); Chloride 106 mmol/L (98-107); Est GFR (African American) 75.6; Est GFR (Non-African American) 65.2; Glucose 169 mg/dl (70-99); Potassium 3.7 mmol/L (3.5-5.1); Sodium 139 mmol/L (136-145)
[2019-04-14 19:17] LABS: Alkaline Phosphatase 87 U/L (45-117); Bilirubin,Total 0.4 mg/dl (0.2-1); Globulin 3.7 gm/dl (2.5-4.0); Total Protein 7.5 gm/dl (6.4-8.2); Troponin I 0.016 ng/ml (0-0.045)
[2019-04-14] MEDS ORDERED: ALBUT/IPRATROP 3MG/0.5MG NEB 3 ML VIAL NEB ONE (20:45)
--- NOTE | 2019-04-14 22:09 | History & Physical Report ---
Date of Service April 14, 2019 Assessment & Plan (1) COPD exacerbation: Duonebs every 4 hours while awake and every 2 hours when necessary. Pulmicort Respules 0.5 mg inhaled twice daily. Solu-Medrol 30 mg IV every 12 hours, follow impact on diabetes closely. Wears nasal cannula 4 L at home. Maintain pulse ox around 92%. Ceftriaxone 1 g IV daily. Sputum Gram stain and culture. Present on Admission?: Yes (2) Coronary artery disease: CAD/hypertension/RCA stent/paroxysmal atrial fibrillation- The patient will be admitted to medical telemetry for serial cardiac enzymes, serial EKG's, and cardiac rhythm monitoring. Continue amlodipine 10 mg p.o. daily, apixaban 5 mg p.o. twice daily, clopidogrel 75 mg p.o. daily, furosemide 10 mg p.o. daily, isosorbide mononitrate ER 30 mg p.o. daily, losartan 100 mg p.o. daily, potassium chloride ER 20 mEq p.o. twice daily, and sotalol 40 mg p.o. daily. Present on Admission?: Yes (3) S/P right coronary artery (RCA) stent placement: See above Present on Admission?: Yes (4) Paroxysmal atrial fibrillation: See above Present on Admission?: Yes (5) Hypertension: See above Present on Admission?: Yes (6) Hyperlipidemia: Continue rosuvastatin 20 mg p.o. daily Present on Admission?: Yes (7) Diabetes: Convert Toujeo 70 units subcu daily by 80% to Lantus 56 units, but reduce further to [address] on Accu-Cheks before meals and at bedtime with NovoLog coverage per scale. Monitor the effect of Solu-Medrol 125 given in the ED and continuing 30 mg IV every 12 Present on Admission?: Yes (8) Depression: Continue sertraline 50 mg p.o. daily Present on Admission?: Yes (9) Peripheral neuropathy: Continue gabapentin 100 mg p.o. twice daily Present on Admission?: Yes History of Present Illness Chief Complaint: The patient presents to the emergency department with worsening shortness of breath over the past 3 weeks with with intervals of cough productive of discolored mucus Primary Care Provider: Jennifer Viramontes The patient is a 73-year-old female with a past medical history including COPD, prolonged QT interval, CHF, RCA stent placement, paroxysmal atrial fibrillation, multifocal pneumonia, infection due to Stenotrophomonas maltophilia, hypertension and diabetes mellitus. She presents to the emergency department with worsening shortness of breath and intermittently productive cough of discolored mucus. She denies any associated chest pain. She has not had any recent travels or sick exposures. Allergies Allergy/AdvReac Type Severity Reaction Status Date / Time fentanyl Allergy Intermediate RASH Verified 04/14/19 19:24 levofloxacin Allergy Intermediate UNKNOWN Verified 04/14/19 19:24 Penicillins Allergy Intermediate RASH Verified 04/14/19 19:24 sulfamethoxazole Allergy Unknown Verified 04/14/19 19:24 [From Bactrim] trimethoprim [From Bactrim] Allergy Unknown Verified 04/14/19 19:24 Ethanol Allergy Intermediate RASH Uncoded 04/14/19 19:24 Home Medications Home Medications Medication Instructions Recorded Confirmed Type Novolog U-100 Insulin aspart 1 sliding scale dose SUBCUT 01/04/19 04/14/19 H istory USEASDIRECTD Prilosec OTC 20 mg PO BID 01/04/19 04/14/19 History Toujeo SoloStar U-300 Insulin 70 unit SUBCUT DAILY 01/04/19 04/14/19 History furosemide 10 mg PO DAILY 01/04/19 04/14/19 History gabapentin 100 mg PO BID 01/04/19 04/14/19 History guaifenesin [Mucinex] 600 mg PO BID 01/04/19 04/14/19 History losartan [Cozaar] 100 mg PO DAILY 01/04/19 04/14/19 History sertraline [Zoloft] 50 mg PO DAILY 01/04/19 04/14/19 History prednisone 10 mg PO UD #40 tab 01/09/19 04/14/19 Rx albuterol sulfate HFA 90 2 puff INHALATION Q4 PRN gm 02/10/19 04/14/19 History mcg/actuation aerosol inhaler amlodipine 10 mg tablet 10 mg PO DAILY tab 02/10/19 04/14/19 History clopidogrel 75 mg tablet 75 mg PO DAILY tab 02/10/19 04/14/19 History isosorbide mononitrate ER 30 mg 30 mg PO DAILY #30 tab 02/10/19 04/14/19 History tablet,extended release 24 hr montelukast 10 mg tablet 10 mg PO DAILY tab 02/10/19 04/14/19 History potassium chloride ER 20 mEq 20 meq PO BID tab 02/10/19 04/14/19 History tablet,extended release rosuvastatin 20 mg tablet 20 mg PO DAILY tab 02/10/19 04/14/19 History sodium chloride 0.65 % nasal spray 1 sprays INTNAS BID PRN 02/10/19 04/14/19 History aerosol triamcinolone acetonide 0.1 % 1 applic TOPICAL TID PRN gm 02/10/19 04/14/19 History topical cream tramadol 50 mg tablet 50 mg PO TID PRN tab 02/15/19 04/14/19 History ipratropium-albuterol 0.5 mg-3 3 ml INHALATION Q4H PRN #270 ml 03/17/19 04/14/19 Rx mg(2.5 mg base)/3 mL nebulization soln doxycycline hyclate 100 mg capsule 100 mg PO BID #28 cap 04/05/19 04/14/19 Rx Vitamin B Injection 1,000 mcg PO .[id number] 04/14/19 04/14/19 History apixaban [Eliquis] 5 mg PO BID 04/14/19 04/14/19 History sotalol [Betapace] 40 mg PO DAILY 04/14/19 04/14/19 History Past Med/Surg History Medical History Anxiety Atrial fibrillation Chronic back pain Chronic obstructive pulmonary disease Chronically on 4 L of oxygen Depression Diabetes mellitus, type 2 GERD (gastroesophageal reflux disease) Hyperlipidemia Hypertension Lung cancer Myocardial Infarction Pneumonia Syncope Valvular heart disease Surgical History History of heart artery stent History of lobectomy of lung Patient had a lobectomy for lung cancer of her right lung 2013 Family History Unknown Diabetes Cancer Social History Preferred Language: Greek Communication Ability: Effective Visual Impairment: No Limitations Inter Com Servicer Required: No Beliefs That Will Affect Care: None Current Living Situation: Spouse Other Information That Helps Us Care for You: No Feels Safe at Home: Yes Safety Concerns: Feels Safe At This Time Smoking Status: Former smoker Tobacco Type: cigarettes ; Cigarettes Per Day: 40 ; Second Hand Exposure: No ; Hx Alcohol Use: No Hx Substance Use: No Review of Systems Review of Systems: The patient denies chest pain, palpitations, lower extremity swelling, sore throat, fevers, chills, sweats, weight change, nausea, vomiting, diarrhea, constipation, abdominal pain, pelvic pain, blood in urine or stool, dysuria, urinary frequency or urgency, lightheadedness, dizziness, headache, memory loss, loss of consciousness, rash, abnormal bruising or bleeding, imbalance, focal or generalized weakness, numbness or tingling in arms or legs, generalized arthralgias or myalgias, back or neck pain, or night sweats. The review of systems is otherwise negative other than for that already noted above, and at least 10 systems have been reviewed. Physical Exam Physical Exam: The patient is awake, alert and oriented 3, well developed and well nourished, normocephalic and atraumatic, lying in bed and in no acute distress. HEENT--PERRL, EOMI, mucous membranes and oropharynx normal. Neck--supple. No JVD. No bruits. Thyroid normal, trachea midline, no adenopathy. Heart--normal S1 and S2. No murmurs, rubs or gallops. Lungs--coarse breath sounds with wheezes bilaterally Abdomen--normal bowel sounds and soft. Nontender. Nondistended. Obese Extremities--no cyanosis or clubbing. No edema. Dermatologic--normal skin turgor, normal color, no abnormal lymph nodes, no rash. Neurologic--cranial nerves II through XII grossly intact. Rheumatologic--normal range of motion. Psychiatric--normal affect. Results & Data Vital Signs (Past 12 Hours) Vital Signs Temp Pulse Pulse Resp BP Pulse Ox 04/14/19 21:20 92 H 26 H 95 04/14/19 21:10 90 21 94 04/14/19 21:01 88 18 139/70 96 04/14/19 21:00 89 15 04/14/19 20:53 86 21 92 04/14/19 20:50 90 24 91 04/14/19 20:40 91 H 25 H 90 04/14/19 20:30 89 24 92 04/14/19 20:24 90 24 199/90 H 90 04/14/19 20:20 90 04/14/19 20:10 86 18 92 04/14/19 20:00 88 16 173/89 H 92 04/14/19 19:50 90 20 92 04/14/19 19:40 87 16 90 04/14/19 19:30 87 20 92 04/14/19 19:20 86 19 93 04/14/19 19:10 88 22 90 04/14/19 19:05 90 04/14/19 19:02 90 20 189/83 H 92 04/14/19 19:00 87 14 90 04/14/19 18:50 89 26 H 90 04/14/19 18:40 89 21 92 04/14/19 18:30 85 86 21 96 04/14/19 18:20 96 H 16 94 04/14/19 18:10 88 21 94 04/14/19 17:56 99.3 F 92 H 24 210/97 H 93 Laboratory Results Laboratory Results WBC 11.34 K/uL (4.8-10.8) H 04/14/19 18:45 RBC 4.61 M/uL (4.2-5.4) 04/14/19 18:45 Hgb 12.1 g/dL (12.0-16.0) 04/14/19 18:45 Hct 38.9 % (37-47) 04/14/19 18:45 MCV 84.4 fL (80-100) 04/14/19 18:45 MCH 26.2 pg (25-34) 04/14/19 18:45 MCHC 31.1 g/dL (32-36) L 04/14/19 18:45 RDW Std Deviation 48.5 fL (36.4-46.3) H 04/14/19 18:45 RDW Coeff of [place] 15.8 % (11.5-14.5) H 04/14/19 18:45 Plt Count 223 K/uL (130-400) 04/14/19 18:45 MPV 11.4 fL (7.4-10.4) H 04/14/19 18:45 Immature Gran % (Auto) 0.5 % 04/14/19 18:45 Neut % (Auto) 67.6 % 04/14/19 18:45 Lymph % (Auto) 20.4 % 04/14/19 18:45 [place] % (Auto) 7.8 % 04/14/19 18:45 Eos % (Auto) 3.5 % 04/14/19 18:45 Baso % (Auto) 0.2 % 04/14/19 18:45 Immature Gran # (Auto) 0.06 K/uL (0.00-0.02) H 04/14/19 18:45 Neut # (Auto) 7.66 K/uL (1.4-6.5) H 04/14/19 18:45 Lymph # (Auto) 2.31 K/uL (1.2-3.4) 04/14/19 18:45 [place] # (Auto) 0.89 K/uL (0.11-0.59) H 04/14/19 18:45 Eos # (Auto) 0.40 K/uL (0-0.5) 04/14/19 18:45 Baso # (Auto) 0.02 K/uL (0-0.2) 04/14/19 18:45 PT 11.3 Seconds (9.0-12.0) 04/14/19 18:46 INR 1.1 (0.9-1.1) 04/14/19 18:46 APTT 29.5 Seconds (21.0-31.0) 04/14/19 18:46 PTT Ratio 1.1 04/14/19 18:46 Sodium 139 mmol/L (136-145) 04/14/19 18:46 Potassium 3.7 mmol/L (3.5-5.1) 04/14/19 18:46 Chloride 106 mmol/L (98-107) 04/14/19 18:46 Carbon Dioxide 27 mmol/L (21-32) 04/14/19 18:46 Anion Gap 6.0 (3-11) 04/14/19 18:46 BUN 16 mg/dl (7-18) 04/14/19 18:46 Creatinine 0.89 mg/dl (0.6-1.2) 04/14/19 18:46 Est Cr Clr Drug Dosing Not Reportable 04/14/19 18:46 Est GFR ( Amer) 75.6 04/14/19 18:46 Est GFR (Non-Af Amer) 65.2 04/14/19 18:46 BUN/Creatinine Ratio 17.6 (10-20) 04/14/19 18:46 Glucose 169 mg/dl (70-99) H 04/14/19 18:46 Calcium 9.2 mg/dl (8.5-10.1) 04/14/19 18:46 Magnesium 2.0 mg/dl (1.8-2.4) 04/14/19 18:46 Total Bilirubin 0.4 mg/dl (0.2-1) 04/14/19 18:46 AST 13 U/L (15-37) L 04/14/19 18:46 ALT 16 U/L (12-78) 04/14/19 18:46 Alkaline Phosphatase 87 U/L (45-117) 04/14/19 18:46 Troponin I 0.016 ng/ml (0-0.045) 04/14/19 18:46 Total Protein 7.5 gm/dl (6.4-8.2) 04/14/19 18:46 Albumin 3.8 gm/dl (3.4-5.0) 04/14/19 18:46 Globulin 3.7 gm/dl (2.5-4.0) 04/14/19 18:46 Albumin/Globulin Ratio 1.0 (0.9-2) 04/14/19 18:46 Influenza Type A (PCR) Neg for Influ A (Neg) 04/14/19 18:54 Influenza Type B (PCR) Neg for Influ B (Neg) 04/14/19 18:54 Diagnostic Findings [place], [place] [phone] XRay Report Patient: INGRID DODSON DAdmit Date: 04/14/19 MR#: [id number]: [id number] [facility] Acct ID:[id number]: Date: 1945[facility] Zip: [place] [address] Age: 73Location: ED Sex: F Room/Bed: Att Phy:Diagnosis: SOB Lizzie Phy: Jennifer Viramontes PA-CService Date: 04/14/19 Fam Phy:Interpreting Phy: Dimas Alberto MD Admit Phy: Ordering Phy: Jeannette Farris M.D. cc: ~ XR chest 1V portable CLINICAL HISTORY: Dyspnea dyspnea COMPARISON STUDY: 01/29/2019 FINDINGS: Mild stable cardiomegaly. Mild bibasilar atelectasis. Lungs otherwise appear clear. IMPRESSION: Mild bibasilar atelectasis. Mild stable cardiomegaly. The above report was generated using voice recognition software. It may contain grammatical, syntax or spelling errors. Electronically signed by: Dimas Alberto M.D. 04/14/2019 6:40 PM Dictated: 04/14/191839 Transcribed: 04/14/191839 Code Status & VTE Plan Code Status Full code VTE Prophylaxis Plan VTE Prophylaxis will be ordered: Yes PG Care Time/CCT Total # of Minutes Spent Total Time Spent with Patient: Total time spent is greater than 50% in coordination of care (as documented) at patient's floor/unit and/or counseling patient: (1) Coronary artery disease Coronary Disease-Associated Artery/Lesion type: [place] artery [place] vs. transplanted heart: [place] heart Associated angina: without angina Qualified Code(s): I25.10 - Atherosclerotic heart disease of [place] coronary artery without angina pectoris (2) Hypertension Hypertension type: essential hypertension Qualified Code(s): I10 - Essential (primary) hypertension
[2019-04-14 22:51] LABS: Influenza A virus by PCR Neg for Influ A (Neg); Influenza B virus by PCR Neg for Influ B (Neg)
[2019-04-14] MEDS ORDERED: ONDANSETRON INJ 2 MG/ML 2 ML VIAL IV PRN (23:03)
[2019-04-14] MEDS ORDERED: DEXTROSE 50% 50 ML SYRINGE IV PRN (23:03)
[2019-04-14] MEDS ORDERED: GLUCAGON FOR INJ 1 MG VIAL SQ PRN (23:03)
[2019-04-14] MEDS ORDERED: CARBOHYDRATES FOR HYPOGLYCEMIA PO PRN (23:03)
[2019-04-14] MEDS ORDERED: GLUCOSE 10 TABS/TUBE PO PRN (23:03)
[2019-04-14] MEDS ORDERED: GLUCOSE 40% GEL 15 GM TUBE PO PRN (23:03)
[2019-04-14] MEDS ORDERED: ALUMINUM/MAGNESIUM SUSP 30 ML UDC PO PRN (23:03)
[2019-04-14] MEDS ORDERED: ACETAMINOPHEN 325 MG TAB PO PRN (23:03)
[2019-04-14] MEDS: guaiFENesin 600 MG TABCR PO SCH (23:49)
[2019-04-14] MEDS: POTASSIUM CHLORIDE 20 MEQ TABCR PO SCH (23:50)
[2019-04-14] MEDS: PANTOprazole 40 MG TAB PO SCH (23:50)
[2019-04-14] MEDS: APIXABAN 5 MG TABLET PO SCH (23:51)
[2019-04-14] MEDS: TRAMADOL HCL 50 MG TABLET PO PRN (23:52)
[2019-04-14] MEDS: PATIENT'S HEIGHT AND/OR WEIGHT NEEDED SCH ×2 (23:52→23:53)
[2019-04-14] MEDS: GABAPENTIN 100 MG CAP PO SCH (23:52)
[2019-04-15] MEDS ORDERED: cefTRIAXone SODIUM 2,000 MG in DEXTROSE 5% 50 ML IV SCH
--- NOTE | 2019-04-15 | Emergency Department Note ---
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 Pt has a history of COPD and DM. She states she has a persistent cough, so she went to her PCP who recommended she come to the ED. She reports that her lung hurts and taking deep breaths worsens her pain. She notes she wears 4 L of O2 at home and has been taking albuterol treatments. She states she has been taking prednisone for the past 9 days however, she states it causes her neck pain. Pt had a fever of 99.8 last night but denies any history of blood clots. Pt regularly takes Plavix. She also states she was taking Eliquis as she had "a cardiac stent placed" but it is not currently listed on documentation from her physician's office. Home Medications Home Medications Medication Instructions Recorded Confirmed Type Novolog U-100 Insulin aspart 1 sliding scale dose SUBCUT 01/04/19 04/14/19 History USEASDIRECTD Prilosec OTC 20 mg PO BID 01/04/19 04/14/19 History Toujeo SoloStar U-300 Insulin 70 unit SUBCUT DAILY 01/04/19 04/14/19 History furosemide 10 mg PO DAILY 01/04/19 04/14/19 History gabapentin 100 mg PO BID 01/04/19 04/14/19 History guaifenesin [Mucinex] 600 mg PO BID 01/04/19 04/14/19 History losartan [Cozaar] 100 mg PO DAILY 01/04/19 04/14/19 History sertraline [Zoloft] 50 mg PO DAILY 01/04/19 04/14/19 History prednisone 10 mg PO UD #40 tab 01/09/19 04/14/19 Rx albuterol sulfate HFA 90 2 puff INHALATION Q4 PRN gm 02/10/19 04/14/19 History mcg/actuation aerosol inhaler amlodipine 10 mg tablet 10 mg PO DAILY tab 02/10/19 04/14/19 History clopidogrel 75 mg tablet 75 mg PO DAILY tab 02/10/19 04/14/19 History isosorbide mononitrate ER 30 mg 30 mg PO DAILY #30 tab 02/10/19 04/14/19 History tablet,extended release 24 hr montelukast 10 mg tablet 10 mg PO DAILY tab 02/10/19 04/14/19 History potassium chloride ER 20 mEq 20 meq PO BID tab 02/10/19 04/14/19 History tablet,extended release rosuvastatin 20 mg tablet 20 mg PO DAILY tab 02/10/19 04/14/19 History sodium chloride 0.65 % nasal spray 1 sprays INTNAS BID PRN 02/10/19 04/14/19 History aerosol triamcinolone acetonide 0.1 % 1 applic TOPICAL TID PRN gm 02/10/19 04/14/19 History topical cream tramadol 50 mg tablet 50 mg PO TID PRN tab 02/15/19 04/14/19 History ipratropium-albuterol 0.5 mg-3 3 ml INHALATION Q4H PRN #270 ml 03/17/19 04/14/19 Rx mg(2.5 mg base)/3 mL nebulization soln doxycycline hyclate 100 mg capsule 100 mg PO BID #28 cap 04/05/19 04/14/19 Rx Vitamin B Injection 1,000 mcg PO .[id number] 04/14/19 04/14/19 History apixaban [Eliquis] 5 mg PO BID 04/14/19 04/14/19 History sotalol [Betapace] 40 mg PO DAILY 04/14/19 04/14/19 History Allergies Allergy/AdvReac Type Severity Reaction Status Date / Time fentanyl Allergy Intermediate RASH Verified 04/14/19 19:24 levofloxacin Allergy Intermediate UNKNOWN Verified 04/14/19 19:24 Penicillins Allergy Intermediate RASH Verified 04/14/19 19:24 sulfamethoxazole Allergy Unknown Verified 04/14/19 19:24 [From Bactrim] trimethoprim [From Bactrim] Allergy Unknown Verified 04/14/19 19:24 Ethanol Allergy Intermediate RASH Uncoded 04/14/19 19:24 Past Med/Surg History Medical History Anxiety Atrial fibrillation Chronic back pain Chronic obstructive pulmonary disease Chronically on 4 L of oxygen Depression Diabetes mellitus, type 2 GERD (gastroesophageal reflux disease) Hyperlipidemia Hypertension Lung cancer Myocardial Infarction Pneumonia Syncope Valvular heart disease Surgical History History of heart artery stent History of lobectomy of lung Patient had a lobectomy for lung cancer of her right lung 2013 Family History Unknown Diabetes Cancer Social History Preferred Language: Scottish Communication Ability: Effective Visual Impairment: No Limitations Decal Decorator Required: No Beliefs That Will Affect Care: None Current Living Situation: Spouse Other Information That Helps Us Care for You: No Feels Safe at Home: Yes Safety Concerns: Feels Safe At This Time Smoking Status: Former smoker Tobacco Type: cigarettes ; Cigarettes Per Day: 40 ; Second Hand Exposure: No ; Hx Alcohol Use: No Hx Substance Use: No Review of Systems See HPI for pertinent positives & negatives. and A total of 10 systems reviewed and were otherwise negative Physical Exam Vital Signs Vital Signs - 24 hr 04/14/19 17:56 04/14/19 18:10 04/14/19 18:20 Temperature 37.4 C Temperature Source Oral Sepsis Recent Fever Within 48 Hours No Sepsis Action Taken by Nursing No Action Required Pulse Rate 92 H 88 96 H Pulse Rate [Right Finger] Pulse Rate from SpO2 Sensor 88 89 Pulse Rhythm Regular Pulse Strength Normal Respiratory Rate 24 21 16 Respiratory Effort / Characteristics Non-Labored Respiratory Depth Normal Blood Pressure 210/97 H Blood Pressure Mean 134 Blood Pressure Position Sitting Pulse Oximetry 93 94 94 Oxygen Delivery Method Nasal Cannula Oxygen Flow Rate 4 04/14/19 18:30 04/14/19 18:40 04/14/19 18:50 Temperature Temperature Source Sepsis Recent Fever Within 48 Hours Sepsis Action Taken by Nursing Pulse Rate 85 89 89 Pulse Rate [Right Finger] 86 Pulse Rate from SpO2 Sensor 85 90 89 Pulse Rhythm Pulse Strength Respiratory Rate 21 21 26 H Respiratory Effort / Characteristics Non-Labored Spontaneous Respiratory Depth Blood Pressure Blood Pressure Mean Blood Pressure Position Pulse Oximetry 96 92 90 Oxygen Delivery Method Room Air Oxygen Flow Rate 04/14/19 19:00 04/14/19 19:02 04/14/19 19:05 Temperature Temperature Source Sepsis Recent Fever Within 48 Hours Sepsis Action Taken by Nursing Pulse Rate 87 90 Pulse Rate [Right Finger] Pulse Rate from SpO2 Sensor 88 87 Pulse Rhythm Pulse Strength Respiratory Rate 14 20 Respiratory Effort / Characteristics Respiratory Depth Blood Pressure 189/83 H Blood Pressure Mean 118 Blood Pressure Position Pulse Oximetry 90 92 90 Oxygen Delivery Method Nasal Cannula Oxygen Flow Rate 2 04/14/19 19:10 04/14/19 19:20 04/14/19 19:30 Temperature Temperature Source Sepsis Recent Fever Within 48 Hours Sepsis Action Taken by Nursing Pulse Rate 88 86 87 Pulse Rate [Right Finger] Pulse Rate from SpO2 Sensor 88 87 87 Pulse Rhythm Pulse Strength Respiratory Rate 22 19 20 Respiratory Effort / Characteristics Respiratory Depth Blood Pressure Blood Pressure Mean Blood Pressure Position Pulse Oximetry 90 93 92 Oxygen Delivery Method Oxygen Flow Rate 04/14/19 19:40 04/14/19 19:50 04/14/19 20:00 Temperature Temperature Source Sepsis Recent Fever Within 48 Hours Sepsis Action Taken by Nursing Pulse Rate 87 90 88 Pulse Rate [Right Finger] Pulse Rate from SpO2 Sensor 87 91 H 88 Pulse Rhythm Pulse Strength Respiratory Rate 16 20 16 Respiratory Effort / Characteristics Respiratory Depth Blood Pressure 173/89 H Blood Pressure Mean 117 Blood Pressure Position Pulse Oximetry 90 92 92 Oxygen Delivery Method Oxygen Flow Rate 04/14/19 20:10 04/14/19 20:20 04/14/19 20:24 Temperature Temperature Source Sepsis Recent Fever Within 48 Hours Sepsis Action Taken by Nursing Pulse Rate 86 90 Pulse Rate [Right Finger] Pulse Rate from SpO2 Sensor 86 91 H 90 Pulse Rhythm Pulse Strength Respiratory Rate 18 24 Respiratory Effort / Characteristics Respiratory Depth Blood Pressure 199/90 H Blood Pressure Mean 126 Blood Pressure Position Pulse Oximetry 92 90 90 Oxygen Delivery Method Nasal Cannula Oxygen Flow Rate 4 04/14/19 20:30 04/14/19 20:40 04/14/19 20:50 Temperature Temperature Source Sepsis Recent Fever Within 48 Hours Sepsis Action Taken by Nursing Pulse Rate 89 91 H 90 Pulse Rate [Right Finger] Pulse Rate from SpO2 Sensor 90 92 H 90 Pulse Rhythm Pulse Strength Respiratory Rate 24 25 H 24 Respiratory Effort / Characteristics Respiratory Depth Blood Pressure Blood Pressure Mean Blood Pressure Position Pulse Oximetry 92 90 91 Oxygen Delivery Method Oxygen Flow Rate 04/14/19 20:53 04/14/19 21:00 04/14/19 21:01 Temperature Temperature Source Sepsis Recent Fever Within 48 Hours Sepsis Action Taken by Nursing Pulse Rate 89 88 Pulse Rate [Right Finger] 86 Pulse Rate from SpO2 Sensor 87 Pulse Rhythm Pulse Strength Respiratory Rate 21 15 18 Respiratory Effort / Characteristics Non-Labored Spontaneous Respiratory Depth Blood Pressure 139/70 Blood Pressure Mean 93 Blood Pressure Position Pulse Oximetry 92 96 Oxygen Delivery Method Nasal Cannula Oxygen Flow Rate 4 04/14/19 21:10 04/14/19 21:20 04/14/19 22:01 Temperature Temperature Source Sepsis Recent Fever Within 48 Hours Sepsis Action Taken by Nursing Pulse Rate 90 92 H 95 H Pulse Rate [Right Finger] Pulse Rate from SpO2 Sensor 90 92 H 95 H Pulse Rhythm Pulse Strength Respiratory Rate 21 26 H 21 Respiratory Effort / Characteristics Respiratory Depth Blood Pressure 185/87 H Blood Pressure Mean 119 Blood Pressure Position Pulse Oximetry 94 95 91 Oxygen Delivery Method Nasal Cannula Oxygen Flow Rate 4 Vital signs reviewed. General: Chronically ill appearing female, in no significant distress. On nasal canula oxygen. HEENT: No scleral icterus, PERRLA, neck supple. Atraumatic. Cardiovascular: Slightly tachycardic and regular. Pulmonary: Diffuse wheezing throughout the bilateral lung [place], increased work of breathing. Moist cough. Abdomen: Soft, nontender, nondistended, positive bowel sounds. Musculoskeletal: Atraumatic, no peripheral edema. Neurologic: Patient awake alert and oriented x Skin: Warm, dry, no rash Course 1815: Past medical records reviewed. The patient was evaluated in room A2. A complete history and physical exam was performed. 2037: I checked on the patient at this time. She will receive a nebulizer treatment. 2121: Discussed the patient's case with Dr. Ramirez, [facility] Hospitalist. The patient will be evaluated for further management by him. Administered Medications Apixaban (Eliquis) 5 mg PO BID [facility] Stop: 05/14/19 23:02 Last Admin: 04/14/19 23:51 Dose: 5 mg Documented by: [id number] Gabapentin (Neurontin) 100 mg PO BID [facility] Stop: 05/14/19 23:02 Last Admin: 04/14/19 23:52 Dose: 100 mg Documented by: [id number] Guaifenesin (Mucinex) 600 mg PO BID [facility] Stop: 05/14/19 23:02 Last Admin: 04/14/19 23:49 Dose: 600 mg Documented by: [id number] Ceftriaxone Sodium 2,000 mg/ (Dextrose) 70 mls @ 100 mls/hr IV Q24H [facility]YDE; Protocol Stop: 04/22/19 00:00 Last Admin: 04/15/19 00:20 Dose: 100 mls/hr Documented by: [id number] Pantoprazole Sodium (Protonix) 40 mg PO BID [facility] Stop: 05/14/19 23:02 Last Admin: 04/14/19 23:50 Dose: 40 mg Documented by: [id number] Potassium Chloride (Klor-Con M20) 20 meq PO BID [facility] Stop: 05/14/19 23:02 Last Admin: 04/14/19 23:50 Dose: 20 meq Documented by: [id number] Tramadol HCl (Ultram) 50 mg PO TID PRN PRN Reason: Moderate Pain Stop: 05/14/19 23:02 Last Admin: 04/14/19 23:52 Dose: 50 mg Documented by: [id number] Discontinued Medications Albuterol (Duoneb) 3 ml INH NOW STA Stop: 04/14/19 18:19 Last Admin: 04/14/19 18:29 Dose: 3 ml Documented by: [id number] Albuterol (Duoneb) 12 ml NEB ONE ONE Stop: 04/14/19 20:46 Last Admin: 04/14/19 20:53 Dose: 12 ml Documented by: [id number] Methylprednisolone (Solumedrol) 125 mg IV NOW STA Stop: 04/14/19 18:19 Last Admin: 04/14/19 18:54 Dose: 125 mg Documented by: [id number] Metoprolol Tartrate (Lopressor) Confirm Administered Dose 5 mg IV .STK-MED ONE Stop: 04/15/19 00:17 Last Admin: 04/15/19 00:18 Dose: 5 mg Documented by: [id number] Miscellaneous (Patient's Height And/Or Weight Needed) 1 ea N/A Q30M CLYDE Stop: 05/14/19 23:29 Last Admin: 04/14/19 23:53 Dose: Not Given Documented by: [id number] Admin: 04/14/19 23:52 Dose: 1 ea Documented by: [id number] Medical Decision Making Differential Diagnosis Differential diagnosis: Etiologies such as infections, reactive airway disease, pneumonia, pneumothorax, COPD, CHF, cardiac ischemia, pulmonary embolism, musculoskeletal, jhon rointestinal, as well as others were entertained. Medical Records Attestation: I reviewed the patient's medical records. Home Medications Current Medication List: was personally reviewed by me Laboratory Data Attestation: I reviewed the patient's lab results. Result diagrams: 04/14/19 18:45 04/14/19 18:46 Lab Results 04/14/19 04/14/19 04/14/19 Range/Units 18:45 18:46 18:46 WBC 11.34 H (4.8-10.8) K/uL RBC 4.61 (4.2-5.4) M/uL Hgb 12.1 (12.0-16.0) g/dL Hct 38.9 (37-47) % MCV 84.4 (80-100) fL MCH 26.2 (25-34) pg MCHC 31.1 L (32-36) g/dL RDW Std Deviation 48.5 H (36.4-46.3) fL RDW Coeff of Royer 15.8 H (11.5-14.5) % Plt Count 223 (130-400) K/uL MPV 11.4 H (7.4-10.4) fL Immature Gran % (Auto) 0.5 % Neut % (Auto) 67.6 % Lymph % (Auto) 20.4 % Lassen % (Auto) 7.8 % Eos % (Auto) 3.5 % Baso % (Auto) 0.2 % Immature Gran # (Auto) 0.06 H (0.00-0.02) K/uL Neut # (Auto) 7.66 H (1.4-6.5) K/uL Lymph # (Auto) 2.31 (1.2-3.4) K/uL Lassen # (Auto) 0.89 H (0.11-0.59) K/uL Eos # (Auto) 0.40 (0-0.5) K/uL Baso # (Auto) 0.02 (0-0.2) K/uL PT 11.3 (9.0-12.0) Seconds INR 1.1 (0.9-1.1) APTT 29.5 (21.0-31.0) Seconds PTT Ratio 1.1 Sodium 139 (136-145) mmol/L Potassium 3.7 (3.5-5.1) mmol/L Chloride 106 (98-107) mmol/L Carbon Dioxide 27 (21-32) mmol/L Anion Gap 6.0 (3-11) BUN 16 (7-18) mg/dl Creatinine 0.89 (0.6-1.2) mg/dl Est Cr Clr Drug Dosing Not Reportable Est GFR ( Amer) 75.6 Est GFR (Non-Af Amer) 65.2 BUN/Creatinine Ratio 17.6 (10-20) Glucose 169 H (70-99) mg/dl Calcium 9.2 (8.5-10.1) mg/dl Magnesium 2.0 (1.8-2.4) mg/dl Total Bilirubin 0.4 (0.2-1) mg/dl AST 13 L (15-37) U/L ALT 16 (12-78) U/L Alkaline Phosphatase 87 (45-117) U/L Troponin I 0.016 (0-0.045) ng/ml Total Protein 7.5 (6.4-8.2) gm/dl Albumin 3.8 (3.4-5.0) gm/dl Globulin 3.7 (2.5-4.0) gm/dl Albumin/Globulin Ratio 1.0 (0.9-2) Influenza Type A (PCR) (Neg) Influenza Type B (PCR) (Neg) 04/14/19 Range/Units 18:54 WBC (4.8-10.8) K/uL RBC (4.2-5.4) M/uL Hgb (12.0-16.0) g/dL Hct (37-47) % MCV (80-100) fL MCH (25-34) pg MCHC (32-36) g/dL RDW Std Deviation (36.4-46.3) fL RDW Coeff of Royer (11.5-14.5) % Plt Count (130-400) K/uL MPV (7.4-10.4) fL Immature Gran % (Auto) % Neut % (Auto) % Lymph % (Auto) % Lassen % (Auto) % Eos % (Auto) % Baso % (Auto) % Immature Gran # (Auto) (0.00-0.02) K/uL Neut # (Auto) (1.4-6.5) K/uL Lymph # (Auto) (1.2-3.4) K/uL Lassen # (Auto) (0.11-0.59) K/uL Eos # (Auto) (0-0.5) K/uL Baso # (Auto) (0-0.2) K/uL PT (9.0-12.0) Seconds INR (0.9-1.1) APTT (21.0-31.0) Seconds PTT Ratio Sodium (136-145) mmol/L Potassium (3.5-5.1) mmol/L Chloride (98-107) mmol/L Carbon Dioxide (21-32) mmol/L Anion Gap (3-11) BUN (7-18) mg/dl Creatinine (0.6-1.2) mg/dl Est Cr Clr Drug Dosing Est GFR ( Amer) Est GFR (Non-Af Amer) BUN/Creatinine Ratio (10-20) Glucose (70-99) mg/dl Calcium (8.5-10.1) mg/dl Magnesium (1.8-2.4) mg/dl Total Bilirubin (0.2-1) mg/dl AST (15-37) U/L ALT (12-78) U/L Alkaline Phosphatase (45-117) U/L Troponin I (0-0.045) ng/ml Total Protein (6.4-8.2) gm/dl Albumin (3.4-5.0) gm/dl Globulin (2.5-4.0) gm/dl Albumin/Globulin Ratio (0.9-2) Influenza Type A (PCR) Neg for Influ A (Neg) Influenza Type B (PCR) Neg for Influ B (Neg) Imaging Data Radiologist's Impression: Radiology results as stated below per my review and the radiologist's interpretation: XR chest 1V portable CLINICAL HISTORY: Dyspnea dyspnea COMPARISON STUDY: 01/29/2019 FINDINGS: Mild stable cardiomegaly. Mild bibasilar atelectasis. Lungs otherwise appear clear. IMPRESSION: Mild bibasilar atelectasis. Mild stable cardiomegaly. The above report was generated using voice recognition software. It may contain grammatical, syntax or spelling errors. Electronically signed by: Dimas Alberto M.D. 04/14/2019 6:40 PM ECG Data Attestation: I personally reviewed and interpreted this ECG as follows: Indication: SOB/dyspnea Rate (beats per minute): 87 Rhythm: normal sinus Findings: + other (T-wave flattening in the anterior) and + prolonged QT (QTC is 500); no acute ischemic change and no ectopy Blood Pressure Blood Pressure Findings: Elevated blood pressure Blood Pressure Disposition: further management by hospitalist MDM Narrative This patient was evaluated and appeared to be in no significant distress. IV access was obtained and laboratory work was drawn. Pt was placed on the diagnostic cardiac sonographer. CXR is significant for bibasilar atelectasis. Laboratory work reveals no significant abnormality. WBC is mildly elevated however the patient has been on steroids. Troponin is within normal limits and influenza swab was negative. Patient was given a DuoNeb treatment and 125 mg of IV Solu-Medrol. After several hours the patient was reevaluated with minimal improvement. She was subsequently given an hour-long DuoNeb treatment and with some encouragement agreed to evaluation by the hospitalist service for further management. Patient has been on steroids and doxycycline for the better part of 2 weeks and is hypoxic on her home oxygen therapy. She will be evaluated by Dr. Rodriguez for further management. Impression & Plan COPD exacerbation Discharge Plan Visit Data *Final* Discharge Date/Time: 04/14/19 22:45 Chief Complaint: Shortness of Breath/Dyspnea Stated Complaint: SOB ED Provider: Jeannette Farris Discharge Problem: COPD exacerbation Patient Disposition: Admitted As Inpatient Discharge Instructions Interventions: ED Discharge Assessment Last Done: 04/14/19 22:45 The scribe's documentation has been prepared under my direction and personally reviewed by me in its entirety. I confirm that the note above accurately reflects all work, treatment, procedures, and medical decision making performed by me.
[2019-04-15] MEDS ORDERED: METOPROLOL TARTRATE 1 MG/ML VIAL IV ONE (00:16)
[2019-04-15] MEDS: METOPROLOL TARTRATE 1 MG/ML VIAL IV PRN ×4 (04:25→19:27)
[2019-04-15] MEDS ORDERED: methylPREDNISolone 30 MG in SYRINGE 0 ML IV SCH (06:00)
[2019-04-15 06:55] LABS: Estimated Average Glucose 189 mg/dl; Hemoglobin A1C 8.2 % (4.5-5.6)
[2019-04-15] MEDS: BUDESONIDE 0.5 MG/2 ML VIAL (PULMICORT) NEB SCH ×2 (07:15→19:24)
[2019-04-15] MEDS: ALBUT/IPRATROP 3MG/0.5MG NEB 3 ML VIAL NEB SCH ×4 (07:15→19:23)
[2019-04-15] MEDS: GABAPENTIN 100 MG CAP PO SCH ×2 (07:35→20:56)
[2019-04-15] MEDS: SERTRALINE HCL 50 MG TABLET PO SCH (07:36)
[2019-04-15] MEDS: SOTALOL HCL 80 MG TAB PO SCH (07:36)
[2019-04-15] MEDS: APIXABAN 5 MG TABLET PO SCH ×2 (07:36→20:54)
[2019-04-15] MEDS: guaiFENesin 600 MG TABCR PO SCH ×2 (07:36→20:57)
[2019-04-15] MEDS: ROSUVASTATIN CALCIUM 20 MG TAB PO SCH (07:36)
[2019-04-15] MEDS: ISOSORBIDE MONO EXTENDED REL 30 MG TABCR PO SCH (07:36)
[2019-04-15] MEDS: AMLODIPINE BESYLATE 5 MG TAB PO SCH (07:37)
[2019-04-15] MEDS: CLOPIDOGREL BISULFATE 75 MG TAB PO SCH (07:37)
[2019-04-15] MEDS: MONTELUKAST SODIUM 10 MG TABLET PO SCH (07:37)
[2019-04-15] MEDS: PANTOprazole 40 MG TAB PO SCH ×2 (07:37→20:56)
[2019-04-15] MEDS: POTASSIUM CHLORIDE 20 MEQ TABCR PO SCH ×2 (07:37→20:55)
[2019-04-15] MEDS: LOSARTAN POTASSIUM 50 MG TAB PO SCH (07:37)
[2019-04-15] MEDS: FUROSEMIDE 20 MG TAB PO SCH (07:39)
[2019-04-15] MEDS: INSULIN ASPART 100 UNITS/ML 3 ML PEN SC SCH ×4 (08:21→21:01)
[2019-04-15] MEDS ORDERED: INSULIN GLARGINE SOLOSTAR 100 UNITS/ML 3 ML PEN SC SCH (09:00)
[2019-04-15 12:42] LABS: Allen Test Pos (Pos); Base Excess ABG 0.9 mEq/L (-9-1.8); HCO3 ABG 24 mmol/L (19-24); Oxygen Saturation ABG 88.9 % (90-95); PCO2 ABG 33 mmHg (35-46); PO2 ABG 54 mm/Hg (80-95); pH ABG 7.48 (7.35-7.45)
[2019-04-15 12:55] LABS: Appearance Urine Clear (Clear); Bilirubin Urine Negative (Negative); Blood Urine Negative (Negative); Color Urine Yellow; Glucose Urine UA 3+ (Negative); Ketones Urine Trace (Negative); Leukocyte Esterase Urine Negative (Negative); Nitrite Urine Negative (Negative); Protein Urine Negative (Negative); Urobilinogen Urine Negative (Negative)
[2019-04-15] MEDS ORDERED: PHARMACY GLYCEMIC MGMT CONSULT PRN (13:40)
[2019-04-15] MEDS: methylPREDNISolone 50 MG in SYRINGE 0 ML IV SCH ×2 (13:46→20:54)
[2019-04-15] MEDS ORDERED: INSULIN GLARGINE SOLOSTAR 100 UNITS/ML 3 ML PEN SC ONE (14:00)
--- NOTE | 2019-04-15 14:12 | Pharmacy Report ---
Glycemic Control Consultation - Date of Service April 15, 2019 - Scope Scope: Glycemic Pharmacist consulted by Gabriela Fry on 04/15 for glycemic control and to write orders per [facility] inpatient glycemic control protocol - Objective Weight: 83.2 kg Accuchecks BSG (last 24hrs): 04/14/19 04/15/19 04/15/19 18:46 07:22 11:50 Glucose 169 H POC Glucose 279 H 312 H* Laboratory Data (last 24hrs): 04/14/19 18:46 Potassium 3.7 Carbon Dioxide 27 Anion Gap 6.0 Creatinine 0.89 Est Cr Clr Drug Dosing Not Reportable HbA1c: Hemoglobin A1c 8.2 % (4.5-5.6) H 04/14/19 18:45 - Recent Pertinent Medications Outpatient Anti-diabetic Regimen: * Toujeo 80 units daily * Novolog 10 units with meals + SS (equivalent to CF ~25) * A1c = 8.2 % 04/14/19 The patient is currently receiving: * Basal insulin: Lantus 40 units every 24 hours * Correctional Insulin: Novolog Correction per scale ACHS Goal Range: Low 100 mg/dL - High 150 mg/dL Correction Factor: 25 mg/dL/unit * Prandial insulin: Per carb ratio of 1 unit per 10 grams CHO consumed Risk Factors for Insulin Resistance: * Steroids: Solu-medrol 50 mg IV q12h (rec'd 125 mg in ED yesterday) * Infection: on Rocephin * Diet: T2DM - Assessment & Plan Assessment & Plan: ASSESSMENT: * 73 y/o female with T2DM, known to the pharmacy glycemic service, admitted with COPD exacerbation and placed on IV steroids. Pharmacy has been consulted for glycemic control since BSGs are elevated > 300 mg/dL. She uses basal + bolus insulin as an outpatient, heavily weighted with basal insulin. Will plan to place on a regimen that provided good BSG control on her last admission when on ATC steroids. PLAN FOR INPATIENT GLYCEMIC CONTROL: * Basal insulin - increase * Lantus 40 units x 1 now (additional dose for total of 80 today), then * Lantus 40 units BID starting tomorrow * Bolus insulin - tighten CF/CR and add overnight check to provide additional insulin if needed * NovoLog per scale ACHS or Q6hrs while NPO * Goal Range: Low 100 mg/dL - High 150 mg/dL * Correction Factor: 10 mg/dL/unit * Nutritional / Prandial insulin per carb ratio of 1 unit per 2 grams CHO consumed Discharge Recommendations: * A1c is 8.2% on 04/14/19 * A1c goal ~8%; Less stringent A1C goals (such as less than 8%) may be appropriate for patients with a history of severe hypoglycemia, limited life expectancy, advanced microvascular or macrovascular complications, extensive comorbid conditions, or long-standing diabetes in whom the goal is difficult to achieve despite diabetes self-management education, appropriate glucose monitoring, and effective doses of multiple glucose-lowering agents including insulin. * Recommend to continue outpatient regimen on discharge and f/u with outpatient provider. Thank you.
--- NOTE | 2019-04-15 15:01 | CT Scan Report ---
CT chest wo con CLINICAL HISTORY: Hypoxia COMPARISON STUDY: 06/05/2018 CT DOSE: 731.90 mGy.cm TECHNIQUE: CT of the thorax was performed from the thoracic inlet to the lung bases. Images are revi ewed in the axial, sagittal, and coronal planes. IV contrast was not administered for this examinatio n. A dose lowering technique was utilized adhering to the principles of ALARA. FINDINGS: Thyroid: Imaged portions of the thyroid gland are normal in appearance. Thoracic aorta: The thoracic aorta is normal in course and caliber, noting standard 3 vessel arch yoseph yevgeniy. Heart: The heart is normal in size. There are coronary calcifications. There is a minimal pericardial effusion. Lungs and pleural spaces: There is pulmonary emphysema. There is no acute parenchymal consolidation. There are no significant pleural effusions. Mediastinum: There is a right paratracheal lymph node the upper limits of normal in size. There is no pathologic mediastinal adenopathy by size criteria. Sandie: There is no evidence of pathologic hilar adenopathy given the limitations of a noncontrast stud y Axilla: There is no evidence of pathologic axillary lymphadenopathy Upper abdomen: No adrenal masses are visualized. There is a 39 mm left lobe hepatic hypodensity like ly representing a cyst Skeletal structures: There are no lytic or blastic osseous lesions. IMPRESSION: 1. No acute intrathoracic findings 2. Moderately severe pulmonary emphysema 3. No evidence of acute parenchymal consolidation. Electronically signed by: Robert Simon M.D. 04/15/2019 3:00 PM
--- NOTE | 2019-04-15 15:48 | Hospitalist Progress Note ---
Date of Service April 15, 2019 Assessment & Plan (1) COPD exacerbation: Duonebs every 4 hours while awake and every 2 hours when necessary. Pulmicort Respules 0.5 mg inhaled twice daily. Solu-Medrol increased to 50 mg IV every 12 hours Wears nasal cannula 4 L at home. Maintain pulse ox around 92%. Currently requiring 5L ABG without hypercarbia, did reveal hypoxemia CT chest without acute process, showed moderate/severe emphysema Will dc Ceftriaxone 1 g IV daily. Sputum Gram stain and culture. (2) Coronary artery disease: CAD/hypertension/RCA stent/paroxysmal atrial fibrillation- Continue amlodipine 10 mg p.o. daily, apixaban 5 mg p.o. twice daily, clopidogrel 75 mg p.o. daily, furosemide 10 mg p.o. daily, isosorbide mononitrate ER 30 mg p.o. daily, losartan 100 mg p.o. daily, potassium chloride ER 20 mEq p.o. twice daily, and sotalol 40 mg p.o. daily. (3) S/P right coronary artery (RCA) stent placement: See above (4) Paroxysmal atrial fibrillation: See above (5) Hypertension: See above (6) Hyperlipidemia: Continue rosuvastatin 20 mg p.o. daily (7) Diabetes: glycemic pharmacist consult patient hyperglycemic (8) Depression: Continue sertraline 50 mg p.o. daily (9) Peripheral neuropathy: Continue gabapentin 100 mg p.o. twice daily (10) DVT prophylaxis: Apixaban Subjective Ms. Elam was requiring 7L mask at the time of my assessment and saturating 90%. She appeared comfortable though a bit dyspneic and was eating lunch. She does feel sob with some cough. No chest pain. No other complaints. ROS Constitutional: no chills, aches, sweats or fever Respiratory:see HPI Cardiac: no palpitations, edema, orthopnea or lightheadedness GI: no abdominal pain, nausea, vomiting, diarrhea or constipation : no dysuria or hesitancy Extremities: no joint pain or weakness Skin: no rash All other systems reviewed and negative Physical Exam Physical Exam: General: no distress Eyes: normal inspection, PERLL Respiratory: chest non tender, diffuse expiratory wheezes bilaterally, no respiratory distress, no accessory muscle use Cardiac: regular rate and rhythm, no rub or gallop, no murmur, no edema, no jvd GI/: active bowel sounds, no abd pain or tenderness, soft, non distended Extremities: normal range of motion, normal strength, non tender Neuro/Psych: alert and oriented x 3, normal mood and affect Skin: normal color, dry Results & Data Vital Signs (Past 12 Hours) Vital Signs Temp Pulse Pulse Resp BP BP BP 04/15/19 15:04 92 H 18 177/72 H 04/15/19 14:59 91 H 18 04/15/19 14:10 95 H 176/69 H 04/15/19 14:00 176/69 H 04/15/19 11:30 36.8 C 92 H 20 164/70 H 04/15/19 10:43 94 H 24 04/15/19 09:21 95 H 20 168/79 H 04/15/19 07:20 93 H 18 04/15/19 07:08 36.9 C 93 H 18 176/82 H 04/15/19 04:41 36.8 C 68 16 197/93 H 04/15/19 04:25 98 H 197/93 H Pulse Ox 04/15/19 15:04 94 04/15/19 14:59 95 04/15/19 14:10 04/15/19 14:00 04/15/19 11:30 90 04/15/19 10:43 89 L 04/15/19 09:21 90 04/15/19 07:20 92 04/15/19 07:08 92 04/15/19 04:41 91 04/15/19 04:25 PG Care Time/CCT Total # of Minutes Spent Total Time Spent with Patient: Total time spent is greater than 50% in coordination of care (as documented) at patient's floor/unit and/or counseling patient: (1) Coronary artery disease Coronary Disease-Associated Artery/Lesion type: [place] artery [place] vs. transplanted heart: [place] heart Associated angina: without angina Qualified Code(s): I25.10 - Atherosclerotic heart disease of [place] coronary artery without angina pectoris (2) Hypertension Hypertension type: essential hypertension Qualified Code(s): I10 - Essential (primary) hypertension
[2019-04-15 20:29] LABS: Hematocrit (blood only) 35.8 % (37-47); Hemoglobin 11.5 g/dL (12.0-16.0); Mean Corpuscular Hemoglobin 26.8 pg (25-34); Mean Corpuscular Hgb Conc 32.1 g/dL (32-36); Mean Corpuscular Volume 83.4 fL (80-100); Mean Platelet Volume 10.9 fL (7.4-10.4); Platelet Count 254 K/uL (130-400); RDW Coefficient of Variation 15.9 % (11.5-14.5); RDW Standard Deviation 48.2 fL (36.4-46.3); Red Blood Count 4.29 M/uL (4.2-5.4); White Blood Count 14.76 K/uL (4.8-10.8)
[2019-04-15 20:46] LABS: BUN Creatinine Ratio 17.3 (10-20); Calcium 9.5 mg/dl (8.5-10.1); Creatinine Clr Calc Pharmacy 34.6 ml/min; Est GFR (African American) 40.5; Potassium 3.9 mmol/L (3.5-5.1)
[2019-04-16] MEDS ORDERED: INSULIN ASPART 100 UNITS/ML 3 ML PEN SC ONE (02:00)
[2019-04-16] MEDS: METOPROLOL TARTRATE 1 MG/ML VIAL IV PRN (03:46)
[2019-04-16] MEDS: ALBUT/IPRATROP 3MG/0.5MG NEB 3 ML VIAL NEB SCH ×4 (07:06→18:58)
[2019-04-16] MEDS: BUDESONIDE 0.5 MG/2 ML VIAL (PULMICORT) NEB SCH ×2 (07:06→18:58)
[2019-04-16] MEDS ORDERED: INSULIN GLARGINE SOLOSTAR 100 UNITS/ML 3 ML PEN SC ONE (07:30)
[2019-04-16] MEDS: MONTELUKAST SODIUM 10 MG TABLET PO SCH (08:04)
[2019-04-16] MEDS: methylPREDNISolone 50 MG in SYRINGE 0 ML IV SCH ×2 (08:04→20:41)
[2019-04-16] MEDS: AMLODIPINE BESYLATE 5 MG TAB PO SCH (08:04)
[2019-04-16] MEDS: SOTALOL HCL 80 MG TAB PO SCH (08:04)
[2019-04-16] MEDS: PANTOprazole 40 MG TAB PO SCH ×2 (08:04→20:28)
[2019-04-16] MEDS: LOSARTAN POTASSIUM 50 MG TAB PO SCH (08:04)
[2019-04-16] MEDS: CLOPIDOGREL BISULFATE 75 MG TAB PO SCH (08:04)
[2019-04-16] MEDS: ROSUVASTATIN CALCIUM 20 MG TAB PO SCH (08:04)
[2019-04-16] MEDS: APIXABAN 5 MG TABLET PO SCH ×2 (08:05→20:27)
[2019-04-16] MEDS: ISOSORBIDE MONO EXTENDED REL 30 MG TABCR PO SCH (08:05)
[2019-04-16] MEDS: POTASSIUM CHLORIDE 20 MEQ TABCR PO SCH ×2 (08:05→20:29)
[2019-04-16] MEDS: FUROSEMIDE 20 MG TAB PO SCH (08:05)
[2019-04-16] MEDS: SERTRALINE HCL 50 MG TABLET PO SCH (08:05)
[2019-04-16] MEDS: GABAPENTIN 100 MG CAP PO SCH ×2 (08:05→20:27)
[2019-04-16] MEDS: guaiFENesin 600 MG TABCR PO SCH ×2 (08:08→20:28)
[2019-04-16] MEDS: INSULIN ASPART 100 UNITS/ML 3 ML PEN SC SCH ×4 (08:13→20:33)
[2019-04-16] MEDS ORDERED: HydrALAZINE HCL 20 MG/ML VIAL IV PRN (08:31)
[2019-04-16] MEDS ORDERED: INSULIN GLARGINE SOLOSTAR 100 UNITS/ML 3 ML PEN SC SCH (09:00)
--- NOTE | 2019-04-16 09:07 | Pharmacy Report ---
Pharmacy Glycemic Short Note 2 - Date of Service April 16, 2019 - Glycemic Short BSG Results (Last 24 hours): 04/15/19 04/15/19 04/15/19 07:22 11:50 16:26 Glucose POC Glucose 279 H 312 H* 319 H* 04/15/19 04/15/19 04/16/19 20:08 20:19 01:59 Glucose 239 H POC Glucose 245 H 237 H 04/16/19 07:32 Glucose POC Glucose 281 H OUTPATIENT ANTIDIABETIC REGIMEN: * Toujeo 80 units daily * Novolog 10 units with meals + SS (equivalent to CF ~25) * A1c = 8.2 % 04/14/19 - Assessment & Plan ASSESSMENT: 04/16 * Mariana received 160 units of insulin yesterday (80 of this was basal) * BSGs have remained in the 200s * I suspect increased needs are related to the extra dose of Solu-medrol yesterday (received 30 mg, 50 mg and 50 mg) * Solu-medrol dose will be 50 mg BID today, which is near the threshold of changes seen in glycemic effects * Will provide additional basal this AM but be more aggressive with the correctional insulin to provide immediate BSG lowering * Note that adequate regimen last admission when on steroids was a basal dose of 80 units with CF 10, CR 2 * Also note that SCr has increased, which could affect pharmacodynamic properties of insulin 04/15 * 73 y/o female with T2DM, known to the pharmacy glycemic service, admitted with COPD exacerbation and placed on IV steroids. Pharmacy has been consulted for glycemic control since BSGs are elevated > 300 mg/dL. She uses basal + bolus insulin as an outpatient, heavily weighted with basal insulin. Will plan to place on a regimen that provided good BSG control on her last admission when on ATC steroids. PLAN FOR INPATIENT GLYCEMIC CONTROL: * Basal insulin - increase AM dose only * Lantus 50 units this AM, then * Lantus 40 units BID * Bolus insulin - tighten CF * NovoLog per scale ACHS or Q6hrs while NPO * Goal Range: Low 100 mg/dL - High 150 mg/dL * Correction Factor: 8 mg/dL/unit * Nutritional / Prandial insulin per carb ratio of 1 unit per 2 grams CHO consumed PLAN FOR DISCHARGE: * A1c is 8.2% on 04/14/19 * A1c goal ~8%; Less stringent A1C goals (such as less than 8%) may be appropriate for patients with a history of severe hypoglycemia, limited life expectancy, advanced microvascular or macrovascular complications, extensive comorbid conditions, or long-standing diabetes in whom the goal is difficult to achieve despite diabetes self-management education, appropriate glucose monitoring, and effective doses of multiple glucose-lowering agents including insulin. * Recommend to continue outpatient regimen on discharge and f/u with outpatient provider.
--- NOTE | 2019-04-16 12:22 | Hospitalist Progress Note ---
Date of Service April 16, 2019 Assessment & Plan (1) COPD exacerbation: Duonebs every 4 hours while awake and every 2 hours when necessary. Pulmicort Respules 0.5 mg inhaled twice daily. Continue Solu-Medrol 50 mg IV every 12 hours Wears nasal cannula 4 L at home. Maintain pulse ox around 92%. Currently requiring 4.5L ABG without hypercarbia, did reveal hypoxemia CT chest without acute process, showed moderate/severe emphysema Discontinued Ceftriaxone 1 g IV daily. Sputum Gram stain and culture. (2) Coronary artery disease: CAD/hypertension/RCA stent/paroxysmal atrial fibrillation- Continue amlodipine 10 mg p.o. daily, apixaban 5 mg p.o. twice daily, clopidogrel 75 mg p.o. daily, furosemide 10 mg p.o. daily, isosorbide mononitrate ER 30 mg p.o. daily, losartan 100 mg p.o. daily, potassium chloride ER 20 mEq p.o. twice daily, and sotalol 40 mg p.o. daily. (3) S/P right coronary artery (RCA) stent placement: See above (4) Paroxysmal atrial fibrillation: See above (5) Hypertension: See above (6) Hyperlipidemia: Continue rosuvastatin 20 mg p.o. daily (7) Diabetes: glycemic pharmacist consult patient hyperglycemic (8) Depression: Continue sertraline 50 mg p.o. daily (9) Peripheral neuropathy: Continue gabapentin 100 mg p.o. twice daily (10) DVT prophylaxis: Apixaban Subjective Ms. Ward is improving. Less dyspneic, nearly at baseline O2 requirements. Mild cough ROS Constitutional: no chills, aches, sweats or fever Respiratory: see HPI Cardiac: no chest pain, palpitations, edema, orthopnea or lightheadedness GI: no abdominal pain, nausea, vomiting, diarrhea or constipation : no dysuria or hesitancy Extremities: no joint pain or weakness Skin: no rash All other systems reviewed and negative Physical Exam Physical Exam: General: no distress Eyes: normal inspection, PERLL Respiratory: chest non tender, expiratory wheezes and rhonchi scattered bilaterally, no respiratory distress, no accessory muscle use Cardiac: regular rate and rhythm, no rub or gallop, no murmur, no edema, no jvd GI/: active bowel sounds, no abd pain or tenderness, soft, non distended Extremities: normal range of motion, normal strength, non tender Neuro/Psych: alert and oriented x 3, normal mood and affect Skin: normal color, dry Results & Data Vital Signs (Past 12 Hours) Vital Signs Temp Pulse Pulse Resp BP BP BP 04/16/19 11:00 36.9 C 80 18 158/72 H 04/16/19 10:58 90 18 04/16/19 07:15 91 H 20 04/16/19 07:00 36.9 C 88 20 187/92 H 197/82 H 04/16/19 04:20 177/77 H 04/16/19 03:52 36.7 C 91 H 17 195/108 H 04/16/19 03:46 91 H 195/108 H 04/16/19 00:42 82 Pulse Ox 04/16/19 11:00 91 04/16/19 10:58 96 04/16/19 07:15 93 04/16/19 07:00 92 04/16/19 04:20 04/16/19 03:52 91 04/16/19 03:46 04/16/19 00:42 PG Care Time/CCT Total # of Minutes Spent Total Time Spent with Patient: Total time spent is greater than 50% in coord ination of care (as documented) at patient's floor/unit and/or counseling patient: (1) Coronary artery disease Coronary Disease-Associated Artery/Lesion type: [place] artery [place] vs. transplanted heart: [place] heart Associated angina: without angina Qualified Code(s): I25.10 - Atherosclerotic heart disease of [place] coronary artery without angina pectoris (2) Hypertension Hypertension type: essential hypertension Qualified Code(s): I10 - Essential (primary) hypertension
[2019-04-16] MEDS: TRAMADOL HCL 50 MG TABLET PO PRN (20:40)
[2019-04-17] MEDS: METOPROLOL TARTRATE 1 MG/ML VIAL IV PRN (00:02)
[2019-04-17] MEDS: ALBUT/IPRATROP 3MG/0.5MG NEB 3 ML VIAL NEB SCH ×4 (06:59→19:03)
[2019-04-17] MEDS: BUDESONIDE 0.5 MG/2 ML VIAL (PULMICORT) NEB SCH ×2 (06:59→19:04)
[2019-04-17] MEDS ORDERED: INSULIN GLARGINE SOLOSTAR 100 UNITS/ML 3 ML PEN SC ONE (08:00)
[2019-04-17] MEDS: INSULIN ASPART 100 UNITS/ML 3 ML PEN SC SCH ×4 (08:36→20:39)
[2019-04-17] MEDS: methylPREDNISolone 50 MG in SYRINGE 0 ML IV SCH (08:39)
[2019-04-17] MEDS: AMLODIPINE BESYLATE 5 MG TAB PO SCH (08:39)
[2019-04-17] MEDS: CLOPIDOGREL BISULFATE 75 MG TAB PO SCH (08:39)
[2019-04-17] MEDS: POTASSIUM CHLORIDE 20 MEQ TABCR PO SCH ×2 (08:40→20:36)
[2019-04-17] MEDS: ROSUVASTATIN CALCIUM 20 MG TAB PO SCH (08:40)
[2019-04-17] MEDS: MONTELUKAST SODIUM 10 MG TABLET PO SCH (08:40)
[2019-04-17] MEDS: SERTRALINE HCL 50 MG TABLET PO SCH (08:40)
[2019-04-17] MEDS: APIXABAN 5 MG TABLET PO SCH ×2 (08:40→20:35)
[2019-04-17] MEDS: SOTALOL HCL 80 MG TAB PO SCH (08:40)
[2019-04-17] MEDS: GABAPENTIN 100 MG CAP PO SCH ×2 (08:41→20:36)
[2019-04-17] MEDS: ISOSORBIDE MONO EXTENDED REL 30 MG TABCR PO SCH (08:41)
[2019-04-17] MEDS: guaiFENesin 600 MG TABCR PO SCH ×2 (08:41→20:35)
[2019-04-17] MEDS: PANTOprazole 40 MG TAB PO SCH ×2 (08:41→20:35)
[2019-04-17 08:53] LABS: Hematocrit (blood only) 37.4 % (37-47); Immature Granulocytes # (auto) 0.07 K/uL (0.00-0.02); Immature Granulocytes % (auto) 0.4 %; Lymphocytes # (auto) 1.43 K/uL (1.2-3.4); Mean Corpuscular Hemoglobin 26.9 pg (25-34); Mean Corpuscular Hgb Conc 32.1 g/dL (32-36); Mean Corpuscular Volume 83.9 fL (80-100); Mean Platelet Volume 11.8 fL (7.4-10.4); Monocytes # (auto) 0.75 K/uL (0.11-0.59); Monocytes % (auto) 4.7 %; Neutrophils # (auto) 13.64 K/uL (1.4-6.5); Neutrophils % (auto) 85.9 %; Platelet Count 273 K/uL (130-400); RDW Standard Deviation 48.8 fL (36.4-46.3); Red Blood Count 4.46 M/uL (4.2-5.4); White Blood Count 15.89 K/uL (4.8-10.8)
[2019-04-17 09:35] LABS: Albumin Globulin Ratio 0.9 (0.9-2); Albumin Level 3.5 gm/dl (3.4-5.0); BUN Creatinine Ratio 29.2 (10-20); Bilirubin,Total 0.3 mg/dl (0.2-1); Calcium 9.4 mg/dl (8.5-10.1); Creatinine Clr Calc Pharmacy 53.3 ml/min; Est GFR (Non-African American) 59.5; Globulin 3.7 gm/dl (2.5-4.0); Potassium 3.7 mmol/L (3.5-5.1); Total Protein 7.2 gm/dl (6.4-8.2)
--- NOTE | 2019-04-17 12:32 | Hospitalist Progress Note ---
Date of Service April 17, 2019 Assessment & Plan (1) COPD exacerbation: Duonebs every 4 hours while awake and every 2 hours when necessary. Pulmicort Respules 0.5 mg inhaled twice daily. Will change Solu-Medrol 50 mg IV every 12 hours to prednisone po Wears nasal cannula 4 L at home. Maintain pulse ox around 92%. ABG without hypercarbia, did reveal hypoxemia CT chest without acute process, showed moderate/severe emphysema Discontinued Ceftriaxone 1 g IV daily. Sputum Gram stain and culture. (2) Coronary artery disease: CAD/hypertension/RCA stent/paroxysmal atrial fibrillation- Continue amlodipine 10 mg p.o. daily, apixaban 5 mg p.o. twice daily, clopidogrel 75 mg p.o. daily, furosemide 10 mg p.o. daily, isosorbide mononitrate ER 30 mg p.o. daily, losartan 100 mg p.o. daily, potassium chloride ER 20 mEq p.o. twice daily, and sotalol 40 mg p.o. daily. (3) S/P right coronary artery (RCA) stent placement: See above (4) Paroxysmal atrial fibrillation: See above (5) Hypertension: See above (6) Hyperlipidemia: Continue rosuvastatin 20 mg p.o. daily (7) Diabetes: glycemic pharmacist consult A1c 8.2 (8) Depression: Continue sertraline 50 mg p.o. daily (9) Peripheral neuropathy: Continue gabapentin 100 mg p.o. twice daily (10) DVT prophylaxis: Apixaban Subjective Ms. Elam is at her baseline O2. She feels better but still with increased dyspnea with any activity. ROS Constitutional: no chills, aches, sweats or fever Respiratory: see HPI Cardiac: no chest pain, palpitations, edema, orthopnea or lightheadedness GI: no abdominal pain, nausea, vomiting, diarrhea or constipation : no dysuria or hesitancy Extremities: no joint pain or weakness Skin: no rash All other systems reviewed and negative Physical Exam Physical Exam: General: no distress Eyes: normal inspection, PERLL Respiratory: chest non tender, expiratory wheezes/rhonchi bilaterally, no respiratory distress, no accessory muscle use Cardiac: regular rate and rhythm, no rub or gallop, no murmur, no edema, no jvd GI/: active bowel sounds, no abd pain or tenderness, soft, non distended Extremities: normal range of motion, normal strength, non tender Neuro/Psych: alert and oriented x 3, normal mood and affect Skin: normal color, dry Results & Data Vital Signs (Past 12 Hours) Vital Signs Temp Pulse Pulse Resp BP BP Pulse Ox 04/17/19 11:15 36.8 C 71 20 163/73 H 93 04/17/19 10:59 72 16 93 04/17/19 07:28 173/47 H 04/17/19 07:12 73 04/17/19 07:11 36.7 C 78 20 94 04/17/19 07:00 94 H 18 95 04/17/19 04:04 167/73 H 04/17/19 03:51 37.1 C 77 20 184/79 H 90 04/17/19 00:38 81 PG Care Time/CCT Total # of Minutes Spent Total Time Spent with Patient: Total time spent is greater than 50% in coordination of care (as documented) at patient's floor/unit and/or counseling patient: (1) Coronary artery disease Coronary Disease-Associated Artery/Lesion type: [place] artery [place] vs. transplanted heart: [place] heart Associated angina: without angina Qualified Code(s): I25.10 - Atherosclerotic heart disease of [place] coronary artery without angina pectoris (2) Hypertension Hypertension type: essential hypertension Qualified Code(s): I10 - Essential (primary) hypertension
[2019-04-17] MEDS: INSULIN GLARGINE SOLOSTAR 100 UNITS/ML 3 ML PEN SC SCH (20:38)
[2019-04-18] MEDS: BUDESONIDE 0.5 MG/2 ML VIAL (PULMICORT) NEB SCH ×2 (06:59→19:46)
[2019-04-18] MEDS: ALBUT/IPRATROP 3MG/0.5MG NEB 3 ML VIAL NEB SCH ×4 (06:59→19:46)
[2019-04-18] MEDS: MONTELUKAST SODIUM 10 MG TABLET PO SCH (08:12)
[2019-04-18] MEDS: SERTRALINE HCL 50 MG TABLET PO SCH (08:12)
[2019-04-18] MEDS: ROSUVASTATIN CALCIUM 20 MG TAB PO SCH (08:12)
[2019-04-18] MEDS: ISOSORBIDE MONO EXTENDED REL 30 MG TABCR PO SCH (08:12)
[2019-04-18] MEDS: POTASSIUM CHLORIDE 20 MEQ TABCR PO SCH ×2 (08:14→20:41)
[2019-04-18] MEDS: AMLODIPINE BESYLATE 5 MG TAB PO SCH (08:15)
[2019-04-18] MEDS: guaiFENesin 600 MG TABCR PO SCH ×2 (08:15→20:41)
[2019-04-18] MEDS: predniSONE 20 MG TAB PO SCH (08:16)
[2019-04-18] MEDS: CLOPIDOGREL BISULFATE 75 MG TAB PO SCH (08:16)
[2019-04-18] MEDS: FUROSEMIDE 20 MG TAB PO SCH (08:17)
[2019-04-18] MEDS: LOSARTAN POTASSIUM 50 MG TAB PO SCH (08:18)
[2019-04-18] MEDS: APIXABAN 5 MG TABLET PO SCH ×2 (08:18→20:41)
[2019-04-18] MEDS: GABAPENTIN 100 MG CAP PO SCH ×2 (08:19→20:41)
[2019-04-18] MEDS: PANTOprazole 40 MG TAB PO SCH ×2 (08:19→20:41)
[2019-04-18] MEDS: INSULIN GLARGINE SOLOSTAR 100 UNITS/ML 3 ML PEN SC SCH (08:20)
[2019-04-18] MEDS: INSULIN ASPART 100 UNITS/ML 3 ML PEN SC SCH ×4 (08:23→21:13)
[2019-04-18] MEDS: SOTALOL HCL 80 MG TAB PO SCH (08:26)
[2019-04-18] MEDS ORDERED: INSULIN GLARGINE SOLOSTAR 100 UNITS/ML 3 ML PEN SC ONE (09:15)
--- NOTE | 2019-04-18 12:04 | Hospitalist Progress Note ---
Date of Service April 18, 2019 Assessment & Plan (1) COPD exacerbation: Duonebs every 4 hours while awake and every 2 hours when necessary. Pulmicort Respules 0.5 mg inhaled twice daily. Continue to titrate prednisone po Wears nasal cannula 4 L at home. Maintains pulse ox around 92%. ABG without hypercarbia, did reveal hypoxemia CT chest without acute process, showed moderate/severe emphysema Discontinued Ceftriaxone 1 g IV daily. (2) Coronary artery disease: CAD/hypertension/RCA stent/paroxysmal atrial fibrillation- Continue amlodipine 10 mg p.o. daily, apixaban 5 mg p.o. twice daily, clopidogrel 75 mg p.o. daily, furosemide 10 mg p.o. daily, isosorbide mononitrate ER 30 mg p.o. daily, losartan 100 mg p.o. daily, potassium chloride ER 20 mEq p.o. twice daily, and sotalol 40 mg p.o. daily. (3) S/P right coronary artery (RCA) stent placement: See above (4) Paroxysmal atrial fibrillation: See above (5) Hypertension: See above (6) Hyperlipidemia: Continue rosuvastatin 20 mg p.o. daily (7) Diabetes: glycemic pharmacist consult A1c 8.2 (8) Depression: Continue sertraline 50 mg p.o. daily (9) Peripheral neuropathy: Continue gabapentin 100 mg p.o. twice daily (10) DVT prophylaxis: Apixaban Dispo: home with HH, hopefully will be improved enough for dc tomorrow. Subjective Continues to have a moist non productive cough. Ms. Elam does feel that she is improving. Continues to be quite dyspneic with exertion. At baseline oxygen needs. ROS Constitutional: no chills, aches, sweats or fever Respiratory: see HPI Cardiac: no chest pain, palpitations, edema, orthopnea or lightheadedness GI: no abdominal pain, nausea, vomiting, diarrhea or constipation : no dysuria or hesitancy Extremities: no joint pain or weakness Skin: no rash All other systems reviewed and negative Physical Exam Physical Exam: General: no distress Eyes: normal inspection, PERLL Respiratory: chest non tender, coarse lungs bilaterally, no respiratory dis tress, no accessory muscle use Cardiac: regular rate and rhythm, no rub or gallop, no murmur, no edema, no jvd GI/: active bowel sounds, no abd pain or tenderness, soft, non distended Extremities: normal range of motion, normal strength, non tender Neuro/Psych: alert and oriented x 3, normal mood and affect Skin: normal color, dry Results & Data Vital Signs (Past 12 Hours) Vital Signs Temp Pulse Pulse Resp BP Pulse Ox 04/18/19 11:18 75 18 94 04/18/19 11:00 36.6 C 73 22 148/76 H 98 04/18/19 08:43 67 04/18/19 07:50 36.7 C 73 18 152/69 H 96 04/18/19 07:01 83 22 91 04/18/19 04:22 155/72 H 04/18/19 04:02 36.9 C 80 18 190/101 H 93 04/18/19 03:35 36.9 C 80 18 190/101 H 93 04/18/19 00:02 73 PG Care Time/CCT Total # of Minutes Spent Total Time Spent with Patient: Total time spent is greater than 50% in coordination of care (as documented) at patient's floor/unit and/or counseling patient: (1) Coronary artery disease Associated angina: without angina Coronary Disease-Associated Artery/Lesion type: [place] artery [place] vs. transplanted heart: [place] heart Qualified Code(s): I25.10 - Atherosclerotic heart disease of [place] coronary artery without angina pectoris (2) Hypertension Hypertension type: essential hypertension Qualified Code(s): I10 - Essential (primary) hypertension
--- NOTE | 2019-04-18 16:16 | Pharmacy Report ---
Pharmacy Glycemic Short Note 2 - Date of Service April 18, 2019 - Glycemic Short BSG Results (Last 24 hours): 04/17/19 04/17/19 04/18/19 16:24 20:32 07:30 POC Glucose 143 H 163 H 93 04/18/19 11:39 POC Glucose 137 H OUTPATIENT ANTIDIABETIC REGIMEN: * Toujeo 80 units daily * Novolog 10 units with meals + SS (equivalent to CF ~25) * A1c = 8.2 % 04/14/19 ASSESSMENT: 04/18 * Mariana was given 168 units of insulin yesterday with only minor improvement in BSGs * 70 units of basal * 98 units of bolus * BSGs ranged from 143 - 235 mg/dL * Solu medrol IV was discontinued yesterday (last dose 04/17 AM) and the patient was started on prednisone 60 mg PO daily today. * Fasting BSG of 93 mg/dL is at goal. Basal insulin dosing will be decreased by 20% due to above change in steroids and dramatic decrease in fasting. Previous admission data was utilized to determine dose decrease. * Post prandial BSGs have improved. Novolog parameters have also been loosened due to steroid change. 04/16 * Mariana received 160 units of insulin yesterday (80 of this was basal) * BSGs have remained in the 200s * I suspect increased needs are related to the extra dose of Solu-medrol yesterday (received 30 mg, 50 mg and 50 mg) * Solu-medrol dose will be 50 mg BID today, which is near the threshold of changes seen in glycemic effects * Will provide additional basal this AM but be more aggressive with the correctional insulin to provide immediate BSG lowering * Note that adequate regimen last admission when on steroids was a basal dose of 80 units with CF 10, CR 2 * Also note that SCr has increased, which could affect pharmacodynamic properties of insulin 04/15 * 73 y/o female with T2DM, known to the pharmacy glycemic service, admitted with COPD exacerbation and placed on IV steroids. Pharmacy has been consulted for glycemic control since BSGs are elevated > 300 mg/dL. She uses basal + bolus insulin as an outpatient, heavily weighted with basal insulin. Will plan to place on a regimen that provided good BSG control on her last admission when on ATC steroids. PLAN FOR INPATIENT GLYCEMIC CONTROL: * Basal insulin - decrease * Lantus 40 units this AM, then per scale tonight: * 5 units for BSG <140 * 10 units for BSG 140-180 * 15 units for BSG > 180 * Reassess doses on 04/19 * Bolus insulin - loosen * NovoLog per scale ACHS or Q6hrs while NPO * Goal Range: Low 100 mg/dL - High 150 mg/dL * Correction Factor: 12 mg/dL/unit * Nutritional / Prandial insulin per carb ratio of 1 unit per 4 grams CHO consumed PLAN FOR DISCHARGE: * A1c is 8.2% on 04/14/19 * A1c goal ~8%; Less stringent A1C goals (such as less than 8%) may be appropriate for patients with a history of severe hypoglycemia, limited life expectancy, advanced microvascular or macrovascular complications, extensive comorbid conditions, or long-standing diabetes in whom the goal is difficult to achieve despite diabetes self-management education, appropriate glucose monitoring, and effective doses of multiple glucose-lowering agents including insulin. * Recommend to continue outpatient regimen on discharge and f/u with outpatient provider.
[2019-04-18] MEDS ORDERED: INSULIN GLARGINE SOLOSTAR 100 UNITS/ML 3 ML PEN SC SCH (21:00)
[2019-04-19] MEDS: ALBUT/IPRATROP 3MG/0.5MG NEB 3 ML VIAL NEB SCH ×3 (07:05→15:18)
[2019-04-19] MEDS: BUDESONIDE 0.5 MG/2 ML VIAL (PULMICORT) NEB SCH (07:05)
[2019-04-19] MEDS: SERTRALINE HCL 50 MG TABLET PO SCH (07:42)
[2019-04-19] MEDS: predniSONE 20 MG TAB PO SCH (07:42)
[2019-04-19] MEDS: MONTELUKAST SODIUM 10 MG TABLET PO SCH (07:42)
[2019-04-19] MEDS: PANTOprazole 40 MG TAB PO SCH (07:42)
[2019-04-19] MEDS: guaiFENesin 600 MG TABCR PO SCH (07:43)
[2019-04-19] MEDS: LOSARTAN POTASSIUM 50 MG TAB PO SCH (07:43)
[2019-04-19] MEDS: GABAPENTIN 100 MG CAP PO SCH (07:43)
[2019-04-19] MEDS: ISOSORBIDE MONO EXTENDED REL 30 MG TABCR PO SCH (07:43)
[2019-04-19] MEDS: AMLODIPINE BESYLATE 5 MG TAB PO SCH (07:43)
[2019-04-19] MEDS: ROSUVASTATIN CALCIUM 20 MG TAB PO SCH (07:43)
[2019-04-19] MEDS: APIXABAN 5 MG TABLET PO SCH (07:43)
[2019-04-19] MEDS: POTASSIUM CHLORIDE 20 MEQ TABCR PO SCH (07:43)
[2019-04-19] MEDS: CLOPIDOGREL BISULFATE 75 MG TAB PO SCH (07:43)
[2019-04-19] MEDS: SOTALOL HCL 80 MG TAB PO SCH (07:44)
[2019-04-19] MEDS: FUROSEMIDE 20 MG TAB PO SCH (07:44)
[2019-04-19] MEDS: INSULIN ASPART 100 UNITS/ML 3 ML PEN SC SCH ×3 (08:36→17:27)
[2019-04-19] MEDS ORDERED: INSULIN GLARGINE SOLOSTAR 100 UNITS/ML 3 ML PEN SC SCH (09:00)
[2019-04-19] MEDS ORDERED: INSULIN HUMAN NPH SC SCH (09:00)
--- NOTE | 2019-04-19 17:13 | Discharge Summary ---
Date of Service April 19, 2019 Admission HPI Per Admitting Provider The patient is a 73-year-old female with a past medical history including COPD, prolonged QT interval, CHF, RCA stent placement, paroxysmal atrial fibrillation, multifocal pneumonia, infection due to Stenotrophomonas maltophilia, hypertension and diabetes mellitus. She presents to the emergency department with worsening shortness of breath and intermittently productive cough of discolored mucus. She denies any associated chest pain. She has not had any recent travels or sick exposures. Principal Diagnosis COPD exacerbation Discharge Exam Constitutional + obese; no acute distress Eyes + anicteric sclerae ENMT external ear and nose normal, oropharynx normal Neck trachea midline, no thyromegaly Respiratory normal respiratory effort; no labored breathing Auscultation: + wheezes (Bilateral expiratory); no crackles and no rhonchi Cardiovascular RRR, no murmur, no edema Gastrointestinal (Abdomen) normal bowel sounds, soft, nontender, no hepatosplenomegaly Musculoskeletal Extremities: extremities normal to inspection; no cyanosis and no clubbing Skin no rashes, warm and dry Neurologic moves all extremities and awake; no focal motor deficits Psychiatric A+Ox3, euthymic affect Discharge Data Allergies Allergy/AdvReac Type Severity Reaction Status Date / Time fentanyl Allergy Intermediate RASH Verified 04/14/19 19:24 levofloxacin Allergy Intermediate UNKNOWN Verified 04/14/19 19:24 Penicillins Allergy Intermediate RASH Verified 04/14/19 19:24 sulfamethoxazole Allergy Unknown Verified 04/14/19 19:24 [From Bactrim] trimethoprim [From Bactrim] Allergy Unknown Verified 04/14/19 19:24 Ethanol Allergy Intermediate RASH Uncoded 04/14/19 19:24 Consultations None Ordered Studies 04/15/19 14:19 CT chest wo con Routine Chest x-ray Hospital Course (1) COPD exacerbation: Much improved since admission after receiving IV steroids and [id number] duo nebs as well as Pulmicort Respules 0.5 mg inhaled twice daily. Continue to titrate prednisone po upon discharge at 50 mg daily starting tomorrow and then decrease by 10 mg each day until gone Wears nasal cannula 4 L at home and is at her current home dosing Feels much improved and is ambulating around the room without shortness of breath ABG without hypercarbia, did reveal hypoxemia CT chest without acute process, showed moderate/severe emphysema No antibiotics necessary Follow-up with pulmonology as an outpatient-her publications inspector was thinking about putting her on a maintenance inhaler-she has either failed most of them or they have been too expensive in the past and will defer to PCP or pulmonology (2) Coronary artery disease: CAD/hypertension/RCA stent/paroxysmal atrial fibrillation-had a bare-metal stent placed in the RCA in 01/2019 Did not have any angina while here Continue amlodipine 10 mg p.o. daily, apixaban 5 mg p.o. twice daily, clopidogrel 75 mg p.o. daily, furosemide 10 mg p.o. daily, isosorbide mononitrate ER 30 mg p.o. daily, losartan 100 mg p.o. daily, potassium chloride ER 20 mEq p.o. twice daily, and sotalol 40 mg p.o. daily. (3) S/P right coronary artery (RCA) stent placement: See above (4) Paroxysmal atrial fibrillation: Remained in normal sinus rhythm here and with rates in the 70s to 80s -Continue sotalol 40 mg once daily -Continue Eliquis 5 mg by mouth twice daily Continue cardiology follow-up routinely as an outpatient (5) Hypertension: Blood pressures became quite elevated after receiving high-dose corticosteroids but did improve after receiving her usual blood pressure medications Would expect blood pressures to improve after tapering down steroids after discharge -Follow blood pressures closely with PCP and pulmonology as an outpatient (6) Hyperlipidemia: Continue rosuvastatin 20 mg p.o. daily (7) Diabetes: Diabetes mellitus type 2-with hyperglycemia after receiving corticosteroids which was improved with higher doses of insulin A1c 8.2 -Continue home doses of insulin upon discharge (8) Depression: Stable -Continue sertraline 50 mg p.o. daily (9) Peripheral neuropathy: Continue gabapentin 100 mg p.o. twice daily (10) DVT prophylaxis: Apixaban Dispo: home with , stable for discharge home today Total Time Total Time Spent Total Time Spent (In Minutes): Greater than 30 minutes Total Time Includes: Examination of the Patient, Discharge Planning and Medication Reconciliation Discharge Plan Discharge Items Patient Disposition: Home - Home Health Services Reason For Visit: COPD EXACERBATION Discharge Diagnosis: COPD exacerbation Condition on Discharge: Fair Activity: Resume your previous activity Lifting: Gradually increase as tolerated Bathing: No limitations Exercise/Sports: As tolerated Non-emergency contact: Primary Care Provider and [employer] Call non-emergency contact if: you have any medication questions, your symptoms worsen, you have a fever and your temperature is above 101 Follow-up/Referrals: Adi Ledesma PA-C [Physician Inbound Call Center Representative] - 04/27/19 11:30 am (Please, follow up with Ashish Ledesma PA-C, in the [place] Office, on FridayApril 27 at 11:30 am. *If you need to change this appointment, call the office at [phone].) Jennifer Viramontes PA-C [Primary Care Provider] - 04/23/19 10:20 am (Please, follow up at ABBY Viramontes' office on FridayApril 23 at 10:20 am. *If you need to change this appointment, call the office at [phone].) Diet: Carb Consistent or DM2 and Heart Healthy Addtl Attending Provider Instructions: Please finish out the course of prednisone as prescribed. Pending Studies at Discharge: No Stand-Alone Forms: My [facility] Medications and DC Order Prescriptions: New prednisone 10 mg tablet 50 mg PO DAILY Qty: 15 RF: 0 Continued ipratropium-albuterol 0.5 mg-3 mg(2.5 mg base)/3 mL solution for nebulization 3 ml inhalation Q4H PRN (Reason: shortness of breath or wheezing) Qty: 270 RF: 1 potassium chloride 20 mEq tablet extended release 20 meq PO BID RF: 0 rosuvastatin [Crestor] 20 mg tablet 20 mg PO DAILY RF: 0 albuterol sulfate 90 mcg/actuation HFA aerosol inhaler 2 puff inhalation Q4 PRN (Reason: Shortness Of Breath Or Wheezing) RF: 0 montelukast 10 mg tablet 10 mg PO DAILY RF: 0 triamcinolone acetonide 0.1 % cream 1 applic topical TID PRN (Reason: BREAK OUTS) RF: 0 clopidogrel [Plavix] 75 mg tablet 75 mg PO DAILY RF: 0 amlodipine [Norvasc] 10 mg tablet 10 mg PO DAILY RF: 0 sodium chloride [Pateros Saline] 0.65 % aerosol,spray 1 sprays INTNAS BID PRN (Reason: Nasal Congestion) RF: 0 isosorbide mononitrate 30 mg tablet extended release 24 hr 30 mg PO DAILY Qty: 30 RF: 0 tramadol 50 mg tablet 50 mg PO TID PRN (Reason: Pain) RF: 0 Vitamin B Injection 1,000 mcg PO .[id number] RF: 0 sotalol [Betapace] 80 mg tablet 40 mg PO DAILY RF: 0 Eliquis 5 mg tablet 5 mg PO BID RF: 0 gabapentin 100 mg Capsule 100 mg PO BID RF: 0 losartan [Cozaar] 100 mg Tablet 100 mg PO DAILY RF: 0 sertraline [Zoloft] 50 mg Tablet 50 mg PO DAILY RF: 0 Prilosec OTC 20 mg Tablet,Delayed Release (Dr/Ec) 20 mg PO BID RF: 0 Toujeo SoloStar U-300 Insulin 300 unit/mL (1.5 mL) Insulin Pen 70 unit SUBCUT DAILY RF: 0 guaifenesin [Mucinex] 600 mg Tablet Extended Release 12hr 600 mg PO BID RF: 0 furosemide 20 mg Tablet 10 mg PO DAILY RF: 0 Novolog U-100 Insulin aspart 100 unit/mL Solution 1 sliding scale dose SUBCUT USEASDIRECTD RF: 0 Discontinued doxycycline hyclate 100 mg capsule 100 mg PO BID Qty: 28 RF: 0 prednisone 10 mg tablet 10 mg PO UD Qty: 40 RF: 0 Discharge Orders: Discharge Order (Routine); Ordered 04/19/19 Ordered By: Farzaneh Poe Admission Data Admit Date/Time: 04/14/19 22:02 Attending Provider: Farzaneh Poe Admit Provider: Rupert Ramirez Primary Care Provider: Jennifer Viramontse Other Providers: Denver Arriaga
[2019-04-28] MEDS ORDERED: CYANOCOBALAMIN 1000 MCG/ML VIAL IM SCH (09:00)
== END 2019-04-19 18:15 | disposition home health service (06) | DRG 192 ==
LOC: ED 17:54 → 2W 22:02 → SUATTDRO 22:02 → 2W 22:45

== ENCOUNTER 2019-06-16 17:37 | Inpatient (IN) ==
[2019-06-16] MEDS ORDERED: ONDANSETRON INJ 2 MG/ML 2 ML VIAL IV STA (17:54)
[2019-06-16] MEDS ORDERED: MoRPHine SULFATE 4 MG/ML 1 ML CARP\\VIAL IV STA (17:54)
[2019-06-16] MEDS ORDERED: ALBUT/IPRATROP 3MG/0.5MG NEB 3 ML VIAL NEB ONE (17:55)
[2019-06-16 18:32] LABS: Basophils # (auto) 0.01 K/uL (0-0.2); Basophils % (auto) 0.1 %; Eosinophils # (auto) 0.21 K/uL (0-0.5); Eosinophils % (auto) 2.2 %; Hematocrit (blood only) 36.9 % (37-47); Hemoglobin 11.3 g/dL (12.0-16.0); Immature Granulocytes # (auto) 0.02 K/uL (0.00-0.02); Immature Granulocytes % (auto) 0.2 %; Lymphocytes # (auto) 1.97 K/uL (1.2-3.4); Lymphocytes % (auto) 20.3 %; Mean Corpuscular Hemoglobin 25.9 pg (25-34); Mean Corpuscular Hgb Conc 30.6 g/dL (32-36); Mean Corpuscular Volume 84.6 fL (80-100); Mean Platelet Volume 11.2 fL (7.4-10.4); Monocytes # (auto) 0.77 K/uL (0.11-0.59); Monocytes % (auto) 7.9 %; Neutrophils # (auto) 6.72 K/uL (1.4-6.5); Neutrophils % (auto) 69.3 %; Platelet Count 266 K/uL (130-400); RDW Coefficient of Variation 16.4 % (11.5-14.5); RDW Standard Deviation 51.5 fL (36.4-46.3); Red Blood Count 4.36 M/uL (4.2-5.4)
[2019-06-16 18:42] LABS: INR 1.1 (0.9-1.1); Partial Thromboplastin Ratio 1.1; Partial Thromboplastin Time 29.6 Seconds (21.0-31.0)
[2019-06-16 18:48] LABS: Alanine Aminotransferase 16 U/L (12-78); Albumin Level 3.7 gm/dl (3.4-5.0); Aspartate Aminotransferase 9 U/L (15-37); BUN Creatinine Ratio 18.6 (10-20); Blood Urea Nitrogen 17 mg/dl (7-18); Calcium 9.4 mg/dl (8.5-10.1); Carbon Dioxide 27 mmol/L (21-32); Chloride 108 mmol/L (98-107); Est GFR (African American) 71.7; Est GFR (Non-African American) 61.8; Glucose 160 mg/dl (70-99); Potassium 3.5 mmol/L (3.5-5.1); Sodium 141 mmol/L (136-145)
[2019-06-16 18:52] LABS: Albumin Globulin Ratio 0.9 (0.9-2); Alkaline Phosphatase 97 U/L (45-117); Bilirubin,Total 0.2 mg/dl (0.2-1); Globulin 3.9 gm/dl (2.5-4.0); Total Protein 7.6 gm/dl (6.4-8.2); Troponin I < 0.015 ng/ml (0-0.045)
[2019-06-16 19:03] LABS: Influenza A virus by PCR Neg for Influ A (Neg); Influenza B virus by PCR Neg for Influ B (Neg)
[2019-06-16] MEDS ORDERED: AZITHROMYCIN 250 MG TAB PO ONE (20:41)
[2019-06-16] MEDS ORDERED: methylPREDNISolone 125 MG/2 ML VIAL IV STA (20:41)
--- NOTE | 2019-06-16 20:48 | XRay Report ---
SINGLE VIEW CHEST CLINICAL HISTORY: Dyspnea. FINDINGS: An AP, portable, upright chest radiograph is compared to study dated 04/14/2019. Correlatio n is made with chest CT dated 04/15/2019. The examination is degraded by portable technique, apical l ordotic positioning, and patient rotation. The heart is top normal for projection noting atherosclero tic calcification of the thoracic aorta. Emphysema and chronic interstitial thickening are similar to previous. There is bibasilar scarring/atelectasis. No airspace consolidation or large pleural effusi on is identified. No pneumothorax is seen. The skeletal structures are osteopenic. There are healed r ight-sided rib fractures. IMPRESSION: Emphysematous change with no acute cardiopulmonary abnormality. Electronically signed by: James Marshall M.D. 06/16/2019 8:46 PM
[2019-06-16] MEDS ORDERED: cefTRIAXone SODIUM 1,000 MG/50 ML BAG IV STA (20:49)
[2019-06-16] MEDS ORDERED: ALBUTEROL 0.083% NEBU SOLN 3 ML VIAL NEB STA (20:49)
--- NOTE | 2019-06-16 21:13 | XRay Report ---
LUMBAR SPINE 3 VIEWS CLINICAL HISTORY: Low back pain. FINDINGS: 3 views of the lumbar spine are compared to study dated 09/23/2018. The skeletal structures are osteopenic. There is no radiographic evidence of fracture or malalignment. Vertebral body height and alignment are maintained. The transverse and spinous processes are intact. Anterior osteophytes are seen throughout. There is moderate to advanced disc space narrowing at L5-S1. Moderate disc space narrowing and endplate sclerosis is seen at L2-L3. The remaining disc spaces appear maintained. Face t arthropathy is noted in the lower lumbar spine. The visualized bony pelvis appears intact. There is a nonobstructed abdominal bowel gas pattern. Fecal retention is noted. There is advanced atheroscler otic calcification of the abdominal aorta. Mild aneurysmal dilatation of the infrarenal abdominal aor ta is similar to previous. IMPRESSION: 1. No acute bony abnormality seen involving the lumbar spine. 2. Osteopenia and spondylotic change as above. ACT 112: Negative or not required by law. Electronically signed by: James Marshall M.D. 06/16/2019 9:12 PM
--- NOTE | 2019-06-16 21:15 | XRay Report ---
THORACIC SPINE 3 VIEWS CLINICAL HISTORY: Thoracic back pain. FINDINGS: AP, lateral, and swimmer's views of the thoracic spine are correlated with chest CT dated . The skeletal structures are osteopenic. There is no radiographic evidence of fracture or m alalignment. Vertebral body height and alignment are maintained. There is mild hyperkyphosis. Anterio r osteophytes are seen throughout. There is mild multilevel degenerative disc space narrowing. The tr ansverse processes and pedicles appear intact as seen on the frontal view. There is atherosclerotic c alcification of the thoracic aorta. Emphysematous change is noted. IMPRESSION: No acute bony abnormality is identified. Electronically signed by: James Marshall M.D. 06/16/2019 9:13 PM
[2019-06-16 21:17] LABS: Base Excess VBG 3.3 mEq/L; Oxygen Saturation VBG 68.5 %; pH VBG 7.38 (7.36-7.41)
--- NOTE | 2019-06-16 22:00 | Emergency Department Note ---
Entered by Heaven Javier acting as a scribe for Mj Tan DO History of Present Illness General Chief complaint: Shortness of Breath/Dyspnea Stated complaint: TROUBLE BREATHING,BACK PAIN Source: patient History of Present Illness Provider complaint: Shortness of Breath/Dyspnea Onset (ago): day(s) 2 Location: chest Radiation: back Maximum Pain Intensity: 10 Relieved By: + none Exacerbated By: + movement and + other (Coughing) Associated symptoms: + denies other symptoms (Pedal edema, dysuria, weight gain), + cough and + nausea/vomiting; no chest pain The patient is a 73 year old female who presents to the Emergency Room with complaints of shortness of breath/dyspnea that began 2 days ago. The patient states that her symptoms radiate from her chest to her back and is exacerbated by movement and coughing but not relieved by anything specific. The patient reports experiencing a cough that is not worse than it usually is. Additionally, the patient reports experiencing nausea/vomiting. The patient denies experiencing any pedal edema, dysuria, weight gain, or chest pain. The patient n otes that she has a history of COPD and lung cancer, with history of a lobectomy on the right and no recent chemotherapy. The patient denies any recent back surgeries and states that she takes Plavix and Eliquis for a recent heat attack. Home Medications Home Medications Medication Instructions Recorded Confirmed Type Novolog U-100 Insulin aspart 1 sliding scale dose SUBCUT 01/04/19 06/16/19 History USEASDIRECTD Prilosec OTC 20 mg PO BID 01/04/19 06/16/19 History Toujeo SoloStar U-300 Insulin 60 unit SUBCUT DAILY 01/04/19 06/16/19 History furosemide 10 mg PO DAILY 01/04/19 06/16/19 History gabapentin 100 mg PO BID 01/04/19 06/16/19 History guaifenesin [Mucinex] 600 mg PO BID 01/04/19 06/16/19 History losartan [Cozaar] 100 mg PO DAILY 01/04/19 06/16/19 History sertraline [Zoloft] 50 mg PO DAILY 01/04/19 06/16/19 History albuterol sulfate 90 mcg/actuation 2 puff INHALATION Q4 PRN gm 02/10/19 1 08/17/18 History aerosol inhaler amlodipine 10 mg tablet 10 mg PO DAILY tab 02/10/19 06/16/19 History clopidogrel 75 mg tablet 75 mg PO DAILY tab 02/10/19 06/16/19 History isosorbide mononitrate 30 mg 30 mg PO DAILY #30 tab 02/10/19 06/16/19 History tablet,extended release 24 hr montelukast 10 mg tablet 10 mg PO DAILY tab 02/10/19 06/16/19 History potassium chloride 20 mEq 20 meq PO BID tab 02/10/19 06/16/19 History tablet,extended release rosuvastatin 20 mg tablet 20 mg PO DAILY tab 02/10/19 06/16/19 History sodium chloride 0.65 % nasal spray 1 sprays INTNAS BID PRN 02/10/19 06/16/19 History aerosol triamcinolone acetonide 0.1 % 1 applic TOPICAL TID PRN gm 02/10/19 06/16/19 History topical cream ipratropium-albuterol 0.5 mg-3 3 ml INHALATION Q4H PRN #270 ml 03/17/19 06/16/19 Rx mg(2.5 mg base)/3 mL nebulization soln Eliquis 5 mg PO BID 04/14/19 06/16/19 History sotalol [Betapace] 40 mg PO DAILY 04/14/19 06/16/19 History Allergies Allergy/AdvReac Type Severity Reaction Status Date / Time fentanyl Allergy Intermediate RASH Verified 06/16/19 19:56 levofloxacin Allergy Intermediate UNKNOWN Verified 06/16/19 19:56 Penicillins Allergy Intermediate RASH Verified 06/16/19 19:56 sulfamethoxazole Allergy Unknown Verified 06/16/19 19:56 [From Bactrim] trimethoprim [From Bactrim] Allergy Unknown Verified 06/16/19 19:56 Ethanol Allergy Intermediate RASH Uncoded 06/16/19 19:56 Past Med/Surg History Medical History Anxiety Atrial fibrillation Chronic back pain Chronic obstructive pulmonary disease Chronically on 4 L of oxygen Depression Diabetes mellitus, type 2 GERD (gastroesophageal reflux disease) Hyperlipidemia Hypertension Lung cancer Myocardial Infarction Pneumonia Syncope Valvular heart disease Surgical History History of heart artery stent History of lobectomy of lung Patient had a lobectomy for lung cancer of her right lung 2013 Family History Unknown Diabetes Cancer Social History Preferred Language: [place] Communication Ability: Effective Visual Impairment: No Limitations Rv Body Mechanic Required: No Beliefs That Will Affect Care: None Current Living Situation: Spouse Feels Safe at Home: Yes Smoking Status: Never smoker Tobacco Type: cigarettes ; Cigarettes Per Day: 40 ; Second Hand Exposure: No ; Hx Alcohol Use: No Hx Substance Use: No Review of Systems See HPI for pertinent positives & negatives. and A total of 10 systems reviewed and were otherwise negative Physical Exam Vital Signs Vital Signs - 24 hr 06/16/19 17:40 06/16/19 18:19 06/16/19 18:20 Temperature 37.2 C Temperature Source Oral Pulse Rate 100 H Pulse Rate [Finger] 96 H Pulse Rate from SpO2 Sensor Respiratory Rate 24 24 Respiratory Effort / Characteristics Spontaneous Short of Breath Respiratory Depth Normal Blood Pressure 225/92 H Blood Pressure [Left Arm] Blood Pressure Mean 136 Blood Pressure Mean [Left Arm] Pulse Oximetry 92 90 Oxygen Delivery Method Nasal Cannula Nasal Cannula Room Air Oxygen Flow Rate 4 4 Sepsis Recent Fever Within 48 Hours No Sepsis New/Unexplained Change in Mental Status No Sepsis Action Taken by Nursing No Action Required Oxygen Flow Rate - Titration Fraction of Inspired Oxygen - Titration 06/16/19 18:52 06/16/19 20:00 06/16/19 20:06 Temperature Temperature Source Pulse Rate 93 H Pulse Rate [Finger] 99 H Pulse Rate from SpO2 Sensor 93 H Respiratory Rate 27 H 26 H Respiratory Effort / Characteristics Respiratory Depth Blood Pressure 139/97 Blood Pressure [Left Arm] 164/75 H Blood Pressure Mean 123 Blood Pressure Mean [Left Arm] 104 Pulse Oximetry 92 87 L 87 L Oxygen Delivery Method Nebulizer Nasal Cannula Nasal Cannula Oxygen Flow Rate 4 4 Sepsis Recent Fever Within 48 Hours Sepsis New/Unexplained Change in Mental Status Sepsis Action Taken by Nursing Oxygen Flow Rate - Titration 6 Fraction of Inspired Oxygen - Titration 92 06/16/19 20:30 06/16/19 21:00 06/16/19 21:19 Temperature Temperature Source Pulse Rate 90 89 Pulse Rate [Finger] 94 H Pulse Rate from SpO2 Sensor 90 89 Respiratory Rate 21 25 H 22 Respiratory Effort / Characteristics Spontaneous Pursed Lip Respiratory Depth Blood Pressure 127/66 133/95 Blood Pressure [Left Arm] Blood Pressure Mean 75 122 Blood Pressure Mean [Left Arm] Pulse Oximetry 92 91 92 Oxygen Delivery Method Nasal Cannula Nasal Cannula Oxymask Oxygen Flow Rate 6 6 7 Sepsis Recent Fever Within 48 Hours Sepsis New/Unexplained Change in Mental Status Sepsis Action Taken by Nursing Oxygen Flow Rate - Titration Fraction of Inspired Oxygen - Titration GENERAL: Sitting up in bed. Dyspneic with conversation. 4L nasal canula. EYE EXAM: normal conjunctiva OROPHARYNX: no exudate, no erythema, lips, buccal mucosa, and tongue normal and mucous membranes are moist NECK: supple, no nuchal rigidity, no adenopathy, non-tender LUNGS: Poor air moving with diffuse expiratory wheezing. HEART: no murmurs, S1 normal and S2 normal ABDOMEN: abdomen soft, non-tender, normo-active bowel sounds, no masses, no rebound or guarding. BACK: Back is symmetrical on inspection and there is no deformity, no midline tenderness, no CVA tenderness. SKIN: no rashes and no bruising UPPER EXTREMITIES: upper extremities are grossly normal. LOWER EXTREMITIES: No pitting edema. Calves equal bilaterally. NEURO EXAM: Normal sensorium, cranial nerves II-XII grossly intact, normal speech, no gross weakness of arms, no gross weakness of legs. Course Course ED COURSE: Vital signs were reviewed and showed the patient is hypertensive and tachycardic. The patients medical record was reviewed The above diagnostic studies were performed and reviewed. ED treatments and interventions as stated above. 1747: The patient was evaluated in room B04B. A complete history and physical examination was performed. 1910: Upon reevaluation, the patient is the patient is resting comfortably..I discussed my findings with the patient and she understands and agrees with the treatment plan. 2050: I reevaluated the patient and she was placed on 6L of oxygen but feels the same. Does not want to try BiPAP. 2052: I spoke with Dr. Isatu Leslie- Hospitalist about the patient's case and she will accept the patient for further evaluation. Based on the patients age, coexisting illnesses, exam and lab findings the decision to treat as an inpatient was made. The patient remained stable while under my care. The patient will be evaluated for further management. Administered Medications Discontinued Medications Albuterol (Duoneb) 12 ml NEB ONE ONE Stop: 06/16/19 17:56 Last Admin: 06/16/19 18:15 Dose: 12 ml Documented by: [id number] Albuterol (Ventolin 0.083% 2.5mg/3ml) 10 mg NEB NOW STA Stop: 06/16/19 20:50 Last Admin: 06/16/19 21:15 Dose: 10 mg Documented by: [id number] Ceftriaxone Sodium (Rocephin) 1,000 mg in 50 mls @ 100 mls/hr IV NOW STA Stop: 06/16/19 21:18 Last Infusion: 06/16/19 21:31 Dose: 0 mls/hr Documented by: [id number] Admin: 06/16/19 21:01 Dose: 100 mls/hr Documented by: [id number] Methylprednisolone (Solumedrol) 125 mg IV NOW STA Stop: 06/16/19 20:42 Last Admin: 06/16/19 20:59 Dose: 125 mg Documented by: [id number] Morphine Sulfate (Morphine Sulfate) 4 mg IV NOW STA Stop: 06/16/19 17:55 Last Admin: 06/16/19 18:19 Dose: 4 mg Documented by: [id number] Ondansetron HCl (Zofran) 4 mg IV NOW STA Stop: 06/16/19 17:55 Last Admin: 06/16/19 18:19 Dose: 4 mg Documented by: [id number] Critical Care Time Critical Care Time: Yes Total Critical Care Time: 31 I have personally spent 31 minutes of critical care time in the direct management of this patient. This includes bedside care, interpretation of diagnostic studies, and testing, discussion with consultants, patient, and family members, and other required patient management activities. This 31 minutes is in excess of all separately billable procedures. Medical Decision Making Differential Diagnosis Differential diagnosis: Etiologies such as infections, reactive airway disease, COPD, pneumonia, pleural effusion, pulmonary edema, ARDS, pneumothorax, CHF, cardiac ischemia, cardiac tamponade, dysrhythmia, anemia, pulmonary embolism, musculoskeletal, gastr ointestinal process, as well as others were entertained. Medical Records Attestation: I reviewed the patient's medical records. Home Medications Current Medication List: was personally reviewed by me Laboratory Data Attestation: I reviewed the patient's lab results. Result diagrams: 06/16/19 18:10 06/16/19 18:10 Lab Results 06/16/19 06/16/19 06/16/19 Range/Units 18:10 18:10 18:10 WBC 9.70 (4.8-10.8) K/uL RBC 4.36 (4.2-5.4) M/uL Hgb 11.3 L (12.0-16.0) g/dL Hct 36.9 L (37-47) % MCV 84.6 (80-100) fL MCH 25.9 (25-34) pg MCHC 30.6 L (32-36) g/dL RDW Std Deviation 51.5 H (36.4-46.3) fL RDW Coeff of Royer 16.4 H (11.5-14.5) % Plt Count 266 (130-400) K/uL MPV 11.2 H (7.4-10.4) fL Immature Gran % (Auto) 0.2 % Neut % (Auto) 69.3 % Lymph % (Auto) 20.3 % [place] % (Auto) 7.9 % Eos % (Auto) 2.2 % Baso % (Auto) 0.1 % Immature Gran # (Auto) 0.02 (0.00-0.02) K/uL Neut # (Auto) 6.72 H (1.4-6.5) K/uL Lymph # (Auto) 1.97 (1.2-3.4) K/uL [place] # (Auto) 0.77 H (0.11-0.59) K/uL Eos # (Auto) 0.21 (0-0.5) K/uL Baso # (Auto) 0.01 (0-0.2) K/uL PT 11.0 (9.0-12.0) Seconds INR 1.1 (0.9-1.1) APTT 29.6 (21.0-31.0) Seconds PTT Ratio 1.1 VBG pH (7.36-7.41) VBG pCO2 (38-50) mmHg VBG pO2 mmHg VBG HCO3 mmol/L VBG O2 Saturation % VBG Base Excess mEq/L Barometric Pressure mm/Hg Sodium 141 (136-145) mmol/L Potassium 3.5 (3.5-5.1) mmol/L Chloride 108 H (98-107) mmol/L Carbon Dioxide 27 (21-32) mmol/L Anion Gap 6.0 (3-11) BUN 17 (7-18) mg/dl Creatinine 0.93 (0.6-1.2) mg/dl Est Cr Clr Drug Dosing Not Reportable Est GFR ( Amer) 71.7 Est GFR (Non-Af Amer) 61.8 BUN/Creatinine Ratio 18.6 (10-20) Glucose 160 H (70-99) mg/dl Calcium 9.4 (8.5-10.1) mg/dl Total Bilirubin 0.2 (0.2-1) mg/dl AST 9 L (15-37) U/L ALT 16 (12-78) U/L Alkaline Phosphatase 97 (45-117) U/L Troponin I < 0.015 (0-0.045) ng/ml Total Protein 7.6 (6.4-8.2) gm/dl Albumin 3.7 (3.4-5.0) gm/dl Globulin 3.9 (2.5-4.0) gm/dl Albumin/Globulin Ratio 0.9 (0.9-2) Influenza Type A (PCR) (Neg) Influenza Type B (PCR) (Neg) 06/16/19 06/16/19 Range/Units 18:10 21:04 WBC (4.8-10.8) K/uL RBC (4.2-5.4) M/uL Hgb (12.0-16.0) g/dL Hct (37-47) % MCV (80-100) fL MCH (25-34) pg MCHC (32-36) g/dL RDW Std Deviation (36.4-46.3) fL RDW Coeff of [place]er (11.5-14.5) % Plt Count (130-400) K/uL MPV (7.4-10.4) fL Immature Gran % (Auto) % Neut % (Auto) % Lymph % (Auto) % [place] % (Auto) % Eos % (Auto) % Baso % (Auto) % Immature Gran # (Auto) (0.00-0.02) K/uL Neut # (Auto) (1.4-6.5) K/uL Lymph # (Auto) (1.2-3.4) K/uL [place] # (Auto) (0.11-0.59) K/uL Eos # (Auto) (0-0.5) K/uL Baso # (Auto) (0-0.2) K/uL PT (9.0-12.0) Seconds INR (0.9-1.1) APTT (21.0-31.0) Seconds PTT Ratio VBG pH 7.38 (7.36-7.41) VBG pCO2 51 H (38-50) mmHg VBG pO2 36 mmHg VBG HCO3 29 mmol/L VBG O2 Saturation 68.5 % VBG Base Excess 3.3 mEq/L Barometric Pressure 735.6 mm/Hg Sodium (136-145) mmol/L Potassium (3.5-5.1) mmol/L Chloride (98-107) mmol/L Carbon Dioxide (21-32) mmol/L Anion Gap (3-11) BUN (7-18) mg/dl Creatinine (0.6-1.2) mg/dl Est Cr Clr Drug Dosing Est GFR ( Amer) Est GFR (Non-Af Amer) BUN/Creatinine Ratio (10-20) Glucose (70-99) mg/dl Calcium (8.5-10.1) mg/dl Total Bilirubin (0.2-1) mg/dl AST (15-37) U/L ALT (12-78) U/L Alkaline Phosphatase (45-117) U/L Troponin I (0-0.045) ng/ml Total Protein (6.4-8.2) gm/dl Albumin (3.4-5.0) gm/dl Globulin (2.5-4.0) gm/dl Albumin/Globulin Ratio (0.9-2) Influenza Type A (PCR) Neg for Influ A (Neg) Influenza Type B (PCR) Neg for Influ B (Neg) ECG Data Attestation: I personally reviewed and interpreted this ECG as follows: Indication: + SOB/dyspnea Rate (beats per minute): 91 Rhythm: + sinus rhythm ECG Intervals/blocks: + Normal QT-c ECG ST segments: + T-wave inversions (aVL) ECG Findings: + Other (Normal axis); no PVCs Comparison ECG Date: from (04/14/2019) Change: no significant change Blood Pressure Blood Pressure Findings: Elevated blood pressure Blood Pressure Disposition: further management by hospitalist ROSALIA Moseley Patient is a 73-year-old female that presents the ER for cough and lower back pain. On exam the pain is reproducible. Patient chronically wears 4 L nasal cannula. IV was established blood work was obtained showed no significant leukocytosis. Mild anemia at 11.3. INR was unremarkable. VBG with a CO2 slightly elevated at 51. BMP along with LFTs bilirubin troponin was unremarkable. Influenza was negative. Patient was given an hour-long neb treatment along with steroids and Rocephin. Initially ordered azithromycin but this was held secondary to the prolonged QT. Chest x-ray was not acutely changed from previous per my interpretation. X-rays of the lumbar spine and thoracic spine show no acute pathology. Patient's oxygen was increased to 6 L on the mass. She declined BiPAP. She was monitored closely and discussed with the hospitalist for observation secondary to a COPD exacerbation. She was given also another hour-long neb treatment. Impression & Plan COPD exacerbation, Back pain Discharge Plan Visit Data Chief Complaint: Shortness of Breath/Dyspnea Stated Complaint: TROUBLE BREATHING,BACK PAIN ED Provider: Mj Tan Discharge Problem: COPD exacerbation, Back pain Forms Stand Alone Forms: [facility] Prescriptions Prescriptions: No Action ipratropium-albuterol 0.5 mg-3 mg(2.5 mg base)/3 mL solution for nebulization 3 ml inhalation Q4H PRN (Reason: shortness of breath or wheezing) Qty: 270 RF: 1 potassium chloride 20 mEq tablet extended release 20 meq PO BID RF: 0 rosuvastatin [Crestor] 20 mg tablet 20 mg PO DAILY RF: 0 albuterol sulfate 90 mcg/actuation HFA aerosol inhaler 2 puff inhalation Q4 PRN (Reason: Shortness Of Breath Or Wheezing) RF: 0 montelukast 10 mg tablet 10 mg PO DAILY RF: 0 triamcinolone acetonide 0.1 % cream 1 applic topical TID PRN (Reason: BREAK OUTS) RF: 0 clopidogrel [Plavix] 75 mg tablet 75 mg PO DAILY RF: 0 amlodipine [Norvasc] 10 mg tablet 10 mg PO DAILY RF: 0 sodium chloride [[place] Saline] 0.65 % aerosol,spray 1 sprays INTNAS BID PRN (Reason: Nasal Congestion) RF: 0 isosorbide mononitrate 30 mg tablet extended release 24 hr 30 mg PO DAILY Qty: 30 RF: 0 sotalol [Betapace] 80 mg tablet 40 mg PO DAILY RF: 0 Eliquis 5 mg tablet 5 mg PO BID RF: 0 gabapentin 100 mg Capsule 100 mg PO BID RF: 0 losartan [Cozaar] 100 mg Tablet 100 mg PO DAILY RF: 0 sertraline [Zoloft] 50 mg Tablet 50 mg PO DAILY RF: 0 Prilosec OTC 20 mg Tablet,Delayed Release (Dr/Ec) 20 mg PO BID RF: 0 Toujeo SoloStar U-300 Insulin 300 unit/mL (1.5 mL) Insulin Pen 60 unit SUBCUT DAILY RF: 0 guaifenesin [Mucinex] 600 mg Tablet Extended Release 12hr 600 mg PO BID RF: 0 furosemide 20 mg Tablet 10 mg PO DAILY RF: 0 Novolog U-100 Insulin aspart 100 unit/mL Solution 1 sliding scale dose SUBCUT USEASDIRECTD RF: 0 Discharge Problem: Back pain Qualifiers: Back pain location: back pain in unspecified location Chronicity: unspecified Back pain laterality: unspecified Qualified Code(s): M54.9 - Dorsalgia, unspecified The scribe's documentation has been prepared under my direction and personally reviewed by me in its entirety. I confirm that the note above accurately reflects all work, treatment, procedures, and medical decision making performed by me.
--- NOTE | 2019-06-16 22:27 | History & Physical Report ---
Date of Service June 16, 2019 Assessment & Plan (1) COPD exacerbation: Patient with three days of progressive SOB, dry cough. Diffuse wheezing on exam. Findings most consistent with acute exacerbation of COPD. No evidence of PNA on CXR. -Admit to medical floor -DuoNebs q 4 hours -Albuterol q 2 hours as needed -Solumedrol 40mg IV BID -Mucinex -Singulair Present on Admission?: Yes (2) Back pain: Tenderness to palpation over paraspinal musculature. ?Musculoskeletal pain in setting of cough -Tylenol 1gm po TID -Lidoderm patch -Toradol PRN -Avoid sedating agents due to respiratory compromise Present on Admission?: Yes (3) Peripheral neuropathy: Chronic. Stable -Continue Gabapentin Present on Admission?: Yes (4) Prolonged QT syndrome: Noted -Avoid QT prolonging agents Present on Admission?: Yes (5) Coronary artery disease: Stable CAD. Patient denies CP. No evidence of acute ischemia on EKG -Continue Plavix, Crestor, Imdur and Cozaar Present on Admission?: Yes (6) Paroxysmal atrial fibrillation: Patient presently in NSR -Continue Eliquis Present on Admission?: Yes (7) Depression: Chronic. Stable -Continue Sertraline Present on Admission?: Yes (8) Hyperlipidemia: Chronic. Stable -Continue Crestor Present on Admission?: Yes (9) Hypertension: Blood pressure markedly elevated on arrival 225/92, most likely contributing to SOB as well. Presently 166/61 -Continue Imdur, Cozaar, Amlodipine -Continue to monitor Present on Admission?: Yes (10) Diabetes: Blood sugar presently 160. Last UrgX2Q=6.2 in March -Continue Lantus 60u qHS -ISS F/E/N - heplock. Monitor electrolytes and replete as needed, CC/heart healthy diet as tolerated Ppx - patient on anticoagulation with Eliquis, will continue. Continue home Prilosec Code - Full per discussion with patient. Reluctant to answer yes, states that she wants to be brought back if we can Dispo - Admit to medical floor History of Present Illness Chief Complaint: shortness of breath Primary Care Provider: Jennifer Viramontes Mariana Elam is a 73yo C female with history of O2 dependent COPD (4L at home), HTN, HLP, DM, AF presenting with SOB and low back pain. She reports that she has baseline SOB and PAPPAS, on 4L of O2 at home. Acute worsening over the last 3 days. She reports a recent URI. Now with dry cough, wheeze. She denies fevers/chills/purulent sputum/sweats. Denies orthopnea/edema or weight gain. She also has chronic low back pain for the last few years - has been told that she has arthritis in her back. This pain has markedly increased over the last 3 days as well. Mostly left flank, pain with movement and deep inspiration. She has been using her nebulizer three times daily at home and her Albuterolinhaler as needed with some improvement in symptoms. She follows with Pulmonary - had an appointment yesterday which she was unable to make due to icy road conditions. ER Course: Albuterol, Azithromycin, Ceftriaxone, Solumedrol, Morphine, Zofran Allergies Allergy/AdvReac Type Severity Reaction Status Date / Time fentanyl Allergy Intermediate RASH Verified 06/16/19 19:56 levofloxacin Allergy Intermediate UNKNOWN Verified 06/16/19 19:56 Penicillins Allergy Intermediate RASH Verified 06/16/19 19:56 sulfamethoxazole Allergy Unknown Verified 06/16/19 19:56 [From Bactrim] trimethoprim [From Bactrim] Allergy Unknown Verified 06/16/19 19:56 Ethanol Allergy Intermediate RASH Uncoded 06/16/19 19:56 Home Medications Home Medications Medication Instructions Recorded Confirmed Type Novolog U-100 Insulin aspart 1 sliding scale dose SUBCUT 01/04/19 06/16/19 History USEASDIRECTD Prilosec OTC 20 mg PO BID 01/04/19 06/16/19 History Toujeo SoloStar U-300 Insulin 60 unit SUBCUT DAILY 01/04/19 06/16/19 History furosemide 10 mg PO DAILY 01/04/19 06/16/19 History gabapentin 100 mg PO BID 01/04/19 06/16/19 History guaifenesin [Mucinex] 600 mg PO BID 01/04/19 06/16/19 History losartan [Cozaar] 100 mg PO DAILY 01/04/19 06/16/19 History sertraline [Zoloft] 50 mg PO DAILY 01/04/19 06/16/19 History albuterol sulfate 90 mcg/actuation 2 puff INHALATION Q4 PRN gm 02/10/19 06/16/19 History aerosol inhaler amlodipine 10 mg tablet 10 mg PO DAILY tab 02/10/19 06/16/19 History clopidogrel 75 mg tablet 75 mg PO DAILY tab 02/10/19 06/16/19 History isosorbide mononitrate 30 mg 30 mg PO DAILY #30 tab 02/10/19 06/16/19 History tablet,extended release 24 hr montelukast 10 mg tablet 10 mg PO DAILY tab 02/10/19 06/16/19 History potassium chloride 20 mEq 20 meq PO BID tab 02/10/19 06/16/19 History tablet,extended release rosuvastatin 20 mg tablet 20 mg PO DAILY tab 02/10/19 06/16/19 History sodium chloride 0.65 % nasal spray 1 sprays INTNAS BID PRN 02/10/19 06/16/19 History aerosol triamcinolone acetonide 0.1 % 1 applic TOPICAL TID PRN gm 02/10/19 06/16/19 History topical cream ipratropium-albuterol 0.5 mg-3 3 ml INHALATION Q4H PRN #270 ml 03/17/19 06/16/19 Rx mg(2.5 mg base)/3 mL nebulization soln Eliquis 5 mg PO BID 04/14/19 06/16/19 History sotalol [Betapace] 40 mg PO DAILY 04/14/19 06/16/19 History Past Med/Surg History Medical History Anxiety Atrial fibrillation Chronic back pain Chronic obstructive pulmonary disease Chronically on 4 L of oxygen Depression Diabetes mellitus, type 2 GERD (gastroesophageal reflux disease) Hyperlipidemia Hypertension Lung cancer Myocardial Infarction Pneumonia Syncope Valvular heart disease Surgical History History of heart artery stent History of lobectomy of lung Patient had a lobectomy for lung cancer of her right lung 2013 Family History Unknown Diabetes Cancer Social History Preferred Language: Spanish Communication Ability: Effective Visual Impairment: No Limitations Media Librarian Required: No Beliefs That Will Affect Care: None Current Living Situation: Spouse Feels Safe at Home: Yes Smoking Status: Never smoker Tobacco Type: cigarettes ; Cigarettes Per Day: 40 ; Second Hand Exposure: No ; Hx Alcohol Use: No Hx Substance Use: No Review of Systems Review of Systems: All systems reviewed & are unremarkable except as noted in HPI & below Physical Exam Physical Exam: General: patient resting comfortably, receiving 12mL neb, NAD, non-toxic in appearance, AA&O x 4 Skin: warm, dry, intact, no rashes or lesions HEENT: NC/AT, PERRL, EOMI, anicteric sclera, conjunctiva without injection, external ear normal to inspection and nontender, nares patent, dry mucus membranes, dentition intact, no oropharyngeal lesions, neck supple, trachea midline, no LAD, no thyromegaly, no JVD Heart: +S1/S2, regular, no m/r/g Lungs: diminished breath sounds bilaterally, diffuse inspiratory and expiratory wheezing, prolonged expiratory phase, scattered rhonchi in mid lung [place] Abd: +BS, soft, NT/ND, no masses/organomegaly/ascites Ext: warm, 2+ pulses in UE/LE bilaterally, no clubbing/cyanosis or edema Tenderness to palpation over left paraspinal musculature of mid-thoracic to lumbar regions, tenderness with rib palpation Neuro: nonfocal, patient AA&O x 4, speech intact, no facial droop, moving all extremities on command with equal strength 5/5 Results & Data Vital Signs (Past 12 Hours) Vital Signs Temp Pulse Pulse Resp BP BP Pulse Ox 06/16/19 22:00 92 H 21 148/53 H 89 L 06/16/19 21:30 89 16 133/65 90 06/16/19 21:19 94 H 22 92 06/16/19 21:00 89 25 H 133/95 91 06/16/19 20:30 90 21 127/66 92 06/16/19 20:06 87 L 06/16/19 20:00 93 H 26 H 139/97 87 L 06/16/19 18:52 99 H 27 H 164/75 H 92 06/16/19 18:19 96 H 24 90 06/16/19 17:40 37.2 C 100 H 24 225/92 H 92 Laboratory Results Lab Results 06/16/19 06/16/19 06/16/19 Range/Units 18:10 18:10 18:10 WBC 9.70 (4.8-10.8) K/uL RBC 4.36 (4.2-5.4) M/uL Hgb 11.3 L (12.0-16.0) g/dL Hct 36.9 L (37-47) % MCV 84.6 (80-100) fL MCH 25.9 (25-34) pg MCHC 30.6 L (32-36) g/dL RDW Std Deviation 51.5 H (36.4-46.3) fL RDW Coeff of [place] 16.4 H (11.5-14.5) % Plt Count 266 (130-400) K/uL MPV 11.2 H (7.4-10.4) fL Immature Gran % (Auto) 0.2 % Neut % (Auto) 69.3 % Lymph % (Auto) 20.3 % [place] % (Auto) 7.9 % Eos % (Auto) 2.2 % Baso % (Auto) 0.1 % Immature Gran # (Auto) 0.02 (0.00-0.02) K/uL Neut # (Auto) 6.72 H (1.4-6.5) K/uL Lymph # (Auto) 1.97 (1.2-3.4) K/uL [place] # (Auto) 0.77 H (0.11-0.59) K/uL Eos # (Auto) 0.21 (0-0.5) K/uL Baso # (Auto) 0.01 (0-0.2) K/uL PT 11.0 (9.0-12.0) Seconds INR 1.1 (0.9-1.1) APTT 29.6 (21.0-31.0) Seconds PTT Ratio 1.1 VBG pH (7.36-7.41) VBG pCO2 (38-50) mmHg VBG pO2 mmHg VBG HCO3 mmol/L VBG O2 Saturation % VBG Base Excess mEq/L Barometric Pressure mm/Hg Sodium 141 (136-145) mmol/L Potassium 3.5 (3.5-5.1) mmol/L Chloride 108 H (98-107) mmol/L Carbon Dioxide 27 (21-32) mmol/L Anion Gap 6.0 (3-11) BUN 17 (7-18) mg/dl Creatinine 0.93 (0.6-1.2) mg/dl Est Cr Clr Drug Dosing Not Reportable Est GFR ( Amer) 71.7 Est GFR (Non-Af Amer) 61.8 BUN/Creatinine Ratio 18.6 (10-20) Glucose 160 H (70-99) mg/dl Calcium 9.4 (8.5-10.1) mg/dl Total Bilirubin 0.2 (0.2-1) mg/dl AST 9 L (15-37) U/L ALT 16 (12-78) U/L Alkaline Phosphatase 97 (45-117) U/L Troponin I < 0.015 (0-0.045) ng/ml Total Protein 7.6 (6.4-8.2) gm/dl Albumin 3.7 (3.4-5.0) gm/dl Globulin 3.9 (2.5-4.0) gm/dl Albumin/Globulin Ratio 0.9 (0.9-2) Influenza Type A (PCR) (Neg) Influenza Type B (PCR) (Neg) 06/16/19 06/16/19 Range/Units 18:10 21:04 WBC (4.8-10.8) K/uL RBC (4.2-5.4) M/uL Hgb (12.0-16.0) g/dL Hct (37-47) % MCV (80-100) fL MCH (25-34) pg MCHC (32-36) g/dL RDW Std Deviation (36.4-46.3) fL RDW Coeff of Royer (11.5-14.5) % Plt Count (130-400) K/uL MPV (7.4-10.4) fL Immature Gran % (Auto) % Neut % (Auto) % Lymph % (Auto) % [place] % (Auto) % Eos % (Auto) % Baso % (Auto) % Immature Gran # (Auto) (0.00-0.02) K/uL Neut # (Auto) (1.4-6.5) K/uL Lymph # (Auto) (1.2-3.4) K/uL [place] # (Auto) (0.11-0.59) K/uL Eos # (Auto) (0-0.5) K/uL Baso # (Auto) (0-0.2) K/uL PT (9.0-12.0) Seconds INR (0.9-1.1) APTT (21.0-31.0) Seconds PTT Ratio VBG pH 7.38 (7.36-7.41) VBG pCO2 51 H (38-50) mmHg VBG pO2 36 mmHg VBG HCO3 29 mmol/L VBG O2 Saturation 68.5 % VBG Base Excess 3.3 mEq/L Barometric Pressure 735.6 mm/Hg Sodium (136-145) mmol/L Potassium (3.5-5.1) mmol/L Chloride (98-107) mmol/L Carbon Dioxide (21-32) mmol/L Anion Gap (3-11) BUN (7-18) mg/dl Creatinine (0.6-1.2) mg/dl Est Cr Clr Drug Dosing Est GFR ( Amer) Est GFR (Non-Af Amer) BUN/Creatinine Ratio (10-20) Glucose (70-99) mg/dl Calcium (8.5-10.1) mg/dl Total Bilirubin (0.2-1) mg/dl AST (15-37) U/L ALT (12-78) U/L Alkaline Phosphatase (45-117) U/L Troponin I (0-0.045) ng/ml Total Protein (6.4-8.2) gm/dl Albumin (3.4-5.0) gm/dl Globulin (2.5-4.0) gm/dl Albumin/Globulin Ratio (0.9-2) Influenza Type A (PCR) Neg for Influ A (Neg) Influenza Type B (PCR) Neg for Influ B (Neg) Diagnostic Findings SINGLE VIEW CHEST CLINICAL HISTORY: Dyspnea. FINDINGS: An AP, portable, upright chest radiograph is compared to study dated 04/14/2019. Correlation is made with chest CT dated 04/15/2019. The examination is degraded by portable technique, apical lordotic positioning, and patient rotation. The heart is top normal for projection noting atherosclerotic calcification of the thoracic aorta. Emphysema and chronic interstitial thickening are similar to previous. There is bibasilar scarring/atelectasis. No airspace consolidation or large pleural effusion is identified. No pneumothorax is seen. The skeletal structures are osteopenic. There are healed right-sided rib fractures. IMPRESSION: Emphysematous change with no acute cardiopulmonary abnormality. Electronically signed by: James Marshall M.D. 06/16/2019 8:46 PM Dictated: 06/16/[id number] Transcribed: 06/16/192044 LUMBAR SPINE 3 VIEWS CLINICAL HISTORY: Low back pain. FINDINGS: 3 views of the lumbar spine are compared to study dated 09/23/2018. The skeletal structures are osteopenic. There is no radiographic evidence of fracture or malalignment. Vertebral body height and alignment are maintained. The transverse and spinous processes are intact. Anterior osteophytes are seen throughout. There is moderate to advanced disc space narrowing at L5-S1. Moderate disc space narrowing and endplate sclerosis is seen at L2-L3. The remaining disc spaces appear maintained. Facet arthropathy is noted in the lower lumbar spine. The visualized bony pelvis appears intact. There is a nonobstructed abdominal bowel gas pattern. Fecal retention is noted. There is advanced atherosclerotic calcification of the abdominal aorta. Mild aneurysmal dilatation of the infrarenal abdominal aorta is similar to previous. IMPRESSION: 1. No acute bony abnormality seen involving the lumbar spine. 2. Osteopenia and spondylotic change as above. ACT 112: Negative or not required by law. Electronically signed by: James Marshall M.D. 06/16/2019 9:12 PM Dictated: 06/16/[id number] Transcribed: 06/16/192109 THORACIC SPINE 3 VIEWS CLINICAL HISTORY: Thoracic back pain. FINDINGS: AP, lateral, and swimmer's views of the thoracic spine are correlated with chest CT dated 04/15/2019. The skeletal structures are osteopenic. There is no radiographic evidence of fracture or malalignment. Vertebral body height and alignment are maintained. There is mild hyperkyphosis. Anterior osteophytes are seen throughout. There is mild multilevel degenerative disc space narrowing. The transverse processes and pedicles appear intact as seen on the frontal view. There is atherosclerotic calcification of the thoracic aorta. Emphysematous change is noted. IMPRESSION: No acute bony abnormality is identified. Electronically signed by: James Marshall M.D. 06/16/2019 9:13 PM Dictated: 06/16/192111 Transcribed: 06/16/192111 ECG Additional Comments: The study shows NSR at 91bpm, normal axis, AG=548, QRS=78, NCf=657, No acute ischemic changes Code Status & VTE Plan Code Status Full Code - patient states that "if there's a chance to bring me back then do it, but if there's not then let me go" VTE Prophylaxis Plan VTE Prophylaxis will be ordered: Yes PG Care Time/CCT Total # of Minutes Spent Total Time Spent with Patient: Total time spent is greater than 50% in coordination of care (as documented) at patient's floor/unit and/or counseling patient: (1) Back pain Back pain laterality: unspecified Back pain location: back pain in unspecified location Chronicity: unspecified Qualified Code(s): M54.9 - Dorsalgia, unspecified (2) Peripheral neuropathy Peripheral neuropathy type: polyneuropathy, unspecified Qualified Code(s): G62.9 - Polyneuropathy, unspecified (3) Coronary artery disease Coronary Disease-Associated Artery/Lesion type: [place] artery [place] vs. transplanted heart: [place] heart Associated angina: without angina Qualified Code(s): I25.10 - Atherosclerotic heart disease of [place] coronary artery without angina pectoris (4) Depression Depression Type: major depressive disorder Major depression recurrence: recurrent Active/Remission status: remission status unspecified Qualified Code(s): F33.9 - Major depressive disorder, recurrent, unspecified (5) Hyperlipidemia Hyperlipidemia type: unspecified Qualified Code(s): E78.5 - Hyperlipidemia, unspecified (6) Hypertension Hypertension type: essential hypertension Qualified Code(s): I10 - Essential (primary) hypertension (7) Diabetes Diabetes mellitus type: type 2 Diabetes mellitus assisted insulin use: with assisted use Diabetes mellitus complication status: with neurologic complications Diabetes mellitus complication detail: with polyneuropathy Qualified Code(s): E11.42 - Type 2 diabetes mellitus with diabetic polyneuropathy; Z79.4 - half-way (current) use of insulin
[2019-06-16] MEDS ORDERED: GLUCOSE 40% GEL 15 GM TUBE PO PRN (23:30)
[2019-06-16] MEDS ORDERED: GLUCAGON FOR INJ 1 MG VIAL SQ PRN (23:30)
[2019-06-16] MEDS ORDERED: DEXTROSE 50% 50 ML SYRINGE IV PRN (23:30)
[2019-06-16] MEDS ORDERED: CARBOHYDRATES FOR HYPOGLYCEMIA PO PRN (23:30)
[2019-06-16] MEDS ORDERED: ALBUTEROL 0.5% NEB SOLN 2.5 MG/0.5 ML VIAL NEB PRN (23:30)
[2019-06-16] MEDS ORDERED: DOCUSATE SODIUM 100 MG CAP PO PRN (23:30)
[2019-06-16] MEDS ORDERED: SODIUM CHLORIDE 0.65% NA SOLN 45 ML (OCEAN) NAE PRN (23:30)
[2019-06-16] MEDS ORDERED: GLUCOSE 10 TABS/TUBE PO PRN (23:30)
[2019-06-16] MEDS ORDERED: KETOROLAC TROMETHAMINE 15 MG/ML VIAL IV PRN (23:30)
[2019-06-17 00:03] LABS: Phosphorus 3.2 mg/dl (2.5-4.9)
[2019-06-17] MEDS: LIDOCAINE 5% 1 PATCH TD SCH ×2 (00:13→20:46)
[2019-06-17] MEDS: guaiFENesin 600 MG TABCR PO SCH ×3 (00:14→20:44)
[2019-06-17] MEDS: MONTELUKAST SODIUM 10 MG TABLET PO SCH ×2 (00:14→08:05)
[2019-06-17] MEDS: DOXYCYCLINE HYCLATE 100 MG in DEXTROSE 5% 100 ML IV SCH ×2 (00:15→13:37)
[2019-06-17] MEDS: APIXABAN 5 MG TABLET PO SCH ×3 (00:15→20:45)
[2019-06-17] MEDS: ALBUT/IPRATROP 3MG/0.5MG NEB 3 ML VIAL INH SCH ×4 (02:34→10:21)
[2019-06-17 06:05] LABS: Hematocrit (blood only) 37.5 % (37-47); Hemoglobin 11.6 g/dL (12.0-16.0); Immature Granulocytes # (auto) 0.02 K/uL (0.00-0.02); Immature Granulocytes % (auto) 0.2 %; Lymphocytes # (auto) 0.76 K/uL (1.2-3.4); Lymphocytes % (auto) 9.2 %; Mean Corpuscular Hemoglobin 26.9 pg (25-34); Mean Corpuscular Hgb Conc 30.9 g/dL (32-36); Mean Corpuscular Volume 86.8 fL (80-100); Mean Platelet Volume 11.3 fL (7.4-10.4); Monocytes # (auto) 0.04 K/uL (0.11-0.59); Monocytes % (auto) 0.5 %; Neutrophils # (auto) 7.43 K/uL (1.4-6.5); Neutrophils % (auto) 90.1 %; Platelet Count 255 K/uL (130-400); RDW Coefficient of Variation 16.5 % (11.5-14.5); RDW Standard Deviation 52.3 fL (36.4-46.3); Red Blood Count 4.32 M/uL (4.2-5.4); White Blood Count 8.25 K/uL (4.8-10.8)
[2019-06-17 06:38] LABS: BUN Creatinine Ratio 18.2 (10-20); Creatinine Clr Calc Pharmacy 54.2 ml/min; Est GFR (African American) 69.8; Est GFR (Non-African American) 60.3; Potassium 3.9 mmol/L (3.5-5.1)
[2019-06-17] MEDS: ACETAMINOPHEN 500 MG TAB PO SCH ×3 (08:03→20:48)
[2019-06-17] MEDS: CLOPIDOGREL BISULFATE 75 MG TAB PO SCH (08:04)
[2019-06-17] MEDS: ROSUVASTATIN CALCIUM 20 MG TAB PO SCH (08:04)
[2019-06-17] MEDS: LOSARTAN POTASSIUM 50 MG TAB PO SCH (08:04)
[2019-06-17] MEDS: FUROSEMIDE 20 MG TAB PO SCH (08:04)
[2019-06-17] MEDS: GABAPENTIN 100 MG CAP PO SCH ×2 (08:05→20:45)
[2019-06-17] MEDS: POTASSIUM CHLORIDE 20 MEQ TABCR PO SCH ×2 (08:05→20:44)
[2019-06-17] MEDS: AMLODIPINE BESYLATE 5 MG TAB PO SCH (08:05)
[2019-06-17] MEDS: ISOSORBIDE MONO EXTENDED REL 30 MG TABCR PO SCH (08:05)
[2019-06-17] MEDS: SOTALOL HCL 80 MG TAB PO SCH (08:05)
[2019-06-17] MEDS: SERTRALINE HCL 50 MG TABLET PO SCH (08:05)
[2019-06-17] MEDS: PANTOprazole 40 MG TAB PO SCH ×2 (08:05→20:44)
[2019-06-17] MEDS: methylPREDNISolone 40 MG in SYRINGE 0 ML IV SCH ×2 (08:06→20:46)
[2019-06-17] MEDS ORDERED: INSULIN GLARGINE SOLOSTAR 100 UNITS/ML 3 ML PEN SC SCH (09:00)
[2019-06-17] MEDS: INSULIN ASPART 100 UNITS/ML 3 ML PEN SC SCH ×4 (09:20→21:11)
[2019-06-17] MEDS: INSULIN GLARGINE SOLOSTAR 100 UNITS/ML 3 ML PEN SC SCH (09:21)
--- NOTE | 2019-06-17 12:51 | Hospitalist Progress Note ---
Date of Service June 17, 2019 Assessment & Plan (1) Acute and chronic respiratory failure with hypoxia: Acute and chronic respiratory failure with hypoxia -due to COPD exacerbation -Continue supplemental O2 to keep pulse ox greater than 88% -Steroids and doxycycline (2) COPD exacerbation: Patient with three days of progressive SOB, dry cough. Diffuse wheezing on exam. Findings most consistent with acute exacerbation of COPD. No evidence of PNA on CXR. -DuoNebs q 4 hours -Albuterol q 2 hours as needed -Continue Solumedrol 40mg IV BID -Continue Mucinex -Continue Singulair -Continue supplemental O2 -Continue BiPAP at nighttime (3) Back pain: Tenderness to palpation over paraspinal musculature. ?Musculoskeletal pain in setting of cough Patient reports this is been going on for years X-rays of the T and L-spine are negative for fracture -Tylenol 1gm po TID -Lidoderm patch -Add Voltaren gel 4 times daily -Toradol PRN -Avoid sedating agents due to respiratory compromise (4) Peripheral neuropathy: Chronic. Stable -Continue Gabapentin (5) Prolonged QT syndrome: Noted -Avoid QT prolonging agents (6) Coronary artery disease: Stable CAD. Patient denies CP. No evidence of acute ischemia on EKG -Continue Plavix, Crestor, Imdur and Cozaar (7) Paroxysmal atrial fibrillation: Patient presently in NSR -Continue Eliquis, sotalol (8) Depression: Chronic. Stable -Continue Sertraline (9) Hyperlipidemia: Chronic. Stable -Continue Crestor (10) Hypertension: Blood pressure markedly elevated on arrival 225/92, most likely contributing to SOB as well. Continues to be somewhat elevated likely secondary to COPD exacerbation and steroid use -Continue Imdur, Cozaar, Amlodipine -Continue to monitor (11) Diabetes: With hyperglycemia secondary to corticosteroids last [id number]=1.2 in March -Continue Lantus 60u qHS -ISS-we will tighten down range today (12) DVT prophylaxis: F/E/N - heplock. Monitor electrolytes and replete as needed, CC/heart healthy diet as tolerated Ppx - patient on anticoagulation with Eliquis, will continue. Continue home Prilosec Code - Full per discussion with patient. Reluctant to answer yes, states that she wants to be brought back if we can Dispo -continued stay Subjective Patient feeling less short of breath. She is not tolerating the Vapotherm-feels like it is forcing too much air in her nose. They are having trouble keeping her sats up above 88% on a regular nasal cannula and she was on an oxygen mask earlier this morning. Has her usual productive cough. Denies chest pain. Review of Systems Review of Systems: All systems reviewed & are unremarkable except as noted in HPI & below Physical Exam Constitutional: WD/WN, vitals as above + obese; no acute distress Eyes: + anicteric sclerae ENMT: external ear and nose normal, oropharynx normal Neck: trachea midline, no thyromegaly Respiratory: normal respiratory effort; no labored breathing Auscultation: + diminished lung sounds (throughout) and + wheezes Cardiovascular: RRR, no murmur, no edema Chest (Breasts): Chest: normal inspection of chest Gastrointestinal (Abdomen): normal bowel sounds, soft, nontender, no hepatosplenomegaly Musculoskeletal: Extremities: extremities normal to inspection; no cyanosis and no clubbing Skin: no rashes, warm and dry Neurologic: moves all extremities and awake; no focal motor deficits Psychiatric: A+Ox3, euthymic affect Lymphatic: no lymphedema Results & Data Vital Signs (Past 12 Hours) Vital Signs Temp Pulse Resp BP Pulse Ox 06/17/19 10:25 95 H 22 92 06/17/19 10:23 95 H 22 91 06/17/19 07:08 100 H 22 90 06/17/19 07:00 36.9 C 100 H 20 179/79 H 86 L 06/17/19 02:34 103 H 22 92 Laboratory Results Labs reviewed PG Care Time/CCT Total # of Minutes Spent Total Time Spent with Patient: Total time spent is greater than 50% in coordination of care (as documented) at patient's floor/unit and/or counseling patient: (1) Diabetes Diabetes mellitus complication detail: with polyneuropathy Diabetes mellitus complication status: with neurologic complications Diabetes mellitus exterminator termite insulin use: with long-term use Diabetes mellitus type: type 2 Qualified Code(s): E11.42 - Type 2 diabetes mellitus with diabetic polyneuropathy; Z79.4 - ad terminal makeup operator (current) use of insulin (2) Coronary artery disease Associated angina: without angina Coronary Disease-Associated Artery/Lesion type: [place] artery [place] vs. transplanted heart: [place] heart Qualified Code(s): I25.10 - Atherosclerotic heart disease of [place] coronary artery without angina pectoris (3) Back pain Back pain laterality: unspecified Back pain location: back pain in unspecified location Chronicity: unspecified Qualified Code(s): M54.9 - Dorsalgia, unspecified (4) Depression Active/Remission status: remission status unspecified Depression Type: major depressive disorder Major depression recurrence: recurrent Qualified Code(s): F33.9 - Major depressive disorder, recurrent, unspecified (5) Hyperlipidemia Hyperlipidemia type: unspecified Qualified Code(s): E78.5 - Hyperlipidemia, unspecified (6) Peripheral neuropathy Peripheral neuropathy type: polyneuropathy, unspecified Qualified Code(s): G62.9 - Polyneuropathy, unspecified (7) Hypertension Hypertension type: essential hypertension Qualified Code(s): I10 - Essential (primary) hypertension
--- NOTE | 2019-06-17 13:01 | Pulmonary Consultation ---
Date of Consultation June 17, 2019 Assessment & Plan (1) COPD exacerbation: --Acute on chronic hypoxic respiratory failure Secondary to COPD exacerbation Continue with steroids, inhaled bronchodilators, doxycycline given that the patient has prolonged QTC and we cannot use azithromycin or levofloxacin BiPAP nightly and PRN shortness of breath O2 supplementation to keep oxygen saturation between 88 to 92% Patient is not on optimal therapy at home for her underlying COPD. She needs to be on LABA/ICS(Breo/Advair) and LAMA(Spiriva/Incruse) inhaler at home. Patient will benefit from pulmonary rehab on discharge --Possible MINH Positive snoring and daytime lethargy and somnolence. 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 fib on apixaban comes to the hospital with complaints of shortness of breath which is been going on since the last 3 to 4 days. It is associated with dry cough. Patient states is worse on exertion. Denies any hemoptysis. Denies any chest pain. No nausea or vomiting., Denies any upper respiratory infection. No runny nose, no teari ng from the eyes. No headache, no blurry vision. Patient gets short of breath on walking to the bathroom. No fever or chills. No dysuria, no hematuria, no hematochezia. No night sweats. No weight loss. Of note patient states that she had resection of part of the lung in 2013 and was told that she has cancer but she did not get any chemotherapy following that or radiation. Social history: Reviewed and [id number] smoking history quit in 1999, social alcohol, no illicit drug use. Used to work in [employer]. No exposure to poultry. No farm nearby. Has never been intubated in the past. Allergies Allergy/AdvReac Type Severity Reaction Status Date / Time fentanyl Allergy Intermediate RASH Verified 06/16/19 19:56 levofloxacin Allergy Intermediate UNKNOWN Verified 06/16/19 19:56 Penicillins Allergy Intermediate RASH Verified 06/16/19 19:56 sulfamethoxazole Allergy Unknown Verified 06/16/19 19:56 [From Bactrim] trimethoprim [From Bactrim] Allergy Unknown Verified 06/16/19 19:56 Ethanol Allergy Intermediate RASH Uncoded 06/16/19 19:56 Home Medications Home Medications Medication Instructions Recorded Confirmed Type Novolog U-100 Insulin aspart 1 sliding scale dose SUBCUT 01/04/19 06/16/19 History USEASDIRECTD Prilosec OTC 20 mg PO BID 01/04/19 06/16/19 History Toujeo SoloStar U-300 Insulin 60 unit SUBCUT DAILY 01/04/19 06/16/19 History furosemide 10 mg PO DAILY 01/04/19 06/16/19 History gabapentin 100 mg PO BID 01/04/19 06/16/19 History guaifenesin [Mucinex] 600 mg PO BID 01/04/19 06/16/19 History losartan [Cozaar] 100 mg PO DAILY 01/04/19 06/16/19 History sertraline [Zoloft] 50 mg PO DAILY 01/04/19 06/16/19 History albuterol sulfate 90 mcg/actuation 2 puff INHALATION Q4 PRN gm 02/10/19 History aerosol inhaler amlodipine 10 mg tablet 10 mg PO DAILY tab 02/10/19 06/16/19 History clopidogrel 75 mg tablet 75 mg PO DAILY tab 02/10/19 06/16/19 History isosorbide mononitrate 30 mg 30 mg PO DAILY #30 tab 02/10/19 06/16/19 History tablet,extended release 24 hr montelukast 10 mg tablet 10 mg PO DAILY tab 02/10/19 06/16/19 History potassium chloride 20 mEq 20 meq PO BID tab 02/10/19 06/16/19 History tablet,extended release rosuvastatin 20 mg tablet 20 mg PO DAILY tab 02/10/19 06/16/19 History sodium chloride 0.65 % nasal spray 1 sprays INTNAS BID PRN 02/10/19 06/16/19 History aerosol triamcinolone acetonide 0.1 % 1 applic TOPICAL TID PRN gm 02/10/19 06/16/19 History topical cream ipratropium-albuterol 0.5 mg-3 3 ml INHALATION Q4H PRN #270 ml 03/17/19 06/16/19 Rx mg(2.5 mg base)/3 mL nebulization soln Eliquis 5 mg PO BID 04/14/19 06/16/19 History sotalol [Betapace] 40 mg PO DAILY 04/14/19 06/16/19 History Patient History Medical History Anxiety Atrial fibrillation Chronic back pain Chronic obstructive pulmonary disease Chronically on 4 L of oxygen Depression Diabetes mellitus, type 2 GERD (gastroesophageal reflux disease) Hyperlipidemia Hypertension Lung cancer Myocardial Infarction Pneumonia Syncope Valvular heart disease Surgical History History of heart artery stent History of lobectomy of lung Patient had a lobectomy for lung cancer of her right lung 2013 Family History Unknown Diabetes Cancer Social History Preferred Language: Senegalese Communication Ability: Effective Visual Impairment: No Limitations [employer] [place] Pulp Required: No Beliefs That Will Affect Care: None Current Living Situation: Spouse Feels Safe at Home: Yes Smoking Status: Former smoker Tobacco Type: cigarettes ; Cigarettes Per Day: 40 ; Second Hand Exposure: No ; Hx Alcohol Use: No Hx Substance Use: No Review of Systems Review of Systems: All systems reviewed & are unremarkable except as noted in HPI & below Physical Exam Physical Exam: Constitutional: No acute distress HEENT: EOMI, PERRLA Respiratory system: Decreased air entry bilaterally, positive expiratory wheeze bilaterally, no rhonchi, no crackles CVS: S1-S2 positive, no murmurs or gallops Abdomen: Soft, nontender, nondistended, positive bowel sounds x4 Extremities: +2 pulses bilaterally radialis/ dorsalis pedis, no cyanosis, no edema Neuro: Awake alert oriented x3 Psych: Normal mood and affect G/U: No Mott Skin: no rashes, warm and dry Lymphatic: no cervical or axillary lymphadenopathy Results & Data Vital Signs (Past 12 Hours) Vital Signs Temp Pulse Resp BP Pulse Ox 06/17/19 10:25 95 H 22 92 06/17/19 10:23 95 H 22 91 06/17/19 07:08 100 H 22 90 06/17/19 07:00 36.9 C 100 H 20 179/79 H 86 L 06/17/19 02:34 103 H 22 92 06/17/19 05:52 06/17/19 05:52 06/16/19 21:04 VBG pH 7.38 VBG pCO2 51 H VBG pO2 36 VBG HCO3 29 VBG O2 Saturation 68.5 VBG Base Excess 3.3 Diagnostic Findings Chest x-ray: Portable film, good inspiratory effort. Bilateral costophrenic and cardiophrenic angles are blunted. Enlarged hilar markings. No significant change compared to previous chest x-ray which was done on 04/14/2019 CAT scan from [id number] personally reviewed: Shows moderate to severe emphysema no clear nodules appreciated. PG Care Time/CCT Total # of Minutes Spent Total Time Spent with Patient: Total time spent is greater than 50% in coordination of care (as documented) at patient's floor/unit and/or counseling patient:
[2019-06-17] MEDS: ALBUT/IPRATROP 3MG/0.5MG NEB 3 ML VIAL NEB SCH ×2 (13:25→19:24)
[2019-06-17] MEDS: DICLOFENAC SOD 1% GEL 100 GM TUBE EXT SCH ×3 (13:52→20:47)
[2019-06-17] MEDS ORDERED: cefTRIAXone SODIUM 2,000 MG in DEXTROSE 5% 50 ML IV SCH (21:00)
[2019-06-18] MEDS: DOXYCYCLINE HYCLATE 100 MG in DEXTROSE 5% 100 ML IV SCH ×2 (00:35→14:23)
[2019-06-18] MEDS: ALBUT/IPRATROP 3MG/0.5MG NEB 3 ML VIAL NEB SCH ×4 (01:06→18:53)
[2019-06-18] MEDS: MONTELUKAST SODIUM 10 MG TABLET PO SCH (08:34)
[2019-06-18] MEDS: ROSUVASTATIN CALCIUM 20 MG TAB PO SCH (08:34)
[2019-06-18] MEDS: SERTRALINE HCL 50 MG TABLET PO SCH (08:34)
[2019-06-18] MEDS: SOTALOL HCL 80 MG TAB PO SCH (08:34)
[2019-06-18] MEDS: FUROSEMIDE 20 MG TAB PO SCH (08:34)
[2019-06-18] MEDS: CLOPIDOGREL BISULFATE 75 MG TAB PO SCH (08:35)
[2019-06-18] MEDS: POTASSIUM CHLORIDE 20 MEQ TABCR PO SCH ×2 (08:35→20:55)
[2019-06-18] MEDS: APIXABAN 5 MG TABLET PO SCH ×2 (08:35→20:55)
[2019-06-18] MEDS: guaiFENesin 600 MG TABCR PO SCH ×2 (08:35→20:56)
[2019-06-18] MEDS: ISOSORBIDE MONO EXTENDED REL 30 MG TABCR PO SCH (08:35)
[2019-06-18] MEDS: AMLODIPINE BESYLATE 5 MG TAB PO SCH (08:35)
[2019-06-18] MEDS: LOSARTAN POTASSIUM 50 MG TAB PO SCH (08:35)
[2019-06-18] MEDS: GABAPENTIN 100 MG CAP PO SCH ×2 (08:35→20:57)
[2019-06-18] MEDS: PANTOprazole 40 MG TAB PO SCH ×2 (08:35→20:57)
[2019-06-18] MEDS: ACETAMINOPHEN 500 MG TAB PO SCH ×3 (08:36→20:57)
[2019-06-18] MEDS: DICLOFENAC SOD 1% GEL 100 GM TUBE EXT SCH ×4 (08:36→20:53)
[2019-06-18] MEDS: INSULIN GLARGINE SOLOSTAR 100 UNITS/ML 3 ML PEN SC SCH (08:37)
[2019-06-18] MEDS: INSULIN ASPART 100 UNITS/ML 3 ML PEN SC SCH ×4 (08:38→21:00)
[2019-06-18] MEDS: methylPREDNISolone 40 MG in SYRINGE 0 ML IV SCH ×2 (08:47→20:52)
--- NOTE | 2019-06-18 08:56 | Pulmonology Progress Note ---
Date of Service June 18, 2019 Assessment & Plan (1) COPD exacerbation: --Acute on chronic hypoxic respiratory failure Secondary to COPD exacerbation --> patient feeling better almost back to baseline. Continue with steroids, inhaled bronchodilators, doxycycline given that the patient has prolonged QTC and we cannot use azithromycin or levofloxacin BiPAP nightly and PRN shortness of breath O2 supplementation to keep oxygen saturation between 88 to 92% Patient is not on optimal therapy at home for her underlying COPD. She needs to be on LABA/ICS(Breo/Advair) and LAMA(Spiriva/Incruse) inhaler at home. Patient will benefit from pulmonary rehab on discharge Start tapering steroids as of tomorrow. On discharge give 40 mg prednisone for 3 days followed by 20 mg prednisone for 2 days. Could DC Rocephin. --Possible MINH Positive snoring and daytime lethargy and somnolence. 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 (2) Acute and chronic respiratory failure with hypoxia: (3) MINH (obstructive sleep apnea): Subjective Patient seen and examined at bedside. No acute distress, no adverse events overnight Patient was sleeping at the time of examination. States that the shortness of breath is improved. Dry cough present but decreased in intensity. Denies any chest pain, no headache, no nausea, no vomiting. No dizziness. Good appetite. Patient complains of constipation. No dysuria, no hematuria. At the time of examination patient was saturating 94% on 5 L nasal cannula with heart of 93 at rest. Went down on oxygen to 4 L. Review of Systems Review of Systems: All systems reviewed & are unremarkable except as noted in HPI & below Physical Exam Physical Exam: Constitutional: No acute distress HEENT: EOMI, PERRLA Respiratory system: Decreased air entry bilaterally, positive expiratory wheeze bilaterally, positive right side rhonchi, no crackles CVS: S1-S2 positive, no murmurs or gallops, tachycardia Abdomen: Soft, nontender, nondistended, positive bowel sounds x4 Extremities: +2 pulses bilaterally radialis/ dorsalis pedis, no cyanosis, no edema Neuro: Awake alert oriented x3 Psych: Normal mood and affect G/U: No Mott Skin: no rashes, warm and dry Lymphatic: no cervical or axillary lymphadenopathy Results & Data Vital Signs (Past 12 Hours) Vital Signs Temp Pulse Resp BP Pulse Ox 06/18/19 07:35 36.7 C 88 18 174/81 H 90 06/18/19 07:03 92 H 16 91 06/18/19 01:07 83 14 92 06/17/19 23:41 36.8 C 88 20 173/89 H 93 06/17/19 05:52 06/17/19 05:52 06/16/19 21:04 VBG pH 7.38 VBG pCO2 51 H VBG pO2 36 VBG HCO3 29 VBG O2 Saturation 68.5 VBG Base Excess 3.3 PG Care Time/CCT Total # of Minutes Spent Total Time Spent with Patient: Total time spent is greater than 50% in coordination of care (as documented) at patient's floor/unit and/or counseling patient:
[2019-06-18] MEDS ORDERED: INSULIN GLARGINE SOLOSTAR 100 UNITS/ML 3 ML PEN SC SCH (09:00)
[2019-06-18] MEDS: POLYETHYLENE (MIRALAX) 17 GM PACK PO SCH (10:06)
[2019-06-18] MEDS ORDERED: INSULIN GLARGINE SOLOSTAR 100 UNITS/ML 3 ML PEN SC ONE (10:34)
[2019-06-18] MEDS ORDERED: DOXYCYCLINE HYCLATE 100 MG CAP PO STA (12:31)
--- NOTE | 2019-06-18 17:01 | Hospitalist Progress Note ---
Date of Service June 18, 2019 Assessment & Plan (1) Acute and chronic respiratory failure with hypoxia: Acute and chronic respiratory failure with hypoxia-continues but slightly improved from previous -due to COPD exacerbation -Continue supplemental O2 to keep pulse ox greater than 88% -Continue steroids and doxycycline (2) COPD exacerbation: Patient with three days of progressive SOB, dry cough. Diffuse wheezing on exam. Findings most consistent with acute exacerbation of COPD. No evidence of PNA on CXR. Slightly improved since admission -Continue DuoNebs q 4 hours -Albuterol q 2 hours as needed -Convert Solu-Medrol to prednisone 40 mg daily x5 days as per pulmonology -Continue Mucinex -Continue Singulair -Continue supplemental O2 -Continue BiPAP at nighttime -Pulmonary recommending formal sleep study as an outpatient (3) Back pain: Tenderness to palpation over paraspinal musculature. ?Musculoskeletal pain in setting of cough Patient reports this is been going on for years X-rays of the T and L-spine are negative for fracture -Tylenol 1gm po TID -Lidoderm patch -Added Voltaren gel 4 times daily -Toradol PRN -Avoid sedating agents due to respiratory compromise (4) Peripheral neuropathy: Chronic. Stable -Continue Gabapentin (5) Prolonged QT syndrome: Noted -Avoid QT prolonging agents (6) Coronary artery disease: Stable CAD. Patient denies CP. No evidence of acute ischemia on EKG -Continue Plavix, Crestor, Imdur and Cozaar (7) Paroxysmal atrial fibrillation: Patient presently in NSR -Continue Eliquis, sotalol (8) Depression: Chronic. Stable -Continue Sertraline (9) Hyperlipidemia: Chronic. Stable -Continue Crestor (10) Hypertension: Blood pressure markedly elevated on arrival 225/92, most likely contributing to SOB as well. Continues to be somewhat elevated likely secondary to COPD exacerbation and steroid use -Add on hydralazine p.o. as needed and consider adding this as a standing order upon discharge -Continue Imdur, Cozaar, Amlodipine, Lasix -Is on sotalol for rhythm control, would not add another beta-jone -Continue to monitor (11) Diabetes: With hyperglycemia secondary to corticosteroids last DiqF7R=6.2 in March Hyperglycemia persists -Continue Lantus and increase to 65 units daily -ISS-we will tighten down range again today (12) DVT prophylaxis: F/E/N - heplock. Monitor electrolytes and replete as needed, CC/heart healthy diet as tolerated Ppx - patient on anticoagulation with Eliquis, will continue. Continue home Prilosec Code - Full per discussion with patient. Reluctant to answer yes, states that she wants to be brought back if we can Dispo -continued stay, but patient hopeful for discharge to home tomorrow Subjective Patient still feeling short of breath not much improved from yesterday, but is still anxious about trying to leave the hospital tomorrow. Not coughing up anything. Denies chest pain, no nausea. Review of Systems Review of Systems: All systems reviewed & are unremarkable except as noted in HPI & below Physical Exam Constitutional: WD/WN, vitals as above + obese; no acute distress Eyes: + anicteric sclerae ENMT: external ear and nose normal, oropharynx normal Neck: trachea midline, no thyromegaly Respiratory: normal respiratory effort; no labored breathing Auscultation: + diminished lung sounds (throughout) and + wheezes Cardiovascular: RRR, no murmur, no edema Chest (Breasts): Chest: normal inspection of chest Gastrointestinal (Abdomen): normal bowel sounds, soft, nontender, no hepatosplenomegaly Musculoskeletal: Extremities: extremities normal to inspection; no cyanosis and no clubbing Skin: no rashes, warm and dry Neurologic: moves all extremities and awake; no focal motor deficits Psychiatric: A+Ox3, euthymic affect Lymphatic: no lymphedema Results & Data Vital Signs (Past 12 Hours) Vital Signs Temp Pulse Resp BP BP Pulse Ox 06/18/19 15:26 36.9 C 86 22 178/76 H 91 06/18/19 13:30 88 16 96 06/18/19 07:35 36.7 C 88 18 174/81 H 90 06/18/19 07:03 92 H 16 91 Laboratory Results No labs PG Care Time/CCT Total # of Minutes Spent Total Time Spent with Patient: Total time spent is greater than 50% in coordination of care (as documented) at patient's floor/unit and/or counseling patient: (1) Diabetes Diabetes mellitus complication detail: with polyneuropathy Diabetes mellitus complication status: with neurologic complications Diabetes mellitus manager terminal insulin use: with manager terminal use Diabetes mellitus type: type 2 Qualified Code(s): E11.42 - Type 2 diabetes mellitus with diabetic polyneuropathy; Z79.4 - intermediate teacher (current) use of insulin (2) Coronary artery disease Associated angina: without angina Coronary Disease-Associated Artery/Lesion type: [place] artery [place] vs. transplanted heart: [place] heart Qualified Code(s): I25.10 - Atherosclerotic heart disease of [place] coronary artery without angina pectoris (3) Back pain Back pain laterality: unspecified Back pain location: back pain in unspecified location Chronicity: unspecified Qualified Code(s): M54.9 - Dorsalgia, unspecified (4) Depression Active/Remission status: remission status unspecified Depression Type: major depressive disorder Major depression recurrence: recurrent Qualified Code(s): F33.9 - Major depressive disorder, recurrent, unspecified (5) Hyperlipidemia Hyperlipidemia type: unspecified Qualified Code(s): E78.5 - Hyperlipidemia, unspecified (6) Peripheral neuropathy Peripheral neuropathy type: polyneuropathy, unspecified Qualified Code(s): G62.9 - Polyneuropathy, unspecified (7) Hypertension Hypertension type: essential hypertension Qualified Code(s): I10 - Essential (primary) hypertension
[2019-06-18] MEDS: FLUTICASONE/SALMETEROL 250/50 (ADVAIR) 14 PUFF/1 INHALER INH SCH (20:53)
[2019-06-18] MEDS: LIDOCAINE 5% 1 PATCH TD SCH (20:56)
[2019-06-18] MEDS: DOXYCYCLINE HYCLATE 100 MG CAP PO SCH (20:58)
[2019-06-18] MEDS: BENZONATATE 100 MG CAPSULE PO PRN (21:15)
[2019-06-19] MEDS: ALBUT/IPRATROP 3MG/0.5MG NEB 3 ML VIAL NEB SCH ×3 (00:42→13:35)
[2019-06-19] MEDS ORDERED: COUGH DROP (SUGAR FREE) LOZ 24 LOZ/1 BOX BUCCAL STA (08:11)
[2019-06-19] MEDS ORDERED: predniSONE 20 MG TAB PO SCH (09:00)
[2019-06-19] MEDS ORDERED: INSULIN GLARGINE SOLOSTAR 100 UNITS/ML 3 ML PEN SC SCH (09:00)
[2019-06-19] MEDS: DOXYCYCLINE HYCLATE 100 MG CAP PO SCH (09:09)
[2019-06-19] MEDS: GABAPENTIN 100 MG CAP PO SCH (09:09)
[2019-06-19] MEDS: ACETAMINOPHEN 500 MG TAB PO SCH (09:09)
[2019-06-19] MEDS: PANTOprazole 40 MG TAB PO SCH (09:10)
[2019-06-19] MEDS: ROSUVASTATIN CALCIUM 20 MG TAB PO SCH (09:10)
[2019-06-19] MEDS: guaiFENesin 600 MG TABCR PO SCH (09:10)
[2019-06-19] MEDS: FUROSEMIDE 20 MG TAB PO SCH (09:10)
[2019-06-19] MEDS: SERTRALINE HCL 50 MG TABLET PO SCH (09:10)
[2019-06-19] MEDS: APIXABAN 5 MG TABLET PO SCH (09:10)
[2019-06-19] MEDS: MONTELUKAST SODIUM 10 MG TABLET PO SCH (09:11)
[2019-06-19] MEDS: ISOSORBIDE MONO EXTENDED REL 30 MG TABCR PO SCH (09:11)
[2019-06-19] MEDS: AMLODIPINE BESYLATE 5 MG TAB PO SCH (09:11)
[2019-06-19] MEDS: SOTALOL HCL 80 MG TAB PO SCH (09:11)
[2019-06-19] MEDS: POTASSIUM CHLORIDE 20 MEQ TABCR PO SCH (09:11)
[2019-06-19] MEDS: CLOPIDOGREL BISULFATE 75 MG TAB PO SCH (09:11)
[2019-06-19] MEDS: LOSARTAN POTASSIUM 50 MG TAB PO SCH (09:11)
[2019-06-19] MEDS: DICLOFENAC SOD 1% GEL 100 GM TUBE EXT SCH ×2 (09:12→13:17)
[2019-06-19] MEDS: FLUTICASONE/SALMETEROL 250/50 (ADVAIR) 14 PUFF/1 INHALER INH SCH (09:12)
[2019-06-19] MEDS: POLYETHYLENE (MIRALAX) 17 GM PACK PO SCH (09:12)
[2019-06-19] MEDS: INSULIN ASPART 100 UNITS/ML 3 ML PEN SC SCH ×2 (09:16→13:15)
[2019-06-19] MEDS: BENZONATATE 100 MG CAPSULE PO PRN (09:20)
--- NOTE | 2019-06-19 09:57 | Pulmonology Progress Note ---
Date of Service June 19, 2019 Assessment & Plan (1) COPD exacerbation: --Acute on chronic hypoxic respiratory failure Secondary to COPD exacerbation --> patient back to baseline. Continue with steroids, inhaled bronchodilators, doxycycline given that the patient has prolonged QTC and we cannot use azithromycin or levofloxacin BiPAP nightly and PRN shortness of breath O2 supplementation to keep oxygen saturation between 88 to 92% Patient is not on optimal therapy at home for her underlying COPD. She needs to be on LABA/ICS(Breo/Advair) and LAMA(Spiriva/Incruse) inhaler at home. Patient will benefit from pulmonary rehab on discharge. Needs to follow-up with pulmonary within 10 days of discharge. Start tapering steroids today and transition to PO Prednisone. On discharge give 40 mg prednisone for 3 days followed by 20 mg prednisone for 2 days. Would recommend giving extra dose of prednisone just in case. No further intervention from pulmonary perspective. Will sign off, recall if needed. --Possible MINH Positive snoring and daytime lethargy and somnolence. 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 (2) Acute and chronic respiratory failure with hypoxia: (3) MINH (obstructive sleep apnea): Subjective Patient seen and examined at bedside. No acute distress, no adverse events overnight. Shortness of breath is improved compared to at the time of admission. Patient does say that she still gets short of breath on exertion which is her baseline. Patient denies any chest pain, no dizziness, no palpitation. Good appetite. No nausea or vomiting. No dysuria, no diarrhea, no hematuria. No headache. At the time of examination patient was saturating 93% on 4 L nasal cannula with heart rate of 91 at rest. Review of Systems Review of Systems: All systems reviewed & are unremarkable except as noted in HPI & below Physical Exam Physical Exam: Constitutional: No acute distress HEENT: EOMI, PERRLA Respiratory system: Decreased air entry bilaterally, minimal expiratory wheeze bilaterally, no rhonchi, no crackles CVS: S1-S2 positive, no murmurs or gallops, tachycardia Abdomen: Soft, nontender, nondistended, positive bowel sounds x4 Extremities: +2 pulses bilaterally radialis/ dorsalis pedis, no cyanosis, no huey ma Neuro: Awake alert oriented x3 Psych: Normal mood and affect G/U: No Mott Skin: no rashes, warm and dry Lymphatic: no cervical or axillary lymphadenopathy Results & Data Vital Signs (Past 12 Hours) Vital Signs Temp Pulse Resp BP BP Pulse Ox 06/19/19 07:24 36.7 C 94 H 20 178/78 H 95 06/19/19 07:00 69 18 95 06/19/19 00:43 73 16 94 06/18/19 22:22 36.7 C 83 20 171/81 H 91 06/17/19 05:52 06/17/19 05:52 PG Care Time/CCT Total # of Minutes Spent Total Time Spent with Patient: Total time spent is greater than 50% in coordination of care (as documented) at patient's floor/unit and/or counseling patient:
--- NOTE | 2019-06-19 14:35 | Discharge Summary ---
Date of Service June 19, 2019 Admission HPI Per Admitting Provider Mariana Elam is a 73yo C female with history of O2 dependent COPD (4L at home), HTN, HLP, DM, AF presenting with SOB and low back pain. She reports that she has baseline SOB and PAPPAS, on 4L of O2 at home. Acute worsening over the last 3 days. She reports a recent URI. Now with dry cough, wheeze. She denies fevers/chills/purulent sputum/sweats. Denies orthopnea/edema or weight gain. She also has chronic low back pain for the last few years - has been told that she has arthritis in her back. This pain has markedly increased over the last 3 days as well. Mostly left flank, pain with movement and deep inspiration. She has been using her nebulizer three times daily at home and her Albuterolinhaler as needed with some improvement in symptoms. She follows with Pulmonary - had an appointment yesterday which she was unable to make due to icy road conditions. ER Course: Albuterol, Azithromycin, Ceftriaxone, Solumedrol, Morphine, Zofran Principal Diagnosis COPD Exacerbation Discharge Exam Constitutional WD/WN, vitals as above + obese; no acute distress Eyes + anicteric sclerae ENMT external ear and nose normal, oropharynx normal Neck trachea midline, no thyromegaly Respiratory normal respiratory effort; no labored breathing Auscultation: + diminished lung sounds (throughout) and + wheezes (mild but much improved from previous) Cardiovascular RRR, no murmur, no edema Chest (Breasts) Chest: normal inspection of chest Gastrointestinal (Abdomen) normal bowel sounds, soft, nontender, no hepatosplenomegaly Musculoskeletal Extremities: extremities normal to inspection; no cyanosis and no clubbing Skin no rashes, warm and dry Neurologic moves all extremities and awake; no focal motor deficits Psychiatric A+Ox3, euthymic affect Lymphatic no lymphedema Discharge Data Allergies Allergy/AdvReac Type Severity Reaction Status Date / Time fentanyl Allergy Intermediate RASH Verified 06/16/19 19:56 levofloxacin Allergy Intermediate UNKNOWN Verified 06/16/19 19:56 Penicillins Allergy Intermediate RASH Verified 06/16/19 19:56 sulfamethoxazole Allergy Unknown Verified 06/16/19 19:56 [From Bactrim] trimethoprim [From Bactrim] Allergy Unknown Verified 06/16/19 19:56 Ethanol Allergy Intermediate RASH Uncoded 06/16/19 19:56 Consultations 06/16/19 20:51 ED Decision to Admit Stat 06/17/19 08:53 Consult Pulmonology Routine Ordered Studies CXR Hospital Course (1) Acute and chronic respiratory failure with hypoxia: Acute and chronic respiratory failure with hypoxia-improved back to baseline level of dyspnea, on home O2 4LNC -due to COPD exacerbation -Continue supplemental O2 to keep pulse ox between than 88%-92%-pt and counseled on this- and family members will often see her looking SOB and turn her O2 up to 4-6L without checking her POx first -Continue steroid taper down and finish course of doxycycline after discharge No hypercapnia on blood gas (2) COPD exacerbation: Patient with three days of progressive SOB, dry cough prior to admission. Diffuse wheezing on exam now improved. No evidence of PNA on CXR. Improved since admission and back to baseline with treatment with IV steroids, ATC nebs Started ADvair She cannot tolerate Spiriva in the past-gave her headaches so will not prescribe LAMA -Continue nebs at home prn -continue prednisone 40 mg daily x 3 days and then 20mg daily x 2 days as per pulmonology -Continue Mucinex -Continue Singulair -Continue supplemental O2 -Pulmonary recommending formal sleep study as an outpatient, however she adamantly refuses BiPAP and does not want an outpt sleep study as she says she would never wear a CPAP or BiPAP -continue angela kovacs (3) Back pain: Tenderness to palpation over paraspinal musculature. ?Musculoskeletal pain in setting of cough Patient reports this is been going on for years Now resolved X-rays of the T and L-spine are negative for fracture -Tylenol 1gm po TID given and helped -Lidoderm patch given here-can buy this OTC -Added Voltaren gel 4 times daily (4) Peripheral neuropathy: Chronic. Stable -Continue Gabapentin (5) Prolonged QT syndrome: Noted -Avoid QT prolonging agents (6) Coronary artery disease: Stable CAD. Patient denies CP. No evidence of acute ischemia on EKG -Continue Plavix, Crestor, Imdur and Cozaar (7) Paroxysmal atrial fibrillation: Patient presently in NSR -Continue Eliquis, sotalol (8) Depression: Chronic. Stable -Continue Sertraline (9) Hyperlipidemia: Chronic. Stable -Continue Crestor (10) Hypertension: Blood pressure markedly elevated on arrival 225/92, most likely contributing to SOB as well. Continues to be somewhat elevated likely secondary to COPD exacerbation and steroid use -Added on hydralazine 25mg p.o. tid -Continue Imdur, Cozaar, Amlodipine, Lasix -Is on sotalol for rhythm control, would not add another beta-jone -Continue to monitor as an outpt (11) Diabetes: With hyperglycemia secondary to corticosteroids last EonN7V=4.2 in March Hyperglycemia persists but improved -Continue Toujeo upon dc and increase to 65 units daily -continue home ISS (12) DVT prophylaxis: F/E/N - heplock. Monitor electrolytes and replete as needed, CC/heart healthy diet as tolerated Ppx - patient on anticoagulation with Eliquis, will continue. Continue home Prilosec Code - Full per discussion with patient. Reluctant to answer yes, states that she wants to be brought back if we can Dispo -stable for dc to home Total Time Total Time Spent Total Time Spent (In Minutes): 35 min Total Time Includes: Examination of the Patient, Discharge Planning and Medication Reconciliation Discharge Plan Discharge Items Patient Disposition: Home - Home Health Services Reason For Visit: COPD EXAC Discharge Diagnosis: COPD Exacerbation Condition on Discharge: Fair Activity: Resume your previous activity Non-emergency contact: Primary Care Provider and [facility] Call non-emergency contact if: you have any medication questions and your symptoms worsen Follow-up/Referrals: Adi Ledesma PA-C [Physician [place] [facility]] - 07/06/19 11:00 am (Please, follow up with Ashish Ledesma PA-C at the [facility] Pulmonology Office at [facility] on FridayJuly 06 at 11:00 am. *If you need to change this appointment, call the office at [phone].) Jennifer Viramontes PA-C [Primary Care Provider] - 06/28/19 2:20 pm (Please, follow up with Jennifer Viramontes PA-C on FridayJune 28 at 2:20 pm. *If you need to change this appointment, call the office at [phone].) Diet: Carb Consistent or DM2, Heart Healthy and Low Sodium (2gm) Addtl Attending Provider Instructions: Finish out the course of doxycycline as your antibiotic for bronchitis. You can take tessalon perles as needed for cough. Please take prednisone 40mg daily x 3 days, then 20mg daily x 2 days, then STOP. You will be given some extra prednisone just in case you need it after that. You were started on Advair as a twice daily inhaler EVERY DAY NO MATTER WHAT. This will hopefully help to keep you from having exacerbations of your COPD. It is important to avoid all second and third-hand cigarette smoke, any chemicals or fumes, perfumes, etc. that could stimulate breathing difficulties. You should try to keep your oxygen levels between 88-92% on your pulse oximeter on your finger. Do not turn up the oxygen above 4 liters unless your oxygen drops below 88%. Your blood pressure was very high and you were started on a new medication to help bring it down called hydralazine. This is to be taken three times a day. Please follow up with the [facility] and your PCP as scheduled for you. Pending Studies at Discharge: No Stand-Alone Forms: My [facility] Medications and DC Order Prescriptions: New doxycycline hyclate 100 mg Capsule 100 mg PO BID Qty: 10 RF: 0 hydralazine 25 mg Tablet 25 mg PO Q8 Qty: 90 RF: 0 acetaminophen 500 mg Tablet 1,000 mg PO TID PRN (Reason: back pain) Qty: 30 RF: 0 diclofenac sodium [Voltaren] 1 % Gel 4 g EXT QID Qty: 100 RF: 0 prednisone 20 mg Tablet 40 mg PO DAILY Qty: 14 RF: 0 benzonatate [Tessalon Perles] 100 mg Capsule 200 mg PO TID PRN (Reason: cough) Qty: 30 RF: 0 fluticasone propion-salmeterol [Advair Diskus] 250-50 mcg/dose Blister With Device 1 puffs inhalation BID Qty: 60 RF: 0 Continued ipratropium-albuterol 0.5 mg-3 mg(2.5 mg base)/3 mL solution for nebulization 3 ml inhalation Q4H PRN (Reason: shortness of breath or wheezing) Qty: 270 RF: 1 potassium chloride 20 mEq tablet extended release 20 meq PO BID RF: 0 rosuvastatin [Crestor] 20 mg tablet 20 mg PO DAILY RF: 0 albuterol sulfate 90 mcg/actuation HFA aerosol inhaler 2 puff inhalation Q4 PRN (Reason: Shortness Of Breath Or Wheezing) RF: 0 montelukast 10 mg tablet 10 mg PO DAILY RF: 0 triamcinolone acetonide 0.1 % cream 1 applic topical TID PRN (Reason: BREAK OUTS) RF: 0 clopidogrel [Plavix] 75 mg tablet 75 mg PO DAILY RF: 0 amlodipine [Norvasc] 10 mg tablet 10 mg PO DAILY RF: 0 sodium chloride [Bauxite Saline] 0.65 % aerosol,spray 1 sprays INTNAS BID PRN (Reason: Nasal Congestion) RF: 0 isosorbide mononitrate 30 mg tablet extended release 24 hr 30 mg PO DAILY Qty: 30 RF: 0 sotalol [Betapace] 80 mg tablet 40 mg PO DAILY RF: 0 Eliquis 5 mg tablet 5 mg PO BID RF: 0 gabapentin 100 mg Capsule 100 mg PO BID RF: 0 losartan [Cozaar] 100 mg Tablet 100 mg PO DAILY RF: 0 sertraline [Zoloft] 50 mg Tablet 50 mg PO DAILY RF: 0 Prilosec OTC 20 mg Tablet,Delayed Release (Dr/Ec) 20 mg PO BID RF: 0 guaifenesin [Mucinex] 600 mg Tablet Extended Release 12hr 600 mg PO BID RF: 0 furosemide 20 mg Tablet 10 mg PO DAILY RF: 0 Novolog U-100 Insulin aspart 100 unit/mL Solution 1 sliding scale dose SUBCUT USEASDIRECTD RF: 0 Changed Toujeo SoloStar U-300 Insulin 300 unit/mL (1.5 mL) Insulin Pen 65 unit SUBCUT DAILY Qty: 0 RF: 0 Discharge Orders: Discharge Order (Routine); Ordered 06/19/19 Ordered By: Farzaneh Poe Admission Data Admit Date/Time: 06/16/19 22:12 Attending Provider: Farzaneh Poe Admit Provider: Delia Leslie Primary Care Provider: Jennifer Viramontes. Other Providers: Delia Leslie ; Carl Jimenez
== END 2019-06-19 15:01 | disposition home health service (06) | DRG 190 ==
LOC: ED 17:37 → 4W 22:12 → SUATTDRO 22:12 → 4W 22:59

== ENCOUNTER 2020-04-11 14:36 | Observation (INO) ==
[2020-04-11] MEDS ORDERED: DEXAMETHASONE SOD INJ 10 MG/ML VIAL IV ONE (14:54)
[2020-04-11] MEDS ORDERED: MAGNESIUM SULFATE / D5W 1 GM/100 ML BAG IV SCH (14:56)
[2020-04-11 15:42] LABS: Basophils # (auto) 0.02 K/uL (0-0.2); Basophils % (auto) 0.2 %; Eosinophils % (auto) 2.8 %; Hematocrit (blood only) 32.4 % (37-47); Hemoglobin 9.6 g/dL (12.0-16.0); Immature Granulocytes # (auto) 0.07 K/uL (0.00-0.02); Immature Granulocytes % (auto) 0.7 %; Lymphocytes # (auto) 1.79 K/uL (1.2-3.4); Lymphocytes % (auto) 16.8 %; Mean Corpuscular Hemoglobin 23.7 pg (25-34); Mean Corpuscular Hgb Conc 29.6 g/dL (32-36); Monocytes # (auto) 0.92 K/uL (0.11-0.59); Monocytes % (auto) 8.7 %; Neutrophils # (auto) 7.53 K/uL (1.4-6.5); Neutrophils % (auto) 70.8 %; Platelet Count 260 K/uL (130-400); RDW Coefficient of Variation 18.3 % (11.5-14.5); RDW Standard Deviation 53.5 fL (36.4-46.3); Red Blood Count 4.05 M/uL (4.2-5.4); White Blood Count 10.63 K/uL (4.8-10.8)
--- NOTE | 2020-04-11 15:44 | XRay Report ---
XR chest 1V portable CLINICAL HISTORY: Dyspnea COMPARISON STUDY: Chest radiograph July 29, 2019. Chest CT April 15, 2019. FINDINGS: Mild cardiomegaly is unchanged. Opacity at the right cardiophrenic angle represents epicard ial fat pad. There is no pneumothorax or pleural effusion. No consolidation is identified. Linear rig ht basilar opacity represents atelectasis or scarring. The appearance of the chest is unchanged. Medi astinal surgical clips are noted. There is underlying emphysema. IMPRESSION: 1. No acute cardiopulmonary findings. No change in appearance of the chest. 2. Emphysema. ACT 112: Negative or not required by law. Electronically signed by: Obinna Weinberg M.D. 04/11/2020 3:43 PM
[2020-04-11 15:54] LABS: INR 1.1 (0.9-1.1); Partial Thromboplastin Ratio 1.1; Partial Thromboplastin Time 31.1 Seconds (21.0-31.0); Prothrombin Time 11.6 Seconds (9.0-12.0)
--- NOTE | 2020-04-11 15:56 | Emergency Department Note ---
Impression & Plan Acute exacerbation of chronic obstructive pulmonary disease (COPD), Cough, Breathlessness ED Provider Note Provider: Jayy Garcia MD DATE OF SERVICE:04/11/2020 CHIEF COMPLAINT: Shortness of breath, cough HISTORY OF PRESENT ILLNESS: Patient is a 74-year-old female with a history of COPD on chronic oxygen, cardiac disease, paroxysmal atrial fibrillation, diabetes, hyperlipidemia presenting here today due to 4 days of worsening shortness of breath and cough. Patient states she has significant dyspnea with exertion and has some difficulty lying flat at home. Denies left leg swelling o r recent travel. Has been around some grandchildren recently but they have not been ill. States mildly some intermittent chest discomfort but denies significant. States some nausea at times but not currently. Denies abdominal pain at this point will recently. States she is loose stool last night but denies significant history of diarrhea. Patient states she been using her nebulizer without significant improvement. Patient states she feels worse when she has been bit before and her breathing is quite bad. Somewhat productive cough. REVIEW OF SYSTEMS: A total of 10 review of systems was obtained and negative except as stated above in the HPI. PAST MEDICAL HISTORY: As noted above MEDICATIONS: Reviewed home medication list were significant for his Plavix and Eliquis in addition to aspirin. SOCIAL HISTORY: Former smoker, lives at home with PHYSICAL EXAM: GENERAL: alert and oriented on the stretcher on nasal cannula oxygen coughing Head: normocephalic and atraumatic EYES: No injection, discharge or icterus. NECK: Trachea midline. Supple. ENT: Mucous membranes pink and moist. LUNGS: Airway patent. No retractions but mildly increased work of breathing and slight tachypnea. Breath sounds with expiratory wheeze and intermittent cough. Becomes winded even transferring from wheelchair to stretcher. HEART: Regular rate and rhythm. No chest wall tenderness ABDOMEN: Soft and non-tender, without guarding or rebound. SKIN: Acyanotic, warm, dry, without rashes EXTREMITIES: Without swelling, tenderness or deformity NEUROLOGICAL: No focal deficits. No aphasia. No facial droop or slurred speech. Ambulatory. EK bpm normal sinus rhythm without PVC or PAC. No acute ST segment elevation or depression. aVL T wave inversion noted. Compared to previous from July 29 this year no significant changes. CONTINUOUS CARDIAC MONITORING: was ordered and showed a heart rate of 94 bpm in normal sinus rhythm Patient's laboratory studies and imaging reviewed. Differential includes Reactive airway disease, pneumonia, pneumothorax, COPD, CHF, infections, cardiac ischemia, pulmonary embolism, musculoskeletal, gastrointestinal, as well as other pathologies. IMPRESSION/MEDICAL DECISION MAKING: Patient presents complaining worsening dyspnea on exertion or shortness of breath. Some moderate chest pain at times. Is anticoagulated on Eliquis and this lowers my suspicion for PE. EKG without acute findings for ACS troponin was sent to help exclude this. Likely this is underlying pulmonary pathology with her bad COPD already. States has had little bit of weakness and fatigue at times and given such a VBG was obtained. Lactate likely not significantly elevated. Blood cultures were obtained. Respiratory panel and coronavirus test was sent to help exclude these etiologies. Given a dose of dexamethasone steroid to help with her respiratory status and given some magnesium as well. Chest x-ray per my interpretation per radiology without evidence of pneumothorax or lobar pneumonia. Question if her symptoms are all related to possible COPD exacerbation. Benign abdomen doubt acute abdominal pathology. No significant continual pain symptoms and seems atypical presentation for dissection at this point. Does not appear that fluid overloaded and I doubt acute CHF. Laboratory studies without significant leukocytosis and baseline anemia. No hypercarbia on VBG. Renal function and electrolytes without significant abnormality. Lactate not elevated. Negative troponin. Respiratory panel/coronavirus PCR again is pending and later returns as negative without evidence of viral infection listed on the panel. Will give a dose of doxycycline for possible atypical pneumonia given concerns for COPD exacerbation/bronchitis. Given a DuoNeb here for 1 hour. Upon reassessment the patient still with significant expiratory wheeze and is junky intermittent cough. At rest no issues and she did tolerate a tray but discussed with her options at this point. She was initially inclined to go home after extensive discussion with her and her and myself she was agreeable further observation and care here at the hospital given her respiratory symptoms. Hospitalist was contacted. DIAGNOSIS: COPD laceration/bronchitis DISPOSITION: Hospitalist will evaluate Patient was agreeable with this plan. Past Med/Surg History Medical History (Updated 04/11/20 @ 18:11 by Jayy Garcia M.D.) Anxiety Atrial fibrillation Chronic back pain Chronic obstructive pulmonary disease Chronically on 4 L of oxygen Depression Diabetes mellitus, type 2 GERD (gastroesophageal reflux disease) History of coronary artery disease Hyperlipidemia Hypertension Lung cancer Myocardial Infarction Pneumonia Syncope Valvular heart disease Surgical History (Updated 09/29/19 @ 08:57 by Ambar Oscar) History of heart artery stent History of lobectomy of lung Patient had a lobectomy for lung cancer of her right lung 2014 History of thoracotomy Family History (Updated 09/29/19 @ 08:58 by Ambar Oscar) Unknown Cancer Father Myocardial infarction Heart disease Brother Myocardial infarction Heart disease Sister Heart disease Stroke Mother Diabetes Other Lung cancer Social History Smoking Status: Former smoker Cigarettes Per Day: 40; Second Hand Exposure: No; Hx Alcohol Use: No Hx Substance Use: No Preferred Language: Marshallese Communication Ability: Effective Visual Impairment: No Limitations Bar Manager Required: No Beliefs That Will Affect Care: None Current Living Situation: Spouse Feels Safe at Home: Yes Assistive Devices: Oxygen - Continuous Allergies Allergies Allergy/AdvReac Type Severity Reaction Status Date / Time fentanyl Allergy Intermediate RASH Verified 04/11/20 18:40 levofloxacin Allergy Intermediate UNKNOWN Verified 04/11/20 18:40 Penicillins Allergy Intermediate RASH Verified 04/11/20 18:40 sulfamethoxazole Allergy Unknown Verified 04/11/20 18:40 [From Bactrim] trimethoprim [From Bactrim] Allergy Unknown Verified 04/11/20 18:40 Ethanol Allergy Intermediate RASH Uncoded 04/11/20 18:40 Home Meds Home Medications Medication Instructions Recorded Confirmed furosemide 10 mg PO DAILY 01/04/19 04/11/20 gabapentin 100 mg PO BID 01/04/19 04/11/20 guaifenesin [Mucinex] 600 mg PO BID PRN 01/04/19 04/11/20 insulin aspart U-100 [Novolog 1 sliding scale dose SUBCUT 01/04/19 04/11/20 U-100 Insulin aspart] USEASDIRECTD losartan [Cozaar] 100 mg PO DAILY 01/04/19 04/11/20 sertraline [Zoloft] 50 mg PO DAILY 01/04/19 04/11/20 albuterol sulfate 90 mcg/actuation 2 puff INHALATION Q4 PRN gm 02/10/19 04/11/20 aerosol inhaler amlodipine 10 mg tablet 10 mg PO DAILY tab 02/10/19 04/11/20 isosorbide mononitrate 30 mg 30 mg PO DAILY #30 tab 02/10/19 04/11/20 tablet,extended release 24 hr montelukast 10 mg tablet 10 mg PO DAILY tab 02/10/19 04/11/20 potassium chloride 20 mEq 20 meq PO BID tab 02/10/19 04/11/20 tablet,extended release rosuvastatin 20 mg tablet 20 mg PO DAILY tab 02/10/19 04/11/20 sodium chloride 0.65 % nasal spray 1 sprays INTNAS BID PRN 02/10/19 04/11/20 aerosol triamcinolone acetonide 0.1 % 1 applic TOPICAL TID PRN gm 02/10/19 04/11/20 topical cream Eliquis 5 mg PO BID 04/14/19 04/11/20 sotalol [Betapace] 40 mg PO DAILY 04/14/19 04/11/20 Toutamy SoloStar U-300 Insulin 70 unit SUBCUT QAM 07/29/19 04/11/20 cyanocobalamin (vitamin B-12) 1,000 mcg SUBCUT UD 07/29/19 04/11/20 diclofenac sodium [Voltaren] 4 g EXT QID PRN 07/29/19 04/11/20 diltiazem HCl 180 mg PO DAILY 07/29/19 04/11/20 nitroglycerin 0.4 mg SUBLINGUAL UD PRN 07/29/19 04/11/20 omeprazole 20 mg PO BID 07/29/19 04/11/20 aspirin 81 mg tablet,delayed 81 mg PO DAILY 03/20/20 04/11/20 release Previous Rx's Medication Instructions Recorded ipratropium 0.5 mg-albuterol 3 mg 3 ml INHALATION Q4H PRN #270 ml 03/17/19 (2.5 mg base)/3 mL nebulization soln acetaminophen 1,000 mg PO TID PRN #30 tab 06/19/19 famotidine [Pepcid] 40 mg PO BID #30 tab 07/29/19 ferrous sulfate 140 mg (45 mg 140 mg PO DAILY #30 tab 04/03/20 iron) tablet,extended release Results & Data (ED) Vital Signs Vital Signs - 24 hr 04/11/20 14:38 04/11/20 15:00 04/11/20 15:06 Temperature 37.0 C Temperature Source Oral Pulse Rate 87 81 Pulse Rate [Apical] Pulse Rhythm Regular Pulse Rhythm [Apical] Pulse Strength [Apical] Respiratory Rate 18 Respiratory Effort / Characteristics Spontaneous Accessory Muscle Use Labored Short of Breath SOB on Exertion Respiratory Depth Normal Retractive Respiratory Pattern Tachypnea Blood Pressure 192/88 H Blood Pressure [Right Arm] Blood Pressure Mean 122 Blood Pressure Mean [Right Arm] Blood Pressure Position [Right Arm] Pulse Oximetry 95 97 97 Oxygen Delivery Method Nasal Cannula Nasal Cannula Oxygen Flow Rate 4 4 Sepsis Recent Fever Within 48 Hours No Sepsis New/Unexplained Change in Mental Status No Sepsis Action Taken by Nursing No Action Required 04/11/20 16:34 04/11/20 16:51 04/11/20 17:27 Temperature Temperature Source Pulse Rate Pulse Rate [Apical] 83 81 97 H Pulse Rhythm Pulse Rhythm [Apical] Regular Regular Pulse Strength [Apical] Normal Normal Respiratory Rate 22 18 24 Respiratory Effort / Characteristics Non-Labored Spontaneous Non-Labored Spontaneous Spontaneous Accessory Muscle Use Labored Respiratory Depth Normal Normal Respiratory Pattern Regular Regular Blood Pressure Blood Pressure [Right Arm] 172/88 H 164/109 H Blood Pressure Mean Blood Pressure Mean [Right Arm] 116 127 Blood Pressure Position [Right Arm] Sitting Sitting Pulse Oximetry 97 98 97 Oxygen Delivery Method Nasal Cannula Nasal Cannula Nasal Cannula Oxygen Flow Rate 4 4 4 Sepsis Recent Fever Within 48 Hours Sepsis New/Unexplained Change in Mental Status Sepsis Action Taken by Nursing 04/11/20 19:00 04/11/20 19:30 04/11/20 19:44 Temperature Temperature Source Pulse Rate 98 H 100 H Pulse Rate [Apical] 100 H Pulse Rhythm Pulse Rhythm [Apical] Pulse Strength [Apical] Respiratory Rate 15 19 15 Respiratory Effort / Characteristics Respiratory Depth Respiratory Pattern Blood Pressure Blood Pressure [Right Arm] 175/96 H Blood Pressure Mean Blood Pressure Mean [Right Arm] 122 Blood Pressure Position [Right Arm] Pulse Oximetry 95 Oxygen Delivery Method Nasal Cannula Nasal Cannula Nasal Cannula Oxygen Flow Rate 4 4 4 Sepsis Recent Fever Within 48 Hours Sepsis New/Unexplained Change in Mental Status Sepsis Action Taken by Nursing Laboratory Data Result diagrams: 04/11/20 15:11 04/11/20 15:11 Lab Results 04/11/20 04/11/20 04/11/20 Range/Units 15:11 15:11 15:11 WBC 10.63 (4.8-10.8) K/uL RBC 4.05 L (4.2-5.4) M/uL Hgb 9.6 L (12.0-16.0) g/dL Hct 32.4 L (37-47) % MCV 80.0 (80-100) fL MCH 23.7 L (25-34) pg MCHC 29.6 L (32-36) g/dL RDW Std Deviation 53.5 H (36.4-46.3) fL RDW Coeff of Royer 18.3 H (11.5-14.5) % Plt Count 260 (130-400) K/uL MPV 11.0 H (7.4-10.4) fL Immature Gran % (Auto) 0.7 % Neut % (Auto) 70.8 % Lymph % (Auto) 16.8 % Andrews % (Auto) 8.7 % Eos % (Auto) 2.8 % Baso % (Auto) 0.2 % Neut # (Auto) 7.53 H (1.4-6.5) K/uL Lymph # (Auto) 1.79 (1.2-3.4) K/uL Andrews # (Auto) 0.92 H (0.11-0.59) K/uL Eos # (Auto) 0.30 (0-0.5) K/uL Baso # (Auto) 0.02 (0-0.2) K/uL Immature Gran # (Auto) 0.07 H (0.00-0.02) K/uL PT 11.6 (9.0-12.0) Seconds INR 1.1 (0.9-1.1) APTT 31.1 H (21.0-31.0) Seconds PTT Ratio 1.1 VBG pH (7.36-7.41) VBG pCO2 (38-50) mmHg VBG pO2 mmHg VBG HCO3 mmol/L VBG O2 Saturation % VBG Base Excess mEq/L Barometric Pressure mm/Hg Sodium 138 (136-145) mmol/L Potassium 4.1 (3.5-5.1) mmol/L Chloride 105 (98-107) mmol/L Carbon Dioxide 27 (21-32) mmol/L Anion Gap 6.0 (3-11) BUN 15 (7-18) mg/dl Creatinine 0.99 (0.6-1.2) mg/dl Est Cr Clr Drug Dosing Not Reportable Est GFR ( Amer) 66.0 Est GFR (Non-Af Amer) 56.9 BUN/Creatinine Ratio 15.4 (10-20) Glucose 204 H (70-99) mg/dl Lactate (0.4-2.0) mmol/L Calcium 9.7 (8.5-10.1) mg/dl Magnesium 2.2 (1.8-2.4) mg/dl Total Bilirubin 0.3 (0.2-1) mg/dl AST 15 (15-37) U/L ALT 21 (12-78) U/L Alkaline Phosphatase 78 (45-117) U/L Troponin I < 0.015 (0-0.045) ng/ml Total Protein 7.6 (6.4-8.2) gm/dl Albumin 3.6 (3.4-5.0) gm/dl Globulin 4.0 (2.5-4.0) gm/dl Albumin/Globulin Ratio 0.9 (0.9-2) Procalcitonin (0-0.5) ng/ml Adenovirus (PCR) (NotDetected) B. pertussis DNA (PCR) (NotDetected) B.parapertussis DNA PCR (NotDetected) C. pneumoniae DNA (PCR) (NotDetected) Coronavirus OC43 (PCR) (NotDetected) Coronavirus HKU1 (PCR) (NotDetected) Coronavirus 229E (PCR) (NotDetected) COVID-19 PCR (NotDetected) Coronavirus NL63 (PCR) (NotDetected) Human Metapneumovir PCR (NotDetected) Influenza Type A (PCR) (NotDetected) Influenza Type B (PCR) (NotDetected) M. pneumoniae (PCR) (NotDetected) Parainfluenza 1 (PCR) (NotDetected) Parainfluenza 2 (PCR) (NotDetected) Parainfluenza 3 (PCR) (NotDetected) Parainfluenza 4 (PCR) (NotDetected) RSV (PCR) (NotDetected) Entero/Rhino (PCR) (NotDetected) 04/11/20 04/11/20 04/11/20 Range/Units 15:11 15:11 15:22 WBC (4.8-10.8) K/uL RBC (4.2-5.4) M/uL Hgb (12.0-16.0) g/dL Hct (37-47) % MCV (80-100) fL MCH (25-34) pg MCHC (32-36) g/dL RDW Std Deviation (36.4-46.3) fL RDW Coeff of Royer (11.5-14.5) % Plt Count (130-400) K/uL MPV (7.4-10.4) fL Immature Gran % (Auto) % Neut % (Auto) % Lymph % (Auto) % Andrews % (Auto) % Eos % (Auto) % Baso % (Auto) % Neut # (Auto) (1.4-6.5) K/uL Lymph # (Auto) (1.2-3.4) K/uL Andrews # (Auto) (0.11-0.59) K/uL Eos # (Auto) (0-0.5) K/uL Baso # (Auto) (0-0.2) K/uL Immature Gran # (Auto) (0.00-0.02) K/uL PT (9.0-12.0) Seconds INR (0.9-1.1) APTT (21.0-31.0) Seconds PTT Ratio VBG pH (7.36-7.41) VBG pCO2 (38-50) mmHg VBG pO2 mmHg VBG HCO3 mmol/L VBG O2 Saturation % VBG Base Excess mEq/L Barometric Pressure mm/Hg Sodium (136-145) mmol/L Potassium (3.5-5.1) mmol/L Chloride (98-107) mmol/L Carbon Dioxide (21-32) mmol/L Anion Gap (3-11) BUN (7-18) mg/dl Creatinine (0.6-1.2) mg/dl Est Cr Clr Drug Dosing Est GFR ( Amer) Est GFR (Non-Af Amer) BUN/Creatinine Ratio (10-20) Glucose (70-99) mg/dl Lactate 1.3 (0.4-2.0) mmol/L Calcium (8.5-10.1) mg/dl Magnesium (1.8-2.4) mg/dl Total Bilirubin (0.2-1) mg/dl AST (15-37) U/L ALT (12-78) U/L Alkaline Phosphatase (45-117) U/L Troponin I (0-0.045) ng/ml Total Protein (6.4-8.2) gm/dl Albumin (3.4-5.0) gm/dl Globulin (2.5-4.0) gm/dl Albumin/Globulin Ratio (0.9-2) Procalcitonin < 0.05 (0-0.5) ng/ml Adenovirus (PCR) Not Detected (NotDetected) B. pertussis DNA (PCR) Not Detected (NotDetected) B.parapertussis DNA PCR Not Detected (NotDetected) C. pneumoniae DNA (PCR) Not Detected (NotDetected) Coronavirus OC43 (PCR) Not Detected (NotDetected) Coronavirus HKU1 (PCR) Not Detected (NotDetected) Coronavirus 229E (PCR) Not Detected (NotDetected) COVID-19 PCR Not Detected (NotDetected) Coronavirus NL63 (PCR) Not Detected (NotDetected) Human Metapneumovir PCR Not Detected (NotDetected) Influenza Type A (PCR) Not Detected (NotDetected) Influenza Type B (PCR) Not Detected (NotDetected) M. pneumoniae (PCR) Not Detected (NotDetected) Parainfluenza 1 (PCR) Not Detected (NotDetected) Parainfluenza 2 (PCR) Not Detected (NotDetected) Parainfluenza 3 (PCR) Not Detected (NotDetected) Parainfluenza 4 (PCR) Not Detected (NotDetected) RSV (PCR) Not Detected (NotDetected) Entero/Rhino (PCR) Not Detected (NotDetected) 04/11/20 Range/Units 15:53 WBC (4.8-10.8) K/uL RBC (4.2-5.4) M/uL Hgb (12.0-16.0) g/dL Hct (37-47) % MCV (80-100) fL MCH (25-34) pg MCHC (32-36) g/dL RDW Std Deviation (36.4-46.3) fL RDW Coeff of Royer (11.5-14.5) % Plt Count (130-400) K/uL MPV (7.4-10.4) fL Immature Gran % (Auto) % Neut % (Auto) % Lymph % (Auto) % Andrews % (Auto) % Eos % (Auto) % Baso % (Auto) % Neut # (Auto) (1.4-6.5) K/uL Lymph # (Auto) (1.2-3.4) K/uL Andrews # (Auto) (0.11-0.59) K/uL Eos # (Auto) (0-0.5) K/uL Baso # (Auto) (0-0.2) K/uL Immature Gran # (Auto) (0.00-0.02) K/uL PT (9.0-12.0) Seconds INR (0.9-1.1) APTT (21.0-31.0) Seconds PTT Ratio VBG pH 7.43 H (7.36-7.41) VBG pCO2 40 (38-50) mmHg VBG pO2 62 mmHg VBG HCO3 26 mmol/L VBG O2 Saturation 89.2 % VBG Base Excess 1.9 mEq/L Barometric Pressure 730.4 mm/Hg Sodium (136-145) mmol/L Potassium (3.5-5.1) mmol/L Chloride (98-107) mmol/L Carbon Dioxide (21-32) mmol/L Anion Gap (3-11) BUN (7-18) mg/dl Creatinine (0.6-1.2) mg/dl Est Cr Clr Drug Dosing Est GFR ( Amer) Est GFR (Non-Af Amer) BUN/Creatinine Ratio (10-20) Glucose (70-99) mg/dl Lactate (0.4-2.0) mmol/L Calcium (8.5-10.1) mg/dl Magnesium (1.8-2.4) mg/dl Total Bilirubin (0.2-1) mg/dl AST (15-37) U/L ALT (12-78) U/L Alkaline Phosphatase (45-117) U/L Troponin I (0-0.045) ng/ml Total Protein (6.4-8.2) gm/dl Albumin (3.4-5.0) gm/dl Globulin (2.5-4.0) gm/dl Albumin/Globulin Ratio (0.9-2) Procalcitonin (0-0.5) ng/ml Adenovirus (PCR) (NotDetected) B. pertussis DNA (PCR) (NotDetected) B.parapertussis DNA PCR (NotDetected) C. pneumoniae DNA (PCR) (NotDetected) Coronavirus OC43 (PCR) (NotDetected) Coronavirus HKU1 (PCR) (NotDetected) Coronavirus 229E (PCR) (NotDetected) COVID-19 PCR (NotDetected) Coronavirus NL63 (PCR) (NotDetected) Human Metapneumovir PCR (NotDetected) Influenza Type A (PCR) (NotDetected) Influenza Type B (PCR) (NotDetected) M. pneumoniae (PCR) (NotDetected) Parainfluenza 1 (PCR) (NotDetected) Parainfluenza 2 (PCR) (NotDetected) Parainfluenza 3 (PCR) (NotDetected) Parainfluenza 4 (PCR) (NotDetected) RSV (PCR) (NotDetected) Entero/Rhino (PCR) (NotDetected) Administered Medications Discontinued Medications Albuterol (Albut/Ipratrop 3mg/0.5mg Neb 3 Ml Vial) 12 ml NEB ONE ONE Stop: 04/11/20 16:40 Last Admin: 04/11/20 16:50 Dose: 12 ml Documented by: [id number] Dexamethasone (Dexamethasone Sod Inj 10 Mg/Ml Vial) 6 mg IV NOW ONE Stop: 04/11/20 14:55 Last Admin: 04/11/20 15:15 Dose: 6 mg Documented by: [id number] Doxycycline Hyclate (Doxycycline Hyclate 100 Mg Cap) 100 mg PO NOW STA Stop: 04/11/20 16:40 Last Admin: 04/11/20 17:27 Dose: 100 mg Documented by: [id number] Magnesium Sulfate/Dextrose (Magnesium Sulfate / D5w) 1 gm in 100 mls @ 400 mls/hr IV Q15M CLYDE Stop: 04/11/20 15:10 Last Infusion: 04/11/20 16:30 Dose: 0 mls/hr Documented by: [id number] Admin: 04/11/20 15:30 Dose: 400 mls/hr Documented by: [id number] Discharge Plan Visit Data Chief Complaint: Shortness of Breath/Dyspnea Stated Complaint: COUGH, SOB ED Provider: Jayy Garcia Discharge Problem: Acute exacerbation of chronic obstructive pulmonary disease (COPD), Cough, Breathlessness Patient Disposition: Being Evaluated by Hospitalist Forms Stand Alone Forms: My [facility] Prescriptions Prescriptions: No Action ipratropium-albuterol 0.5 mg-3 mg(2.5 mg base)/3 mL solution for nebulization 3 ml inhalation Q4H PRN (Reason: shortness of breath or wheezing) Qty: 270 RF: 1 arformoterol [Brovana] 15 mcg/2 mL solution for nebulization 0 mcg inhalation UD RF: 0 ferrous sulfate 140 mg (45 mg iron) tablet extended release 140 mg PO DAILY Qty: 30 RF: 5 potassium chloride 20 mEq tablet extended release 20 meq PO BID RF: 0 rosuvastatin [Crestor] 20 mg tablet 20 mg PO DAILY RF: 0 albuterol sulfate 90 mcg/actuation HFA aerosol inhaler 2 puff inhalation Q4 PRN (Reason: Shortness Of Breath Or Wheezing) RF: 0 montelukast 10 mg tablet 10 mg PO DAILY RF: 0 triamcinolone acetonide 0.1 % cream 1 applic topical TID PRN (Reason: BREAK OUTS) RF: 0 amlodipine [Norvasc] 10 mg tablet 10 mg PO DAILY RF: 0 sodium chloride [[place] Saline] 0.65 % aerosol,spray 1 sprays INTNAS BID PRN (Reason: Nasal Congestion) RF: 0 isosorbide mononitrate 30 mg tablet extended release 24 hr 30 mg PO DAILY Qty: 30 RF: 0 aspirin [Adult Low Dose Aspirin] 81 mg tablet,delayed release (DR/EC) 81 mg PO DAILY RF: 0 sotalol [Betapace] 80 mg tablet 40 mg PO DAILY RF: 0 Eliquis 5 mg tablet 5 mg PO BID RF: 0 gabapentin 100 mg Capsule 100 mg PO BID RF: 0 losartan [Cozaar] 100 mg Tablet 100 mg PO DAILY RF: 0 sertraline [Zoloft] 50 mg Tablet 50 mg PO DAILY RF: 0 guaifenesin [Mucinex] 600 mg Tablet Extended Release 12hr 600 mg PO BID PRN (Reason: Congestion) RF: 0 furosemide 20 mg Tablet 10 mg PO DAILY RF: 0 insulin aspart U-100 [Novolog U-100 Insulin aspart] 100 unit/mL Solution 1 sliding scale dose SUBCUT USEASDIRECTD RF: 0 acetaminophen 500 mg Tablet 1,000 mg PO TID PRN (Reason: back pain) Qty: 30 RF: 0 diltiazem HCl 180 mg capsule,extended release 24hr 180 mg PO DAILY RF: 0 cyanocobalamin (vitamin B-12) 1,000 mcg/mL solution 1,000 mcg subcut UD RF: 0 nitroglycerin 0.4 mg tablet, sublingual 0.4 mg sublingual UD PRN (Reason: Chest Pain) RF: 0 omeprazole 20 mg capsule,delayed release(DR/EC) 20 mg PO BID RF: 0 diclofenac sodium [Voltaren] 1 % gel 4 g EXT QID PRN (Reason: Pain) RF: 0 Toujeo SoloStar U-300 Insulin 300 unit/mL (1.5 mL) insulin pen 70 unit SUBCUT QAM RF: 0 famotidine [Pepcid] 40 mg tablet 40 mg PO BID Qty: 30 RF: 0 Referrals Referrals: Jennifer Viramontes PA-C [Primary Care Provider] -
[2020-04-11 15:59] LABS: Alanine Aminotransferase 21 U/L (12-78); Albumin Level 3.6 gm/dl (3.4-5.0); Aspartate Aminotransferase 15 U/L (15-37); BUN Creatinine Ratio 15.4 (10-20); Blood Urea Nitrogen 15 mg/dl (7-18); Calcium 9.7 mg/dl (8.5-10.1); Carbon Dioxide 27 mmol/L (21-32); Chloride 105 mmol/L (98-107); Est GFR (Non-African American) 56.9; Glucose 204 mg/dl (70-99); Magnesium 2.2 mg/dl (1.8-2.4); Potassium 4.1 mmol/L (3.5-5.1); Sodium 138 mmol/L (136-145)
[2020-04-11 16:03] LABS: Albumin Globulin Ratio 0.9 (0.9-2); Alkaline Phosphatase 78 U/L (45-117); Bilirubin,Total 0.3 mg/dl (0.2-1); Total Protein 7.6 gm/dl (6.4-8.2); Troponin I < 0.015 ng/ml (0-0.045)
[2020-04-11 16:05] LABS: Base Excess VBG 1.9 mEq/L; Oxygen Saturation VBG 89.2 %; pH VBG 7.43 (7.36-7.41)
--- NOTE | 2020-04-11 16:33 | Electrocardiogram Report ---
Test Reason : Blood Pressure : / mmHG Vent. Rate : 082 BPM Atrial Rate : 082 BPM P-R Int : 164 ms QRS Dur : 080 ms QT Int : 410 ms P-R-T Axes : 039 007 086 degrees QTc Int : 479 ms Normal sinus rhythm T wave abnormality, consider lateral ischemia Abnormal ECG When compared with ECG of 29-JUL-2019 11:28, No significant change was found Confirmed by Parish Mora ([id number]) on 04/11/2020 4:32:32 PM Referred By: REFERRED SELF Confirmed By:Parish Mora
[2020-04-11 16:37] LABS: Adenovirus PCR Not Detected (NotDetected); Bordetella parapertussis PCR Not Detected (NotDetected); Bordetella pertussis PCR Not Detected (NotDetected); Chlamydia pneumoniae PCR Not Detected (NotDetected); Coronavirus 229E PCR Not Detected (NotDetected); Coronavirus CoV-2 (COVID19)PCR Not Detected (NotDetected); Coronavirus HKU1 PCR Not Detected (NotDetected); Coronavirus NL63 PCR Not Detected (NotDetected); Coronavirus OC43PCR Not Detected (NotDetected); Human Metapneumovirus PCR Not Detected (NotDetected); Influenza A PCR Not Detected (NotDetected); Influenza B PCR Not Detected (NotDetected); Mycoplasma pneumoniae PCR Not Detected (NotDetected); Parainfluenza Virus 1 PCR Not Detected (NotDetected); Parainfluenza Virus 2 PCR Not Detected (NotDetected); Parainfluenza Virus 3 PCR Not Detected (NotDetected); Parainfluenza Virus 4 PCR Not Detected (NotDetected); Respiratory Syncytial VirusPCR Not Detected (NotDetected); Rhinovirus/Enterovirus PCR Not Detected (NotDetected)
[2020-04-11] MEDS ORDERED: DOXYCYCLINE HYCLATE 100 MG CAP PO STA (16:39)
[2020-04-11] MEDS ORDERED: ALBUT/IPRATROP 3MG/0.5MG NEB 3 ML VIAL NEB ONE (16:39)
[2020-04-11] MEDS ORDERED: SODIUM CHLORIDE 0.65% NA SOLN 45 ML (OCEAN) NAE PRN (20:35)
[2020-04-11] MEDS ORDERED: DICLOFENAC SOD 1% GEL 100 GM TUBE EXT PRN (20:35)
[2020-04-11] MEDS ORDERED: POLYETHYLENE (MIRALAX) 17 GM PACK PO PRN (20:35)
[2020-04-11] MEDS ORDERED: ONDANSETRON INJ 2 MG/ML 2 ML VIAL IV PRN (20:35)
[2020-04-11] MEDS ORDERED: XOPENEX/ATROVENT 0.63mg/0.5MG NEB COMBO NEB SCH (20:35)
[2020-04-11] MEDS ORDERED: PHARMACY GLYCEMIC MGMT CONSULT PRN (20:40)
--- NOTE | 2020-04-11 20:40 | History & Physical Report ---
Date of Service April 11, 2020 Assessment & Plan (1) Acute exacerbation of chronic obstructive pulmonary disease (COPD): Increased sputum production and cough frequency with shortness of breath on exertion Suspect secondary to not taking appropriate maintenance inhalers Levalbuterol/Ipratropium nebulizers every 6 hourly Decadron 6 mg IV given in ER. Will continue IV steroids with Solu-Medrol 60 mg tonight, then 40 mg 3 times daily. Based on prior admissions she responds poorly to lower-dose steroids. Continue Perforomist twice daily, and budesonide nebulizer twice daily Continue Spiriva Sputum culture Doxycycline 100 mg p.o. twice daily (2) Normocytic anemia: MCV low normal. Relatively acute but stable since March 20. Will work-up with iron studies, B12, folate, reticulocyte count with a.m. labs. (3) Chronic respiratory failure with hypoxia: Based on most recent ABGs she does not appear to retain carbon dioxide. Aim O2 sats > 92% (4) MINH (obstructive sleep apnea): CPAP at bedtime (5) Lung cancer: History of such. Status post lobectomy in 2013. (6) Diabetes: HbA1c with a.m. labs. 8.2 in March 2019 Hold home regimen of Toujeo 70 units SQ QAM Consult pharmacy for glycemic control with increased insulin to cover for steroids (7) Hypertension: Continue Lasix 10 mg p.o. daily, ISMN 30 mg p.o. daily, losartan 100 mg p.o. daily, sotalol 40 mg p.o. daily, diltiazem CD 180 mg p.o. daily. (8) Coronary artery disease: Continue aspirin, sotalol, isosorbide mononitrate, rosuvastatin. (9) Paroxysmal atrial fibrillation: Currently in normal sinus rhythm. Continue rhythm control with sotalol. Continue anticoagulation with apixaban 5 mg p.o. twice daily (10) Peripheral neuropathy: Continue gabapentin 100 mg p.o. twice daily (11) DVT prophylaxis: Continue apixaban 5 mg p.o. twice daily Admission and Anticipated Discharge Date Admission Date: 04/11/2020 History of Present Illness Chief Complaint: Shortness of breath on exertion Primary Care Provider: Jennifer Viramontes Mariana Elam is a 74-year-old female with severe COPD who presents to the ER with worsening shortness of breath on exertion, increased sputum production and increased cough frequency for the last 4 days. She was recently treated with prednisone and doxycycline for a COPD exacerbation although is unable to tell me when she finished the steroids this was around about 2 weeks ago. She appears to be relatively confused with outpatient regimen and is not currently taking Breo Ellipta or Symbicort. She was given Brovana nebulizer samples which she has been taking although appears to be missing an inhaled corticosteroid in her usual maintenance inhalers - she notes the Brovana may be cost prohibitive in the future without the sample packs. In addition she does not appear to be taking a long-acting muscarinic antagonist. She has been taking duo nebs every 4 hours without relief of her symptoms. Allergies Allergy/AdvReac Type Severity Reaction Status Date / Time fentanyl Allergy Intermediate RASH Verified 04/11/20 18:40 levofloxacin Allergy Intermediate UNKNOWN Verified 04/11/20 18:40 Penicillins Allergy Intermediate RASH Verified 04/11/20 18:40 sulfamethoxazole Allergy Unknown Verified 04/11/20 18:40 [From Bactrim] trimethoprim [From Bactrim] Allergy Unknown Verified 04/11/20 18:40 Ethanol Allergy Intermediate RASH Uncoded 04/11/20 18:40 Home Medications Home Medications Medication Instructions Recorded Confirmed Type furosemide 10 mg PO DAILY 01/04/19 04/11/20 History gabapentin 100 mg PO BID 01/04/19 04/11/20 History guaifenesin [Mucinex] 600 mg PO BID PRN 01/04/19 04/11/20 History insulin aspart U-100 [Novolog 1 sliding scale dose SUBCUT 01/04/19 04/11/20 History U-100 Insulin aspart] USEASDIRECTD losartan [Cozaar] 100 mg PO DAILY 01/04/19 04/11/20 History sertraline [Zoloft] 50 mg PO DAILY 01/04/19 04/11/20 History albuterol sulfate 90 mcg/actuation 2 puff INHALATION Q4 PRN gm 02/10/19 04/11/20 History aerosol inhaler amlodipine 10 mg tablet 10 mg PO DAILY tab 02/10/19 04/11/20 History isosorbide mononitrate 30 mg 30 mg PO DAILY #30 tab 02/10/19 04/11/20 History tablet,extended release 24 hr montelukast 10 mg tablet 10 mg PO DAILY tab 02/10/19 04/11/20 History potassium chloride 20 mEq 20 meq PO BID tab 02/10/19 04/11/20 History tablet,extended release rosuvastatin 20 mg tablet 20 mg PO DAILY tab 02/10/19 04/11/20 History sodium chloride 0.65 % nasal spray 1 sprays INTNAS BID PRN 02/10/19 04/11/20 History aerosol triamcinolone acetonide 0.1 % 1 applic TOPICAL TID PRN gm 02/10/19 04/11/20 History topical cream ipratropium 0.5 mg-albuterol 3 mg 3 ml INHALATION Q4H PRN #270 ml 03/17/19 04/11/20 Rx (2.5 mg base)/3 mL nebulization soln Eliquis 5 mg PO BID 04/14/19 04/11/20 History sotalol [Betapace] 40 mg PO DAILY 04/14/19 04/11/20 History acetaminophen 1,000 mg PO TID PRN #30 tab 06/19/19 04/11/20 Rx Toujeo SoloStar U-300 Insulin 70 unit SUBCUT QAM 07/29/19 04/11/20 History cyanocobalamin (vitamin B-12) 1,000 mcg SUBCUT UD 07/29/19 04/11/20 History diclofenac sodium [Voltaren] 4 g EXT QID PRN 07/29/19 04/11/20 History diltiazem HCl 180 mg PO DAILY 07/29/19 04/11/20 History famotidine [Pepcid] 40 mg PO BID #30 tab 07/29/19 04/11/20 Rx nitroglycerin 0.4 mg SUBLINGUAL UD PRN 07/29/19 04/11/20 History omeprazole 20 mg PO BID 07/29/19 04/11/20 History aspirin 81 mg tablet,delayed 81 mg PO DAILY 03/20/20 04/11/20 History release ferrous sulfate 140 mg (45 mg 140 mg PO DAILY #30 tab 04/03/20 04/11/20 Rx iron) tablet,extended release doxycycline hyclate 100 mg PO BID #6 cap 04/13/20 Rx fluticasone furoate-vilanterol 1 inh INHALATION DAILY #28 ea 04/13/20 Rx [Breo Ellipta] prednisone 10 mg PO DAILY #30 tab 04/13/20 Rx tiotropium bromide 1 cap INHALATION DAILY #30 inh 04/13/20 Rx Past Med/Surg History Medical History (Updated 04/12/20 @ 14:59 by Denver Arriaga MD) Anxiety Atrial fibrillation Chronic back pain Chronic obstructive pulmonary disease Chronically on 4 L of oxygen Depression Diabetes mellitus, type 2 GERD (gastroesophageal reflux disease) History of coronary artery disease Hyperlipidemia Hypertension Lung cancer Myocardial Infarction Pneumonia Syncope Valvular heart disease Surgical History (Updated 09/29/19 @ 08:57 by Ambar Oscar) History of heart artery stent History of lobectomy of lung Patient had a lobectomy for lung cancer of her right lung 2013 History of thoracotomy Family History (Updated 09/29/19 @ 08:58 by Ambar Oscar) Unknown Cancer Father Myocardial infarction Heart disease Brother Myocardial infarction Heart disease Sister Heart disease Stroke Mother Diabetes Other Lung cancer Social History Smoking Status: Former smoker Cigarettes Per Day: 40; Second Hand Exposure: No; Hx Alcohol Use: No Hx Substance Use: No Preferred Language: Hungarian Communication Ability: Effective Visual Impairment: No Limitations Sales And Marketing Agent Required: No Beliefs That Will Affect Care: None Current Living Situation: Spouse Feels Safe at Home: Yes Assistive Devices: Oxygen - Continuous and Walker Review of Systems Review of Systems: All systems reviewed & are unremarkable except as noted in HPI & below Physical Exam Constitutional: well developed and + obese; + not well nourished and no acute distress Eyes: + anicteric sclerae; normal pupil size ENMT: external ear and nose normal, oropharynx normal Neck: trachea midline, no thyromegaly Cardiovascular: RRR, no murmur, no edema Gastrointestinal (Abdomen): normal bowel sounds, soft, nontender, no hepatosplenomegaly Musculoskeletal: no cyanosis or clubbing, extremities motor strength 5/5 Skin: no rashes, warm and dry Neurologic: moves all extremities and awake; not confused Psychiatric: A+Ox3, euthymic affect Genitourinary: no CVA tenderness Results & Data Results & Data ([facility]) Vital Signs (Past 12 Hours) Vital Signs Temp Pulse Pulse Resp BP BP Pulse Ox 04/11/20 17:27 97 H 24 164/109 H 97 04/11/20 16:51 81 18 98 04/11/20 16:34 83 22 172/88 H 97 04/11/20 15:06 81 97 04/11/20 15:00 97 04/11/20 14:38 37.0 C 87 18 192/88 H 95 Diagnostic Findings XR chest 1V portable IMPRESSION: 1. No acute cardiopulmonary findings. No change in appearance of the chest. 2. Emphysema. ECG Indication: SOB/dyspnea Rate (beats per minute): 82 Rhythm: normal sinus Findings: no acute ischemic change Comparison ECG Date: from (July 29, 2019) Change: no significant change Code Status & VTE Plan Code Status All treatment outside of a cardiac arrest VTE Prophylaxis Plan VTE Prophylaxis will be ordered: Yes PG Care Time/CCT Total # of Minutes Spent Total Time Spent with Patient: Total time spent is greater than 50% in coordination of care (as documented) at patient's floor/unit and/or counseling patient: Coding Level of Care Code 37494 OBS Care - Level 3 Diagnoses Acute exacerbation of chronic obstructive pulmonary disease (COPD) J44.1 Normocytic anemia D64.9 Chronic respiratory failure with hypoxia J96.11 MINH (obstructive sleep apnea) G47.33 Lung cancer C34.90 Diabetes E11.42; Z79.4 Diabetes mellitus complication detail: with polyneuropathy Diabetes mellitus complication status: with neurologic complications Diabetes mellitus supervisor intermediates insulin use: with supervisor intermediates use Diabetes mellitus type: type 2 Hypertension I10 Hypertension type: essential hypertension Coronary artery disease I25.10 Associated angina: without angina Coronary Disease-Associated Artery/Lesion type: [place] artery [place] vs. transplanted heart: [place] heart Paroxysmal atrial fibrillation I48.0 Peripheral neuropathy G62.9 Peripheral neuropathy type: polyneuropathy, unspecified DVT prophylaxis Z29.9 (1) Diabetes Diabetes mellitus complication detail: with polyneuropathy Diabetes mellitus complication status: with neurologic complications Diabetes mellitus jail insulin use: with supervisor intermediates use Diabetes mellitus type: type 2 Qualified Code(s): E11.42 - Type 2 diabetes mellitus with diabetic polyneuropathy; Z79.4 - local intermodal truck driver (current) use of insulin (2) Coronary artery disease Associated angina: without angina Coronary Disease-Associated Artery/Lesion type: [place] artery [place] vs. transplanted heart: [place] heart Qualified Code(s): I25.10 - Atherosclerotic heart disease of [place] coronary artery without angina pectoris (3) Peripheral neuropathy Peripheral neuropathy type: polyneuropathy, unspecified Qualified Code(s): G 62.9 - Polyneuropathy, unspecified (4) Hypertension Hypertension type: essential hypertension Qualified Code(s): I10 - Essential (primary) hypertension
[2020-04-11] MEDS ORDERED: PATIENT'S HEIGHT AND/OR WEIGHT NEEDED SCH (21:00)
[2020-04-11] MEDS ORDERED: methylPREDNISolone 125 MG/2 ML VIAL IV ONE (21:00)
[2020-04-11] MEDS ORDERED: methylPREDNISolone 60 MG in SYRINGE 0 ML IV SCH (21:00)
[2020-04-11] MEDS ORDERED: FAMOTIDINE 40 MG TABLET PO SCH (21:00)
[2020-04-11] MEDS: LEVALBUTEROL HCL 0.63 MG/3 ML NEB NEB SCH (21:45)
[2020-04-11] MEDS: IPRATROPIUM BROMIDE NEB SOLN 0.02% 2.5 ML VIAL INH SCH (21:45)
[2020-04-11 22:34] LABS: Appearance Urine Clear (Clear); Bilirubin Urine Negative (Negative); Blood Urine Negative (Negative); Color Urine Yellow; Glucose Urine UA 3+ (Negative); Ketones Urine Negative (Negative); Leukocyte Esterase Urine Negative (Negative); Nitrite Urine Negative (Negative); Protein Urine Negative (Negative); Specific Gravity Urine 1.027 (1.000-1.030); Urobilinogen Urine Negative (Negative); pH Urine 5.5 (4.5-7.5)
[2020-04-11] MEDS: GABAPENTIN 100 MG CAP PO SCH (22:44)
[2020-04-11] MEDS: POTASSIUM CHLORIDE 20 MEQ TABCR PO SCH (22:44)
[2020-04-11] MEDS: guaiFENesin 600 MG TABCR PO SCH (22:44)
[2020-04-11] MEDS: APIXABAN 5 MG TABLET PO SCH (22:45)
[2020-04-11] MEDS: DOXYCYCLINE HYCLATE 100 MG CAP PO SCH (22:45)
[2020-04-11] MEDS: INSULIN ASPART 100 UNITS/ML 3 ML PEN SC SCH (22:51)
[2020-04-12] MEDS: hydrALAZINE HCL 20 MG/ML VIAL IV PRN ×2 (00:20→07:54)
[2020-04-12] MEDS: ACETAMINOPHEN 325 MG TAB PO PRN ×2 (00:26→07:53)
[2020-04-12] MEDS: LEVALBUTEROL HCL 0.63 MG/3 ML NEB NEB SCH ×4 (00:41→19:01)
[2020-04-12] MEDS: IPRATROPIUM BROMIDE NEB SOLN 0.02% 2.5 ML VIAL INH SCH ×4 (00:41→19:00)
[2020-04-12] MEDS ORDERED: INSULIN ASPART 100 UNITS/ML 3 ML PEN SC SCH ×2 (02:00)
[2020-04-12] MEDS ORDERED: ALBUT/IPRATROP 3MG/0.5MG NEB 3 ML VIAL NEB PRN (02:55)
[2020-04-12] MEDS: BUDESONIDE 0.5 MG/2 ML VIAL (PULMICORT) NEB SCH ×2 (07:10→19:00)
[2020-04-12] MEDS: FORMOTEROL 20 MCG/2 ML VIAL INH SCH ×2 (07:28→19:00)
[2020-04-12 07:36] LABS: Hematocrit (blood only) 33.6 % (37-47); Mean Corpuscular Hemoglobin 23.9 pg (25-34); Mean Corpuscular Hgb Conc 29.8 g/dL (32-36); Mean Corpuscular Volume 80.2 fL (80-100); Mean Platelet Volume 11.4 fL (7.4-10.4); Platelet Count 247 K/uL (130-400); RDW Coefficient of Variation 18.5 % (11.5-14.5); RDW Standard Deviation 53.7 fL (36.4-46.3); Red Blood Count 4.19 M/uL (4.2-5.4); White Blood Count 8.58 K/uL (4.8-10.8)
[2020-04-12 07:54] LABS: Estimated Average Glucose 177 mg/dl; Hemoglobin A1C 7.8 % (4.5-5.6)
[2020-04-12] MEDS: methylPREDNISolone 40 MG in SYRINGE 0 ML IV SCH ×2 (08:00→13:12)
[2020-04-12] MEDS: ASPIRIN 81 MG ECTAB PO SCH (08:00)
[2020-04-12] MEDS: GABAPENTIN 100 MG CAP PO SCH ×2 (08:00→21:54)
[2020-04-12] MEDS: ROSUVASTATIN CALCIUM 20 MG TAB PO SCH (08:00)
[2020-04-12] MEDS: FUROSEMIDE 20 MG TAB PO SCH (08:01)
[2020-04-12] MEDS: SOTALOL HCL 80 MG TAB PO SCH (08:01)
[2020-04-12] MEDS: PANTOprazole 40 MG TAB PO SCH ×2 (08:02→21:55)
[2020-04-12] MEDS: ISOSORBIDE MONO EXTENDED REL 30 MG TABCR PO SCH (08:02)
[2020-04-12] MEDS: guaiFENesin 600 MG TABCR PO SCH ×2 (08:02→21:54)
[2020-04-12] MEDS: amLODIPine BESYLATE 5 MG TAB PO SCH (08:02)
[2020-04-12] MEDS: dilTIAZem HCL 180 MG CAPCR PO SCH (08:02)
[2020-04-12] MEDS: SERTRALINE HCL 50 MG TABLET PO SCH (08:03)
[2020-04-12] MEDS: APIXABAN 5 MG TABLET PO SCH ×2 (08:03→21:54)
[2020-04-12] MEDS: DOXYCYCLINE HYCLATE 100 MG CAP PO SCH ×2 (08:03→21:54)
[2020-04-12] MEDS: LOSARTAN POTASSIUM 50 MG TAB PO SCH (08:03)
[2020-04-12 08:04] LABS: BUN Creatinine Ratio 17.4 (10-20); Calcium 10.1 mg/dl (8.5-10.1); Creatinine Clr Calc Pharmacy 46.4 ml/min; Est GFR (African American) 58.7; Est GFR (Non-African American) 50.7; Potassium 4.4 mmol/L (3.5-5.1)
[2020-04-12] MEDS ORDERED: INSULIN GLARGINE SOLOSTAR 100 UNITS/ML 3 ML PEN SC SCH (09:00)
[2020-04-12] MEDS: FAMOTIDINE 20 MG TAB PO SCH ×2 (09:17→21:54)
[2020-04-12] MEDS: POTASSIUM CHLORIDE 20 MEQ TABCR PO SCH ×2 (09:17→21:54)
--- NOTE | 2020-04-12 09:19 | Pharmacy Report ---
Glycemic Control Consultation - Date of Service April 12, 2020 - Scope Scope: Glycemic Pharmacist consulted for glycemic control and to write orders per [facility] inpatient glycemic control protocol. - Objective Weight: 82.5 kg Accuchecks BSG (last 24hrs): 04/11/20 04/11/20 04/11/20 15:11 20:48 20:49 Glucose 204 H POC Glucose 338 H* 333 H* 04/12/20 04/12/20 02:08 07:03 Glucose 259 H POC Glucose 264 H Laboratory Data (last 24hrs): 04/11/20 04/12/20 15:11 07:03 Potassium 4.1 4.4 Carbon Dioxide 27 25 Anion Gap 6.0 8.0 Creatinine 0.99 1.09 Est Cr Clr Drug Dosing Not Reportable 46.4 HbA1c: Hemoglobin A1c 7.8 % (4.5-5.6) H 04/12/20 07:03 - Recent Pertinent Medications Outpatient Anti-diabetic Regimen: * Toujeo 70 units SC qAM * Novolog as directed per sliding scale * A1c = 7.8 % (04/12/20) Risk Factors for Insulin Resistance: * Steroids: Methylprednisolone 40 mg IV TID * Infection: COPD exacerbation possibly secondary to bacterial infection * Diet: T2DM - Assessment & Plan Assessment & Plan: ASSESSMENT: * DW is a 74 year old female admitted last evening (04/11/20) due to acute COPD exacerbation * Patient received dexamethasone 6 mg IV in the ED and then started on Solu- medrol 40 mg IV TID * Receiving doxycycline 100 mg PO BID * BSGs poorly controlled since time of admission - 204, 333, 264, and 259 mg/dL * Patient reports taking her Toujeo the morning of admission, elevated BSGs likely due to IV steroids * Will give home basal dose this morning * Will order overnight checks in place of additional basal insulin at this time * Will tighten carb ratio to 2 based on previous admission data (also while on steroids) PLAN FOR INPATIENT GLYCEMIC CONTROL: * Basal insulin * Lantus 70 units SQ qAM * Bolus insulin * NovoLog per scale ACHS or Q6hrs while NPO * Goal Range: Low 110 mg/dL - High 140 mg/dL * Correction Factor: 10 mg/dL/unit * Nutritional / Prandial insulin per carb ratio of 1 unit per 2 grams CHO c onsumed * Overnight checks at 00,04 with same parameters * Please note that the plan above was derived based on current level of insulin resistance and hospital stress. These recommendations are appropriate for inpatient admission only. Plan of care upon discharge will need to be reassessed to avoid potential outpatient hypo/hyperglycemia. Thank you.
[2020-04-12] MEDS: INSULIN ASPART 100 UNITS/ML 3 ML PEN SC SCH ×4 (09:23→21:59)
[2020-04-12] MEDS: FERROUS SULFATE 325 MG TAB PO SCH (13:11)
--- NOTE | 2020-04-12 15:01 | Hospitalist Progress Note ---
Date of Service April 12, 2020 Assessment & Plan (1) Acute exacerbation of chronic obstructive pulmonary disease (COPD): Meets for exacerbation with increased sputum production and cough frequency. Reports she has not been at baseline since switching her inhaler from Breo to her current one. - Continue steroids - Continue standing DuoNebs and PRN - Continue Mucinex - Continue doxycycline (2) Chronic respiratory failure with hypoxia: Based on most recent ABGs she does not appear to retain carbon dioxide. Baseline 2L NC at home. - Aim O2 sats > 92% (3) Normocytic anemia: MCV is low normal. Relatively acute but stable since March 20. - Will order anemia labs with AM labs (4) Diabetes: A1c was 7.8% this admission. - Insulin glargine 70 units QAM - Sliding scale insulin while on steroids; may need higher dose. Last 24 hours, sugars have been high 260-360. Will tighten meal-time somewhat. (5) Hypertension: BP is 160/65 today. - Continue amlodipine, diltiazem CD, Lasix, losartan - Hydralazine PRN (6) MINH (obstructive sleep apnea): - CPAP as patient willing (7) Lung cancer: History of such. Status post lobectomy in 2013. - No inpatient needs (8) Coronary artery disease: Patient reports no chest pain today for me. Troponin negative. - Continue ASA, statin, ARB, Imdur (9) CKD (chronic kidney disease): Baseline Cr ~1.0, eGFR ~55. CKD Stage III. - Presently near baseline. - Monitor; avoid nephrotoxic meds (10) Paroxysmal atrial fibrillation: In sinus rhythm on admission. - Continue apixaban - Continue sotalol - Continue calcium channel jone (11) Peripheral neuropathy: Likely due to DM. - Continue gabapentin (12) DVT prophylaxis: Apixaban Admission and Anticipated Discharge Date Admission Date: April 11, 2020 Subjective Still with shortness of breath and cough. The cough is not productive. Reports no fevers/chills, chest pain, abdominal pain, nausea, or vomiting. Physical Exam Constitutional: WD/WN, vitals as above Eyes: EOM intact bilaterally; no conjunctival abnormality ENMT: external ear and nose normal, oropharynx normal Neck: trachea midline, no thyromegaly normal visual inspection Respiratory: + labored breathing; no respiratory distress Auscultation: + wheezes Cardiovascular: RRR, no murmur, no edema Gastrointestinal (Abdomen): Inspection/Auscultation: abdomen normal to inspection; abdomen not distended Musculoskeletal: no cyanosis or clubbing, extremities motor strength 5/5 Skin: no rashes, warm and dry Neurologic: moves all extremities and awake Psychiatric: Orientation: alert, oriented to person and cooperative Results & Data Results & Data ([facility]) Vital Signs (Past 12 Hours) Vital Signs Temp Pulse Resp BP BP Pulse Ox 04/12/20 13:04 97 H 20 93 04/12/20 09:29 158/66 H 04/12/20 07:37 36.7 C 108 H 18 175/69 H 90 04/12/20 07:28 109 H 19 91 04/12/20 07:11 110 H 21 90 04/12/20 05:15 154/77 H 04/12/20 03:12 26 H PG Care Time/CCT Total # of Minutes Spent Total Time Spent with Patient: Total time spent is greater than 50% in coordination of care (as documented) at patient's floor/unit and/or counseling patient: Coding Level of Care Code 29477 Subseq Hosp Care Lvl 3 Diagnoses Acute exacerbation of chronic obstructive pulmonary disease (COPD) J44.1 Chronic respiratory failure with hypoxia J96.11 Normocytic anemia D64.9 Diabetes E11.42; Z79.4 Diabetes mellitus type: type 2 Diabetes mellitus residential insulin use: with residential use Diabetes mellitus complication status: with neurologic complications Diabetes mellitus complication detail: with polyneuropathy Hypertension I10 Hypertension type: essential hypertension MINH (obstructive sleep apnea) G47.33 Lung cancer C34.90 Coronary artery disease I25.10 Coronary Disease-Associated Artery/Lesion type: [place] artery [place] vs. 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 transplanted heart: [place] heart Associated angina: without angina Qualified Code(s): I25.10 - Atherosclerotic heart disease of [place] coronary artery without angina pectoris (4) Peripheral neuropathy Peripheral neuropathy type: polyneuropathy, unspecified Qualified Code(s): G62.9 - Polyneuropathy, unspecified
[2020-04-12] MEDS ORDERED: MONTELUKAST SODIUM 10 MG TABLET PO SCH (21:00)
[2020-04-13] MEDS: INSULIN ASPART 100 UNITS/ML 3 ML PEN SC SCH ×4 (00:10→13:16)
[2020-04-13] MEDS: LEVALBUTEROL HCL 0.63 MG/3 ML NEB NEB SCH ×3 (00:16→13:18)
[2020-04-13] MEDS: IPRATROPIUM BROMIDE NEB SOLN 0.02% 2.5 ML VIAL INH SCH ×3 (00:16→13:18)
[2020-04-13 06:12] LABS: Hematocrit (blood only) 32.3 % (37-47); Hemoglobin 9.7 g/dL (12.0-16.0); Mean Corpuscular Hemoglobin 24.3 pg (25-34); Mean Corpuscular Volume 80.8 fL (80-100); Mean Platelet Volume 11.1 fL (7.4-10.4); Platelet Count 292 K/uL (130-400); RDW Standard Deviation 55.7 fL (36.4-46.3); White Blood Count 16.23 K/uL (4.8-10.8)
[2020-04-13 06:41] LABS: BUN Creatinine Ratio 29.2 (10-20); Calcium 9.3 mg/dl (8.5-10.1); Creatinine Clr Calc Pharmacy 43.3 ml/min; Est GFR (African American) 53.9; Est GFR (Non-African American) 46.5; Magnesium 2.8 mg/dl (1.8-2.4); Potassium 4.4 mmol/L (3.5-5.1)
[2020-04-13] MEDS: BUDESONIDE 0.5 MG/2 ML VIAL (PULMICORT) NEB SCH (07:25)
[2020-04-13] MEDS: FORMOTEROL 20 MCG/2 ML VIAL INH SCH (07:25)
[2020-04-13] MEDS ORDERED: NovoLIN-N (NPH) PER UNIT CHARGE SQ SCH (08:15)
[2020-04-13] MEDS: LOSARTAN POTASSIUM 50 MG TAB PO SCH (08:50)
[2020-04-13] MEDS: SOTALOL HCL 80 MG TAB PO SCH (08:50)
[2020-04-13] MEDS: dilTIAZem HCL 180 MG CAPCR PO SCH (08:50)
[2020-04-13] MEDS: ROSUVASTATIN CALCIUM 20 MG TAB PO SCH (08:51)
[2020-04-13] MEDS: APIXABAN 5 MG TABLET PO SCH (08:51)
[2020-04-13] MEDS: ASPIRIN 81 MG ECTAB PO SCH (08:51)
[2020-04-13] MEDS: POTASSIUM CHLORIDE 20 MEQ TABCR PO SCH (08:52)
[2020-04-13] MEDS: FUROSEMIDE 20 MG TAB PO SCH (08:52)
[2020-04-13] MEDS: guaiFENesin 600 MG TABCR PO SCH (08:53)
[2020-04-13] MEDS: amLODIPine BESYLATE 5 MG TAB PO SCH (08:54)
[2020-04-13] MEDS: FAMOTIDINE 20 MG TAB PO SCH (08:54)
[2020-04-13] MEDS: GABAPENTIN 100 MG CAP PO SCH (08:54)
[2020-04-13] MEDS: SERTRALINE HCL 50 MG TABLET PO SCH (08:55)
[2020-04-13] MEDS: DOXYCYCLINE HYCLATE 100 MG CAP PO SCH (08:55)
[2020-04-13] MEDS: PANTOprazole 40 MG TAB PO SCH (08:55)
[2020-04-13] MEDS ORDERED: INSULIN GLARGINE SOLOSTAR 100 UNITS/ML 3 ML PEN SC SCH (09:00)
[2020-04-13] MEDS ORDERED: predniSONE 50 MG TAB PO SCH (09:00)
[2020-04-13] MEDS: FERROUS SULFATE 325 MG TAB PO SCH (11:31)
[2020-04-13] MEDS: ISOSORBIDE MONO EXTENDED REL 30 MG TABCR PO SCH (11:31)
--- NOTE | 2020-04-13 14:51 | Pharmacy Report ---
Pharmacy Glycemic Short Note 2 - Date of Service April 13, 2020 - Glycemic Short BSG Results (Last 24 hours): 04/12/20 04/12/20 04/13/20 17:15 20:35 00:03 Glucose POC Glucose 170 H 245 H 231 H 04/13/20 04/13/20 04/13/20 03:47 05:39 08:42 Glucose 176 H POC Glucose 183 H 200 H 04/13/20 12:14 Glucose POC Glucose 235 H OUTPATIENT ANTIDIABETIC REGIMEN: Toujeo 70 units SC qAM * Novolog as directed per sliding scale * A1c = 7.8 % (04/12/20) ASSESSMENT: 04/13: * Mariana received 188 units of insulin yesterday with poor glycemic control: * 70 units of basal * 118 units of bolus * Patient received solu medrol 40 mg IV TID (x 2 doses on 04/12) * Solu medrol d/c'ed last evening. Patient started on prednisone 50 mg po daily this morning. * Changes needed to insulin regimen: * Fasting BSG is above goal, slightly better than yesterday. Lantus will be increased. * Will add NPH for coverage of steroid induced hyperglycemia with prednisone (NPH peak effect mimics that of prednisone) * Will loosen Novolog parameters since NPH will help cover post prandial needs 04/12: * DW is a 74 year old female admitted last evening (04/11/20) due to acute COPD exacerbation * Patient received dexamethasone 6 mg IV in the ED and then started on Solu- medrol 40 mg IV TID * Receiving doxycycline 100 mg PO BID * BSGs poorly controlled since time of admission - 204, 333, 264, and 259 mg/dL * Patient reports taking her Toujeo the morning of admission, elevated BSGs likely due to IV steroids * Will give home basal dose this morning * Will order overnight checks in place of additional basal insulin at this time * Will tighten carb ratio to 2 based on previous admission data (also while on steroids) PLAN FOR INPATIENT GLYCEMIC CONTROL: * Basal insulin - increase & add NPH * Lantus 75 units SQ qAM * NPH 30 units SQ qAM (to be given with prednisone) * Bolus insulin - loosen * NovoLog per scale ACHS or Q6hrs while NPO * Goal Range: Low 110 mg/dL - High 140 mg/dL * Correction Factor: 20 mg/dL/unit * Nutritional / Prandial insulin per carb ratio of 1 unit per 5 grams CHO consumed
--- NOTE | 2020-04-13 15:35 | Discharge Summary ---
Date of Service April 13, 2020 Admission HPI Per Admitting Provider Mariana Elam is a 74-year-old female with severe COPD who presents to the ER with worsening shortness of breath on exertion, increased sputum production and increased cough frequency for the last 4 days. She was recently treated with prednisone and doxycycline for a COPD exacerbation although is unable to tell me when she finished the steroids this was around about 2 weeks ago. She appears to be relatively confused with outpatient regimen and is not currently taking Breo Ellipta or Symbicort. She was given Brovana nebulizer samples which she has been taking although appears to be missing an inhaled corticosteroid in her usual maintenance inhalers - she notes the Brovana may be cost prohibitive in the future without the sample packs. In addition she does not appear to be taking a long-acting muscarinic antagonist. She has been taking duo nebs every 4 hours without relief of her symptoms. Principal Diagnosis COPD exacerbation Discharge Exam Constitutional WD/WN, vitals as above Eyes EOM intact bilaterally; no conjunctival abnormality ENMT external ear and nose normal, oropharynx normal Neck trachea midline, no thyromegaly normal visual inspection Respiratory + labored breathing; no respiratory distress Auscultation: + wheezes Cardiovascular RRR, no murmur, no edema Gastrointestinal (Abdomen) Inspection/Auscultation: abdomen normal to inspection; abdomen not distended Musculoskeletal no cyanosis or clubbing, extremities motor strength 5/5 Skin no rashes, warm and dry Neurologic moves all extremities and awake Psychiatric Orientation: alert, oriented to person and cooperative Discharge Data Allergies Allergy/AdvReac Type Severity Reaction Status Date / Time fentanyl Allergy Intermediate RASH Verified 04/11/20 18:40 levofloxacin Allergy Intermediate UNKNOWN Verified 04/11/20 18:40 Penicillins Allergy Intermediate RASH Verified 04/11/20 18:40 sulfamethoxazole Allergy Unknown Verified 04/11/20 18:40 [From Bactrim] trimethoprim [From Bactrim] Allergy Unknown Verified 04/11/20 18:40 Ethanol Allergy Intermediate RASH Uncoded 04/11/20 18:40 Consultations 04/11/20 18:09 ED Decision to Admit Stat Hospital Course (1) Acute exacerbation of chronic obstructive pulmonary disease (COPD): Meets for exacerbation with increased sputum production and cough frequency. Reports she has not been at baseline since switching her inhaler from Breo to her current one. - Improved over 2 days in the hospital. - Discharged on steroid taper and doxycycline x 4 more days. She felt Breo helped more than her current medications, so I re-prescribed Breo for her. She was not on a LAMA from my review of prior pulmonary notes which would be indicated with her severe COPD and frequent exacerbations. This was added to her regimen. - (2) Chronic respiratory failure with hypoxia: Based on most recent ABGs she does not appear to retain carbon dioxide. Baseline 2L NC at home. - Aim O2 sats > 92% (3) Normocytic anemia: MCV is low normal. Relatively acute but stable since March 20. - Continue iron supplement (4) Diabetes: A1c was 7.8% this admission. - Insulin glargine 70 units QAM - Sliding scale insulin while on steroids; may need higher dose. Last 24 hours, sugars have been high 260-360. Will tighten meal-time somewhat. (5) Hypertension: BP is 160/65 today. - Continue amlodipine, diltiazem CD, Lasix, losartan - Hydralazine PRN (6) MINH (obstructive sleep apnea): - CPAP as patient willing (7) Lung cancer: History of such. Status post lobectomy in 2013. - No inpatient needs (8) Coronary artery disease: Patient reports no chest pain today for me. Troponin negative. - Continue ASA, statin, ARB, Imdur (9) CKD (chronic kidney disease): Baseline Cr ~1.0, eGFR ~55. CKD Stage III. - Presently near baseline. - Monitor; avoid nephrotoxic meds (10) Paroxysmal atrial fibrillation: In sinus rhythm on admission. - Continue apixaban - Continue sotalol - Continue calcium channel jone (11) Peripheral neuropathy: Likely due to DM. - Continue gabapentin (12) DVT prophylaxis: Apixaban Total Time Total Time Spent Total Time Spent (In Minutes): 35 Discharge Plan Discharge Items Patient Disposition: Home - Self-Care Reason For Visit: COPD EXACERBATION Discharge Diagnosis: COPD exacerbation Activity: Resume your previous activity Non-emergency contact: Primary Care Provider and Director Of Corporate Marketing Call non-emergency contact if: your symptoms worsen and your temperature is above 101 Follow-up/Referrals: Adi Ledesma PA-C [Physician De Icer Kit Assembler] - 04/27/20 11:00 am (Please see Mr. Ledesma in 1-2 weeks, preferably before finishing your steroids.) Jennifer Viramontes PA-C [Primary Care Provider] - 04/19/20 3:30 pm Diet: Heart Healthy Addtl Attending Provider Instructions: Mr. Elam, You were admitted to the hospital for a COPD exacerbation. This improved with breathing treatments, steroids, and a small antibiotic dose. We are sending you home on a steroids taper and a short course of antibiotics. Of note, you CAN take both the DuoNeb treatments (the little vials you showed me), as well as the Breo. The Breo is meant to be taken once per day EVERY day. The DuoNeb vials are meant to be used up to 4 times per day as needed. However, if you are using them that often, you need to speak with Ashish Ledesma as that may mean you need an adjust to your daily medications. Take the prednisone as follows: 40 mg (4 tablets) once a day for 3 days, 30 mg (3 tablets) once a day for 3 days, 20 mg (2 tablets) once a day for 3 days, 10 mg (1 tablet) once a day for 3 days, then stop. The antibiotic is two times a day until it is gone with the first dose tonight. Finally, I added Spiriva (tiotropium) to your COPD regimen which is also a ONCE a day medication. Take this every day to help make each day a bit better. It is not a fast-acting, "rescue" medication and won't help if you are having shortness of breath at any one time. Please follow up with Ashish Ledesma in the office this week or next week to be sure you are feeling better. Pending Studies at Discharge: No Stand-Alone Forms: [facility], Opioid Pain Management, Smoking Cessation Medications and DC Order Prescriptions: New doxycycline hyclate 100 mg Capsule 100 mg PO BID Qty: 6 RF: 0 Breo Ellipta 100-25 mcg/dose blister with device 1 inh inhalation DAILY Qty: 28 RF: 0 tiotropium bromide 18 mcg capsule, w/inhalation device 1 cap inhalation DAILY Qty: 30 RF: 0 prednisone 10 mg tablet 10 mg PO DAILY Qty: 30 RF: 0 Continued ipratropium-albuterol 0.5 mg-3 mg(2.5 mg base)/3 mL solution for nebulization 3 ml inhalation Q4H PRN (Reason: shortness of breath or wheezing) Qty: 270 RF: 1 ferrous sulfate 140 mg (45 mg iron) tablet extended release 140 mg PO DAILY Qty: 30 RF: 5 potassium chloride 20 mEq tablet extended release 20 meq PO BID RF: 0 rosuvastatin [Crestor] 20 mg tablet 20 mg PO DAILY RF: 0 albuterol sulfate 90 mcg/actuation HFA aerosol inhaler 2 puff inhalation Q4 PRN (Reason: Shortness Of Breath Or Wheezing) RF: 0 montelukast 10 mg tablet 10 mg PO DAILY RF: 0 triamcinolone acetonide 0.1 % cream 1 applic topical TID PRN (Reason: BREAK OUTS) RF: 0 amlodipine [Norvasc] 10 mg tablet 10 mg PO DAILY RF: 0 sodium chloride [[place]rose Saline] 0.65 % aerosol,spray 1 sprays INTNAS BID PRN (Reason: Nasal Congestion) RF: 0 isosorbide mononitrate 30 mg tablet extended release 24 hr 30 mg PO DAILY Qty: 30 RF: 0 aspirin [Adult Low Dose Aspirin] 81 mg tablet,delayed release (DR/EC) 81 mg PO DAILY RF: 0 sotalol [Betapace] 80 mg tablet 40 mg PO DAILY RF: 0 Eliquis 5 mg tablet 5 mg PO BID RF: 0 gabapentin 100 mg Capsule 100 mg PO BID RF: 0 losartan [Cozaar] 100 mg Tablet 100 mg PO DAILY RF: 0 sertraline [Zoloft] 50 mg Tablet 50 mg PO DAILY RF: 0 guaifenesin [Mucinex] 600 mg Tablet Extended Release 12hr 600 mg PO BID PRN (Reason: Congestion) RF: 0 furosemide 20 mg Tablet 10 mg PO DAILY RF: 0 insulin aspart U-100 [Novolog U-100 Insulin aspart] 100 unit/mL Solution 1 sliding scale dose SUBCUT USEASDIRECTD RF: 0 acetaminophen 500 mg Tablet 1,000 mg PO TID PRN (Reason: back pain) Qty: 30 RF: 0 diltiazem HCl 180 mg capsule,extended release 24hr 180 mg PO DAILY RF: 0 cyanocobalamin (vitamin B-12) 1,000 mcg/mL solution 1,000 mcg subcut UD RF: 0 nitroglycerin 0.4 mg tablet, sublingual 0.4 mg sublingual UD PRN (Reason: Chest Pain) RF: 0 omeprazole 20 mg capsule,delayed release(DR/EC) 20 mg PO BID RF: 0 diclofenac sodium [Voltaren] 1 % gel 4 g EXT QID PRN (Reason: Pain) RF: 0 Toujeo SoloStar U-300 Insulin 300 unit/mL (1.5 mL) insulin pen 70 unit SUBCUT QAM RF: 0 famotidine [Pepcid] 40 mg tablet 40 mg PO BID Qty: 30 RF: 0 Discontinued arformoterol [Brovana] 15 mcg/2 mL solution for nebulization 0 mcg inhalation UD RF: 0 Discharge Orders: Discharge Order (Routine); Ordered 04/13/20 Ordered By: Denver Olvera/Other Patient Handouts: Managing Type 2 Diabetes Admission Data Admit Date/Time: 04/11/20 19:02 Attending Provider: Denver Arriaga Admit Provider: Faustino Jorgensen Primary Care Provider: Jennifer Viramontes Other Providers: Denver Arriaga Other Interventions: Discharge Summary Assessment (RN) Last Done: 04/13/20 14:42 Coding Level of Care Code D/C Day Management >30 mins Diagnoses Acute exacerbation of chronic obstructive pulmonary disease (COPD) J44.1 Chronic respiratory failure with hypoxia J96.11 Normocytic anemia D64.9 Diabetes E11.42; Z79.4 Diabetes mellitus type: type 2 Diabetes mellitus terminologist insulin use: with terminologist use Diabetes mellitus complication status: with neurologic complications Diabetes mellitus complication detail: with polyneuropathy Hypertension I10 Hypertension type: essential hypertension MINH (obstructive sleep apnea) G47.33 Lung cancer C34.90 Coronary artery disease I25.10 Coronary Disease-Associated Artery/Lesion type: [place] artery [place] vs. transplanted heart: [place] heart Associated angina: without angina CKD (chronic kidney disease) N18.9 Paroxysmal atrial fibrillation I48.0 Peripheral neuropathy G62.9 Peripheral neuropathy type: polyneuropathy, unspecified DVT prophylaxis Z29.9
== END 2020-04-13 16:00 | disposition home or self-care (01) ==
LOC: ED 14:36 → 3W 14:36 → SUATTDRO 19:02 → 3W 20:15